=== PATIENT | male | born 1955 | race Two or more races ===

== ENCOUNTER 2016-07-04 19:19 | Inpatient (IN) | payer OTHER ==
[~2016-07-04] VITALS: Ht 172.7 cm; Wt 63.5 kg
[2016-07-04 20:08] VITALS: BP 96/64
[2016-07-04 20:13] LABS: EOSINOPHILS % (AUTO) 0.4 % (0.0-3.0); LYMPHOCYTES % (AUTO) 14.6 % (20.0-45.0); MEAN CORPUSCULAR HEMOGLOBIN 32.3 PG (27.0-31.0); MEAN CORPUSCULAR VOLUME 98 FL (80-99); MEAN PLATELET VOLUME 7.1 FL (6.5-10.1); MONOCYTES % (AUTO) 5.5 % (1.0-10.0); NEUTROPHILS % (AUTO) 78.5 % (45.0-75.0); PLATELET COUNT 267 K/UL (150-450); RED BLOOD COUNT 3.49 M/UL (4.70-6.10); RED CELL DISTRIBUTION WIDTH 12.3 % (11.6-14.8); WHITE BLOOD COUNT 12.4 K/UL (4.8-10.8)
[2016-07-04 20:27] LABS: INR 1.1 (0.9-1.1); PROTHROMBIN TIME 10.9 SEC (9.30-11.50)
[2016-07-04 20:38] LABS: TROPONIN I < 0.30 ng/mL (<=0.30)
[2016-07-04 20:41] LABS: ALANINE AMINOTRANSFERASE 60 U/L (3-41); ALBUMIN/GLOBULIN RATIO 0.4 (1.0-2.7); ANION GAP 16 (5-15); ASPARTATE AMINO TRANSFERASE 65 U/L (5-40); CALCIUM 11.7 mg/dL (8.6-10.2); CARBON DIOXIDE 28 mEQ/L (20-30); CHLORIDE 89 mEQ/L (98-107); CREATININE 2.5 mg/dL (0.7-1.2); GLOMERULAR FILTRATION RATE 26.6 mL/min (>60); HEMOLYSIS 46; POTASSIUM 4.7 mEQ/L (3.4-4.9); SODIUM 133 mEQ/L (135-145); TOTAL PROTEIN 9.5 g/dL (6.6-8.7)
[2016-07-04 20:51] LABS: CKMB < 1.5 ng/mL (< 6.7)
[2016-07-04 21:39] VITALS: BP 104/67
[2016-07-04] MEDS ORDERED: Miralax 17gm pkt ORAL PRN (23:00)
[2016-07-04] MEDS ORDERED: Morphine Sulfate 4mg/ml Inj IVP PRN (23:00)
[2016-07-04] MEDS ORDERED: DuoNeb 0.5-3(2.5)mg/3ml neb HHN PRN (23:00)
[2016-07-04 23:30] VITALS: BP 125/98
[2016-07-05 01:11] LABS: MEAN CORPUSCULAR HEMOGLOBIN 31.6 PG (27.0-31.0); MEAN CORPUSCULAR HGB CONC 32.6 G/DL (32.0-36.0); MEAN CORPUSCULAR VOLUME 97 FL (80-99); MEAN PLATELET VOLUME 7.5 FL (6.5-10.1); PLATELET COUNT 307 K/UL (150-450); RED BLOOD COUNT 3.28 M/UL (4.70-6.10); RED CELL DISTRIBUTION WIDTH 12.1 % (11.6-14.8)
[2016-07-05 01:28] LABS: CALCIUM 11.7 mg/dL (8.6-10.2); CREATININE 2.5 mg/dL (0.7-1.2); GLOMERULAR FILTRATION RATE 26.6 mL/min (>60); POTASSIUM 4.4 mEQ/L (3.4-4.9)
[2016-07-05 01:30] VITALS: BP 128/97
[2016-07-05 01:32] LABS: ALANINE AMINOTRANSFERASE 56 U/L (3-41); ALBUMIN/GLOBULIN RATIO 0.3 (1.0-2.7); ANION GAP 16 (5-15); ASPARTATE AMINO TRANSFERASE 58 U/L (5-40); CALCIUM 11.6 mg/dL (8.6-10.2); CARBON DIOXIDE 26 mEQ/L (20-30); CHLORIDE 90 mEQ/L (98-107); CREATININE 2.5 mg/dL (0.7-1.2); GLOMERULAR FILTRATION RATE 26.6 mL/min (>60); HEMOLYSIS 20; MAGNESIUM 2.8 mg/dL (1.7-2.5); POTASSIUM 4.5 mEQ/L (3.4-4.9); SODIUM 132 mEQ/L (135-145); TOTAL PROTEIN 9.3 g/dL (6.6-8.7)
[2016-07-05 03:30] VITALS: BP 129/96
[2016-07-05 08:00] VITALS: BP 99/67
--- NOTE | 2016-07-05 08:33 | Consultation ---
Consult Note Consult Note ID CONSULT: Saeid# [id number] Assessment/Plan ASSESSMENT: 61 y/o male with: // Possible sepsis r/o HCAP, UTI, bacteremia, biliary - cultures, imaging pending // Elevated LFTs r/o hepatobiliary disease // Leukocytosis - worse // Fever // Chronic VDRF SP trach, PEG with trach malfunction // CKD3 - stable // Hypercalcemia // NKDA // Full Code PLAN: - continue empiric IV vancomycin, cefepime d# 1 - check UA, UCx, BCx - check hepatitis panel, abdo US - f/u SCx - f/u CXR - monitor CBC, temperatures - monitor CMP - vent support, trach care, aspiration precautions Thanks! Will follow CRIS CRAR Jul 05, 2016 08:33
[2016-07-05] MEDS: Cefepime HCl 2 GM in D5W 110 ML IV SCH (09:00)
[2016-07-05 10:50] LABS: BAND NEUTROPHILS % (MANUAL) 1 % (0-8); BASOPHILS % (MANUAL) 0 % (0-2); EOSINOPHILS % (MANUAL) 0 % (0-3); HYPOCHROMASIA 1+; LYMPHOCYTES % (MANUAL) 9 % (20-45); NEUTROPHILS % (MANUAL) 78 % (45-75); PLATELET ESTIMATE ADEQUATE; PLATELET MORPHOLOGY NORMAL; TOTAL CELLS COUNTED 100
[2016-07-05] MEDS: Vancomycin 1 GM in D5W 275 ML IVPB SCH (11:50)
--- NOTE | 2016-07-05 11:58 | Diagnostic Imaging Report ---
Indication: Chest pain Technique: One view of the chest Comparison: none Findings: Ill-defined hazy opacities are seen in the infrahilar regions bilaterally. The pleural spaces are clear. There is a right arm PICC in good position. Surgical clips are seen in the left upper quadrant. There is a tracheostomy Impression: Bilateral infrahilar hazy opacities, suspect bilateral infiltrates. Other findings as noted
[2016-07-05 12:00] VITALS: BP 103/70
[2016-07-05] MEDS: Heparin 5000 units/ml inj SUBQ SCH ×2 (12:14→21:05)
--- NOTE | 2016-07-05 13:20 | History and Physical ---
History of Present Illness General Date patient seen: Jul 05, 2016 Reason for Hospitalization: General Complaint Present Illness HPI 61 year old male with hx of trach/peg, decubiti, OBS. senior care resident isidra b/o leading from trach site. Pt was diagnosed to have bilateral pneumonia and admitted to [facility] for further treatment. Pt opens his eyes, tracks but can't trach and doesn't follow commands. Allergies: Coded Allergies: No Known Allergies (Unverified , 07/04/16) Patient History Healthcare decision maker Resuscitation status Advanced Directive on File Past Medical/Surgical History Past Medical/Surgical History: (1) Tracheostomy status (2) Feeding by G-tube Review of Systems All Other Systems: negative except mentioned in HPI Physical Exam General Appearance: cachetic Lines, tubes and drains: peripheral, central line HEENT: normocephalic, atraumatic Neck: non-tender, normal alignment Respiratory/Chest: chest wall non-tender, lungs clear Breasts: no masses Cardiovascular/Chest: normal peripheral pulses Abdomen: normal bowel sounds, soft Genitourinary/Rectal: normal genital exam Extremities: normal range of motion Neurologic: logistics team lead II-XII grossly normal Lymphatic: anterior cervical Last 24 Hour Vital Signs Date Time Temp Pulse Resp B/P Pulse Ox O2 Delivery O2 Flow Rate FiO2 07/05/16 12:00 87 07/05/16 11:05 86 16 40 07/05/16 09:27 88 14 40 07/05/16 08:00 98.2 94 15 99/67 100 Mechanical Ventilator 40 07/05/16 08:00 97 07/05/16 08:00 40.0 07/05/16 07:09 87 13 40 07/05/16 05:20 95 15 40 07/05/16 04:00 40.0 07/05/16 04:00 98 07/05/16 03:30 99.8 106 17 129/96 100 Mechanical Ventilator 40 07/05/16 03:30 99.8 106 17 129/96 100 Mechanical Ventilator 40 07/05/16 03:03 73 26 40 07/05/16 01:30 98.9 110 18 128/97 98 Mechanical Ventilator 5.0 40 07/05/16 00:46 40 07/05/16 00:45 109 16 50 07/05/16 00:04 126 25 50 07/05/16 00:00 40 07/04/16 23:30 108 18 125/98 100 Mechanical Ventilator 5.0 50 07/04/16 21:39 100.0 84 17 104/67 99 Mechanical Ventilator 5.0 50 07/04/16 21:14 93 21 50 07/04/16 20:08 100.0 87 16 96/64 95 Mechanical Ventilator 5.0 50 07/04/16 19:46 92 16 50 07/04/16 19:25 50 07/04/16 19:15 112 16 96/64 95 Mechanical Ventilator 5.0 Intake and Output 07/04/16 07/05/16 19:00 07:00 Output Total 0 ml Balance 0 ml Output Urine Total 0 ml # Voids 2 Laboratory Tests Test 07/04/16 20:00 07/05/16 00:56 07/05/16 10:00 White Blood Count 12.4 K/UL (4.8-10.8) H 18.0 K/UL (4.8-10.8) H Red Blood Count 3.49 M/UL (4.70-6.10) L 3.28 M/UL (4.70-6.10) L Hemoglobin 11.3 G/DL (14.2-18.0) L 10.4 G/DL (14.2-18.0) L Hematocrit 34.2 % (42.0-52.0) L 31.8 % (42.0-52.0) L Mean Corpuscular Volume 98 FL (80-99) 97 FL (80-99) Mean Corpuscular Hemoglobin 32.3 PG (27.0-31.0) H 31.6 PG (27.0-31.0) H Mean Corpuscular Hemoglobin Concent 33.0 G/DL (32.0-36.0) 32.6 G/DL (32.0-36.0) Red Cell Distribution Width 12.3 % (11.6-14.8) 12.1 % (11.6-14.8) Platelet Count 267 K/UL (150-450) 307 K/UL (150-450) Mean Platelet Volume 7.1 FL (6.5-10.1) 7.5 FL (6.5-10.1) Neutrophils (%) (Auto) 78.5 % (45.0-75.0) H % (45.0-75.0) Lymphocytes (%) (Auto) 14.6 % (20.0-45.0) L % (20.0-45.0) Monocytes (%) (Auto) 5.5 % (1.0-10.0) % (1.0-10.0) Eosinophils (%) (Auto) 0.4 % (0.0-3.0) % (0.0-3.0) Basophils (%) (Auto) 1.0 % (0.0-2.0) % (0.0-2.0) Prothrombin Time 10.9 SEC (9.30-11.50) Prothromb Time International Ratio 1.1 (0.9-1.1) Activated Partial Thromboplast Time 25 SEC (23-33) Sodium Level 133 mEQ/L (135-145) L 134 mEQ/L (135-145) L Potassium Level 4.7 mEQ/L (3.4-4.9) 4.4 mEQ/L (3.4-4.9) Chloride Level 89 mEQ/L (98-107) L 91 mEQ/L (98-107) L Carbon Dioxide Level 28 mEQ/L (20-30) 30 mEQ/L (20-30) Anion Gap 16 (5-15) H 13 (5-15) Blood Urea Nitrogen 44 mg/dL (7-23) H 44 mg/dL (7-23) H Creatinine 2.5 mg/dL (0.7-1.2) H 2.5 mg/dL (0.7-1.2) H Estimat Glomerular Filtration Rate 26.6 mL/min (>60) 26.6 mL/min (>60) Glucose Level 100 mg/dL (74-106) 118 mg/dL (74-106) H Calcium Level 11.7 mg/dL (8.6-10.2) H 11.7 mg/dL (8.6-10.2) H Total Bilirubin 0.4 mg/dL (0.0-1.2) 0.5 mg/dL (0.0-1.2) Aspartate Amino Transf (AST/SGOT) 65 U/L (5-40) H 58 U/L (5-40) H Alanine Aminotransferase (ALT/SGPT) 60 U/L (3-41) H 56 U/L (3-41) H Alkaline Phosphatase 422 U/L (40-129) H 417 U/L (40-129) H Total Creatine Kinase 43 U/L (38-174) 38 U/L (38-174) Creatine Kinase MB < 1.5 ng/mL (< 6.7) Creatine Kinase MB Relative Index Troponin I < 0.30 ng/mL (<=0.30) Total Protein 9.5 g/dL (6.6-8.7) H 9.3 g/dL (6.6-8.7) H Albumin 2.8 g/dL (3.5-5.2) L 2.9 g/dL (3.5-5.2) L Globulin 6.7 g/dL 6.9 g/dL Albumin/Globulin Ratio 0.4 (1.0-2.7) L 0.3 (1.0-2.7) L Differential Total Cells Counted 100 Neutrophils % (Manual) 78 % (45-75) H Lymphocytes % (Manual) 9 % (20-45) L Monocytes % (Manual) 12 % (1-10) H Eosinophils % (Manual) 0 % (0-3) Basophils % (Manual) 0 % (0-2) Band Neutrophils 1 % (0-8) Platelet Estimate Adequate Platelet Morphology Normal Hypochromasia 1+ Plasma/Serum Osmolality Pending Uric Acid 6.0 mg/dL (3.0-7.5) Phosphorus Level 4.0 mg/dL (2.5-4.8) Magnesium Level 2.8 mg/dL (1.7-2.5) H Thyroid Stimulating Hormone (TSH) 1.080 uIU/mL (0.300-4.500) Free Thyroxine 1.68 ng/dL (0.86-1.85) Cortisol Pending Hepatitis A IgM Antibody Pending Hepatitis B Surface Antigen Pending Hepatitis B Core IgM Antibody Pending Hepatitis C Antibody Pending Height (Feet): 5 Height (Inches): 8.00 Weight (Pounds): 140 Medications Current Medications Medications (Trade) Dose Ordered Sig/Evangelina Route PRN Reason Start Time Stop Time Status Last Admin Dose Admin Acetaminophen (Tylenol) 650 mg Q4H PRN ORAL FEVER 07/04/16 23:00 08/03/16 22:59 Albuterol/ Ipratropium 3 ml 3 ml EVERY 4 HOURS PRN HHN Shortness of Breath 07/04/16 23:00 07/09/16 22:59 Cefepime HCl 2 gm/ Dextrose 110 ml @ 220 mls/hr Q24H IV 07/05/16 09:00 07/12/16 08:59 07/05/16 09:00 Dextrose STAT PRN IV Hypoglycemia 07/04/16 23:00 08/03/16 22:59 Heparin Sodium (Porcine) (Heparin 5000 units/ml) 5,000 units EVERY 12 HOURS SUBQ 07/05/16 09:00 08/04/16 08:59 07/05/16 12:14 Lorazepam (Ativan 2mg/ml 1ml) 2 mg EVERY 2 HOURS PRN IV For Anxiety 07/04/16 23:00 07/11/16 22:59 Morphine Sulfate (Morphine Sulfate) 4 mg EVERY 4 HOURS PRN IVP Severe Pain (Pain Scale 7-10) 07/04/16 23:00 07/11/16 22:59 Ondansetron HCl (Zofran) 4 mg Q6H PRN IVP Nausea & Vomiting 07/04/16 23:00 08/03/16 22:59 Polyethylene Glycol (Miralax) 17 gm DAILYPRN PRN ORAL Constipation 07/04/16 23:00 08/03/16 22:59 Sodium Chloride (Sodium Chloride 1000ml bag) 1,000 ml @ 125 mls/hr Q8H IV 07/04/16 23:00 08/03/16 22:59 07/05/16 07:00 Vancomycin HCl/ Dextrose (Vancomycin/D5W) 275 ml @ 183.3 mls/ hr Q24H IVPB 07/05/16 04:00 07/10/16 03:59 07/05/16 11:50 Assessment/Plan Problem List: (1) Acute on chronic respiratory failure ICD Codes: J96.20 - Acute and chronic respiratory failure, unspecified whether with hypoxia or hypercapnia SNOMED: 80107549, 35683472 (2) Pneumonia ICD Codes: J18.9 - Pneumonia, unspecified organism SNOMED: 923004538 (3) Tracheostomy status ICD Codes: Z93.0 - Tracheostomy status SNOMED: 94356703, 879525741 (4) ATN (acute tubular necrosis) ICD Codes: N17.0 - Acute kidney failure with tubular necrosis SNOMED: 25566859 (5) Feeding by G-tube ICD Codes: Z93.1 - Gastrostomy status SNOMED: 531116417, 731230368 Respiratory: monitor respiratory rate, adjust FIO2, CXR Cardiac: continue pressors, continue to monitor HR/BP Renal: check electrolytes Infectious Disease: check cultures, continue antibiotics Gastrointestinal: continue feedings/current rate Endocrine: monitor blood sugar, check TSH, continue sliding scale insulin Hematologic: monitor H/H, transfuse if hgb<8.5 Neurologic: PRN Ativan, PRN Morphine, keep patient comfortable Prophylaxis: Protonix, Heparin Disposition: keep in ICU Notes Reviewed: cardio, renal Discussed with: nurses, consultants ANDERSON NUNEZ Jul 05, 2016 13:19
[2016-07-05 13:41] LABS: APPEARANCE,URINE SLIGHTLY CLOUDY; KETONES,URINE NEGATIVE (NEGATIVE); LEUKOCYTE ESTERASE ,URINE 3+ (NEGATIVE); NITRITE,URINE NEGATIVE (NEGATIVE); PH,URINE 5 (4.5-8.0); PROTEIN,URINE 3+ (NEGATIVE); UROBILINOGEN,URINE NORMAL MG/DL (0.0-1.0)
--- NOTE | 2016-07-05 13:58 | Consultation ---
DATE OF CONSULTATION: 07/05/2016 INFECTIOUS DISEASE CONSULTATION: CONSULTING PHYSICIAN: Thomas Dawson M.D. ATTENDING PHYSICIAN: Jim Gonzalez M.D. REQUESTING PHYSICIAN: Jim Gonzalez M.D. REASON FOR CONSULTATION: Possible sepsis. HISTORY OF PRESENT ILLNESS: This is a 61-year-old male, long term resident with history of chronic ventilator-dependent respiratory failure, status post tracheostomy and PEG, admitted on 07/04/2016 with tracheostomy malfunction. He has evidence of possible sepsis with worsening leukocytosis and low-grade fevers. Cultures and imaging are pending. He has been started on empiric vancomycin and cefepime. ID now consulted to assist in management. PAST MEDICAL HISTORY: 1. Chronic ventilator-dependent respiratory failure. 2. Probable chronic kidney disease. PAST SURGICAL HISTORY: 1. Tracheostomy. 2. PEG tube placement. FAMILY HISTORY: Unknown. SOCIAL HISTORY: The patient is a resident in long term. No active tobacco, alcohol, or illicit drug abuse. ALLERGIES: No known drug allergies. MEDICATIONS: 1. Vancomycin. 2. Cefepime. 3. Subcutaneous heparin. REVIEW OF SYSTEMS: Unable to obtain. PHYSICAL EXAMINATION: VITAL SIGNS: Maximum temperature of 100 degrees, blood pressure 129/96, heart rate in the 90s, respiratory rate 17, saturating 100% on 40% FiO2. GENERAL: No apparent distress. Nontoxic appearing and thin. CARDIOVASCULAR: Regular rate and rhythm. No murmurs. PULMONARY: Coarse breath sounds bilaterally. ABDOMINAL: Exam bowel sounds present. Soft, nondistended, nontender. PEG tube in place. EXTREMITIES: No Edema. LABORATORY DATA: White blood cell count 18 and increased from 12.4 with left shift. Hemoglobin 10.4, platelets 307,000. Sodium 134, potassium 4.4, chloride 91, bicarbonate 30, BUN 44, and creatinine 2.5 with calcium of 11.7. AST 58, ALT 56, and alkaline phosphatase 417, total bilirubin 0.5 albumin 2.4 troponin negative x1. MICROBIOLOGY: On 07/04/2016, sputum culture pending. IMAGIN. On 07/04/2016, chest x-ray pending. 2. On 07/04/2016, renal ultrasound pending. 3. On 07/04/2016, Doppler ultrasound pending. ASSESSMENT: 1. Possible sepsis, rule out healthcare-associated pneumonia and urinary tract infection bacteremia, or biliary source. Cultures and imaging are pending. 2. Elevated liver function tests, rule out hepatobiliary disease. 3. Leukocytosis, worsening. 4. Low-grade fever. 5. Chronic ventilator-dependent respiratory failure, status post tracheostomy and percutaneous endoscopic gastrostomy with tracheostomy malfunction. 6. Chronic kidney disease stage 3 with stable function. 7. Hypercalcemia. 8. No known drug allergies. 9. Full Code. PLAN: 1. Continue empiric IV vancomycin and cefepime day #1. 2. Check urinalysis, urine culture, and blood culture. 3. Check hepatitis panel and abdominal ultrasound. 4. Follow up sputum culture. 5. Follow up chest x-ray. 6. Monitor CBC and temperatures. 7. Monitor CMP. 8. Ventilator support, tracheostomy care, and aspiration precautions. Thank you. We will follow. Thomas Dawson M.D. DR: Antonia JOB#: [id number] CC: Ryan Hyde M.D ; Fax#: [phone] Gonzalez M.D.; Fax#: [phone]
[2016-07-05 14:02] LABS: BACTERIA,URINE FEW /HPF; RBC,URINE 60-80 /HPF (0 - 0); SQUAMOUS EPITHELIAL CELL,UR OCCASIONAL /LPF (NONE/OCC); WBC,URINE 15-20 /HPF (0 - 0); YEAST,URINE FEW /HPF
[2016-07-05 15:53] VITALS: BP 106/77
--- NOTE | 2016-07-05 16:31 | Diagnostic Imaging Report ---
Indication: Right upper quadrant pain and abnormal liver function tests Technique: Hernandez-scale and duplex images of the upper abdomen were obtained Comparison: None Findings: . Gallbladder contains a large gallstone. No gallbladder wall thickening or pericholecystic fluid.. Sonographic Desir's sign is negative. Common bile duct measures 3 mm in diameter. No intrahepatic biliary ductal dilatation. Liver demonstrates normal echogenicity, no focal abnormality. Portal vein and hepatic veins are patent. Pancreas is unremarkable. Spleen is unremarkable. Left kidney is not visualized. Per technologist, patient has a left flank scar. Right kidney measures 10.9 cm length. Right kidney demonstrates normal echogenicity. There is no hydronephrosis. Right kidney demonstrates multiple cysts. Non-aneurysmal abdominal aorta. Impression: Cholelithiasis. Negative for dilated ducts Nonvisualized left kidney, possibly surgically absent. Correlate with surgical history Incidental finding right renal cysts
--- NOTE | 2016-07-05 18:11 | Consultation ---
Consult Note Consult Note This is a 61-year-old male, pen[facility]iary resident with history of chronic ventilator-dependent respiratory failure, status post tracheostomy and PEG, admitted on 07/04/2016 with tracheostomy malfunction. He has evidence of possible sepsis with worsening leukocytosis and low-grade fevers. assist in management. PAST MEDICAL HISTORY: 1. Chronic ventilator-dependent respiratory failure. 2. Probable chronic kidney disease. PAST SURGICAL HISTORY: 1. Tracheostomy. 2. PEG tube placement. Assessment/Plan Status: - Renal failure, likely Acute on Chronic - Possible sepsis, rule out healthcare-associated pneumonia and urinary tract infection bacteremia, or biliary source. - Elevated liver function tests, rule out hepatobiliary disease. - Chronic ventilator-dependent respiratory failure, status post tracheostomy and percutaneous endoscopic gastrostomy with tracheostomy malfunction. - Hypercalcemia. - Full Code. Plan: Blum- Hydrate- Monitor renal parameters and urine out put Kidney OCTAVIANO - Urine Studies Per orders MAGDA BRINK Jul 05, 2016 18:11
[2016-07-05 20:00] VITALS: BP 101/73
[2016-07-06] VITALS: BP_SYST 101; BP_SYST 123; BP_SYST 152; BP_DIAS 72; BP_DIAS 73; BP_DIAS 83
[2016-07-06 04:00] VITALS: BP 120/68
[2016-07-06] MEDS: Vancomycin 1 GM in D5W 275 ML IVPB SCH (05:00)
[2016-07-06 06:15] LABS: MEAN CORPUSCULAR HEMOGLOBIN 32.7 PG (27.0-31.0); MEAN CORPUSCULAR VOLUME 99 FL (80-99); MEAN PLATELET VOLUME 7.6 FL (6.5-10.1); PLATELET COUNT 199 K/UL (150-450); RED BLOOD COUNT 2.29 M/UL (4.70-6.10); RED CELL DISTRIBUTION WIDTH 12.3 % (11.6-14.8); WHITE BLOOD COUNT 11.4 K/UL (4.8-10.8)
[2016-07-06 06:30] LABS: ALBUMIN/GLOBULIN RATIO 0.4 (1.0-2.7); CALCIUM 8.8 mg/dL (8.6-10.2); CHOLESTEROL/HDL RATIO 3.1 (3.3-4.4); CREATININE 1.8 mg/dL (0.7-1.2); CRP QUANT 14.5 mg/dL (< 0.5); GLOMERULAR FILTRATION RATE 38.8 mL/min (>60); MAGNESIUM 2.2 mg/dL (1.7-2.5); PHOSPHORUS 2.1 mg/dL (2.5-4.8); POTASSIUM 3.7 mEQ/L (3.4-4.9); TOTAL PROTEIN 6.6 g/dL (6.6-8.7); URIC ACID 5.4 mg/dL (3.0-7.5)
[2016-07-06 06:43] LABS: THYROID STIMULATING HORMONE 0.451 uIU/mL (0.300-4.500)
--- NOTE | 2016-07-06 07:07 | Emergency Room Report ---
History of Present Illness General Chief Complaint: General Complaint Source: Patient Present Illness HPI Patient presents with complaints of discharge from the tracheostomy site Patient himself is nonverbal Patient is from a nursing facility and all history is obtained from wrapper rewinder reports the halfway report which is fairly minimal Unknown duration of time however sensory over the past 2-3 days there was some initial mild secretions however now has increased There was no reports of vomiting or diarrhea No reports of fevers or chills Unknown regarding last change of the tracheostomy Unknown last manipulation of this area Allergies: Coded Allergies: No Known Allergies (Unverified , 07/04/16) Patient History Limited by: medical condition Past Medical History: see triage record Pertinent Family History: none Reviewed Nursing Documentation: PMH: Agreed, PSxH: Agreed Nursing Documentation-PMH Past Medical History Deferred: Pt Cognitively Impaired Past Medical History: Deferred Hx Gastrointestinal Problems: Yes - unspecified abdominal surgery Hx Neurological Problems: Yes - Obtunded Review of Systems All Other Systems: limited - Other than the ones mentioned in the history of present illness all others are reviewed however they do stay limited due to the patient's mental status Physical Exam Vital Signs Date Time Temp Pulse Resp B/P Pulse Ox O2 Delivery O2 Flow Rate FiO2 07/04/16 19:15 112 16 96/64 95 Mechanical Ventilator 5.0 07/04/16 19:25 50 07/04/16 20:08 100.0 Sp02 EP Interpretation: reviewed, normal General Appearance: no apparent distress Head: normocephalic, atraumatic Eyes: bilateral eye PERRL ENT: other - Tracheostomy in place, there is a 4 x 4 around the tracheostomy site which has a clear discharge noted no obvious fluctuance, no stridor, Neck: supple Respiratory: lungs clear, normal breath sounds Cardiovascular #1: normal peripheral pulses, regular rate, rhythm Gastrointestinal: non tender, soft, no mass Musculoskeletal: other - Patient is chronically debilitated Neurologic: responsive - Has eyes open, tracks well with his eyes, but significantly decreased GCS Skin: other - multiple skin breakdowns Lymphatic: no adenopathy Medical Decision Making Diagnostic Impression: Primary Impression: Tracheostomy status Additional Impression: Tracheostomy complication ER Course At this time the patient's given the workup and examination does not show any obvious evidence of, malpositioning or stridor Or other airway pathology The tracheostomy does require likely further investigation and interrogation I did not feel that this was appropriate to the emergency room Patient has appropriate imaging no signs of any free air in a stable for further inpatient care Labs Test 07/04/16 20:00 07/05/16 00:56 07/05/16 10:00 07/05/16 13:20 White Blood Count 12.4 K/UL (4.8-10.8) 18.0 K/UL (4.8-10.8) Red Blood Count 3.49 M/UL (4.70-6.10) 3.28 M/UL (4.70-6.10) Hemoglobin 11.3 G/DL (14.2-18.0) 10.4 G/DL (14.2-18.0) Hematocrit 34.2 % (42.0-52.0) 31.8 % (42.0-52.0) Mean Corpuscular Volume 98 FL (80-99) 97 FL (80-99) Mean Corpuscular Hemoglobin 32.3 PG (27.0-31.0) 31.6 PG (27.0-31.0) Mean Corpuscular Hemoglobin Concent 33.0 G/DL (32.0-36.0) 32.6 G/DL (32.0-36.0) Red Cell Distribution Width 12.3 % (11.6-14.8) 12.1 % (11.6-14.8) Platelet Count 267 K/UL (150-450) 307 K/UL (150-450) Mean Platelet Volume 7.1 FL (6.5-10.1) 7.5 FL (6.5-10.1) Neutrophils (%) (Auto) 78.5 % (45.0-75.0) % (45.0-75.0) Lymphocytes (%) (Auto) 14.6 % (20.0-45.0) % (20.0-45.0) Monocytes (%) (Auto) 5.5 % (1.0-10.0) % (1.0-10.0) Eosinophils (%) (Auto) 0.4 % (0.0-3.0) % (0.0-3.0) Basophils (%) (Auto) 1.0 % (0.0-2.0) % (0.0-2.0) Prothrombin Time 10.9 SEC (9.30-11.50) Prothromb Time International Ratio 1.1 (0.9-1.1) Activated Partial Thromboplast Time 25 SEC (23-33) Sodium Level 133 mEQ/L (135-145) 134 mEQ/L (135-145) Potassium Level 4.7 mEQ/L (3.4-4.9) 4.4 mEQ/L (3.4-4.9) Chloride Level 89 mEQ/L (98-107) 91 mEQ/L (98-107) Carbon Dioxide Level 28 mEQ/L (20-30) 30 mEQ/L (20-30) Anion Gap 16 (5-15) 13 (5-15) Blood Urea Nitrogen 44 mg/dL (7-23) 44 mg/dL (7-23) Creatinine 2.5 mg/dL (0.7-1.2) 2.5 mg/dL (0.7-1.2) Estimat Glomerular Filtration Rate 26.6 mL/min (>60) 26.6 mL/min (>60) Glucose Level 100 mg/dL (74-106) 118 mg/dL (74-106) Calcium Level 11.7 mg/dL (8.6-10.2) 11.7 mg/dL (8.6-10.2) Total Bilirubin 0.4 mg/dL (0.0-1.2) 0.5 mg/dL (0.0-1.2) Aspartate Amino Transf (AST/SGOT) 65 U/L (5-40) 58 U/L (5-40) Alanine Aminotransferase (ALT/SGPT) 60 U/L (3-41) 56 U/L (3-41) Alkaline Phosphatase 422 U/L (40-129) 417 U/L (40-129) Total Creatine Kinase 43 U/L (38-174) 38 U/L (38-174) Creatine Kinase MB < 1.5 ng/mL (< 6.7) Creatine Kinase MB Relative Index Troponin I < 0.30 ng/mL (<=0.30) Total Protein 9.5 g/dL (6.6-8.7) 9.3 g/dL (6.6-8.7) Albumin 2.8 g/dL (3.5-5.2) 2.9 g/dL (3.5-5.2) Globulin 6.7 g/dL 6.9 g/dL Albumin/Globulin Ratio 0.4 (1.0-2.7) 0.3 (1.0-2.7) Differential Total Cells Counted 100 Neutrophils % (Manual) 78 % (45-75) Lymphocytes % (Manual) 9 % (20-45) Monocytes % (Manual) 12 % (1-10) Eosinophils % (Manual) 0 % (0-3) Basophils % (Manual) 0 % (0-2) Band Neutrophils 1 % (0-8) Platelet Estimate Adequate Platelet Morphology Normal Hypochromasia 1+ Uric Acid 6.0 mg/dL (3.0-7.5) Phosphorus Level 4.0 mg/dL (2.5-4.8) Magnesium Level 2.8 mg/dL (1.7-2.5) Thyroid Stimulating Hormone (TSH) 1.080 uIU/mL (0.300-4.500) Free Thyroxine 1.68 ng/dL (0.86-1.85) Urine Color Yellow Urine Appearance Slightly cloudy Urine pH 5 (4.5-8.0) Urine Specific Lorraine 1.020 (1.005-1.035) Urine Protein 3+ (NEGATIVE) Urine Glucose (UA) Negative (NEGATIVE) Urine Ketones Negative (NEGATIVE) Urine Occult Blood 5+ (NEGATIVE) Urine Nitrite Negative (NEGATIVE) Urine Bilirubin Negative (NEGATIVE) Urine Urobilinogen Normal MG/DL (0.0-1.0) Urine Leukocyte Esterase 3+ (NEGATIVE) Urine RBC 60-80 /HPF (0 - 0) Urine WBC 15-20 /HPF (0 - 0) Urine Squamous Epithelial Cells Occasional /LPF Urine Bacteria Few /HPF (NONE) Urine Yeast Few /HPF (NONE) Urine Eosinophils None seen Urine Random Sodium 24 mmol/L Urine Random Chloride 21 mmol/L Urine Potassium Timed 38 mmol/L Test 07/06/16 04:00 07/06/16 05:00 White Blood Count 11.4 K/UL (4.8-10.8) Red Blood Count 2.29 M/UL (4.70-6.10) Hemoglobin 7.5 G/DL (14.2-18.0) Hematocrit 22.6 % (42.0-52.0) Mean Corpuscular Volume 99 FL (80-99) Mean Corpuscular Hemoglobin 32.7 PG (27.0-31.0) Mean Corpuscular Hemoglobin Concent 33.0 G/DL (32.0-36.0) Red Cell Distribution Width 12.3 % (11.6-14.8) Platelet Count 199 K/UL (150-450) Mean Platelet Volume 7.6 FL (6.5-10.1) Neutrophils (%) (Auto) % (45.0-75.0) Lymphocytes (%) (Auto) % (20.0-45.0) Monocytes (%) (Auto) % (1.0-10.0) Eosinophils (%) (Auto) % (0.0-3.0) Basophils (%) (Auto) % (0.0-2.0) Sodium Level 140 mEQ/L (135-145) Potassium Level 3.7 mEQ/L (3.4-4.9) Chloride Level 103 mEQ/L (98-107) Carbon Dioxide Level 24 mEQ/L (20-30) Anion Gap 13 (5-15) Blood Urea Nitrogen 36 mg/dL (7-23) Creatinine 1.8 mg/dL (0.7-1.2) Estimat Glomerular Filtration Rate 38.8 mL/min (>60) Glucose Level 97 mg/dL (74-106) Uric Acid 5.4 mg/dL (3.0-7.5) Calcium Level 8.8 mg/dL (8.6-10.2) Phosphorus Level 2.1 mg/dL (2.5-4.8) Magnesium Level 2.2 mg/dL (1.7-2.5) Total Bilirubin 0.3 mg/dL (0.0-1.2) Gamma Glutamyl Transpeptidase 197 U/L (8-61) Aspartate Amino Transf (AST/SGOT) 27 U/L (5-40) Alanine Aminotransferase (ALT/SGPT) 31 U/L (3-41) Alkaline Phosphatase 262 U/L (40-129) C-Reactive Protein, Quantitative 14.5 mg/dL (< 0.5) Pro-B-Type Natriuretic Peptide 225 pg/mL (0-125) Total Protein 6.6 g/dL (6.6-8.7) Albumin 2.0 g/dL (3.5-5.2) Globulin 4.6 g/dL Albumin/Globulin Ratio 0.4 (1.0-2.7) Triglycerides Level 143 mg/dL (< 150) Cholesterol Level 87 mg/dL (< 200) LDL Cholesterol 30 mg/dL (60-99) HDL Cholesterol 28 mg/dL (> 60) Cholesterol/HDL Ratio 3.1 (3.3-4.4) Thyroid Stimulating Hormone (TSH) 0.451 uIU/mL (0.300-4.500) EKG Diagnostic Results Rate: normal Rhythm: NSR ST Segments: other - nonspecific ST and T-wave changes Rhythm Strip Diag. Results EP Interpretation: yes Rate: 77 Rhythm: NSR, no PVC's, no ectopy Chest X-Ray Diagnostic Results EP Interpretation: Yes Findings: no consolidation, no effusion, no pneumothorax, other - Bilateral muscles markings, atelectasis versus other Number of Views: 1 Last Vital Signs Date Time Temp Pulse Resp B/P Pulse Ox O2 Delivery O2 Flow Rate FiO2 07/06/16 05:06 74 21 40 07/06/16 04:00 97.6 120/68 100 Mechanical Ventilator 07/05/16 20:00 10.0 Status: improved Disposition: ADMITTED INPATIENT Condition: Serious Referrals: NON PHYSICIAN (PCP) ANGIE KELLEY D.O. Jul 06, 2016 07:07
[2016-07-06 08:00] VITALS: BP 124/75
[2016-07-06 08:28] LABS: HEMOGLOBIN A1C 5.4 % (< 6.0)
[2016-07-06 08:45] LABS: BAND NEUTROPHILS % (MANUAL) 0 % (0-8); BASOPHILS % (MANUAL) 0 % (0-2); EOSINOPHILS % (MANUAL) 0 % (0-3); HYPOCHROMASIA 1+; LYMPHOCYTES % (MANUAL) 22 % (20-45); NEUTROPHILS % (MANUAL) 77 % (45-75); PLATELET ESTIMATE ADEQUATE; PLATELET MORPHOLOGY NORMAL; TOTAL CELLS COUNTED 100
[2016-07-06] MEDS: Cefepime HCl 2 GM in D5W 110 ML IV SCH (08:51)
[2016-07-06] MEDS: Heparin 5000 units/ml inj SUBQ SCH (08:53)
--- NOTE | 2016-07-06 09:03 | Infectious Diseases Prog Note ---
Assessment/Plan Assessment/Plan ASSESSMENT: 61 y/o male with: // Probable HCAP - SCx pending - CXR 07/05: Bilateral infrahilar hazy opacities, suspect bilateral infiltrates. // Possible UTI - UCx pending // Probable sepsis // Elevated LFTs - improved - US: Cholelithiasis. Negative for dilated duct // Leukocytosis - improved // Fever - improved // Chronic VDRF SP trach, PEG with trach malfunction // CKD3 - stable // Hypercalcemia // NKDA // Full Code PLAN: - continue empiric IV vancomycin, cefepime d# 10-28 - f/u cultures - f/u hepatitis panel - monitor CBC, temperatures - monitor CMP - vent support, trach care, aspiration precautions Subjective Allergies: Coded Allergies: No Known Allergies (Unverified , 07/04/16) Subjective fever resolved Objective Vital Signs Last 24 Hour Vital Signs Date Time Temp Pulse Resp B/P Pulse Ox O2 Delivery O2 Flow Rate FiO2 07/06/16 06:57 77 21 40 07/06/16 05:06 74 21 40 07/06/16 04:00 40 07/06/16 04:00 97.6 92 24 120/68 100 Mechanical Ventilator 40 07/06/16 03:40 92 07/06/16 03:28 72 14 40 07/06/16 01:28 78 22 40 07/06/16 00:00 97.0 94 21 123/72 99 Mechanical Ventilator 40 07/06/16 00:00 98.0 89 18 152/83 98 Room Air 07/06/16 00:00 40 07/06/16 00:00 94 07/05/16 22:45 81 14 40 07/05/16 21:14 82 21 40 07/05/16 20:00 10.0 40 07/05/16 20:00 97.5 94 18 101/73 100 Mechanical Ventilator 07/05/16 19:46 88 07/05/16 19:14 84 17 40 07/05/16 17:16 86 17 40 07/05/16 16:00 40.0 07/05/16 16:00 95 07/05/16 15:53 96.8 100 20 106/77 100 Mechanical Ventilator 40 07/05/16 14:20 88 16 40 07/05/16 13:27 87 16 40 07/05/16 12:00 97.7 90 18 103/70 100 Mechanical Ventilator 40 07/05/16 12:00 87 07/05/16 12:00 40.0 07/05/16 11:05 86 16 40 07/05/16 09:27 88 14 40 Height (Feet): 5 Height (Inches): 8.00 Weight (Pounds): 140 General Appearance: no acute distress HEENT: status post trach Respiratory/Chest: decreased breath sounds Cardiovascular: normal rate, regular rhythm Abdomen: normal bowel sounds, soft, non tender, non distended Microbiology Date/Time Source Procedure Growth Status 07/04/16 20:37 Rectum VRE Culture - Final Enterococcus Faecium - Vre Complete Laboratory Tests Test 07/05/16 10:00 07/05/16 13:20 07/06/16 04:00 07/06/16 05:00 Hepatitis A IgM Antibody Pending Hepatitis B Surface Antigen Pending Hepatitis B Core IgM Antibody Pending Hepatitis C Antibody Pending Urine Color Yellow Urine Appearance Slightly cloudy Urine pH 5 (4.5-8.0) Urine Specific [place] 1.020 (1.005-1.035) Urine Protein 3+ (NEGATIVE) H Urine Glucose (UA) Negative (NEGATIVE) Urine Ketones Negative (NEGATIVE) Urine Occult Blood 5+ (NEGATIVE) H Urine Nitrite Negative (NEGATIVE) Urine Bilirubin Negative (NEGATIVE) Urine Urobilinogen Normal MG/DL (0.0-1.0) Urine Leukocyte Esterase 3+ (NEGATIVE) H Urine RBC 60-80 /HPF (0 - 0) H Urine WBC 15-20 /HPF (0 - 0) H Urine Squamous Epithelial Cells Occasional /LPF Urine Bacteria Few /HPF (NONE) Urine Yeast Few /HPF (NONE) H Urine Eosinophils None seen Non seen Urine Random Sodium 24 mmol/L 27 mmol/L Urine Random Chloride 21 mmol/L Urine Potassium Timed 38 mmol/L White Blood Count 11.4 K/UL (4.8-10.8) H Red Blood Count 2.29 M/UL (4.70-6.10) L Hemoglobin 7.5 G/DL (14.2-18.0) L Hematocrit 22.6 % (42.0-52.0) L Mean Corpuscular Volume 99 FL (80-99) Mean Corpuscular Hemoglobin 32.7 PG (27.0-31.0) H Mean Corpuscular Hemoglobin Concent 33.0 G/DL (32.0-36.0) Red Cell Distribution Width 12.3 % (11.6-14.8) Platelet Count 199 K/UL (150-450) Mean Platelet Volume 7.6 FL (6.5-10.1) Neutrophils (%) (Auto) % (45.0-75.0) Lymphocytes (%) (Auto) % (20.0-45.0) Monocytes (%) (Auto) % (1.0-10.0) Eosinophils (%) (Auto) % (0.0-3.0) Basophils (%) (Auto) % (0.0-2.0) Differential Total Cells Counted 100 Neutrophils % (Manual) 77 % (45-75) H Lymphocytes % (Manual) 22 % (20-45) Monocytes % (Manual) 1 % (1-10) Eosinophils % (Manual) 0 % (0-3) Basophils % (Manual) 0 % (0-2) Band Neutrophils 0 % (0-8) Platelet Estimate Adequate Platelet Morphology Normal Hypochromasia 1+ Sodium Level 140 mEQ/L (135-145) Potassium Level 3.7 mEQ/L (3.4-4.9) Chloride Level 103 mEQ/L (98-107) Carbon Dioxide Level 24 mEQ/L (20-30) Anion Gap 13 (5-15) Blood Urea Nitrogen 36 mg/dL (7-23) H Creatinine 1.8 mg/dL (0.7-1.2) H Estimat Glomerular Filtration Rate 38.8 mL/min (>60) Glucose Level 97 mg/dL (74-106) Hemoglobin A1c 5.4 % (< 6.0) Uric Acid 5.4 mg/dL (3.0-7.5) Calcium Level 8.8 mg/dL (8.6-10.2) # Phosphorus Level 2.1 mg/dL (2.5-4.8) L Magnesium Level 2.2 mg/dL (1.7-2.5) Total Bilirubin 0.3 mg/dL (0.0-1.2) Gamma Glutamyl Transpeptidase 197 U/L (8-61) H Aspartate Amino Transf (AST/SGOT) 27 U/L (5-40) Alanine Aminotransferase (ALT/SGPT) 31 U/L (3-41) Alkaline Phosphatase 262 U/L (40-129) H C-Reactive Protein, Quantitative 14.5 mg/dL (< 0.5) H Pro-B-Type Natriuretic Peptide 225 pg/mL (0-125) H Total Protein 6.6 g/dL (6.6-8.7) Albumin 2.0 g/dL (3.5-5.2) L Globulin 4.6 g/dL Albumin/Globulin Ratio 0.4 (1.0-2.7) L Triglycerides Level 143 mg/dL (< 150) Cholesterol Level 87 mg/dL (< 200) LDL Cholesterol 30 mg/dL (60-99) L HDL Cholesterol 28 mg/dL (> 60) Cholesterol/HDL Ratio 3.1 (3.3-4.4) L Thyroid Stimulating Hormone (TSH) 0.451 uIU/mL (0.300-4.500) Current Medications Medications (Trade) Dose Ordered Sig/Evangelina Route PRN Reason Start Time Stop Time Status Last Admin Dose Admin Acetaminophen (Tylenol) 650 mg Q4H PRN ORAL FEVER 07/04/16 23:00 08/03/16 22:59 Albuterol/ Ipratropium 3 ml 3 ml EVERY 4 HOURS PRN HHN Shortness of Breath 07/04/16 23:00 07/09/16 22:59 Calcitonin [place] (Miacalcin) 1 sprays DAILY NASAL 07/05/16 19:45 08/04/16 19:44 07/06/16 08:51 Cefepime HCl 2 gm/ Dextrose 110 ml @ 220 mls/hr Q24H IV 07/05/16 09:00 07/12/16 08:59 07/06/16 08:51 Dextrose STAT PRN IV Hypoglycemia 07/04/16 23:00 08/03/16 22:59 Heparin Sodium (Porcine) (Heparin 5000 units/ml) 5,000 units EVERY 12 HOURS SUBQ 07/05/16 09:00 08/04/16 08:59 07/06/16 08:53 Lorazepam (Ativan 2mg/ml 1ml) 2 mg EVERY 2 HOURS PRN IV For Anxiety 07/04/16 23:00 07/11/16 22:59 Morphine Sulfate (Morphine Sulfate) 4 mg EVERY 4 HOURS PRN IVP Severe Pain (Pain Scale 7-10) 07/04/16 23:00 07/11/16 22:59 Ondansetron HCl (Zofran) 4 mg Q6H PRN IVP Nausea & Vomiting 07/04/16 23:00 08/03/16 22:59 Polyethylene Glycol (Miralax) 17 gm DAILYPRN PRN ORAL Constipation 07/04/16 23:00 08/03/16 22:59 Sodium Chloride (Sodium Chloride 1000ml bag) 1,000 ml @ 125 mls/hr Q8H IV 07/04/16 23:00 08/03/16 22:59 07/06/16 05:00 Vancomycin HCl/ Dextrose (Vancomycin/D5W) 275 ml @ 183.3 mls/ hr Q24H IVPB 07/05/16 04:00 07/10/16 03:59 07/06/16 05:00 CRIS CARR 18, 2017 09:03
--- NOTE | 2016-07-06 09:43 | General Progress Note ---
Assessment/Plan Problem List: (1) Pneumonia ICD Codes: J18.9 - Pneumonia, unspecified organism SNOMED: 524849668 (2) Feeding by G-tube ICD Codes: Z93.1 - Gastrostomy status SNOMED: 783325500, 018064747 (3) ATN (acute tubular necrosis) ICD Codes: N17.0 - Acute kidney failure with tubular necrosis SNOMED: 49110196 (4) Acute on chronic respiratory failure ICD Codes: J96.20 - Acute and chronic respiratory failure, unspecified whether with hypoxia or hypercapnia SNOMED: 60008002, 77770349 (5) Tracheostomy complication ICD Codes: J95.00 - Unspecified tracheostomy complication SNOMED: 87729623 Assessment/Plan continue same monitor renal function transfuse follow up labs consider GI evaluation will call and discuss Subjective ROS Limited/Unobtainable: Yes Allergies: Coded Allergies: No Known Allergies (Unverified , 07/04/16) Objective Last 24 Hour Vital Signs Date Time Temp Pulse Resp B/P Pulse Ox O2 Delivery O2 Flow Rate FiO2 07/06/16 09:18 83 16 40 07/06/16 06:57 77 21 40 07/06/16 05:06 74 21 40 07/06/16 04:00 40 07/06/16 04:00 97.6 92 24 120/68 100 Mechanical Ventilator 40 07/06/16 03:40 92 07/06/16 03:28 72 14 40 07/06/16 01:28 78 22 40 07/06/16 00:00 97.0 94 21 123/72 99 Mechanical Ventilator 40 07/06/16 00:00 98.0 89 18 152/83 98 Room Air 07/06/16 00:00 40 07/06/16 00:00 94 07/05/16 22:45 81 14 40 07/05/16 21:14 82 21 40 07/05/16 20:00 10.0 40 07/05/16 20:00 97.5 94 18 101/73 100 Mechanical Ventilator 07/05/16 19:46 88 07/05/16 19:14 84 17 40 07/05/16 17:16 86 17 40 07/05/16 16:00 40.0 07/05/16 16:00 95 07/05/16 15:53 96.8 100 20 106/77 100 Mechanical Ventilator 40 07/05/16 14:20 88 16 40 07/05/16 13:27 87 16 40 07/05/16 12:00 97.7 90 18 103/70 100 Mechanical Ventilator 40 07/05/16 12:00 87 07/05/16 12:00 40.0 07/05/16 11:05 86 16 40 Intake and Output 07/05/16 07/06/16 19:00 07:00 Intake Total 665 ml 1709.0 ml Output Total 200 ml 550 ml Balance 465 ml 1159.0 ml Intake Free Water 200 ml IV Total 225 ml 1549.0 ml Tube Feeding 240 ml 160 ml Output Urine Total 200 ml 550 ml # Bowel Movements 1 Laboratory Tests 07/05/16 10:00: Hepatitis A IgM Antibody [Pending], Hepatitis B Surface Antigen [Pending], Hepatitis B Core IgM Antibody [Pending], Hepatitis C Antibody [Pending] 07/05/16 13:20: Urine Color Yellow, Urine Appearance Slightly cloudy, Urine pH 5, Urine Specific [place] 1.020, Urine Protein 3+H, Urine Glucose (UA) Negative, Urine Ketones Negative, Urine Occult Blood 5+H, Urine Nitrite Negative, Urine Bilirubin Negative, Urine Urobilinogen Normal, Urine Leukocyte Esterase 3+H, Urine RBC 60-80H, Urine WBC 15-20H, Urine Squamous Epithelial Cells Occasional, Urine Bacteria Few, Urine Yeast FewH, Urine Eosinophils None seen, Urine Random Sodium 24, Urine Random Chloride 21, Urine Potassium Timed 38 07/06/16 04:00: Urine Eosinophils Non seen, Urine Random Sodium 27 07/06/16 05:00: White Blood Count 11.4H, Red Blood Count 2.29L, Hemoglobin 7.5L, Hematocrit 22.6L, Mean Corpuscular Volume 99, Mean Corpuscular Hemoglobin 32.7H, Mean Corpuscular Hemoglobin Concent 33.0, Red Cell Distribution Width 12.3, Platelet Count 199, Mean Platelet Volume 7.6, Neutrophils (%) (Auto) , Lymphocytes (%) ( Auto) , Monocytes (%) (Auto) , Eosinophils (%) (Auto) , Basophils (%) (Auto) , Differential Total Cells Counted 100, Neutrophils % (Manual) 77H, Lymphocytes % (Manual) 22, Monocytes % (Manual) 1, Eosinophils % (Manual) 0, Basophils % ( Manual) 0, Band Neutrophils 0, Platelet Estimate Adequate, Platelet Morphology Normal, Hypochromasia 1+, Sodium Level 140, Potassium Level 3.7, Chloride Level 103, Carbon Dioxide Level 24, Anion Gap 13, Blood Urea Nitrogen 36H, Creatinine 1.8H, Estimat Glomerular Filtration Rate 38.8, Glucose Level 97, Hemoglobin A1c 5.4, Uric Acid 5.4, Calcium Level 8.8#, Phosphorus Level 2.1L, Magnesium Level 2.2, Total Bilirubin 0.3, Gamma Glutamyl Transpeptidase 197H, Aspartate Amino Transf (AST/SGOT) 27, Alanine Aminotransferase (ALT/SGPT) 31, Alkaline Phosphatase 262H, C-Reactive Protein, Quantitative 14.5H, Pro-B-Type Natriuretic Peptide 225H, Total Protein 6.6, Albumin 2.0L, Globulin 4.6, Albumin /Globulin Ratio 0.4L, Triglycerides Level 143, Cholesterol Level 87, LDL Cholesterol 30L, HDL Cholesterol 28, Cholesterol/HDL Ratio 3.1L, Thyroid Stimulating Hormone (TSH) 0.451 Height (Feet): 5 Height (Inches): 8.00 Weight (Pounds): 140 Objective WDWN chronically ill NAD reduced breath sounds bilaterally without rhonchi or wheeze [id number] without MRG NABS nontender no HSM; GT no CC contracted Trach nonfocal HALINA REMY Jul 06, 2016 09:43
--- NOTE | 2016-07-06 09:52 | General Progress Note ---
Assessment/Plan Status: stable Status Narrative Hgb lowe- Cr lower- Calcium lower- Assessment/Plan - Renal failure, likely Acute on Chronic - Possible sepsis, rule out healthcare-associated pneumonia and urinary tract infection bacteremia, or biliary source. - Elevated liver function tests, rule out hepatobiliary disease. - Chronic ventilator-dependent respiratory failure, status post tracheostomy and percutaneous endoscopic gastrostomy with tracheostomy malfunction. - Hypercalcemia. - Full Code. Plan: transfuse Blum- Lower Hydrate- Monitor renal parameters and urine out put Kidney OCTAVIANO - Nonvisualized left kidney, possibly surgically absent. Correlate with surgical history Urine Studies Per orders Subjective ROS Limited/Unobtainable: Yes Allergies: Coded Allergies: No Known Allergies (Unverified , 07/04/16) Objective Last 24 Hour Vital Signs Date Time Temp Pulse Resp B/P Pulse Ox O2 Delivery O2 Flow Rate FiO2 07/06/16 09:18 83 16 40 07/06/16 06:57 77 21 40 07/06/16 05:06 74 21 40 07/06/16 04:00 40 07/06/16 04:00 97.6 92 24 120/68 100 Mechanical Ventilator 40 07/06/16 03:40 92 07/06/16 03:28 72 14 40 07/06/16 01:28 78 22 40 07/06/16 00:00 97.0 94 21 123/72 99 Mechanical Ventilator 40 07/06/16 00:00 98.0 89 18 152/83 98 Room Air 07/06/16 00:00 40 07/06/16 00:00 94 07/05/16 22:45 81 14 40 07/05/16 21:14 82 21 40 07/05/16 20:00 10.0 40 07/05/16 20:00 97.5 94 18 101/73 100 Mechanical Ventilator 07/05/16 19:46 88 07/05/16 19:14 84 17 40 07/05/16 17:16 86 17 40 07/05/16 16:00 40.0 07/05/16 16:00 95 07/05/16 15:53 96.8 100 20 106/77 100 Mechanical Ventilator 40 07/05/16 14:20 88 16 40 07/05/16 13:27 87 16 40 07/05/16 12:00 97.7 90 18 103/70 100 Mechanical Ventilator 40 07/05/16 12:00 87 07/05/16 12:00 40.0 07/05/16 11:05 86 16 40 Intake and Output 07/05/16 07/06/16 19:00 07:00 Intake Total 665 ml 1709.0 ml Output Total 200 ml 550 ml Balance 465 ml 1159.0 ml Intake Free Water 200 ml IV Total 225 ml 1549.0 ml Tube Feeding 240 ml 160 ml Output Urine Total 200 ml 550 ml # Bowel Movements 1 Laboratory Tests 07/05/16 10:00: Hepatitis A IgM Antibody [Pending], Hepatitis B Surface Antigen [Pending], Hepatitis B Core IgM Antibody [Pending], Hepatitis C Antibody [Pending] 07/05/16 13:20: Urine Color Yellow, Urine Appearance Slightly cloudy, Urine pH 5, Urine Specific [place] 1.020, Urine Protein 3+H, Urine Glucose (UA) Negative, Urine Ketones Negative, Urine Occult Blood 5+H, Urine Nitrite Negative, Urine Bilirubin Negative, Urine Urobilinogen Normal, Urine Leukocyte Esterase 3+H, Urine RBC 60-80H, Urine WBC 15-20H, Urine Squamous Epithelial Cells Occasional, Urine Bacteria Few, Urine Yeast FewH, Urine Eosinophils None seen, Urine Random Sodium 24, Urine Random Chloride 21, Urine Potassium Timed 38 07/06/16 04:00: Urine Eosinophils Non seen, Urine Random Sodium 27 07/06/16 05:00: White Blood Count 11.4H, Red Blood Count 2.29L, Hemoglobin 7.5L, Hematocrit 22.6L, Mean Corpuscular Volume 99, Mean Corpuscular Hemoglobin 32.7H, Mean Corpuscular Hemoglobin Concent 33.0, Red Cell Distribution Width 12.3, Platelet Count 199, Mean Platelet Volume 7.6, Neutrophils (%) (Auto) , Lymphocytes (%) ( Auto) , Monocytes (%) (Auto) , Eosinophils (%) (Auto) , Basophils (%) (Auto) , Differential Total Cells Counted 100, Neutrophils % (Manual) 77H, Lymphocytes % (Manual) 22, Monocytes % (Manual) 1, Eosinophils % (Manual) 0, Basophils % ( Manual) 0, Band Neutrophils 0, Platelet Estimate Adequate, Platelet Morphology Normal, Hypochromasia 1+, Sodium Level 140, Potassium Level 3.7, Chloride Level 103, Carbon Dioxide Level 24, Anion Gap 13, Blood Urea Nitrogen 36H, Creatinine 1.8H, Estimat Glomerular Filtration Rate 38.8, Glucose Level 97, Hemoglobin A1c 5.4, Uric Acid 5.4, Calcium Level 8.8#, Phosphorus Level 2.1L, Magnesium Level 2.2, Total Bilirubin 0.3, Gamma Glutamyl Transpeptidase 197H, Aspartate Amino Transf (AST/SGOT) 27, Alanine Aminotransferase (ALT/SGPT) 31, Alkaline Phosphatase 262H, C-Reactive Protein, Quantitative 14.5H, Pro-B-Type Natriuretic Peptide 225H, Total Protein 6.6, Albumin 2.0L, Globulin 4.6, Albumin /Globulin Ratio 0.4L, Triglycerides Level 143, Cholesterol Level 87, LDL Cholesterol 30L, HDL Cholesterol 28, Cholesterol/HDL Ratio 3.1L, Thyroid Stimulating Hormone (TSH) 0.451 Height (Feet): 5 Height (Inches): 8.00 Weight (Pounds): 140 General Appearance: no apparent distress Objective physical exam not changed MAGDA BRINK Jul 06, 2016 09:52
[2016-07-06 12:00] VITALS: BP 107/68
[2016-07-06 12:10] LABS: CORTISOL LC 24.9 ug/dL (.)
[2016-07-06] MEDS ORDERED: Fluconazole 200mg/100ml (Pre-Mix) IV ONE (15:00)
[2016-07-06 16:00] VITALS: BP 106/64
[2016-07-06] MEDS ORDERED: NS 275ml ONE (16:22)
[2016-07-06] MEDS ORDERED: Tubing Blood Filter IV ONE (16:22)
[2016-07-06 20:00] VITALS: BP 107/67
--- NOTE | 2016-07-06 21:08 | Consultation ---
DATE OF CONSULTATION: 07/06/2016 REFERRING PHYSICIAN: Ney Centeno M.D. CONSULTING PHYSICIAN: Rajat Orosco M.D. REASON FOR CONSULTATION: For evaluation of hematuria. HISTORY OF PRESENT ILLNESS: This is a 61-year-old male. He is a resident of a custodial. He has a history of respiratory failure, vent dependent, PEG, tracheostomy, probable chronic Blum, has chronic kidney disease, and there was hematuria noted. The patient is nonverbal and most of the history was obtained from the chart. PAST MEDICAL HISTORY: Chart was reviewed. MEDICATIONS: Medication list was reviewed. PHYSICAL EXAMINATION: GENITOURINARY: An 18-[place] Blum in place. Urine is grossly bloody. Catheter does not appear to be in good position. LABORATORY AND DIAGNOSTIC DATA: His BUN is 36, creatinine 1.8, and potassium 3.7. White count is 7.4, hemoglobin 7.5, and there was a drop in platelets of 199,000. Urinalysis showed 60 to 80 RBCs and 15 to 20 WBCs. His urine culture shows yeast. Diagnostic imaging studies, the patient had an abdominal ultrasound, the left kidney was not visualized and right kidney was normal, no hydronephrosis. There was mention of renal cyst. Procedure done at bedside, I was not able to irrigate the existing catheter and I do not believe it is in the bladder and I believe the patient may have pulled it out. I had tried to advancing it into the bladder, which did not go. I also tried a Coude catheter, which would not go, as such passed what I believe is a stricture, this was gently dilated and I was able to pass a 16-[place] tip catheter after which I was able to irrigate it and it was in good position. IMPRESSION: 1. Hematuria, probably secondary to Blum trauma. 2. Urinary retention. 3. Probable neurogenic bladder. 4. Probable urethral stricture. 5. Chronic renal insufficiency. 6. Pyuria and urinary tract infection. 7. Renal cyst. PLAN/DISCUSSION: As noted above. The existing catheter was not in the bladder and his hematuria is most likely secondary to Blum trauma. I was able to pass Blum into the bladder, which was sutured to his legs. The catheter will be irrigated on a p.r.n. basis. He will be monitored clinically and I would probably recommend him to be off anticoagulation at this point. Thank you for this consultation. Rajat Orosco M.D. DR: ABEL JOB#: [id number] CC:
--- NOTE | 2016-07-06 21:48 | Consultation ---
DATE OF CONSULTATION: 07/06/2016 GASTROENTEROLOGY CONSULTATION CHIEF COMPLAINT: . The patient was admitted to the hospital with complaint of pneumonia, anemia, and dysphagia. HISTORY OF PRESENT ILLNESS: Most of the history is per chart. The patient is intubated and has a G-tube and had bleeding from the tracheal site. PAST MEDICAL HISTORY: 1. History of respiratory failure, on trach. 2. Dysphagia with PEG. 3. Pneumonia. 4. Renal insufficiency. MEDICATIONS: Please see medication reconciliation sheet. ALLERGIES: No known drug allergies. SOCIAL HISTORY: Currently, lives in a facility. No recent history of tobacco, alcohol, or drug abuse. FAMILY HISTORY: Noncontributory. REVIEW OF SYSTEMS: Unable to obtain. PHYSICAL EXAMINATION: VITAL SIGNS: Temperature 97.6 degrees, pulse 83, respirations 16, and blood pressure 120/68. HEENT: Normocephalic and atraumatic. Mild pale conjunctiva. NECK: Supple. No jugular venous distention. CARDIOVASCULAR: Tachycardia. Plus S1 and S2. LUNGS: Decreased breath sound bilaterally. ABDOMEN: Soft. G-tube in place. No rebound. No guarding. No peritoneal sign. EXTREMITIES: No cyanosis. No clubbing. No edema. LABORATORY AND DIAGNOSTIC DATA: Sodium 140, potassium 3.7, BUN is 36 and creatinine is 1.8. White count 11.4, hemoglobin 7.5, hematocrit 22.6, and platelet count is 199,000. ASSESSMENT AND PLAN: This is a 61-year-old male with multiple medical problems, with respiratory failure, dysphagia, anemia, and renal insufficiency now with significant bleeding both from the trachea site and also from the penile site. According to the nurses, the patient had a blood clot coming from the bladder from the urine. Plan is to stop the subcutaneous heparin given the patient is bleeding, transfuse as needed to keep hemoglobin above 8. Continue on G-tube feeding. Send the stool for occult blood. The patient most probably needs a Urology consultation. We will follow. Yung Muhammad M.D. DR: HARI JOB#: [id number] CC:
[2016-07-07] VITALS: BP 117/68
[2016-07-07 03:47] LABS: BASOPHILS % (AUTO) 0.5 % (0.0-2.0); EOSINOPHILS % (AUTO) 1.8 % (0.0-3.0); LYMPHOCYTES % (AUTO) 10.5 % (20.0-45.0); MEAN CORPUSCULAR HEMOGLOBIN 31.5 PG (27.0-31.0); MEAN CORPUSCULAR HGB CONC 33.1 G/DL (32.0-36.0); MEAN CORPUSCULAR VOLUME 95 FL (80-99); MEAN PLATELET VOLUME 7.2 FL (6.5-10.1); MONOCYTES % (AUTO) 7.4 % (1.0-10.0); NEUTROPHILS % (AUTO) 79.8 % (45.0-75.0); PLATELET COUNT 195 K/UL (150-450); RED BLOOD COUNT 2.61 M/UL (4.70-6.10); RED CELL DISTRIBUTION WIDTH 13.7 % (11.6-14.8); WHITE BLOOD COUNT 9.3 K/UL (4.8-10.8)
[2016-07-07] MEDS: Vancomycin 1 GM in D5W 275 ML IVPB SCH (03:56)
[2016-07-07 04:00] VITALS: BP 138/70
[2016-07-07 08:00] VITALS: BP 115/67
--- NOTE | 2016-07-07 08:48 | General Progress Note ---
Assessment/Plan Problem List: (1) Pneumonia ICD Codes: J18.9 - Pneumonia, unspecified organism SNOMED: 561403751 (2) Feeding by G-tube ICD Codes: Z93.1 - Gastrostomy status SNOMED: 088343458, 660714947 (3) ATN (acute tubular necrosis) ICD Codes: N17.0 - Acute kidney failure with tubular necrosis SNOMED: 73203257 (4) Acute on chronic respiratory failure ICD Codes: J96.20 - Acute and chronic respiratory failure, unspecified whether with hypoxia or hypercapnia SNOMED: 05678229, 44464668 (5) Tracheostomy complication ICD Codes: J95.00 - Unspecified tracheostomy complication SNOMED: 41666653 Assessment/Plan other medical problems hematuria PLAN continue same monitor renal function transfuse follow up labs consider GI evaluation evaluation called update family Subjective Allergies: Coded Allergies: No Known Allergies (Unverified , 07/04/16) Subjective reduced LOC Objective Last 24 Hour Vital Signs Date Time Temp Pulse Resp B/P Pulse Ox O2 Delivery O2 Flow Rate FiO2 07/07/16 07:21 82 20 40 07/07/16 04:44 83 25 40 07/07/16 04:00 76 07/07/16 04:00 98.4 77 19 138/70 99 Mechanical Ventilator 40 07/07/16 04:00 40 07/07/16 02:48 91 18 40 07/07/16 01:26 95 26 40 07/07/16 00:00 97.9 70 18 117/68 97 Mechanical Ventilator 40 07/07/16 00:00 40 07/07/16 00:00 71 07/06/16 22:57 78 14 40 07/06/16 21:08 72 18 40 07/06/16 20:00 97.1 74 18 107/67 100 Mechanical Ventilator 40 07/06/16 20:00 40 07/06/16 20:00 73 07/06/16 20:00 68 12 40 07/06/16 17:05 79 19 40 07/06/16 16:00 40 07/06/16 16:00 97.6 84 17 106/64 100 Mechanical Ventilator 40 07/06/16 16:00 81 07/06/16 15:00 73 27 40 07/06/16 12:51 73 19 40 07/06/16 12:00 40 07/06/16 12:00 97.9 86 17 107/68 100 Mechanical Ventilator 40 07/06/16 12:00 83 07/06/16 10:32 75 24 40 07/06/16 09:18 83 16 40 Intake and Output 07/06/16 07/07/16 19:00 07:00 Intake Total 1380 ml 1323.7 ml Output Total 300 ml 625 ml Balance 1080 ml 698.7 ml Intake Free Water 200 ml IV Total 450 ml 843.7 ml Tube Feeding 480 ml 480 ml Blood Product 250 ml Output Urine Total 300 ml 625 ml # Bowel Movements 2 2 Laboratory Tests 07/07/16 03:20: White Blood Count 9.3, Red Blood Count 2.61L, Hemoglobin 8.2L, Hematocrit 24.8L , Mean Corpuscular Volume 95, Mean Corpuscular Hemoglobin 31.5H, Mean Corpuscular Hemoglobin Concent 33.1, Red Cell Distribution Width 13.7, Platelet Count 195, Mean Platelet Volume 7.2, Neutrophils (%) (Auto) 79.8H, Lymphocytes ( %) (Auto) 10.5L, Monocytes (%) (Auto) 7.4, Eosinophils (%) (Auto) 1.8, Basophils (%) (Auto) 0.5, Vancomycin Level Trough 19.8H 07/07/16 04:00: Urine Eosinophils None seen Height (Feet): 5 Height (Inches): 8.00 Weight (Pounds): 140 Objective WDWN chronically ill NAD reduced breath sounds bilaterally without rhonchi or wheeze [id number] without MRG NABS nontender no HSM; GT no CC contracted Trach nonfocal hematuria noted HALINA REMY Jul 07, 2016 08:48
--- NOTE | 2016-07-07 09:00 | Infectious Diseases Prog Note ---
Assessment/Plan Assessment/Plan ASSESSMENT: 61 y/o male with: // Probable HCAP - SCx pending - CXR 07/05: Bilateral infrahilar hazy opacities, suspect bilateral infiltrates. // Yeast UTI // Sepsis SP // Elevated LFTs - improved, hepatitis panel(-) - US: Cholelithiasis. Negative for dilated duct // Leukocytosis - resolved // Fever - resolved // Chronic VDRF SP trach, PEG with trach malfunction // CKD3 - stable // Hypercalcemia // NKDA // Full Code PLAN: - continue cefepime d# 3 / -10, fluconazole d# 2 / . DC IV vancomycin d# 3 - f/u cultures - monitor CBC, temperatures - monitor CMP - vent support, trach care, aspiration precautions Subjective Allergies: Coded Allergies: No Known Allergies (Unverified , 07/04/16) Subjective remains afebrile on vent Objective Vital Signs Last 24 Hour Vital Signs Date Time Temp Pulse Resp B/P Pulse Ox O2 Delivery O2 Flow Rate FiO2 07/07/16 07:21 82 20 40 07/07/16 04:44 83 25 40 07/07/16 04:00 76 07/07/16 04:00 98.4 77 19 138/70 99 Mechanical Ventilator 40 07/07/16 04:00 40 07/07/16 02:48 91 18 40 07/07/16 01:26 95 26 40 07/07/16 00:00 97.9 70 18 117/68 97 Mechanical Ventilator 40 07/07/16 00:00 40 07/07/16 00:00 71 07/06/16 22:57 78 14 40 07/06/16 21:08 72 18 40 07/06/16 20:00 97.1 74 18 107/67 100 Mechanical Ventilator 40 07/06/16 20:00 40 07/06/16 20:00 73 07/06/16 20:00 68 12 40 07/06/16 17:05 79 19 40 07/06/16 16:00 40 07/06/16 16:00 97.6 84 17 106/64 100 Mechanical Ventilator 40 07/06/16 16:00 81 07/06/16 15:00 73 27 40 07/06/16 12:51 73 19 40 07/06/16 12:00 40 07/06/16 12:00 97.9 86 17 107/68 100 Mechanical Ventilator 40 07/06/16 12:00 83 07/06/16 10:32 75 24 40 07/06/16 09:18 83 16 40 Height (Feet): 5 Height (Inches): 8.00 Weight (Pounds): 140 General Appearance: no acute distress HEENT: status post trach Respiratory/Chest: decreased breath sounds Cardiovascular: normal rate, regular rhythm Abdomen: normal bowel sounds, soft, non tender, non distended Microbiology Date/Time Source Procedure Growth Status 07/06/16 05:15 Blood Blood Culture - Preliminary NO GROWTH AFTER 24 HOURS Resulted 07/06/16 05:00 Blood Blood Culture - Preliminary NO GROWTH AFTER 24 HOURS Resulted 07/04/16 20:37 Nasal Nares MRSA Culture - Final Staphylococcus Aureus - Mrsa Complete 07/05/16 13:20 Urine,Clean Catch Urine Culture - Preliminary Yeast Species Resulted 07/04/16 20:37 Rectum VRE Culture - Final Enterococcus Faecium - Vre Complete Laboratory Tests Test 07/07/16 03:20 07/07/16 04:00 White Blood Count 9.3 K/UL (4.8-10.8) Red Blood Count 2.61 M/UL (4.70-6.10) L Hemoglobin 8.2 G/DL (14.2-18.0) L Hematocrit 24.8 % (42.0-52.0) L Mean Corpuscular Volume 95 FL (80-99) Mean Corpuscular Hemoglobin 31.5 PG (27.0-31.0) H Mean Corpuscular Hemoglobin Concent 33.1 G/DL (32.0-36.0) Red Cell Distribution Width 13.7 % (11.6-14.8) Platelet Count 195 K/UL (150-450) Mean Platelet Volume 7.2 FL (6.5-10.1) Neutrophils (%) (Auto) 79.8 % (45.0-75.0) H Lymphocytes (%) (Auto) 10.5 % (20.0-45.0) L Monocytes (%) (Auto) 7.4 % (1.0-10.0) Eosinophils (%) (Auto) 1.8 % (0.0-3.0) Basophils (%) (Auto) 0.5 % (0.0-2.0) Vancomycin Level Trough 19.8 ug/mL (5.0-12.0) H Urine Eosinophils None seen Current Medications Medications (Trade) Dose Ordered Sig/Evangelina Route PRN Reason Start Time Stop Time Status Last Admin Dose Admin Acetaminophen (Tylenol) 650 mg Q4H PRN ORAL FEVER 07/04/16 23:00 08/03/16 22:59 Albuterol/ Ipratropium 3 ml 3 ml EVERY 4 HOURS PRN HHN Shortness of Breath 07/04/16 23:00 07/09/16 22:59 Cefepime HCl 2 gm/ Dextrose 110 ml @ 220 mls/hr Q24H IV 07/05/16 09:00 07/12/16 08:59 07/06/16 08:51 Dextrose STAT PRN IV Hypoglycemia 07/04/16 23:00 08/03/16 22:59 Fluconazole (Diflucan 100mg/ 50ml) 50 ml @ 50 mls/hr Q24H IV 07/07/16 15:00 07/14/16 14:59 Lorazepam (Ativan 2mg/ml 1ml) 2 mg EVERY 2 HOURS PRN IV For Anxiety 07/04/16 23:00 07/11/16 22:59 Morphine Sulfate (Morphine Sulfate) 4 mg EVERY 4 HOURS PRN IVP Severe Pain (Pain Scale 7-10) 07/04/16 23:00 07/11/16 22:59 Ondansetron HCl (Zofran) 4 mg Q6H PRN IVP Nausea & Vomiting 07/04/16 23:00 08/03/16 22:59 Polyethylene Glycol (Miralax) 17 gm DAILYPRN PRN ORAL Constipation 07/04/16 23:00 08/03/16 22:59 Sodium Chloride (Sodium Chloride 1000ml bag) 1,000 ml @ 75 mls/hr [id number] IV 07/06/16 11:00 08/05/16 10:59 07/07/16 02:12 Vancomycin HCl 1 ea 1 ea DAILY PRN MISC . 07/06/16 13:30 08/05/16 13:29 Vancomycin HCl/ Dextrose (Vancomycin/D5W) 275 ml @ 183.3 mls/ hr Q24H IVPB 07/05/16 04:00 07/10/16 03:59 07/07/16 03:56 CRIS CARR 19, 2017 09:00
--- NOTE | 2016-07-07 09:44 | General Progress Note ---
Assessment/Plan Problem List: (1) Anemia ICD Codes: D64.9 - Anemia, unspecified SNOMED: 513081439 (2) Renal insufficiency ICD Codes: N28.9 - Disorder of kidney and ureter, unspecified SNOMED: 144361639 (3) Tracheostomy status ICD Codes: Z93.0 - Tracheostomy status SNOMED: 05038470, 196406093 (4) Tracheostomy complication ICD Codes: J95.00 - Unspecified tracheostomy complication SNOMED: 48639421 (5) Feeding by G-tube ICD Codes: Z93.1 - Gastrostomy status SNOMED: 187561466, 162100626 Assessment/Plan gtf fu H&H prn blood transfusion fu urology recs Subjective ROS Limited/Unobtainable: No Allergies: Coded Allergies: No Known Allergies (Unverified , 07/04/16) Objective Last 24 Hour Vital Signs Date Time Temp Pulse Resp B/P Pulse Ox O2 Delivery O2 Flow Rate FiO2 07/07/16 09:26 80 20 40 07/07/16 08:00 98.2 82 24 115/67 Mechanical Ventilator 40 07/07/16 08:00 82 07/07/16 08:00 40 07/07/16 07:21 82 20 40 07/07/16 04:44 83 25 40 07/07/16 04:00 76 07/07/16 04:00 98.4 77 19 138/70 99 Mechanical Ventilator 40 07/07/16 04:00 40 07/07/16 02:48 91 18 40 07/07/16 01:26 95 26 40 07/07/16 00:00 97.9 70 18 117/68 97 Mechanical Ventilator 40 07/07/16 00:00 40 07/07/16 00:00 71 07/06/16 22:57 78 14 40 07/06/16 21:08 72 18 40 07/06/16 20:00 97.1 74 18 107/67 100 Mechanical Ventilator 40 07/06/16 20:00 40 07/06/16 20:00 73 07/06/16 20:00 68 12 40 07/06/16 17:05 79 19 40 07/06/16 16:00 40 07/06/16 16:00 97.6 84 17 106/64 100 Mechanical Ventilator 40 07/06/16 16:00 81 07/06/16 15:00 73 27 40 07/06/16 12:51 73 19 40 07/06/16 12:00 40 07/06/16 12:00 97.9 86 17 107/68 100 Mechanical Ventilator 40 07/06/16 12:00 83 07/06/16 10:32 75 24 40 Intake and Output 07/06/16 07/07/16 19:00 07:00 Intake Total 1380 ml 1323.7 ml Output Total 300 ml 625 ml Balance 1080 ml 698.7 ml Intake Free Water 200 ml IV Total 450 ml 843.7 ml Tube Feeding 480 ml 480 ml Blood Product 250 ml Output Urine Total 300 ml 625 ml # Bowel Movements 2 2 Laboratory Tests 07/07/16 03:20: White Blood Count 9.3, Red Blood Count 2.61L, Hemoglobin 8.2L, Hematocrit 24.8L , Mean Corpuscular Volume 95, Mean Corpuscular Hemoglobin 31.5H, Mean Corpuscular Hemoglobin Concent 33.1, Red Cell Distribution Width 13.7, Platelet Count 195, Mean Platelet Volume 7.2, Neutrophils (%) (Auto) 79.8H, Lymphocytes ( %) (Auto) 10.5L, Monocytes (%) (Auto) 7.4, Eosinophils (%) (Auto) 1.8, Basophils (%) (Auto) 0.5, Vancomycin Level Trough 19.8H 07/07/16 04:00: Urine Eosinophils None seen Height (Feet): 5 Height (Inches): 8.00 Weight (Pounds): 140 General Appearance: no apparent distress EENT: normal ENT inspection Neck: supple Cardiovascular: normal rate Respiratory/Chest: decreased breath sounds Abdomen: normal bowel sounds, non tender, soft Extremities: non-tender SLY ANDRADE Jul 07, 2016 09:44
--- NOTE | 2016-07-07 09:53 | Urology Progress Note ---
Assessment/Plan Assessment/Plan 1. Hematuria, probably secondary to Kamara trauma. 2. Urinary retention. 3. Probable neurogenic bladder. 4. Probable urethral stricture. 5. Chronic renal insufficiency. 6. Pyuria and urinary tract infection. 7. Renal cyst. keep kamara hand irrigated irrigate PRN abx monitor h/h, renal fxn Subjective Allergies: Coded Allergies: No Known Allergies (Unverified , 07/04/16) Subjective non-verbal Objective Last 24 Hour Vital Signs Date Time Temp Pulse Resp B/P Pulse Ox O2 Delivery O2 Flow Rate FiO2 07/07/16 09:26 80 20 40 07/07/16 08:00 98.2 82 24 115/67 Mechanical Ventilator 40 07/07/16 08:00 82 07/07/16 08:00 40 07/07/16 07:21 82 20 40 07/07/16 04:44 83 25 40 07/07/16 04:00 76 07/07/16 04:00 98.4 77 19 138/70 99 Mechanical Ventilator 40 07/07/16 04:00 40 07/07/16 02:48 91 18 40 07/07/16 01:26 95 26 40 07/07/16 00:00 97.9 70 18 117/68 97 Mechanical Ventilator 40 07/07/16 00:00 40 07/07/16 00:00 71 07/06/16 22:57 78 14 40 07/06/16 21:08 72 18 40 07/06/16 20:00 97.1 74 18 107/67 100 Mechanical Ventilator 40 07/06/16 20:00 40 07/06/16 20:00 73 07/06/16 20:00 68 12 40 07/06/16 17:05 79 19 40 07/06/16 16:00 40 07/06/16 16:00 97.6 84 17 106/64 100 Mechanical Ventilator 40 07/06/16 16:00 81 07/06/16 15:00 73 27 40 07/06/16 12:51 73 19 40 07/06/16 12:00 40 07/06/16 12:00 97.9 86 17 107/68 100 Mechanical Ventilator 40 07/06/16 12:00 83 07/06/16 10:32 75 24 40 Intake and Output 07/06/16 07/07/16 19:00 07:00 Intake Total 1380 ml 1323.7 ml Output Total 300 ml 625 ml Balance 1080 ml 698.7 ml Intake Free Water 200 ml IV Total 450 ml 843.7 ml Tube Feeding 480 ml 480 ml Blood Product 250 ml Output Urine Total 300 ml 625 ml # Bowel Movements 2 2 Microbiology Date/Time Source Procedure Growth Status 07/06/16 05:15 Blood Blood Culture - Preliminary NO GROWTH AFTER 24 HOURS Resulted 07/04/16 20:37 Nasal Nares MRSA Culture - Final Staphylococcus Aureus - Mrsa Complete 07/05/16 13:20 Urine,Clean Catch Urine Culture - Preliminary Yeast Species Resulted 07/04/16 20:37 Rectum VRE Culture - Final Enterococcus Faecium - Vre Complete Current Medications Medications (Trade) Dose Ordered Sig/Evangelina Route PRN Reason Start Time Stop Time Status Last Admin Dose Admin Acetaminophen (Tylenol) 650 mg Q4H PRN ORAL FEVER 07/04/16 23:00 08/03/16 22:59 Albuterol/ Ipratropium 3 ml 3 ml EVERY 4 HOURS PRN HHN Shortness of Breath 07/04/16 23:00 07/09/16 22:59 Cefepime HCl 2 gm/ Dextrose 110 ml @ 220 mls/hr Q24H IV 07/05/16 09:00 07/12/16 08:59 07/06/16 08:51 Dextrose STAT PRN IV Hypoglycemia 07/04/16 23:00 08/03/16 22:59 Fluconazole (Diflucan 100mg/ 50ml) 50 ml @ 50 mls/hr Q24H IV 07/07/16 15:00 07/14/16 14:59 Lorazepam (Ativan 2mg/ml 1ml) 2 mg EVERY 2 HOURS PRN IV For Anxiety 07/04/16 23:00 07/11/16 22:59 Morphine Sulfate (Morphine Sulfate) 4 mg EVERY 4 HOURS PRN IVP Severe Pain (Pain Scale 7-10) 07/04/16 23:00 07/11/16 22:59 Ondansetron HCl (Zofran) 4 mg Q6H PRN IVP Nausea & Vomiting 07/04/16 23:00 08/03/16 22:59 Polyethylene Glycol (Miralax) 17 gm DAILYPRN PRN ORAL Constipation 07/04/16 23:00 08/03/16 22:59 Sodium Chloride (Sodium Chloride 1000ml bag) 1,000 ml @ 75 mls/hr [id number] IV 07/06/16 11:00 08/05/16 10:59 07/07/16 02:12 Vancomycin HCl 1 ea 1 ea DAILY PRN MISC . 07/06/16 13:30 07/07/16 23:59 Vancomycin HCl/ Dextrose (Vancomycin/D5W) 275 ml @ 183.3 mls/ hr Q24H IVPB 07/05/16 04:00 07/07/16 23:59 07/07/16 03:56 Laboratory Tests 07/07/16 03:20: White Blood Count 9.3, Red Blood Count 2.61L, Hemoglobin 8.2L, Hematocrit 24.8L , Mean Corpuscular Volume 95, Mean Corpuscular Hemoglobin 31.5H, Mean Corpuscular Hemoglobin Concent 33.1, Red Cell Distribution Width 13.7, Platelet Count 195, Mean Platelet Volume 7.2, Neutrophils (%) (Auto) 79.8H, Lymphocytes ( %) (Auto) 10.5L, Monocytes (%) (Auto) 7.4, Eosinophils (%) (Auto) 1.8, Basophils (%) (Auto) 0.5, Vancomycin Level Trough 19.8H 07/07/16 04:00: Urine Eosinophils None seen Height (Feet): 5 Height (Inches): 8.00 Weight (Pounds): 140 Objective kamara indwelling, urine clearing BRENT ANTONY Jul 07, 2016 09:53
[2016-07-07] MEDS: LORazepam Inj 2mg/ml 1ml IV PRN ×2 (10:23→16:15)
[2016-07-07] MEDS: Cefepime HCl 2 GM in D5W 110 ML IV SCH (10:24)
[2016-07-07 12:00] VITALS: BP 123/68
--- NOTE | 2016-07-07 13:10 | General Progress Note ---
Assessment/Plan Status: stable - from renal stand Status Narrative Ca lower Assessment/Plan - Renal failure, likely Acute on Chronic - Possible sepsis, rule out healthcare-associated pneumonia and urinary tract infection bacteremia, or biliary source. - Elevated liver function tests, rule out hepatobiliary disease. - Chronic ventilator-dependent respiratory failure, status post tracheostomy and percutaneous endoscopic gastrostomy with tracheostomy malfunction. - Hypercalcemia. - Full Code. Plan: no chem panel today Blum- Lower Hydrate- Monitor renal parameters and urine out put Kidney OCTAVIANO - Nonvisualized left kidney, possibly surgically absent. Correlate with surgical history Urine Studies Per orders Subjective ROS Limited/Unobtainable: Yes Allergies: Coded Allergies: No Known Allergies (Unverified , 07/04/16) Objective Last 24 Hour Vital Signs Date Time Temp Pulse Resp B/P Pulse Ox O2 Delivery O2 Flow Rate FiO2 07/07/16 12:00 97.7 75 17 123/68 100 Mechanical Ventilator 40 07/07/16 11:16 81 18 40 07/07/16 09:26 80 20 40 07/07/16 08:00 98.2 82 24 115/67 Mechanical Ventilator 40 07/07/16 08:00 82 07/07/16 08:00 40 07/07/16 07:21 82 20 40 07/07/16 04:44 83 25 40 07/07/16 04:00 76 07/07/16 04:00 98.4 77 19 138/70 99 Mechanical Ventilator 40 07/07/16 04:00 40 07/07/16 02:48 91 18 40 07/07/16 01:26 95 26 40 07/07/16 00:00 97.9 70 18 117/68 97 Mechanical Ventilator 40 07/07/16 00:00 40 07/07/16 00:00 71 07/06/16 22:57 78 14 40 07/06/16 21:08 72 18 40 07/06/16 20:00 97.1 74 18 107/67 100 Mechanical Ventilator 40 07/06/16 20:00 40 07/06/16 20:00 73 07/06/16 20:00 68 12 40 07/06/16 17:05 79 19 40 07/06/16 16:00 40 07/06/16 16:00 97.6 84 17 106/64 100 Mechanical Ventilator 40 07/06/16 16:00 81 07/06/16 15:00 73 27 40 Intake and Output 07/06/16 07/07/16 19:00 07:00 Intake Total 1380 ml 1323.7 ml Output Total 300 ml 625 ml Balance 1080 ml 698.7 ml Intake Free Water 200 ml IV Total 450 ml 843.7 ml Tube Feeding 480 ml 480 ml Blood Product 250 ml Output Urine Total 300 ml 625 ml # Bowel Movements 2 2 Laboratory Tests 07/07/16 03:20: White Blood Count 9.3, Red Blood Count 2.61L, Hemoglobin 8.2L, Hematocrit 24.8L , Mean Corpuscular Volume 95, Mean Corpuscular Hemoglobin 31.5H, Mean Corpuscular Hemoglobin Concent 33.1, Red Cell Distribution Width 13.7, Platelet Count 195, Mean Platelet Volume 7.2, Neutrophils (%) (Auto) 79.8H, Lymphocytes ( %) (Auto) 10.5L, Monocytes (%) (Auto) 7.4, Eosinophils (%) (Auto) 1.8, Basophils (%) (Auto) 0.5, Vancomycin Level Trough 19.8H 07/07/16 04:00: Urine Eosinophils None seen Height (Feet): 5 Height (Inches): 8.00 Weight (Pounds): 140 General Appearance: no apparent distress Objective physical exam not changed MAGDA BRINK Jul 07, 2016 13:10
[2016-07-07] MEDS ORDERED: Sterile Water Irrig 1000ml IRRIG ONE (15:27)
[2016-07-07 16:00] VITALS: BP 102/61
[2016-07-07] MEDS: FLUCONAZOLE IV SCH (18:20)
[2016-07-07] MEDS: [UNRECOGNIZED DRUG - OTHER] IV SCH (18:20)
[2016-07-07 20:00] VITALS: BP 126/76
[2016-07-08] VITALS: BP 128/71
[2016-07-08 04:00] VITALS: BP 109/71
[2016-07-08 06:23] LABS: BASOPHILS % (AUTO) 0.8 % (0.0-2.0); EOSINOPHILS % (AUTO) 2.6 % (0.0-3.0); LYMPHOCYTES % (AUTO) 12.8 % (20.0-45.0); MEAN CORPUSCULAR HEMOGLOBIN 30.7 PG (27.0-31.0); MEAN CORPUSCULAR HGB CONC 31.9 G/DL (32.0-36.0); MEAN CORPUSCULAR VOLUME 96 FL (80-99); MONOCYTES % (AUTO) 7.2 % (1.0-10.0); NEUTROPHILS % (AUTO) 76.7 % (45.0-75.0); PLATELET COUNT 185 K/UL (150-450); RED BLOOD COUNT 2.62 M/UL (4.70-6.10); RED CELL DISTRIBUTION WIDTH 13.9 % (11.6-14.8); WHITE BLOOD COUNT 9.3 K/UL (4.8-10.8)
[2016-07-08 07:10] LABS: ALBUMIN/GLOBULIN RATIO 0.4 (1.0-2.7); CALCIUM 9.6 mg/dL (8.6-10.2); CREATININE 1.4 mg/dL (0.7-1.2); GLOMERULAR FILTRATION RATE 51.9 mL/min (>60); MAGNESIUM 3.4 mg/dL (1.7-2.5); PHOSPHORUS 2.4 mg/dL (2.5-4.8); POTASSIUM 4.3 mEQ/L (3.4-4.9); TOTAL PROTEIN 7.1 g/dL (6.6-8.7); URIC ACID 4.5 mg/dL (3.0-7.5)
[2016-07-08 08:00] VITALS: BP 126/67
[2016-07-08] MEDS: Cefepime HCl 2 GM in D5W 110 ML IV SCH (08:28)
--- NOTE | 2016-07-08 08:30 | Infectious Diseases Prog Note ---
Assessment/Plan Assessment/Plan ASSESSMENT: 61 y/o male with: // Streptococcal bacteremia / r/o VRE, SBE, CLABSI // Probable HCAP - SCx pending - CXR 07/05: Bilateral infrahilar hazy opacities, suspect bilateral infiltrates. // Yeast UTI // Sepsis SP // Elevated LFTs - improved, hepatitis panel(-) - US: Cholelithiasis. Negative for dilated duct // Leukocytosis - resolved // Fever - resolved // Chronic VDRF SP trach, PEG with trach malfunction // CKD3 - stable // Hypercalcemia // MRSA, VRE colonized // NKDA // Full Code PLAN: - continue cefepime d# 4 / -10, fluconazole d# 3 / . Resume IV vancomycin d# 4 pending C&S - repeat BCx, may need PICC change - check TTE - f/u cultures - monitor CBC, temperatures - monitor CMP - vent support, trach care, aspiration precautions d/w RN Subjective Allergies: Coded Allergies: No Known Allergies (Unverified , 07/04/16) Subjective remains afebrile on vent BCx strep 07/23 - I was not notified Objective Vital Signs Last 24 Hour Vital Signs Date Time Temp Pulse Resp B/P Pulse Ox O2 Delivery O2 Flow Rate FiO2 07/08/16 07:41 98 18 40 07/08/16 05:11 95 18 40 07/08/16 04:00 98.4 87 18 109/71 100 Mechanical Ventilator 40 07/08/16 04:00 40 07/08/16 04:00 91 07/08/16 03:35 105 15 40 07/08/16 01:29 98 15 40 07/08/16 00:00 40 07/08/16 00:00 97.7 78 16 128/71 100 Mechanical Ventilator 40 07/08/16 00:00 75 07/07/16 23:38 101 18 40 07/07/16 21:25 101 18 40 07/07/16 20:00 40 07/07/16 20:00 81 07/07/16 20:00 97.0 81 18 126/76 100 Mechanical Ventilator 40 07/07/16 19:28 77 18 40 07/07/16 17:27 84 15 40 07/07/16 16:00 40 07/07/16 16:00 98.2 80 20 102/61 99 Mechanical Ventilator 40 07/07/16 16:00 80 07/07/16 15:07 83 20 40 07/07/16 12:52 84 20 40 07/07/16 12:00 40 07/07/16 12:00 71 07/07/16 12:00 97.7 75 17 123/68 100 Mechanical Ventilator 40 07/07/16 11:16 81 18 40 07/07/16 09:26 80 20 40 Height (Feet): 5 Height (Inches): 8.00 Weight (Pounds): 140 General Appearance: no acute distress HEENT: status post trach Respiratory/Chest: no respiratory distress Cardiovascular: normal rate, regular rhythm Abdomen: normal bowel sounds, soft, non tender, non distended Microbiology Date/Time Source Procedure Growth Status 07/06/16 05:15 Blood Blood Culture - Preliminary Streptococcus Species Resulted 07/06/16 05:00 Blood Blood Culture - Preliminary Streptococcus Species Resulted 07/05/16 13:20 Urine,Clean Catch Urine Culture - Final Alicia Albicans Complete Laboratory Tests Test 07/08/16 04:00 07/08/16 04:40 Urine Eosinophils Pending White Blood Count 9.3 K/UL (4.8-10.8) Red Blood Count 2.62 M/UL (4.70-6.10) L Hemoglobin 8.0 G/DL (14.2-18.0) L Hematocrit 25.2 % (42.0-52.0) L Mean Corpuscular Volume 96 FL (80-99) Mean Corpuscular Hemoglobin 30.7 PG (27.0-31.0) Mean Corpuscular Hemoglobin Concent 31.9 G/DL (32.0-36.0) L Red Cell Distribution Width 13.9 % (11.6-14.8) Platelet Count 185 K/UL (150-450) Mean Platelet Volume 7.0 FL (6.5-10.1) Neutrophils (%) (Auto) 76.7 % (45.0-75.0) H Lymphocytes (%) (Auto) 12.8 % (20.0-45.0) L Monocytes (%) (Auto) 7.2 % (1.0-10.0) Eosinophils (%) (Auto) 2.6 % (0.0-3.0) Basophils (%) (Auto) 0.8 % (0.0-2.0) Sodium Level 144 mEQ/L (135-145) Potassium Level 4.3 mEQ/L (3.4-4.9) Chloride Level 106 mEQ/L (98-107) Carbon Dioxide Level 25 mEQ/L (20-30) Anion Gap 13 (5-15) Blood Urea Nitrogen 29 mg/dL (7-23) H Creatinine 1.4 mg/dL (0.7-1.2) H Estimat Glomerular Filtration Rate 51.9 mL/min (>60) Glucose Level 94 mg/dL (74-106) Uric Acid 4.5 mg/dL (3.0-7.5) Calcium Level 9.6 mg/dL (8.6-10.2) Phosphorus Level 2.4 mg/dL (2.5-4.8) L Magnesium Level 3.4 mg/dL (1.7-2.5) H Total Bilirubin 0.2 mg/dL (0.0-1.2) Aspartate Amino Transf (AST/SGOT) 49 U/L (5-40) H Alanine Aminotransferase (ALT/SGPT) 44 U/L (3-41) H Alkaline Phosphatase 308 U/L (40-129) H Total Protein 7.1 g/dL (6.6-8.7) Albumin 2.3 g/dL (3.5-5.2) L Globulin 4.8 g/dL Albumin/Globulin Ratio 0.4 (1.0-2.7) L Current Medications Medications (Trade) Dose Ordered Sig/Evangelina Route PRN Reason Start Time Stop Time Status Last Admin Dose Admin Acetaminophen (Tylenol) 650 mg Q4H PRN ORAL FEVER 07/04/16 23:00 08/03/16 22:59 Albuterol/ Ipratropium 3 ml 3 ml EVERY 4 HOURS PRN HHN Shortness of Breath 07/04/16 23:00 07/09/16 22:59 Cefepime HCl/ Dextrose (Maxipime/D5W) 110 ml @ 220 mls/hr Q24H IV 07/05/16 09:00 07/12/16 08:59 07/07/16 10:24 Dextrose STAT PRN IV Hypoglycemia 07/04/16 23:00 08/03/16 22:59 Fluconazole (Diflucan 100mg/ 50ml) 50 ml @ 50 mls/hr Q24H IV 07/07/16 15:00 07/14/16 14:59 07/07/16 18:20 Lorazepam (Ativan 2mg/ml 1ml) 2 mg EVERY 2 HOURS PRN IV For Anxiety 07/04/16 23:00 07/11/16 22:59 07/07/16 16:15 Morphine Sulfate (Morphine Sulfate) 4 mg EVERY 4 HOURS PRN IVP Severe Pain (Pain Scale 7-10) 07/04/16 23:00 07/11/16 22:59 Ondansetron HCl (Zofran) 4 mg Q6H PRN IVP Nausea & Vomiting 07/04/16 23:00 08/03/16 22:59 Polyethylene Glycol (Miralax) 17 gm DAILYPRN PRN ORAL Constipation 07/04/16 23:00 08/03/16 22:59 Sodium Chloride 1,000 ml @ 75 mls/hr [id number] IV 07/06/16 11:00 08/05/16 10:59 07/08/16 03:03 CRIS CARR 20, 2017 08:30
--- NOTE | 2016-07-08 08:37 | General Progress Note ---
Assessment/Plan Problem List: (1) Pneumonia ICD Codes: J18.9 - Pneumonia, unspecified organism SNOMED: 127055916 (2) Feeding by G-tube ICD Codes: Z93.1 - Gastrostomy status SNOMED: 463897928, 041978103 (3) ATN (acute tubular necrosis) ICD Codes: N17.0 - Acute kidney failure with tubular necrosis SNOMED: 75712826 (4) Acute on chronic respiratory failure ICD Codes: J96.20 - Acute and chronic respiratory failure, unspecified whether with hypoxia or hypercapnia SNOMED: 31094592, 28406272 (5) Tracheostomy complication ICD Codes: J95.00 - Unspecified tracheostomy complication SNOMED: 37454931 Assessment/Plan other medical problems hematuria bacteremia PLAN continue same monitor renal function transfused follow up labs GI//renal clearance on antibiotics update family Subjective ROS Limited/Unobtainable: Yes Allergies: Coded Allergies: No Known Allergies (Unverified , 07/04/16) Subjective reduced LOC Objective Last 24 Hour Vital Signs Date Time Temp Pulse Resp B/P Pulse Ox O2 Delivery O2 Flow Rate FiO2 07/08/16 07:41 98 18 40 07/08/16 05:11 95 18 40 07/08/16 04:00 98.4 87 18 109/71 100 Mechanical Ventilator 40 07/08/16 04:00 40 07/08/16 04:00 91 07/08/16 03:35 105 15 40 07/08/16 01:29 98 15 40 07/08/16 00:00 40 07/08/16 00:00 97.7 78 16 128/71 100 Mechanical Ventilator 40 07/08/16 00:00 75 07/07/16 23:38 101 18 40 07/07/16 21:25 101 18 40 07/07/16 20:00 40 07/07/16 20:00 81 07/07/16 20:00 97.0 81 18 126/76 100 Mechanical Ventilator 40 07/07/16 19:28 77 18 40 07/07/16 17:27 84 15 40 07/07/16 16:00 40 07/07/16 16:00 98.2 80 20 102/61 99 Mechanical Ventilator 40 07/07/16 16:00 80 07/07/16 15:07 83 20 40 07/07/16 12:52 84 20 40 07/07/16 12:00 40 07/07/16 12:00 71 07/07/16 12:00 97.7 75 17 123/68 100 Mechanical Ventilator 40 07/07/16 11:16 81 18 40 07/07/16 09:26 80 20 40 Intake and Output 07/07/16 07/08/16 19:00 07:00 Intake Total 1290 ml 1375 ml Output Total 350 ml 600 ml Balance 940 ml 775 ml Intake Free Water 150 ml 100 ml IV Total 860 ml 875 ml Tube Feeding 280 ml 400 ml Output Urine Total 350 ml 600 ml # Bowel Movements 2 1 Laboratory Tests 07/08/16 04:00: Urine Eosinophils [Pending] 07/08/16 04:40: White Blood Count 9.3, Red Blood Count 2.62L, Hemoglobin 8.0L, Hematocrit 25.2L , Mean Corpuscular Volume 96, Mean Corpuscular Hemoglobin 30.7, Mean Corpuscular Hemoglobin Concent 31.9L, Red Cell Distribution Width 13.9, Platelet Count 185, Mean Platelet Volume 7.0, Neutrophils (%) (Auto) 76.7H, Lymphocytes (%) (Auto) 12.8L, Monocytes (%) (Auto) 7.2, Eosinophils (%) (Auto) 2.6, Basophils (%) (Auto) 0.8, Sodium Level 144, Potassium Level 4.3, Chloride Level 106, Carbon Dioxide Level 25, Anion Gap 13, Blood Urea Nitrogen 29H, Creatinine 1.4H, Estimat Glomerular Filtration Rate 51.9, Glucose Level 94, Uric Acid 4.5, Calcium Level 9.6, Phosphorus Level 2.4L, Magnesium Level 3.4H, Total Bilirubin 0.2, Aspartate Amino Transf (AST/SGOT) 49H, Alanine Aminotransferase (ALT/SGPT) 44H, Alkaline Phosphatase 308H, Total Protein 7.1, Albumin 2.3L, Globulin 4.8, Albumin/Globulin Ratio 0.4L Height (Feet): 5 Height (Inches): 8.00 Weight (Pounds): 140 Objective WDWN chronically ill NAD reduced breath sounds bilaterally without rhonchi or wheeze [id number] without MRG NABS nontender no HSM; GT no CC contracted Trach nonfocal hematuria noted HALINA REMY Jul 08, 2016 08:37
[2016-07-08] MEDS ORDERED: Vancomycin 1 GM in D5W 275 ML IVPB SCH (10:00)
--- NOTE | 2016-07-08 11:35 | Urology Progress Note ---
Assessment/Plan Assessment/Plan 1. Hematuria, probably secondary to Kamara trauma. 2. Urinary retention. 3. Probable neurogenic bladder. 4. Probable urethral stricture. 5. Chronic renal insufficiency, improving. 6. Pyuria and urinary tract infection. 7. Renal cyst. keep kamara hand irrigated irrigate PRN abx monitor h/h, renal fxn Subjective Allergies: Coded Allergies: No Known Allergies (Unverified , 07/04/16) Subjective non-verbal Objective Last 24 Hour Vital Signs Date Time Temp Pulse Resp B/P Pulse Ox O2 Delivery O2 Flow Rate FiO2 07/08/16 11:20 99 16 40 07/08/16 09:44 100 16 40 07/08/16 08:00 97.2 82 15 126/67 100 Mechanical Ventilator 40 07/08/16 08:00 40 07/08/16 08:00 75 07/08/16 07:41 98 18 40 07/08/16 07:35 98 16 40 07/08/16 05:11 95 18 40 07/08/16 04:00 98.4 87 18 109/71 100 Mechanical Ventilator 40 07/08/16 04:00 40 07/08/16 04:00 91 07/08/16 03:35 105 15 40 07/08/16 01:29 98 15 40 07/08/16 00:00 40 07/08/16 00:00 97.7 78 16 128/71 100 Mechanical Ventilator 40 07/08/16 00:00 75 07/07/16 23:38 101 18 40 07/07/16 21:25 101 18 40 07/07/16 20:00 40 07/07/16 20:00 81 07/07/16 20:00 97.0 81 18 126/76 100 Mechanical Ventilator 40 07/07/16 19:28 77 18 40 07/07/16 17:27 84 15 40 07/07/16 16:00 40 07/07/16 16:00 98.2 80 20 102/61 99 Mechanical Ventilator 40 07/07/16 16:00 80 07/07/16 15:07 83 20 40 07/07/16 12:52 84 20 40 07/07/16 12:00 40 07/07/16 12:00 71 07/07/16 12:00 97.7 75 17 123/68 100 Mechanical Ventilator 40 Intake and Output 07/07/16 07/08/16 19:00 07:00 Intake Total 1290 ml 1375 ml Output Total 350 ml 600 ml Balance 940 ml 775 ml Intake Free Water 150 ml 100 ml IV Total 860 ml 875 ml Tube Feeding 280 ml 400 ml Output Urine Total 350 ml 600 ml # Bowel Movements 2 1 Microbiology Date/Time Source Procedure Growth Status 07/06/16 05:15 Blood Blood Culture - Preliminary Streptococcus Species Resulted 07/04/16 20:37 Nasal Nares MRSA Culture - Final Staphylococcus Aureus - Mrsa Complete 07/05/16 13:20 Urine,Clean Catch Urine Culture - Final Alicia Albicans Complete 07/04/16 20:37 Rectum VRE Culture - Final Enterococcus Faecium - Vre Complete Current Medications Medications (Trade) Dose Ordered Sig/Evangelina Route PRN Reason Start Time Stop Time Status Last Admin Dose Admin Acetaminophen (Tylenol) 650 mg Q4H PRN ORAL FEVER 07/04/16 23:00 08/03/16 22:59 Albuterol/ Ipratropium 3 ml 3 ml EVERY 4 HOURS PRN HHN Shortness of Breath 07/04/16 23:00 07/09/16 22:59 Cefepime HCl/ Dextrose (Maxipime/D5W) 110 ml @ 220 mls/hr Q24H IV 07/05/16 09:00 07/12/16 08:59 07/08/16 08:28 Dextrose STAT PRN IV Hypoglycemia 07/04/16 23:00 08/03/16 22:59 Fluconazole (Diflucan 100mg/ 50ml) 50 ml @ 50 mls/hr Q24H IV 07/07/16 15:00 07/14/16 14:59 07/07/16 18:20 Lorazepam (Ativan 2mg/ml 1ml) 2 mg EVERY 2 HOURS PRN IV For Anxiety 07/04/16 23:00 07/11/16 22:59 07/07/16 16:15 Morphine Sulfate (Morphine Sulfate) 4 mg EVERY 4 HOURS PRN IVP Severe Pain (Pain Scale 7-10) 07/04/16 23:00 07/11/16 22:59 Ondansetron HCl (Zofran) 4 mg Q6H PRN IVP Nausea & Vomiting 07/04/16 23:00 08/03/16 22:59 Polyethylene Glycol (Miralax) 17 gm DAILYPRN PRN ORAL Constipation 07/04/16 23:00 08/03/16 22:59 Sodium Chloride 1,000 ml @ 75 mls/hr [id number] IV 07/06/16 11:00 08/05/16 10:59 07/08/16 03:03 Vancomycin HCl 1 ea 1 ea DAILY PRN MISC Per rx protocol 07/08/16 08:30 08/07/16 08:29 Vancomycin HCl/ Dextrose (Vancomycin/D5W) 275 ml @ 183.3 mls/ hr Q24H IVPB 07/08/16 10:00 07/13/16 09:59 Laboratory Tests 07/08/16 04:00: Urine Eosinophils None seen 07/08/16 04:40: White Blood Count 9.3, Red Blood Count 2.62L, Hemoglobin 8.0L, Hematocrit 25.2L , Mean Corpuscular Volume 96, Mean Corpuscular Hemoglobin 30.7, Mean Corpuscular Hemoglobin Concent 31.9L, Red Cell Distribution Width 13.9, Platelet Count 185, Mean Platelet Volume 7.0, Neutrophils (%) (Auto) 76.7H, Lymphocytes (%) (Auto) 12.8L, Monocytes (%) (Auto) 7.2, Eosinophils (%) (Auto) 2.6, Basophils (%) (Auto) 0.8, Sodium Level 144, Potassium Level 4.3, Chloride Level 106, Carbon Dioxide Level 25, Anion Gap 13, Blood Urea Nitrogen 29H, Creatinine 1.4H, Estimat Glomerular Filtration Rate 51.9, Glucose Level 94, Uric Acid 4.5, Calcium Level 9.6, Phosphorus Level 2.4L, Magnesium Level 3.4H, Total Bilirubin 0.2, Aspartate Amino Transf (AST/SGOT) 49H, Alanine Aminotransferase (ALT/SGPT) 44H, Alkaline Phosphatase 308H, Total Protein 7.1, Albumin 2.3L, Globulin 4.8, Albumin/Globulin Ratio 0.4L Height (Feet): 5 Height (Inches): 8.00 Weight (Pounds): 140 Objective kamara indwelling, urine clearing BRENT ANTONY Jul 08, 2016 11:35
[2016-07-08 12:00] VITALS: BP 129/71
--- NOTE | 2016-07-08 12:12 | General Progress Note ---
Assessment/Plan Problem List: (1) Anemia ICD Codes: D64.9 - Anemia, unspecified SNOMED: 815094600 (2) Renal insufficiency ICD Codes: N28.9 - Disorder of kidney and ureter, unspecified SNOMED: 892771527 (3) Tracheostomy status ICD Codes: Z93.0 - Tracheostomy status SNOMED: 58039890, 772112866 (4) Tracheostomy complication ICD Codes: J95.00 - Unspecified tracheostomy complication SNOMED: 24065197 (5) Feeding by G-tube ICD Codes: Z93.1 - Gastrostomy status SNOMED: 557048203, 932311084 (6) Cholelithiasis ICD Codes: K80.20 - Calculus of gallbladder without cholecystitis without obstruction SNOMED: 638319569 Assessment/Plan gtf fu H&H prn blood transfusion fu urology recs fu lfts Subjective ROS Limited/Unobtainable: No Allergies: Coded Allergies: No Known Allergies (Unverified , 07/04/16) Objective Last 24 Hour Vital Signs Date Time Temp Pulse Resp B/P Pulse Ox O2 Delivery O2 Flow Rate FiO2 07/08/16 11:20 99 16 40 07/08/16 09:44 100 16 40 07/08/16 08:00 97.2 82 15 126/67 100 Mechanical Ventilator 40 07/08/16 08:00 40 07/08/16 08:00 75 07/08/16 07:41 98 18 40 07/08/16 07:35 98 16 40 07/08/16 05:11 95 18 40 07/08/16 04:00 98.4 87 18 109/71 100 Mechanical Ventilator 40 07/08/16 04:00 40 07/08/16 04:00 91 07/08/16 03:35 105 15 40 07/08/16 01:29 98 15 40 07/08/16 00:00 40 07/08/16 00:00 97.7 78 16 128/71 100 Mechanical Ventilator 40 07/08/16 00:00 75 07/07/16 23:38 101 18 40 07/07/16 21:25 101 18 40 07/07/16 20:00 40 07/07/16 20:00 81 07/07/16 20:00 97.0 81 18 126/76 100 Mechanical Ventilator 40 3/19/17 19:28 77 18 40 07/07/16 17:27 84 15 40 07/07/16 16:00 40 07/07/16 16:00 98.2 80 20 102/61 99 Mechanical Ventilator 40 07/07/16 16:00 80 07/07/16 15:07 83 20 40 07/07/16 12:52 84 20 40 Intake and Output 07/07/16 07/08/16 19:00 07:00 Intake Total 1290 ml 1375 ml Output Total 350 ml 600 ml Balance 940 ml 775 ml Intake Free Water 150 ml 100 ml IV Total 860 ml 875 ml Tube Feeding 280 ml 400 ml Output Urine Total 350 ml 600 ml # Bowel Movements 2 1 Laboratory Tests 07/08/16 04:00: Urine Eosinophils None seen 07/08/16 04:40: White Blood Count 9.3, Red Blood Count 2.62L, Hemoglobin 8.0L, Hematocrit 25.2L , Mean Corpuscular Volume 96, Mean Corpuscular Hemoglobin 30.7, Mean Corpuscular Hemoglobin Concent 31.9L, Red Cell Distribution Width 13.9, Platelet Count 185, Mean Platelet Volume 7.0, Neutrophils (%) (Auto) 76.7H, Lymphocytes (%) (Auto) 12.8L, Monocytes (%) (Auto) 7.2, Eosinophils (%) (Auto) 2.6, Basophils (%) (Auto) 0.8, Sodium Level 144, Potassium Level 4.3, Chloride Level 106, Carbon Dioxide Level 25, Anion Gap 13, Blood Urea Nitrogen 29H, Creatinine 1.4H, Estimat Glomerular Filtration Rate 51.9, Glucose Level 94, Uric Acid 4.5, Calcium Level 9.6, Phosphorus Level 2.4L, Magnesium Level 3.4H, Total Bilirubin 0.2, Aspartate Amino Transf (AST/SGOT) 49H, Alanine Aminotransferase (ALT/SGPT) 44H, Alkaline Phosphatase 308H, Total Protein 7.1, Albumin 2.3L, Globulin 4.8, Albumin/Globulin Ratio 0.4L Height (Feet): 5 Height (Inches): 8.00 Weight (Pounds): 140 General Appearance: no apparent distress EENT: normal ENT inspection Neck: supple Cardiovascular: normal rate Respiratory/Chest: decreased breath sounds Abdomen: normal bowel sounds, non tender, soft Extremities: non-tender VOSOGHI,SLY Jul 08, 2016 12:12
--- NOTE | 2016-07-08 12:51 | General Progress Note ---
Assessment/Plan Status: stable Status Narrative Cr lower to 1.4- LFTs rising ( fluconozol ??) Assessment/Plan - Renal failure, likely Acute on Chronic - Possible sepsis, rule out healthcare-associated pneumonia and urinary tract infection bacteremia, or biliary source. - Elevated liver function tests, rule out hepatobiliary disease. - Chronic ventilator-dependent respiratory failure, status post tracheostomy and percutaneous endoscopic gastrostomy with tracheostomy malfunction. - Hypercalcemia. improved - Full Code. Plan: Blum- Lower Hydrate- Monitor renal parameters and urine out put Kidney OCTAVIANO - Nonvisualized left kidney, possibly surgically absent. Correlate with surgical history Urine Studies Per orders Subjective ROS Limited/Unobtainable: Yes Allergies: Coded Allergies: No Known Allergies (Unverified , 07/04/16) Objective Last 24 Hour Vital Signs Date Time Temp Pulse Resp B/P Pulse Ox O2 Delivery O2 Flow Rate FiO2 07/08/16 11:20 99 16 40 07/08/16 09:44 100 16 40 07/08/16 08:00 97.2 82 15 126/67 100 Mechanical Ventilator 40 07/08/16 08:00 40 07/08/16 08:00 75 07/08/16 07:41 98 18 40 07/08/16 07:35 98 16 40 07/08/16 05:11 95 18 40 07/08/16 04:00 98.4 87 18 109/71 100 Mechanical Ventilator 40 07/08/16 04:00 40 07/08/16 04:00 91 07/08/16 03:35 105 15 40 07/08/16 01:29 98 15 40 07/08/16 00:00 40 07/08/16 00:00 97.7 78 16 128/71 100 Mechanical Ventilator 40 07/08/16 00:00 75 07/07/16 23:38 101 18 40 07/07/16 21:25 101 18 40 07/07/16 20:00 40 07/07/16 20:00 81 07/07/16 20:00 97.0 81 18 126/76 100 Mechanical Ventilator 40 07/07/16 19:28 77 18 40 07/07/16 17:27 84 15 40 07/07/16 16:00 40 07/07/16 16:00 98.2 80 20 102/61 99 Mechanical Ventilator 40 07/07/16 16:00 80 07/07/16 15:07 83 20 40 07/07/16 12:52 84 20 40 Intake and Output 07/07/16 07/08/16 19:00 07:00 Intake Total 1290 ml 1375 ml Output Total 350 ml 600 ml Balance 940 ml 775 ml Intake Free Water 150 ml 100 ml IV Total 860 ml 875 ml Tube Feeding 280 ml 400 ml Output Urine Total 350 ml 600 ml # Bowel Movements 2 1 Laboratory Tests 07/08/16 04:00: Urine Eosinophils None seen 07/08/16 04:40: White Blood Count 9.3, Red Blood Count 2.62L, Hemoglobin 8.0L, Hematocrit 25.2L , Mean Corpuscular Volume 96, Mean Corpuscular Hemoglobin 30.7, Mean Corpuscular Hemoglobin Concent 31.9L, Red Cell Distribution Width 13.9, Platelet Count 185, Mean Platelet Volume 7.0, Neutrophils (%) (Auto) 76.7H, Lymphocytes (%) (Auto) 12.8L, Monocytes (%) (Auto) 7.2, Eosinophils (%) (Auto) 2.6, Basophils (%) (Auto) 0.8, Sodium Level 144, Potassium Level 4.3, Chloride Level 106, Carbon Dioxide Level 25, Anion Gap 13, Blood Urea Nitrogen 29H, Creatinine 1.4H, Estimat Glomerular Filtration Rate 51.9, Glucose Level 94, Uric Acid 4.5, Calcium Level 9.6, Phosphorus Level 2.4L, Magnesium Level 3.4H, Total Bilirubin 0.2, Aspartate Amino Transf (AST/SGOT) 49H, Alanine Aminotransferase (ALT/SGPT) 44H, Alkaline Phosphatase 308H, Total Protein 7.1, Albumin 2.3L, Globulin 4.8, Albumin/Globulin Ratio 0.4L Height (Feet): 5 Height (Inches): 8.00 Weight (Pounds): 140 General Appearance: no apparent distress Objective physical exam not changed MAGDA BRINK Jul 08, 2016 12:51
[2016-07-08] MEDS: [UNRECOGNIZED DRUG - OTHER] IV SCH (15:10)
[2016-07-08] MEDS: FLUCONAZOLE IV SCH (15:10)
[2016-07-08 16:00] VITALS: BP 120/72
[2016-07-08] MEDS ORDERED: Tubing IV Secondary IV ONE (18:59)
[2016-07-08] MEDS ORDERED: NS 275ml ONE (18:59)
--- NOTE | 2016-07-09 11:43 | Cardiology Report ---
APPROVED REPORT EKG Measurement Heart [id number] Normal sinus rhythm Left axis deviation Left ventricular hypertrophy with repolarization abnormality Lateral infarct, age undetermined Abnormal ECG
--- NOTE | 2016-07-09 12:50 | Discharge Summary ---
Discharge Summary Hospital Course Date of Admission Jul 04, 2016 at 20:44 Date of Discharge Jul 08, 2016 at 19:00 Admitting Diagnosis tracheostomy malfunction KELSEA Hernandez is a 61 year old male who was admitted on Jul 04, 2016 at 20:44 for Tracheostomy [facility] Hospital Course dc summary #[id number] Discharge Medications New Medications: Linezolid-0.9% Sodium Chloride (Linezolid-0.9% NaCl 600 mg/300) 600 Mg/300 Ml Iv.soln 600 MG IV Q12HR, #28 BAG Discharge Condition Upon Discharge: stable Discharge Disposition Patient was discharged to SNF/Subacute Facility(03) Discharge Diagnoses: Discharge Instructions Discharge Instructions Special Instructions I have been assigned to complete a D/C Summary on this account. I was not involved in the patient management Jael Linda NP (Vanchtein) Jul 09, 2016 12:50
--- NOTE | 2016-07-09 23:30 | Diagnostic Imaging Report ---
APPROVED REPORT CPT Code: 01999 Present Symptoms Comments: Cough RIGHT LEG: Venous imaging reveals recanalized chronic thrombus in the superficial femoral to popliteal veins. Imaging also reveals patency of the common femoral and calf veins. The greater saphenous vein is also within normal limits. Doppler indicates normal spontaneous flow within these segments. LEFT LEG: Venous imaging reveals recanalized chronic thrombus in the superficial femoral vein. Imaging also reveals patency of the common femoral, popliteal and calf veins. The greater saphenous vein is also within normal limits. Doppler indicates normal spontaneous flow within these segments. There is no evidence of acute deep vein thrombosis.
--- NOTE | 2016-07-10 02:39 | Discharge Summary 2 SIG ---
DATE OF ADMISSION: 07/04/2016 DATE OF DISCHARGE: 07/08/2016 REASON FOR ADMISSION: 61-year-old male [facility] with complaint of discharge from the tracheostomy site. The patient was nonverbal, was unable to provide any information. The patient has a chronic respiratory failure, ventilator dependent. Upon workup and clinical examination in ED, there was no obvious evidence of malpositioning or stridor or other airway pathology. Tracheostomy appeared to be in place. The patient demonstrated leukocytosis, white blood count of 12.4. Renal parameters with creatinine of 2.5 and BUN of 44. Chest x-ray revealed bilateral pneumonia. EKG revealed normal sinus rhythm. No ischemic changes. The patient admitted for further management. ADMITTING DIAGNOSES: 1. Sepsis. 2. Acute on chronic respiratory failure, 3. Tracheostomy complication. 4. Acute renal failure 5. Dysphagia, G-tube. HOSPITAL COURSE: The patient admitted to [facility]. ID consult as well as the Urology consult were requested. The patient started on empiric antibiotics and follow up with the culture. Urine culture revealed Enterococcus. Blood culture revealed VRE, four out of four bottles. Leukocytosis persisted for few days and then resolved on July 07, 2016. No fevers. No obvious malfunction with tracheostomy tube. The patient required vigorous pulmonary toilet and suctioning. Stable oxygen saturation on current FiO2. No signs of respiratory distress. Strict aspiration precautions were maintained. The patient was able to tolerate G-tube feeding. Hemoglobin and hematocrit were monitored. The patient required one unit of packed red blood cell transfusion. Hemoglobin and hematocrit at the baseline. Urology consult requested. The patient had initially hematuria. Per Urology, hematuria was likely secondary to Blum trauma. He recommended to keep Blum and do hand irrigation as needed. He also recommended followup with the urine culture and continue antibiotics. Urine culture revealed yeast. The patient status post treatment. Venous duplex bilateral lower extremities revealed chronic recanalized thrombus in bilateral lower extremities, but no evidence of acute DVT noted. Elevated LFTs, trending down. Hepatitis panel negative. Abdominal ultrasound revealed cholelithiasis, but no evidence of dilated ducts. Antibiotics changed by ID to Zyvox. Blood culture repeated, ID follow. PICC line new. Patient will need total of two weeks of antibiotics as per ID. Renal parameters improving, creatinine down to baseline - 1.4. Acute renal failure likely prerenal, improved with IV fluids DISCHARGE DIAGNOSES: 1. Sepsis with bacteremia/Vancomycin Resistant Enterococcus. 2. Healthcare-associated pneumonia. 3. Fungal urinary tract infection, status post treatment. 4. Acute on chronic respiratory failure. 5. Ventilator-dependent respiratory failure 6. Acute renal failure on chronic kidney disease (stage 3)-improved ( likely due to dehydration) 7. Elevated transaminase. 8. Cholelithiasis. 9. Dysphagia, G-tube. 10. .Anemia, status post blood transfusion. 11. Tracheostomy. 12. Tracheostomy malfunction. DISCHARGE MEDICATIONS: See medication reconciliation list. DISCHARGE INSTRUCTIONS: The patient to follow up with the medical doctor and physical science technician at the facility. Ney Centeno M.D. I have been assigned to dictate discharge summary on this account and I was not involved in the patient's management. Jael Linda (Vanchtein) N.PAugusta DR: RAPHAEL JOB#: [id number] CC: EMILY
== END 2016-07-08 19:00 | DRG 720 ==
LOC: EDBD 19:19 → EMR 20:37 → 2W 20:44 → EDBEDREQ 07-05 01:53
PROC: 5A1945Z Respiratory Ventilation, 24-96 Consecutive Hours (ICD-10-PCS; principal; 2016-07-04)
PROC: 30233N1 Transfusion of Nonautologous Red Blood Cells into Peripheral Vein, Percutaneous Approach (ICD-10-PCS; 2016-07-06)
DX: A41.81 Sepsis due to Enterococcus (principal); J96.20 Acute and chronic respiratory failure, unspecified whether with hypoxia or hypercapnia; N17.0 Acute kidney failure with tubular necrosis; Z99.11 Dependence on respirator [ventilator] status; J18.9 Pneumonia, unspecified organism; J95.00 Unspecified tracheostomy complication; N18.3 Chronic kidney disease, stage 3 (moderate); R13.10 Dysphagia, unspecified; N28.1 Cyst of kidney, acquired; B37.49 Other urogenital candidiasis; Z16.22 Resistance to vancomycin related antibiotics; K80.20 Calculus of gallbladder without cholecystitis without obstruction; Z43.1 Encounter for attention to gastrostomy; E86.0 Dehydration; D64.9 Anemia, unspecified; E83.52 Hypercalcemia; R31.9 Hematuria, unspecified; R33.9 Retention of urine, unspecified; N31.9 Neuromuscular dysfunction of bladder, unspecified; N35.9 Urethral stricture, unspecified; Y83.3 Surgical operation with formation of external stoma as the cause of abnormal reaction of the patient, or of later complication, without mention of misadventure at the time of the procedure
CPT/HCPCS: 36415; 71010; 76700; 80053; 80061; 80069; 80202; 81001; 82436; 82533; 82550; 82553; 82962; 82977; 83036; 83735; 83880; 83930; 84100; 84133; 84300; 84439; 84443; 84484; 84550; 85007; 85025; 85610; 85730; 86140; 86705; 86709; 86803; 86850; 86900; 86901; 86920; 87040; 87081; 87086; 87181; 87340; 89050; 93005; 93306; 93970; 94002; 94003

== ENCOUNTER 2017-03-29 12:58 | Inpatient (IN) | payer OTHER ==
[~2017-03-29] VITALS: Ht 172.7 cm; Wt 60.3 kg
[2017-03-29] MEDS ORDERED: NS 1000ml 1,900 ML IVLG ONE (13:15)
[2017-03-29 13:30] VITALS: BP 110/68
[2017-03-29 14:17] LABS: ABG BASE EXCESS -7.3; ABG PCO2 30.5 mmHg (35.0-45.0)
[2017-03-29 14:18] LABS: ABG ALLEN TEST POSITIVE
--- NOTE | 2017-03-29 14:42 | Emergency Room Report ---
History of Present Illness General Chief Complaint: Altered Mental Status Source: EMS Present Illness HPI The patient is sent in for altered mental status. The staff states that he usually is able to move about somewhat. He is reportedly less responsive at this time. The patient is unable to give a history at this moment. Prior admission with d/c 07/18/16 with these diagnoses: 1. Sepsis with bacteremia/Vancomycin Resistant Enterococcus. 2. Healthcare-associated pneumonia. 3. Fungal urinary tract infection, status post treatment. 4. Acute on chronic respiratory failure. 5. Ventilator-dependent respiratory failure 6. Acute renal failure on chronic kidney disease (stage 3)-improved ( likely due to dehydration) 7. Elevated transaminase. 8. Cholelithiasis. 9. Dysphagia, G-tube. 10. .Anemia, status post blood transfusion. 11. Tracheostomy. 12. Tracheostomy malfunction. Allergies: Coded Allergies: No Known Allergies (Unverified , 07/04/16) Patient History Limited by: medical condition Past Medical History: see triage record, old chart reviewed Past Surgical History: other - trach, G tube Social History Narrative [facility] Reviewed Nursing Documentation: PMH: Agreed, PSxH: Agreed Nursing Documentation-PMH Past Medical History: No History, Except For Hx Gastrointestinal Problems: Yes - unspecified abdominal surgery Hx Neurological Problems: Yes - Obtunded Review of Systems All Other Systems: limited Physical Exam Vital Signs Date Time Temp Pulse Resp B/P (MAP) Pulse Ox O2 Delivery O2 Flow Rate FiO2 03/29/17 12:59 97.9 81 20 110/68 99 Mechanical Ventilator 03/29/17 13:27 28 Sp02 EP Interpretation: reviewed, normal General Appearance: lethargic, Chronically Ill, Stupor Head: normocephalic, atraumatic Eyes: bilateral eye normal inspection, bilateral eye PERRL ENT: dry mucus membranes Neck: supple, tracheotomy Respiratory: lungs clear, normal breath sounds Cardiovascular #1: regular rate, rhythm Cardiovascular #2: 2+ radial (R) Gastrointestinal: non tender, distended, other - G tube, decreased bowel sounds Genitourinary: normal inspection Musculoskeletal: other - contractures Neurologic: sensory intact, other - resp to voice - minimally Psychiatric: other - stupor Reflexes: 1+ knee (R), 1+ knee (L) Skin: warm/dry Medical Decision Making Diagnostic Impression: Primary Impression: Sepsis Qualified Codes: A41.9 - Sepsis, unspecified organism Additional Impressions: Pneumonia involving right lung Qualified Codes: J18.9 - Pneumonia, unspecified organism Renal failure Qualified Codes: N17.9 - Acute kidney failure, unspecified; N18.3 - Chronic kidney disease, stage 3 (moderate) Azotemia Dehydration Ventilator dependence ER Course Patient here with altered mentation. DDx: sepsis, pneumonia, UTI, electrolyte abnormality amongst others. Extremely complex patient unable to give hx. Evaluation with EKG, CXR, labs. Switched to A/C as seems tachypneic. Extremely volume depleted - fluids ordered. Will wait to see source of infection before starting antibiotics. O2 titrated down under my supervision. ABG acceptable. WBC elevated. Renal failure. Normal lactate. EKG with j point elevation similar to prior EKG. CXR with R infiltrate (new). Antibiotics begun. Patient more alert with fluids and after antibiotics. Admit [facility] Dr. Centeno. Laboratory Tests Test 03/29/17 14:08 03/29/17 14:30 03/29/17 15:20 Arterial Blood pH 7.360 (7.350-7.450) Arterial Blood Partial Pressure CO2 30.5 mmHg (35.0-45.0) L Arterial Blood Partial Pressure O2 81.3 mmHg (75.0-100.0) Arterial Blood HCO3 16.9 mmol/L (22.0-26.0) L Arterial Blood Oxygen Saturation 94.6 % (92.0-98.0) Arterial Blood Base Excess -7.3 Adam Test Positive White Blood Count 20.4 K/UL (4.8-10.8) H Red Blood Count 3.73 M/UL (4.70-6.10) L Hemoglobin 12.4 G/DL (14.2-18.0) L Hematocrit 39.0 % (42.0-52.0) L Mean Corpuscular Volume 105 FL (80-99) H Mean Corpuscular Hemoglobin 33.2 PG (27.0-31.0) H Mean Corpuscular Hemoglobin Concent 31.7 G/DL (32.0-36.0) L Red Cell Distribution Width 14.5 % (11.6-14.8) Platelet Count 331 K/UL (150-450) Mean Platelet Volume 5.3 FL (6.5-10.1) L Neutrophils (%) (Auto) % (45.0-75.0) Lymphocytes (%) (Auto) % (20.0-45.0) Monocytes (%) (Auto) % (1.0-10.0) Eosinophils (%) (Auto) % (0.0-3.0) Basophils (%) (Auto) % (0.0-2.0) Differential Total Cells Counted 100 Neutrophils % (Manual) 84 % (45-75) H Lymphocytes % (Manual) 4 % (20-45) L Monocytes % (Manual) 12 % (1-10) H Eosinophils % (Manual) 0 % (0-3) Basophils % (Manual) 0 % (0-2) Band Neutrophils 0 % (0-8) Nucleated Red Blood Cells 1 /100 WBC Platelet Estimate Adequate Platelet Morphology Normal Clumped Platelets 1+ Anisocytosis 1+ Macrocytosis 1+ Prothrombin Time 11.6 SEC (9.30-11.50) H Prothrombin Time INR 1.1 (0.9-1.1) PTT 27 SEC (23-33) Sodium Level 138 MMOL/L (136-145) Potassium Level 3.6 MMOL/L (3.5-5.1) Chloride Level 106 MMOL/L (98-107) Carbon Dioxide Level 18 MMOL/L (21-32) L Anion Gap 14 mmol/L (5-15) Blood Urea Nitrogen 114 mg/dL (7-18) H Creatinine 2.7 MG/DL (0.55-1.30) H Estimate Glomerular Filtration Rate 24.2 mL/min (>60) Glucose Level 101 MG/DL (74-106) Lactic Acid Level 1.80 mmol/L (0.66-2.22) Calcium Level 9.9 MG/DL (8.5-10.1) Magnesium Level 2.8 MG/DL (1.8-2.4) H Total Bilirubin 0.3 MG/DL (0.2-1.0) Aspartate Amino Transferase (AST) 63 U/L (15-37) H Alanine Aminotransferase (ALT) 53 U/L (12-78) Alkaline Phosphatase 516 U/L (46-116) H Total Creatine Kinase 30 U/L (26-308) Troponin I 0.000 ng/mL (0.000-0.056) Pro-B-Type Natriuretic Peptide 780 pg/mL (0-125) H Total Protein 8.4 G/DL (6.4-8.2) H Albumin 1.9 G/DL (3.4-5.0) L Globulin 6.5 g/dL Albumin/Globulin Ratio 0.3 (1.0-2.7) L Urine Color Yellow Urine Appearance Clear Urine pH 5 (4.5-8.0) Urine Specific Mobile 1.015 (1.005-1.035) Urine Protein 1+ (NEGATIVE) H Urine Glucose (UA) Negative (NEGATIVE) Urine Ketones Negative (NEGATIVE) Urine Occult Blood Negative (NEGATIVE) Urine Nitrite Negative (NEGATIVE) Urine Bilirubin Negative (NEGATIVE) Urine Urobilinogen Normal MG/DL (0.0-1.0) Urine Leukocyte Esterase Negative (NEGATIVE) Urine RBC 0-2 /HPF (0 - 0) H Urine WBC 0-2 /HPF (0 - 0) Urine Squamous Epithelial Cells Occasional /LPF Urine Bacteria Few /HPF (NONE) EKG Diagnostic Results Rate: normal Rhythm: NSR ST Segments: other - j point elevation diffuse - compared to 06/2016 similar changes Rhythm Strip Diag. Results EP Interpretation: yes Rhythm: NSR, no PVC's, no ectopy Chest X-Ray Diagnostic Results Chest X-Ray Diagnostic Results : Chest X-Ray Ordered: Yes # of Views/Limited/Complete: 1 View Indication: Other EP Interpretation: Yes Interpretation: no effusion, no pneumothorax, other - R infiltrate Impression: Other Electronically Signed by: Electronically signed by Ibrahima Bernal MD Last Vital Signs Date Time Temp Pulse Resp B/P (MAP) Pulse Ox O2 Delivery O2 Flow Rate FiO2 03/29/17 17:29 97 16 28 03/29/17 16:05 97.9 107/72 99 Mechanical Ventilator Status: improved Disposition: ADMITTED INPATIENT Condition: Serious Referrals: [facility],REFERRING (PCP) Ibrahima Bernal M.D. Mar 29, 2017 14:42
[2017-03-29] MEDS ORDERED: Cefepime HCl 1 GM in D5W 55 ML IVPB ONE (14:45)
[2017-03-29] MEDS ORDERED: Vancomycin 1 GM in D5W 275 ML IVPB ONE (14:45)
[2017-03-29 14:50] LABS: MEAN CORPUSCULAR HEMOGLOBIN 33.2 PG (27.0-31.0); MEAN CORPUSCULAR HGB CONC 31.7 G/DL (32.0-36.0); MEAN CORPUSCULAR VOLUME 105 FL (80-99); MEAN PLATELET VOLUME 5.3 FL (6.5-10.1); PLATELET COUNT 331 K/UL (150-450); RED BLOOD COUNT 3.73 M/UL (4.70-6.10); RED CELL DISTRIBUTION WIDTH 14.5 % (11.6-14.8); WHITE BLOOD COUNT 20.4 K/UL (4.8-10.8)
[2017-03-29 15:00] LABS: ANION GAP 14 mmol/L (5-15); CALCIUM 9.9 MG/DL (8.5-10.1); CARBON DIOXIDE 18 MMOL/L (21-32); CHLORIDE 106 MMOL/L (98-107); CREATININE 2.7 MG/DL (0.55-1.30); GLOMERULAR FILTRATION RATE 24.2 mL/min (>60); POTASSIUM 3.6 MMOL/L (3.5-5.1); SODIUM 138 MMOL/L (136-145)
[2017-03-29 15:01] LABS: INR 1.1 (0.9-1.1); PROTHROMBIN TIME 11.6 SEC (9.30-11.50)
[2017-03-29 15:10] LABS: ALANINE AMINOTRANSFERASE 53 U/L (12-78); ALBUMIN/GLOBULIN RATIO 0.3 (1.0-2.7); ASPARTATE AMINO TRANSFERASE 63 U/L (15-37); MAGNESIUM 2.8 MG/DL (1.8-2.4); TOTAL PROTEIN 8.4 G/DL (6.4-8.2)
[2017-03-29] MEDS ORDERED: Vancomycin 1gm inj IVPB ONE (15:30)
[2017-03-29] MEDS ORDERED: Cefepime 1gm vial ONE (15:30)
[2017-03-29 15:34] LABS: APPEARANCE,URINE CLEAR; KETONES,URINE NEGATIVE (NEGATIVE); LEUKOCYTE ESTERASE ,URINE NEGATIVE (NEGATIVE); NITRITE,URINE NEGATIVE (NEGATIVE); PH,URINE 5 (4.5-8.0); PROTEIN,URINE 1+ (NEGATIVE); UROBILINOGEN,URINE NORMAL MG/DL (0.0-1.0)
[2017-03-29 15:47] LABS: BACTERIA,URINE FEW /HPF; RBC,URINE 0-2 /HPF (0 - 0); SQUAMOUS EPITHELIAL CELL,UR OCCASIONAL /LPF (NONE/OCC); WBC,URINE 0-2 /HPF (0 - 0)
[2017-03-29 16:00] LABS: ANISOCYTOSIS 1+; BAND NEUTROPHILS % (MANUAL) 0 % (0-8); BASOPHILS % (MANUAL) 0 % (0-2); EOSINOPHILS % (MANUAL) 0 % (0-3); LYMPHOCYTES % (MANUAL) 4 % (20-45); NEUTROPHILS % (MANUAL) 84 % (45-75); NUCLEATED RED BLOOD CELLS 1 /100 WBC; PLATELET CLUMPS 1+; PLATELET ESTIMATE ADEQUATE; PLATELET MORPHOLOGY NORMAL; TOTAL CELLS COUNTED 100
[2017-03-29 16:01] LABS: MACROCYTES 1+
[2017-03-29 16:05] VITALS: BP 107/72
[2017-03-29] MEDS ORDERED: MULTIVITAM9 MG/15 M1 GT (18:06)
[2017-03-29] MEDS ORDERED: DULCOLAX10 MG RC (18:06)
[2017-03-29] MEDS ORDERED: VITAMIN C500 MG/11 GT (18:06)
[2017-03-29] MEDS ORDERED: UTI-STAT L3875 MG/31 GT (18:06)
[2017-03-29] MEDS ORDERED: COLACE100 MG GT (18:06)
[2017-03-29] MEDS ORDERED: FLEET ENEMA133 ML RECTAL (18:06)
[2017-03-29] MEDS ORDERED: BENADRYL A12.5 MG/5 GT (18:06)
[2017-03-29] MEDS ORDERED: ZOFRAN4 M3 GT (18:06)
[2017-03-29] MEDS ORDERED: LACTULOSE20 GM/301 GT (18:06)
[2017-03-29] MEDS ORDERED: MIDODRINE HCL5 MG GT (18:06)
[2017-03-29] MEDS ORDERED: FAMOTIDINE20 MG GT (18:06)
[2017-03-29] MEDS ORDERED: PROCRIT10000 UNIT SUBQ (18:06)
[2017-03-29] MEDS ORDERED: MILK OF MA400 MG/51 GT (18:06)
[2017-03-29] MEDS ORDERED: ZINC SULFATE220 M1 GT (18:06)
[2017-03-29] MEDS ORDERED: FERROUS SU220 MG/53 GT (18:06)
[2017-03-29] MEDS ORDERED: PROMOD946 ML GT (18:06)
[2017-03-29] MEDS ORDERED: ACETAMINOP160 MG/5 M GT ×2 (18:06)
[2017-03-29 19:20] VITALS: BP 107/72
[2017-03-29 20:00] VITALS: BP 105/69
[2017-03-29] MEDS ORDERED: FERROUS SULFAT325 MG GT (20:49)
[2017-03-29] MEDS ORDERED: DUONEB 0.5-3(2.53 ML HHN ×2 (21:12)
[2017-03-29] MEDS ORDERED: Acetaminophen Soln 160mg/5ml ORAL PRN ×3 (22:15)
[2017-03-29] MEDS ORDERED: Milk of Magnesia 30ml Ud GT PRN (22:15)
[2017-03-29] MEDS ORDERED: Zolpidem 5mg tab GT PRN (22:15)
[2017-03-29] MEDS ORDERED: Fleet's Enema 133ml RECTAL PRN (22:15)
[2017-03-29] MEDS ORDERED: Albuterol/Ipratropium 3ml neb HHN PRN (22:15)
[2017-03-29] MEDS ORDERED: Lactulose 20gm/30ml UDC GT PRN (22:45)
[2017-03-29] MEDS: Sodium Chloride 500ML 550 ML IV SCH (23:30)
[2017-03-30] VITALS: BP 98/64
[2017-03-30] MEDS ORDERED: Zosyn 3.375gm inj ONE ×2 (00:03→06:35)
[2017-03-30] MEDS: Piperacillin/Tazobactam 3.375 GM in D5W 110 ML IVPB SCH ×2 (00:32→06:54)
[2017-03-30] MEDS: Albuterol/Ipratropium 3ml neb HHN SCH ×4 (00:40→19:10)
[2017-03-30] MEDS: Sodium Chloride 500ML 550 ML IV SCH ×2 (01:55→05:46)
[2017-03-30 04:00] VITALS: BP 99/61
[2017-03-30 08:00] VITALS: BP 93/55
[2017-03-30] MEDS: Ferrous Sulfate 300 MG/5 ML UDC GT SCH ×3 (08:40→18:08)
[2017-03-30] MEDS: Zinc Sulfate 220mg cap GT SCH ×2 (08:40→18:06)
[2017-03-30] MEDS: Multivitamins W/Minerals 15 ML UDC GT SCH (08:40)
[2017-03-30] MEDS: Docusate 100mg/10ml Liq GT SCH ×2 (08:42→18:00)
[2017-03-30] MEDS: DiphenhydrAMINE 25mg/10ml Elixir GT PRN (08:46)
--- NOTE | 2017-03-30 10:07 | Diagnostic Imaging Report ---
Indication: Short of breath Technique: XRAY CHEST 1 V Comparison:07/04/16 Findings: There is airspace disease in the right mid and upper lung which was not present previously. Ill-defined density is noted in the right lower lung. This was present previously. Infiltrate present previously in the left lower lung has resolved. Tracheostomy is in place. No pleural fluid. Impression: New airspace opacity in the right upper lobe. This is most likely inflammatory. Ill-defined density in the right lower lung. This merits in a chronic infiltrate though this is uncertain. Tracheostomy.
--- NOTE | 2017-03-30 10:17 | History & Physical ---
History and Physical History & Physicial 62 year old male appeared to have reduced LOC and noted to have abnormal labs transferred for acute care and monitoring Prior admission with d/c 07/18/16 with these diagnoses: 1. Sepsis with bacteremia/Vancomycin Resistant Enterococcus. 2. Healthcare-associated pneumonia. 3. Fungal urinary tract infection, status post treatment. 4. Acute on chronic respiratory failure. 5. Ventilator-dependent respiratory failure 6. Acute renal failure on chronic kidney disease (stage 3)-improved ( likely due to dehydration) 7. Elevated transaminase. 8. Cholelithiasis. 9. Dysphagia, G-tube. 10. .Anemia, status post blood transfusion. 11. Tracheostomy. 12. Tracheostomy malfunction. Physical Exam Sp02 EP Interpretation: reviewed, normal General Appearance: reduced LOC Neck: trach in place, carotid 2+ Respiratory: decreased breath sounds, with some rhonchi Cardiovascular #1: regular rate, rhythm, no murmur without MRG Gastrointestinal: non tender, soft, non-distended, GT Musculoskeletal: no CCE Neurologic: reduced mentation Labs Test 03/29/17 14:08 03/29/17 14:30 03/29/17 15:20 Arterial Blood pH 7.360 (7.350-7.450) Arterial Blood Partial Pressure CO2 30.5 mmHg (35.0-45.0) Arterial Blood Partial Pressure O2 81.3 mmHg (75.0-100.0) Arterial Blood HCO3 16.9 mmol/L (22.0-26.0) Arterial Blood Oxygen Saturation 94.6 % (92.0-98.0) Arterial Blood Base Excess -7.3 Adam Test Positive White Blood Count 20.4 K/UL (4.8-10.8) Red Blood Count 3.73 M/UL (4.70-6.10) Hemoglobin 12.4 G/DL (14.2-18.0) Hematocrit 39.0 % (42.0-52.0) Mean Corpuscular Volume 105 FL (80-99) Mean Corpuscular Hemoglobin 33.2 PG (27.0-31.0) Mean Corpuscular Hemoglobin Concent 31.7 G/DL (32.0-36.0) Red Cell Distribution Width 14.5 % (11.6-14.8) Platelet Count 331 K/UL (150-450) Mean Platelet Volume 5.3 FL (6.5-10.1) Neutrophils (%) (Auto) % (45.0-75.0) Lymphocytes (%) (Auto) % (20.0-45.0) Monocytes (%) (Auto) % (1.0-10.0) Eosinophils (%) (Auto) % (0.0-3.0) Basophils (%) (Auto) % (0.0-2.0) Differential Total Cells Counted 100 Neutrophils % (Manual) 84 % (45-75) Lymphocytes % (Manual) 4 % (20-45) Monocytes % (Manual) 12 % (1-10) Eosinophils % (Manual) 0 % (0-3) Basophils % (Manual) 0 % (0-2) Band Neutrophils 0 % (0-8) Nucleated Red Blood Cells 1 /100 WBC Platelet Estimate Adequate Platelet Morphology Normal Clumped Platelets 1+ Anisocytosis 1+ Macrocytosis 1+ Prothrombin Time 11.6 SEC (9.30-11.50) Prothromb Time International Ratio 1.1 (0.9-1.1) Activated Partial Thromboplast Time 27 SEC (23-33) Sodium Level 138 MMOL/L (136-145) Potassium Level 3.6 MMOL/L (3.5-5.1) Chloride Level 106 MMOL/L (98-107) Carbon Dioxide Level 18 MMOL/L (21-32) Anion Gap 14 mmol/L (5-15) Blood Urea Nitrogen 114 mg/dL (7-18) Creatinine 2.7 MG/DL (0.55-1.30) Estimat Glomerular Filtration Rate 24.2 mL/min (>60) Glucose Level 101 MG/DL (74-106) Lactic Acid Level 1.80 mmol/L (0.66-2.22) Calcium Level 9.9 MG/DL (8.5-10.1) Magnesium Level 2.8 MG/DL (1.8-2.4) Total Bilirubin 0.3 MG/DL (0.2-1.0) Aspartate Amino Transf (AST/SGOT) 63 U/L (15-37) Alanine Aminotransferase (ALT/SGPT) 53 U/L (12-78) Alkaline Phosphatase 516 U/L (46-116) Total Creatine Kinase 30 U/L (26-308) Troponin I 0.000 ng/mL (0.000-0.056) Pro-B-Type Natriuretic Peptide 780 pg/mL (0-125) Total Protein 8.4 G/DL (6.4-8.2) Albumin 1.9 G/DL (3.4-5.0) Globulin 6.5 g/dL Albumin/Globulin Ratio 0.3 (1.0-2.7) Urine Color Yellow Urine Appearance Clear Urine pH 5 (4.5-8.0) Urine Specific [place] 1.015 (1.005-1.035) Urine Protein 1+ (NEGATIVE) Urine Glucose (UA) Negative (NEGATIVE) Urine Ketones Negative (NEGATIVE) Urine Occult Blood Negative (NEGATIVE) Urine Nitrite Negative (NEGATIVE) Urine Bilirubin Negative (NEGATIVE) Urine Urobilinogen Normal MG/DL (0.0-1.0) Urine Leukocyte Esterase Negative (NEGATIVE) Urine RBC 0-2 /HPF (0 - 0) Urine WBC 0-2 /HPF (0 - 0) Urine Squamous Epithelial Cells Occasional /LPF Urine Bacteria Few /HPF (NONE) IMPRESSION possible sepsis leukocytosis acute renal failure pneumonia trach GT acute on chronic encephalopathy PLAN ventilator feeds antibiotics ID evaluation hydrate await further labs and cultures HALINA REMY Mar 30, 2017 10:17
[2017-03-30 12:00] VITALS: BP 112/62
[2017-03-30] MEDS ORDERED: Heparin 5000 units/ml inj IV ONE ×3 (12:30→21:30)
[2017-03-30] MEDS ORDERED: Heparin 25,000u/D5W 500ml 500 ML IV SCH ×3 (12:30→21:30)
[2017-03-30] MEDS ORDERED: Zolpidem 5mg tab GT PRN (14:00)
[2017-03-30] MEDS: Piperacillin/Tazobactam 3.375 GM in D5W 55 ML IVPB SCH ×2 (14:01→22:03)
[2017-03-30] MEDS ORDERED: Vancomycin 750mg/NS 250ml IVPB SCH (15:00)
[2017-03-30 16:00] VITALS: BP 113/59
--- NOTE | 2017-03-30 17:06 | Wound Care Consultation ---
Wound Assessment Wound Assessment #1: Wound Number: 1 Wound Present on Admission: Yes New Wound: No Status Change of Wound: No Wound Location Body Site Modif: mid Wound Location Body Site: sacral Wound Type: pressure ulcer Kenan Test: Does not Kenan Pressure Ulcer Stage: Unstageable Wound Thickness: Full Thickness Wound Length: 4.5 Wound Width: 5.5 Wound Depth: utd Percent of Wound [place]/Red: 50 Percent of Wound Bed Yellow/Wh: 50 Wound Drainage Description: Serosanguineous Wound Drainage Amount: Moderate Wound Drainage Odor: None/Absent Tissue Surrounding Wound: Macerated Wound General Appearance: Reddened - yellow, Draining Wound Assessment #2: Wound Number: 2 Wound Present on Admission: Yes New Wound: No Status Change of Wound: No Wound Location Body Site Modif: right, lateral Wound Location Body Site: knee Wound Type: pressure ulcer Kenan Test: Does not Kenan Pressure Ulcer Stage: Unstageable Wound Thickness: Full Thickness Wound Length: 1.5 Wound Width: 1.0 Wound Depth: utd Percent of Wound Bed Yellow/Wh: 100 Wound Drainage Description: Serosanguineous Wound Drainage Amount: Scant Wound Drainage Odor: None/Absent Tissue Surrounding Wound: Intact Wound General Appearance: Reddened - yellow Wound Comment #1 Sacrococcygeal unstageable pressure ulcer #2 Right lateral Knee unstageable pressure ulcer Recommendation -Local wound care per protocol -Keep clean and dry -Turn and reposition -Optimize nutrition -Offload both heels -Heel protector on both heels -Low air loss mattress -Assess and f/u accordingly for any changes AGA SPANGLER RN Mar 30, 2017 17:05
[2017-03-30 17:14] LABS: MEAN CORPUSCULAR HGB CONC 32.2 G/DL (32.0-36.0); MEAN CORPUSCULAR VOLUME 106 FL (80-99); MEAN PLATELET VOLUME 5.6 FL (6.5-10.1); PLATELET COUNT 280 K/UL (150-450); RED BLOOD COUNT 2.98 M/UL (4.70-6.10); RED CELL DISTRIBUTION WIDTH 14.6 % (11.6-14.8); WHITE BLOOD COUNT 16.1 K/UL (4.8-10.8)
[2017-03-30 17:34] LABS: ANION GAP 13 mmol/L (5-15); CALCIUM 9.2 MG/DL (8.5-10.1); CARBON DIOXIDE 17 MMOL/L (21-32); CHLORIDE 111 MMOL/L (98-107); GLOMERULAR FILTRATION RATE 34.3 mL/min (>60); POTASSIUM 3.4 MMOL/L (3.5-5.1); SODIUM 141 MMOL/L (136-145)
[2017-03-30 19:08] LABS: NEUTROPHILS % (MANUAL) 88 % (45-75); TOTAL CELLS COUNTED 100
[2017-03-30 19:09] LABS: BAND NEUTROPHILS % (MANUAL) 0 % (0-8); BASOPHILS % (MANUAL) 0 % (0-2); EOSINOPHILS % (MANUAL) 1 % (0-3); LYMPHOCYTES % (MANUAL) 5 % (20-45); PLATELET ESTIMATE ADEQUATE
[2017-03-30 19:10] LABS: ANISOCYTOSIS 1+; HYPOCHROMASIA OCCASIONAL; MACROCYTES 1+; PLATELET MORPHOLOGY NORMAL
[2017-03-30 20:00] VITALS: BP 105/70
[2017-03-30] MEDS ORDERED: Heparin 5000 units/ml inj SUBQ SCH (23:00)
[2017-03-31] VITALS: BP 105/58
[2017-03-31] MEDS: Albuterol/Ipratropium 3ml neb HHN SCH ×4 (01:30→19:18)
[2017-03-31 02:06] LABS: MEAN CORPUSCULAR HEMOGLOBIN 33.8 PG (27.0-31.0); MEAN CORPUSCULAR HGB CONC 32.3 G/DL (32.0-36.0); MEAN CORPUSCULAR VOLUME 105 FL (80-99); MEAN PLATELET VOLUME 5.1 FL (6.5-10.1); PLATELET COUNT 274 K/UL (150-450); RED BLOOD COUNT 3.33 M/UL (4.70-6.10); WHITE BLOOD COUNT 13.2 K/UL (4.8-10.8)
[2017-03-31 02:15] LABS: ANION GAP 11 mmol/L (5-15); CALCIUM 9.4 MG/DL (8.5-10.1); CARBON DIOXIDE 19 MMOL/L (21-32); CHLORIDE 114 MMOL/L (98-107); CREATININE 1.8 MG/DL (0.55-1.30); GLOMERULAR FILTRATION RATE 38.7 mL/min (>60); POTASSIUM 3.9 MMOL/L (3.5-5.1); SODIUM 144 MMOL/L (136-145)
--- NOTE | 2017-03-31 02:45 | Consultation ---
DATE OF CONSULTATION: 03/29/2017 CARDIOLOGY CONSULTATION CONSULTING PHYSICIAN: Ibrahima Allen M.D. REQUESTING PHYSICIAN: Ney Centeno M.D. REASON FOR CONSULTATION: Abnormal EKG. HISTORY OF PRESENT ILLNESS: This 62-year-old male with respiratory failure resides at a subacute nursing facility. He is ventilator-dependent. He has a tracheostomy. He was referred to the emergency room for evaluation of altered mentation. While usually somewhat interactive, he has not been for the past day. Concern was raised over his electrocardiogram prompting this consultation. PAST MEDICAL HISTORY: 1. History of recurring sepsis and healthcare-acquired pneumonia. 2. History of fungal cystitis. 3. History of respiratory failure, ventilator-dependent with tracheostomy. 4. Chronic kidney disease. 5. Cholelithiasis. 6. Dysphagia with G-tube. 7. Anemia of chronic kidney disease requiring transfusions in the past. ALLERGIES: None. FAMILY HISTORY: Noncontributory. SOCIAL HISTORY: Not known. REVIEW OF SYSTEMS: Not obtainable. PHYSICAL EXAMINATION: VITAL SIGNS: Blood pressure 110/68, pulse 81, respiratory rate 20, and afebrile. NECK: Tracheostomy site with ventilation and thin secretions. HEENT: Dry mucous membranes. LUNGS: Bilateral breath sounds. HEART: Regular rhythm and rate. Normal S1, S2 with no murmur or rub, but cardiac exam is limited due to loud respiratory sounds. EXTREMITIES: Without edema. LABORATORY DATA: EKG with sinus rhythm and diffuse ST changes consistent with a repolarization abnormality, cannot exclude pericarditis and less likely ischemia. White count 20 and hemoglobin 12.4. Potassium 3.6, sodium 138, bicarbonate 18, BUN 114, and creatinine 2.7. Alkaline phosphatase is 516. Pro-natriuretic peptide 780. Albumin 1.9. Chest x-ray reveals right upper lobe infiltrate. IMPRESSION: 1. Low likelihood for acute ischemic events. 2. Acute on chronic renal failure. 3. Metabolic acidosis. 4. Probable sepsis. 5. Chronic diastolic congestive heart failure. 6. Severe protein-calorie malnutrition. 7. Ventilator-dependent respiratory failure. 8. Healthcare-acquired pneumonia. 9. Possible pericarditis. 10. Metabolic acidosis. RECOMMENDATIONS: 1. Ventilator support. 2. Panculture. 3. Broad-spectrum antibiotics. 4. Hydration with intravenous fluids. 5. Close monitoring of volume status and cardiorenal function. 6. Replace electrolytes as needed. 7. Echocardiogram. 8. Serial EKG. Ibrahima Allen M.D. DR: SAVANA JOB#: [id number] CC:
[2017-03-31] MEDS: DiphenhydrAMINE 25mg/10ml Elixir GT PRN (03:11)
[2017-03-31] MEDS ORDERED: Heparin 25,000u/D5W 500ml 500 ML IV SCH (03:30)
[2017-03-31] MEDS ORDERED: Heparin 5000 units/ml inj IV ONE (03:30)
[2017-03-31 04:00] VITALS: BP 105/58
--- NOTE | 2017-03-31 04:15 | Progress Note ---
DATE: 03/30/2017 CARDIOLOGY PROGRESS NOTE SUBJECTIVE: Abnormal EKGs are reviewed again as these changes have been of concern to staff. Troponin levels are negative x2. The patient has no signs of chest pain. No acute cardiovascular distress. Monitored rhythm, sinus. OBJECTIVE: LUNGS: Bilateral breath sounds. Few rhonchi. Thin secretions. HEART: Regular rhythm and rate. Normal S1, S2. ABDOMEN: Soft. G-tube intact. EXTREMITIES: Trace edema. LABORATORY DATA: Potassium 3.4. BUN improved to 63/2.0 and white count decreased to 16.1. IMPRESSION: 1. Sepsis. 2. Healthcare-acquired pneumonia. 3. Respiratory failure. 4. Possible pericarditis. 5. No evidence of acute myocardial ischemia. 6. Toxic and metabolic encephalopathies. 7. EKG changes may be in fact just due to the above. PLAN: 1. Hydration. 2. Monitor cardiorenal parameters and volume status. 3. Antimicrobials. 4. Ventilator support. 5. Review echocardiogram including pericardium. 6. No additional cardiovascular interventions presently indicated. Ibrahima Allen M.D. DR: RADHA JOB#: [id number] CC:
[2017-03-31] MEDS ORDERED: Heparin 2000 units/Ns 1000ml INJ ONE (06:00)
[2017-03-31] MEDS ORDERED: Lidocaine 1% Plain 30 ml INJ ONE (06:00)
[2017-03-31] MEDS: Piperacillin/Tazobactam 3.375 GM in D5W 55 ML IVPB SCH ×3 (06:34→20:17)
[2017-03-31 08:00] VITALS: BP 115/54
--- NOTE | 2017-03-31 08:42 | General Progress Note ---
Assessment/Plan Assessment/Plan IMPRESSION possible sepsis leukocytosis acute renal failure pneumonia trach GT acute on chronic encephalopathy abnormal ECG PLAN ventilator support feeds antibiotics ID evaluation to follow check cultures monitor labs feeds hydrate await further labs and cultures and dc when stable Subjective ROS Limited/Unobtainable: Yes Allergies: Coded Allergies: No Known Allergies (Unverified , 07/04/16) Subjective labs improved cards appreciated troponin negative Objective Last 24 Hour Vital Signs Date Time Temp Pulse Resp B/P (MAP) Pulse Ox O2 Delivery O2 Flow Rate FiO2 03/31/17 07:02 76 18 98 Mechanical Ventilator 28 03/31/17 07:02 76 18 28 03/31/17 07:02 76 18 Mechanical Ventilator 28 03/31/17 05:19 75 23 28 03/31/17 04:00 98.4 99 26 105/58 94 Mechanical Ventilator 28 03/31/17 04:00 104 03/31/17 04:00 28 03/31/17 03:43 83 26 28 03/31/17 01:40 81 24 100 Mechanical Ventilator 28 03/31/17 01:30 78 19 95 Mechanical Ventilator 28 03/31/17 01:30 78 30 28 03/31/17 00:05 26 95 Mechanical Ventilator 28 03/31/17 00:00 97.7 104 26 105/58 94 Mechanical Ventilator 03/31/17 00:00 28 03/31/17 00:00 109 03/30/17 23:10 84 30 28 03/30/17 21:15 90 22 28 03/30/17 20:00 97.9 103 24 105/70 99 Mechanical Ventilator 03/30/17 20:00 28 03/30/17 20:00 92 03/30/17 19:24 85 22 100 Mechanical Ventilator 28 03/30/17 19:15 83 20 Mechanical Ventilator 28 03/30/17 19:15 83 24 99 Mechanical Ventilator 28 03/30/17 19:08 95 24 28 03/30/17 16:51 91 28 28 03/30/17 16:00 104 03/30/17 16:00 98.1 104 30 113/59 100 Mechanical Ventilator 28 03/30/17 16:00 28 03/30/17 15:00 89 20 28 03/30/17 13:44 80 20 100 Mechanical Ventilator 28 03/30/17 13:44 79 18 99 03/30/17 13:04 90 22 28 03/30/17 12:00 28 03/30/17 12:00 97.5 70 20 112/62 100 Mechanical Ventilator 28 03/30/17 11:50 83 03/30/17 11:01 92 24 28 03/30/17 09:25 93 24 28 Laboratory Tests 03/30/17 12:44: Activated Partial Thromboplast Time 25 03/30/17 15:55: Activated Partial Thromboplast Time 51H, White Blood Count 16.1H, Red Blood Count 2.98L, Hemoglobin 10.2L, Hematocrit 31.5L, Mean Corpuscular Volume 106H, Mean Corpuscular Hemoglobin 34.0H, Mean Corpuscular Hemoglobin Concent 32.2, Red Cell Distribution Width 14.6, Platelet Count 280, Mean Platelet Volume 5.6L , Neutrophils (%) (Auto) , Lymphocytes (%) (Auto) , Monocytes (%) (Auto) , Eosinophils (%) (Auto) , Basophils (%) (Auto) , Differential Total Cells Counted 100, Neutrophils % (Manual) 88H, Lymphocytes % (Manual) 5L, Monocytes % (Manual) 6, Eosinophils % (Manual) 1, Basophils % (Manual) 0, Band Neutrophils 0 , Platelet Estimate Adequate, Platelet Morphology Normal, Hypochromasia Occasional, Anisocytosis 1+, Macrocytosis 1+, Sodium Level 141, Potassium Level 3.4L, Chloride Level 111H, Carbon Dioxide Level 17L, Anion Gap 13, Blood Urea Nitrogen 62H, Creatinine 2.0H, Estimat Glomerular Filtration Rate 34.3, Glucose Level 132H, Calcium Level 9.2, Troponin I 0.000 03/30/17 19:20: Activated Partial Thromboplast Time 20L 03/31/17 01:50: Activated Partial Thromboplast Time 59H, White Blood Count 13.2H, Red Blood Count 3.33L, Hemoglobin 11.3L, Hematocrit 34.9L, Mean Corpuscular Volume 105H, Mean Corpuscular Hemoglobin 33.8H, Mean Corpuscular Hemoglobin Concent 32.3, Red Cell Distribution Width 15.0H, Platelet Count 274, Mean Platelet Volume 5.1L , Neutrophils (%) (Auto) , Lymphocytes (%) (Auto) , Monocytes (%) (Auto) , Eosinophils (%) (Auto) , Basophils (%) (Auto) , Sodium Level 144, Potassium Level 3.9, Chloride Level 114H, Carbon Dioxide Level 19L, Anion Gap 11, Blood Urea Nitrogen 53H, Creatinine 1.8H, Estimat Glomerular Filtration Rate 38.7, Glucose Level 102, Calcium Level 9.4 Height (Feet): 5 Height (Inches): 8.00 Weight (Pounds): 110 Objective WDWN trach in place clear breath sounds bilaterally without rhonchi or wheeze [id number] without MRG NABS nontender no HSM; GT no CCE nonfocal HALINA REMY Mar 31, 2017 08:42
[2017-03-31] MEDS: Heparin 5000 units/ml inj SUBQ SCH ×2 (09:00→20:53)
[2017-03-31] MEDS: Multivitamins W/Minerals 15 ML UDC GT SCH (09:30)
[2017-03-31] MEDS: Zinc Sulfate 220mg cap GT SCH ×2 (09:30→18:01)
[2017-03-31] MEDS: Ferrous Sulfate 300 MG/5 ML UDC GT SCH ×3 (09:30→18:01)
[2017-03-31] MEDS: Docusate 100mg/10ml Liq GT SCH ×2 (09:31→18:01)
[2017-03-31 12:00] VITALS: BP 98/67
--- NOTE | 2017-03-31 12:11 | Diagnostic Imaging Report ---
Indications: Needs long-term IV access Technique: Procedure performed at bedside. Procedural timeout performed. Ultrasound confirms patent compressible left basilic vein. Total sterile technique, including sterile probe cover and sterile gel, sterile gloves, hand hygiene, hat, mask,, sterile gown, large sterile drape, and preparation with 2% chlorhexidine utilized. Local anesthesia with 1% lidocaine. Under real-time ultrasound guidance, puncture basilic vein using 21-gauge needle, passage 0.018 guidewire, exchange for 5 Turkish peel-away sheath. 5 Turkish Bard dual-lumen power PICC cut to 48 cm. It was inserted through the peel-away sheath. Peel-away sheath and guidewire removed. Catheter fixed to the skin. Both catheter ports aspirated and flushed. Patient tolerated procedure well, without immediate complication. Followup chest x-ray obtained, documents catheter tip position at the high right atrium Impression: Successful bedside placement of left arm PICC under sonographic guidance, as described above. Catheter is suitable for use
[2017-03-31] MEDS ORDERED: Vancomycin 1gm in D5W 275ml IVPB SCH ×2 (15:00→18:00)
[2017-03-31 16:00] VITALS: BP 92/59
[2017-03-31] MEDS ORDERED: Tubing IV Secondary IV ONE (18:20)
[2017-03-31] MEDS ORDERED: NS 500ML ONE (18:20)
--- NOTE | 2017-03-31 19:01 | Cardiology Report ---
APPROVED REPORT EXAM: Two-dimensional and M-mode echocardiogram with Doppler and color Doppler. INDICATION Acute myocardial infraction limited echo study due to very poor acoustical windows with G-tube blocking scan area and patient resistance. M-mode measurements of left ventricle not obtainable due to cardiac position (angle) Left ventricular ejection fraction is estimated to be grossly normal. Normal left ventricular chamber size, systolic function and wall motion to extent visualized. Study quality precludes accurate assessment of regional wall motion. Subcostal views are not obtained due to GI tube.
--- NOTE | 2017-03-31 19:14 | Cardiology Report ---
APPROVED REPORT EKG Measurement Heart [id number] Sinus tachycardia Septal infarct, age undetermined Lateral infarct, age undetermined Inferior injury pattern Abnormal ECG
[2017-03-31 20:00] VITALS: BP 114/68
[2017-03-31] MEDS: Dyna-Hex 2% Top Sol 2oz TOPIC SCH (20:16)
[2017-03-31] MEDS ORDERED: Epogen (for non ESRD use) SUBQ SCH (21:00)
[2017-04-01] VITALS: BP 112/65
[2017-04-01] MEDS: Albuterol/Ipratropium 3ml neb HHN SCH ×4 (01:23→19:02)
[2017-04-01 04:00] VITALS: BP 111/62
--- NOTE | 2017-04-01 04:15 | Progress Note ---
DATE: 03/31/2017 CARDIOLOGY PROGRESS NOTE SUBJECTIVE: The patient is without new complaints, remains on ventilator support, IV antibiotics, IV fluids, and nutrition by feeding tube. EKG changes persist. Troponins are negative. OBJECTIVE: VITAL SIGNS: Blood pressure is 105/58, pulse rate 75 to 104, respiratory rate 18 to 26, and afebrile. NECK: Thin trach secretions. LUNGS: Coarse rhonchi. HEART: Regular rhythm and rate. Normal S1 and S2 with a fourth heart sound. ABDOMEN: Soft. EXTREMITIES: No edema. DIAGNOSTIC DATA: Echocardiogram reveals no abnormalities. PICC line in the antecubital fossa on the right is without signs of bleeding. IMPRESSION: 1. No signs of acute myocardial infarction. 2. Possible pericarditis. 3. Healthcare-acquired pneumonia. 4. Ventilator-dependent respiratory failure. 5. Sepsis with recovering shock. 6. Toxic and metabolic encephalopathies. 7. Baseline dementia. PLAN: No additional cardiovascular therapy. Monitor volume status and cardiorenal parameters and adjust IV hydration accordingly. Ventilator support. Antimicrobial therapy. Ibrahima Allen M.D. DR: Martine JOB#: [id number] CC:
[2017-04-01] MEDS: Piperacillin/Tazobactam 3.375 GM in D5W 55 ML IVPB SCH ×3 (05:56→21:27)
[2017-04-01 06:47] LABS: MEAN CORPUSCULAR HEMOGLOBIN 34.9 PG (27.0-31.0); MEAN CORPUSCULAR HGB CONC 32.7 G/DL (32.0-36.0); MEAN CORPUSCULAR VOLUME 107 FL (80-99); MEAN PLATELET VOLUME 5.5 FL (6.5-10.1); PLATELET COUNT 268 K/UL (150-450); RED BLOOD COUNT 3.41 M/UL (4.70-6.10); RED CELL DISTRIBUTION WIDTH 15.2 % (11.6-14.8)
[2017-04-01 07:21] LABS: ANION GAP 10 mmol/L (5-15); CALCIUM 9.7 MG/DL (8.5-10.1); CARBON DIOXIDE 18 MMOL/L (21-32); CHLORIDE 119 MMOL/L (98-107); CREATININE 1.8 MG/DL (0.55-1.30); GLOMERULAR FILTRATION RATE 38.7 mL/min (>60); POTASSIUM 4.5 MMOL/L (3.5-5.1); SODIUM 147 MMOL/L (136-145)
[2017-04-01 08:00] VITALS: BP 115/77
[2017-04-01 08:01] LABS: ANISOCYTOSIS 1+; BAND NEUTROPHILS % (MANUAL) 2 % (0-8); BASOPHILS % (MANUAL) 1 % (0-2); EOSINOPHILS % (MANUAL) 2 % (0-3); LYMPHOCYTES % (MANUAL) 6 % (20-45); MACROCYTES 1+; NEUTROPHILS % (MANUAL) 82 % (45-75); PLATELET ESTIMATE ADEQUATE; PLATELET MORPHOLOGY NORMAL; TOTAL CELLS COUNTED 100
[2017-04-01] MEDS: Ferrous Sulfate 300 MG/5 ML UDC GT SCH ×3 (09:11→17:36)
[2017-04-01] MEDS: Docusate 100mg/10ml Liq GT SCH ×2 (09:11→17:36)
[2017-04-01] MEDS: Zinc Sulfate 220mg cap GT SCH ×2 (09:11→17:36)
[2017-04-01] MEDS: Multivitamins W/Minerals 15 ML UDC GT SCH (09:11)
[2017-04-01] MEDS: Heparin 5000 units/ml inj SUBQ SCH ×2 (09:14→21:28)
--- NOTE | 2017-04-01 10:54 | General Progress Note ---
Assessment/Plan Assessment/Plan IMPRESSION possible sepsis leukocytosis acute renal failure pneumonia trach GT acute on chronic encephalopathy abnormal ECG possible gastroparesis- vomited PLAN add reglan ventilator support feeds antibiotics ID evaluation to follow check cultures monitor labs feeds hydrate- adjust ID called await further labs and cultures and dc when stable Subjective Allergies: Coded Allergies: No Known Allergies (Unverified , 07/04/16) Subjective labs noted cards appreciated wbc increased Objective Last 24 Hour Vital Signs Date Time Temp Pulse Resp B/P (MAP) Pulse Ox O2 Delivery O2 Flow Rate FiO2 04/01/17 10:34 87 22 28 04/01/17 08:51 89 22 28 04/01/17 08:00 88 04/01/17 08:00 97.2 104 24 115/77 98 Mechanical Ventilator 04/01/17 08:00 28 04/01/17 07:29 104 24 97 Mechanical Ventilator 28 04/01/17 07:18 104 22 28 04/01/17 07:17 102 24 98 Mechanical Ventilator 28 04/01/17 05:13 87 22 28 04/01/17 04:00 97.3 103 25 111/62 97 Mechanical Ventilator 04/01/17 04:00 28 04/01/17 04:00 96 04/01/17 02:53 88 22 28 04/01/17 01:24 90 24 28 04/01/17 01:20 89 20 100 Mechanical Ventilator 28 04/01/17 01:00 90 20 100 Mechanical Ventilator 28 04/01/17 00:00 96.8 94 25 112/65 96 Mechanical Ventilator 04/01/17 00:00 86 04/01/17 00:00 28 03/31/17 22:59 79 22 28 03/31/17 21:02 80 28 28 03/31/17 20:00 96.4 93 24 114/68 98 Mechanical Ventilator 28 03/31/17 20:00 28 03/31/17 20:00 84 03/31/17 19:19 82 20 100 Mechanical Ventilator 28 03/31/17 19:19 82 20 28 03/31/17 19:08 81 20 98 Mechanical Ventilator 28 03/31/17 16:40 80 22 28 03/31/17 16:00 97.7 94 26 92/59 98 Mechanical Ventilator 28 03/31/17 15:57 96 03/31/17 15:57 28 03/31/17 14:51 82 27 28 03/31/17 13:38 78 20 100 Mechanical Ventilator 28 03/31/17 13:27 78 18 98 Mechanical Ventilator 28 03/31/17 13:26 76 20 28 03/31/17 12:00 96 03/31/17 12:00 28 03/31/17 12:00 97.5 102 24 98/67 100 Mechanical Ventilator 28 03/31/17 11:17 78 20 28 Intake and Output 04/01/17 04/02/17 19:00 07:00 Intake Total 341.25 ml Balance 341.25 ml IV Total 341.25 ml Laboratory Tests 04/01/17 06:15: White Blood Count 18.0H, Red Blood Count 3.41L, Hemoglobin 11.9L, Hematocrit 36.4L, Mean Corpuscular Volume 107H, Mean Corpuscular Hemoglobin 34.9H, Mean Corpuscular Hemoglobin Concent 32.7, Red Cell Distribution Width 15.2H, Platelet Count 268, Mean Platelet Volume 5.5L, Neutrophils (%) (Auto) , Lymphocytes (%) (Auto) , Monocytes (%) (Auto) , Eosinophils (%) (Auto) , Basophils (%) (Auto) , Differential Total Cells Counted 100, Neutrophils % ( Manual) 82H, Lymphocytes % (Manual) 6L, Monocytes % (Manual) 7, Eosinophils % ( Manual) 2, Basophils % (Manual) 1, Band Neutrophils 2, Platelet Estimate Adequate, Platelet Morphology Normal, Anisocytosis 1+, Macrocytosis 1+, Sodium Level 147H, Potassium Level 4.5, Chloride Level 119H, Carbon Dioxide Level 18L, Anion Gap 10, Blood Urea Nitrogen 33H, Creatinine 1.8H, Estimat Glomerular Filtration Rate 38.7, Glucose Level 99, Calcium Level 9.7 Height (Feet): 5 Height (Inches): 8.00 Weight (Pounds): 111 Objective WDWN trach in place clear breath sounds bilaterally without rhonchi or wheeze [id number] without MRG NABS nontender no HSM; GT no CCE nonfocal HALINA REMY Apr 01, 2017 10:54
[2017-04-01] MEDS: Metoclopramide 10mg/10ml Liq NG SCH ×3 (11:30→23:43)
[2017-04-01 12:00] VITALS: BP 140/80
[2017-04-01 16:00] VITALS: BP 123/82
[2017-04-01] MEDS ORDERED: NS 500ML ONE (16:14)
[2017-04-01] MEDS ORDERED: Tubing IV Secondary IV ONE (16:14)
--- NOTE | 2017-04-01 17:16 | Diagnostic Imaging Report ---
Indication: Reason For Exam: VOMITING, abdominal pain Technique: Supine view of the abdomen Comparison: none Findings: There is a gastrostomy. Considerable stool is seen throughout the colon. Bowel gas pattern is unremarkable. The bones are unremarkable Impression: No acute process
--- NOTE | 2017-04-01 18:34 | General Progress Note ---
Assessment/Plan Assessment/Plan Assessment - Leukocytosis/Sepsis, ? etiology - N/V, ? intraabdominal process - Resp failure / trach - Azotemia - dysphagia, GT Recommendations - Keep NPO - CT abd/pelvis - abx - d/c FeSO4 - follow labs Thank you Aj Victoria MD possible sepsis leukocytosis acute renal failure pneumonia trach GT acute on chronic encephalopathy abnormal ECG possible gastroparesis- vomited PLAN add reglan ventilator support feeds antibiotics ID evaluation to follow check cultures monitor labs feeds hydrate- adjust ID called await further labs and cultures and dc when stable Subjective Allergies: Coded Allergies: No Known Allergies (Unverified , 07/04/16) Objective Last 24 Hour Vital Signs Date Time Temp Pulse Resp B/P (MAP) Pulse Ox O2 Delivery O2 Flow Rate FiO2 04/01/17 16:51 102 29 28 04/01/17 16:00 105 04/01/17 16:00 98.0 104 24 123/82 100 Mechanical Ventilator 28 04/01/17 16:00 28 04/01/17 15:30 96 23 28 04/01/17 13:50 99 24 98 Mechanical Ventilator 28 04/01/17 13:41 94 23 28 04/01/17 13:40 95 23 97 Mechanical Ventilator 28 04/01/17 12:00 98.2 97 24 140/80 100 Mechanical Ventilator 28 04/01/17 12:00 28 04/01/17 11:54 91 04/01/17 10:34 87 22 28 04/01/17 08:51 89 22 28 04/01/17 08:00 88 04/01/17 08:00 97.2 104 24 115/77 98 Mechanical Ventilator 28 04/01/17 08:00 28 04/01/17 07:29 104 24 97 Mechanical Ventilator 28 04/01/17 07:18 104 22 28 04/01/17 07:17 102 24 98 Mechanical Ventilator 28 04/01/17 05:13 87 22 28 04/01/17 04:00 97.3 103 25 111/62 97 Mechanical Ventilator 04/01/17 04:00 28 04/01/17 04:00 96 04/01/17 02:53 88 22 28 04/01/17 01:24 90 24 28 04/01/17 01:20 89 20 100 Mechanical Ventilator 28 04/01/17 01:00 90 20 100 Mechanical Ventilator 28 04/01/17 00:00 96.8 94 25 112/65 96 Mechanical Ventilator 04/01/17 00:00 86 04/01/17 00:00 28 03/31/17 22:59 79 22 28 03/31/17 21:02 80 28 28 03/31/17 20:00 96.4 93 24 114/68 98 Mechanical Ventilator 28 03/31/17 20:00 28 03/31/17 20:00 84 03/31/17 19:19 82 20 100 Mechanical Ventilator 28 03/31/17 19:19 82 20 28 03/31/17 19:08 81 20 98 Mechanical Ventilator 28 Intake and Output 04/01/17 04/02/17 19:00 07:00 Intake Total 996.25 ml Balance 996.25 ml IV Total 996.25 ml Laboratory Tests 04/01/17 06:15: White Blood Count 18.0H, Red Blood Count 3.41L, Hemoglobin 11.9L, Hematocrit 36.4L, Mean Corpuscular Volume 107H, Mean Corpuscular Hemoglobin 34.9H, Mean Corpuscular Hemoglobin Concent 32.7, Red Cell Distribution Width 15.2H, Platelet Count 268, Mean Platelet Volume 5.5L, Neutrophils (%) (Auto) , Lymphocytes (%) (Auto) , Monocytes (%) (Auto) , Eosinophils (%) (Auto) , Basophils (%) (Auto) , Differential Total Cells Counted 100, Neutrophils % ( Manual) 82H, Lymphocytes % (Manual) 6L, Monocytes % (Manual) 7, Eosinophils % ( Manual) 2, Basophils % (Manual) 1, Band Neutrophils 2, Platelet Estimate Adequate, Platelet Morphology Normal, Anisocytosis 1+, Macrocytosis 1+, Sodium Level 147H, Potassium Level 4.5, Chloride Level 119H, Carbon Dioxide Level 18L, Anion Gap 10, Blood Urea Nitrogen 33H, Creatinine 1.8H, Estimat Glomerular Filtration Rate 38.7, Glucose Level 99, Calcium Level 9.7 Height (Feet): 5 Height (Inches): 8.00 Weight (Pounds): 111 DELTAAJ Apr 01, 2017 18:34
[2017-04-01 20:00] VITALS: BP 127/80
[2017-04-01] MEDS: Dyna-Hex 2% Top Sol 2oz TOPIC SCH (21:26)
--- NOTE | 2017-04-01 21:31 | Consultation ---
DATE OF CONSULTATION: 04/01/2017 INFECTIOUS DISEASES CONSULTATION CONSULTING PHYSICIAN: Frankie Rust M.D. REFERRING PHYSICIAN: Ney Centeno M.D. REASON FOR CONSULTATION: Pneumonia and urinary tract infection. HISTORY OF PRESENTING ILLNESS: This is a 62-year-old gentleman with history of VRE sepsis, pneumonia, urinary tract infection, respiratory failure, and renal failure, who comes in with altered mental status. An Infectious Diseases consultation has been obtained for antibiotics. PAST MEDICAL HISTORY: 1. History of VRE sepsis. 2. Pneumonia. 3. Urinary tract infection. 4. Respiratory failure, status post tracheostomy. 5. Renal failure. 6. Gallstones. 7. Status post G-tube placement. MEDICATIONS AN INPATIENT: The patient is on Epogen, Reglan, chlorhexidine gluconate, IV vancomycin, albuterol and ipratropium, Zosyn, Ambien, Prevacid, midodrine, multivitamin, zinc sulfate, docusate, ferrous sulfate, Benadryl, lactulose, Mylanta, Tylenol, Dulcolax, milk of magnesia, and Zofran. ALLERGIES: No known drug allergies. SOCIAL HISTORY: Unknown. FAMILY HISTORY: Unknown. REVIEW OF SYSTEMS: Unable to obtain currently. PHYSICAL EXAMINATION: VITAL SIGNS: Temperature of 98.2 degrees, T-max of 98.2 degrees, pulse of 97, respiratory rate 24, blood pressure 140/80, and O2 saturation of 100%. HEENT: Pupils equally reactive to light and accommodation. Mouth appears clean without thrush. NECK: Supple. No adenopathy. No JVD. Tracheostomy site appears clean. CARDIOVASCULAR: Regular rate and rhythm. No murmurs. LUNGS: Clear to auscultation bilaterally. No crackles. No wheezes. ABDOMEN: Soft and nontender. G-tube site appears clean. EXTREMITIES: No cyanosis. No clubbing. No edema. Left arm PICC line noted. LABORATORY AND DIAGNOSTIC DATA: White count of 18, hemoglobin 11.9, hematocrit 36.4, MCV 107, platelet count of 268,000, and neutrophils of 82%. Sodium 147, potassium 4.5, chloride 119, bicarbonate 18, BUN 33, creatinine 1.8, glucose of 147, and calcium 9.7. UA showing 0 to 2 white cells. Rectal swab was negative for VRE. Stool for C. difficile on 03/30/2017 was negative. Wound cultures from the sacrum growing Staphylococcus aureus. blood cultures are negative. Chest x-ray showing new airspace opacity in the right upper lobe and in the right lower lung infiltrate. ASSESSMENT: This is a 62-year-old gentleman with history of respiratory failure, status post tracheostomy as well as sepsis, who comes in now with: 1. Possible pneumonia. 2. Leukocytosis. 3. Respiratory failure. 4. Renal failure is improving. PLAN: 1. Continue IV vancomycin and Zosyn for now. 2. We will order sputum for Gram stain and culture. 3. We will follow up cultures and adjust antibiotics accordingly. I would like to thank, Dr. Centeno, for this consultation. Frankie Rust M.D. DR: Gabriele JOB#: [id number] CC: Ney Centeno M.D.; Fax#: [phone]
[2017-04-02] VITALS: BP 103/72
[2017-04-02] MEDS: Albuterol/Ipratropium 3ml neb HHN SCH ×4 (01:59→19:15)
[2017-04-02 04:00] VITALS: BP 132/71
--- NOTE | 2017-04-02 05:15 | Consultation ---
DATE OF CONSULTATION: 04/01/2017 GASTROENTEROLOGY CONSULTATION CONSULTING PHYSICIAN: Aj Victoria M.D. REFERRING PHYSICIAN: Ney Centeno M.D. CHIEF COMPLAINT: I was asked to see this patient by Dr. Ney Centeno for evaluation of nausea and vomiting. HISTORY OF PRESENT ILLNESS: The patient is an unfortunate 62-year-old man with respiratory failure requiring tracheostomy as well as dysphagia requiring gastrostomy, was brought in from a shelter for sepsis. The patient has healthcare-associated pneumonia and urinary tract infection and has been treated for these. He has some renal failure. He is unable to provide any history and most of the information is only available from the chart. The patient has been noted to have two episodes of vomiting and therefore tube feedings have been discontinued. I ordered for KUB, which showed no acute changes. Most of the information is only available from the chart. PAST MEDICAL HISTORY: History of sepsis, possible urinary tract infection, renal failure, history of transaminitis, cholelithiasis, history of dysphagia, status post gastrostomy tube placement, history of respiratory failure, status post tracheostomy tube placement, and anemia. MEDICATIONS: See the chart list for details. FAMILY HISTORY: Unavailable and unobtainable. SOCIAL HISTORY: Unavailable and unobtainable. Currently, the patient does reside in a 24-hour nursing care facility at this time. REVIEW OF SYSTEMS: Unavailable and unobtainable. PHYSICAL EXAMINATION: GENERAL: Debilitated, man, seen in his room. HEENT: Normocephalic and atraumatic. Sclerae anicteric. Oropharynx is clear. NECK: Supple. CHEST: Coarse breath sounds. CARDIOVASCULAR: Revealed regular rate. ABDOMEN: Soft, flat. Good bowel sounds. Gastrostomy catheter was somewhat functional and in good position with no drainage. EXTREMITIES: Revealed contractions. LABORATORY DATA: Noted. ASSESSMENT: This patient presents with sepsis and leukocytosis of unclear etiology. Observation of vomiting in this setting is somewhat unusual and could be due to intra-abdominal process such as diverticulitis or cholecystitis, which has not been determined. I will therefore order a stat CT scan of the abdomen and pelvis to evaluate for this possibility. In the meantime, tube feeding should be held and antibiotics should be continued. RECOMMENDATIONS: Per above discussion and per orders written in the chart. Thank you for asking me to participate in the care of this patient. Aj Victoria M.D. DR: SABRA JOB#: [id number] CC:
--- NOTE | 2017-04-02 05:15 | Progress Note ---
DATE: 04/01/2017 CARDIOLOGY PROGRESS NOTE SUBJECTIVE: The patient remains NPO. Monitor, sinus tachycardia. He continues to have abdominal distention and gastroparesis. OBJECTIVE: VITAL SIGNS: Blood pressure 123/82, pulse 104, respirations 24, and afebrile. LUNGS: Bilateral breath sounds. Scattered rhonchi. The patient is on ventilator support via trach. HEART: Regular rhythm. Rapid rate. Normal S1 and S2. ABDOMEN: Distended, but soft. EXTREMITIES: No edema. LABORATORY DATA: White count 18 and hemoglobin 12. Sodium 147, potassium 4.5, chloride 119, bicarbonate 18, BUN 32 and creatinine 1.8. IMPRESSION: 1. Healthcare-acquired pneumonia. 2. Respiratory failure. 3. Abnormal EKG suggesting repolarization changes and possible pericarditis, no signs of pericardial effusion on echocardiogram. 4. Dehydration. 5. Hypernatremia. 6. Metabolic acidosis. 7. Acute on chronic renal failure with prerenal azotemia. 8. Sepsis. 9. Secondary sinus tachycardia. PLAN: 1. Continue hydration. 2. Free water replacement. 3. Antimicrobials. 4. Respiratory hygiene. 5. No additional cardiovascular therapy at this time. 6. Monitor volume status and cardiorenal function. Ibrahima Allen M.D. DR: BLANK JOB#: [id number] CC:
[2017-04-02] MEDS: Metoclopramide 10mg/10ml Liq NG SCH ×3 (05:20→17:49)
[2017-04-02] MEDS: Piperacillin/Tazobactam 3.375 GM in D5W 55 ML IVPB SCH ×3 (05:21→21:50)
[2017-04-02 06:20] LABS: ANION GAP 10 mmol/L (5-15); CALCIUM 8.8 MG/DL (8.5-10.1); CARBON DIOXIDE 17 MMOL/L (21-32); CHLORIDE 113 MMOL/L (98-107); CREATININE 1.6 MG/DL (0.55-1.30); GLOMERULAR FILTRATION RATE 44.3 mL/min (>60); POTASSIUM 3.9 MMOL/L (3.5-5.1); SODIUM 140 MMOL/L (136-145)
[2017-04-02 06:23] LABS: MEAN CORPUSCULAR HGB CONC 31.8 G/DL (32.0-36.0); MEAN CORPUSCULAR VOLUME 107 FL (80-99); MEAN PLATELET VOLUME 5.4 FL (6.5-10.1); PLATELET COUNT 230 K/UL (150-450); RED BLOOD COUNT 2.91 M/UL (4.70-6.10); RED CELL DISTRIBUTION WIDTH 15.6 % (11.6-14.8); WHITE BLOOD COUNT 16.4 K/UL (4.8-10.8)
[2017-04-02 08:00] VITALS: BP 124/76
[2017-04-02] MEDS: Docusate 100mg/10ml Liq GT SCH ×2 (08:24→17:49)
[2017-04-02] MEDS: Multivitamins W/Minerals 15 ML UDC GT SCH (08:25)
[2017-04-02] MEDS: Zinc Sulfate 220mg cap GT SCH ×2 (08:25→17:49)
[2017-04-02] MEDS: Heparin 5000 units/ml inj SUBQ SCH ×2 (08:26→20:26)
[2017-04-02 09:34] LABS: ANISOCYTOSIS 1+; BAND NEUTROPHILS % (MANUAL) 0 % (0-8); BASOPHILS % (MANUAL) 0 % (0-2); EOSINOPHILS % (MANUAL) 8 % (0-3); HYPOCHROMASIA 1+; LYMPHOCYTES % (MANUAL) 3 % (20-45); MACROCYTES 1+; NEUTROPHILS % (MANUAL) 79 % (45-75); PLATELET ESTIMATE ADEQUATE; PLATELET MORPHOLOGY NORMAL; TOTAL CELLS COUNTED 100
--- NOTE | 2017-04-02 10:49 | General Progress Note ---
Assessment/Plan Assessment/Plan IMPRESSION possible sepsis leukocytosis acute renal failure pneumonia trach GT acute on chronic encephalopathy abnormal ECG possible gastroparesis- vomited PLAN added reglan CT abdomen ordered ventilator support feeds antibiotics ID evaluation to follow and intervene review cultures monitor labs feeds hydrate- adjust pending feeds await further labs and cultures and dc when stable GI and ID clearance Subjective ROS Limited/Unobtainable: Yes Allergies: Coded Allergies: No Known Allergies (Unverified , 07/04/16) Subjective labs noted cards appreciated wbc increased ID and GI appreciated Objective Last 24 Hour Vital Signs Date Time Temp Pulse Resp B/P (MAP) Pulse Ox O2 Delivery O2 Flow Rate FiO2 04/02/17 10:30 97 23 28 04/02/17 08:45 104 26 28 04/02/17 08:00 87 04/02/17 08:00 28 04/02/17 08:00 97.2 89 18 124/76 100 Mechanical Ventilator 28 04/02/17 07:43 98 24 99 Mechanical Ventilator 28 04/02/17 07:29 87 23 99 Mechanical Ventilator 28 04/02/17 06:45 81 22 28 04/02/17 05:30 82 20 28 04/02/17 04:29 90 04/02/17 04:00 97.8 94 24 132/71 99 Mechanical Ventilator 28 04/02/17 04:00 28 04/02/17 03:36 82 21 28 04/02/17 02:09 89 19 99 Mechanical Ventilator 28 04/02/17 01:59 82 21 28 04/02/17 01:59 82 21 99 Mechanical Ventilator 28 04/02/17 00:00 98.4 83 21 103/72 100 Mechanical Ventilator 28 04/01/17 23:16 97 24 28 04/01/17 21:09 97 24 28 04/01/17 20:07 84 04/01/17 20:00 97.9 85 22 127/80 99 Mechanical Ventilator 28 04/01/17 20:00 28 04/01/17 19:17 88 23 98 Mechanical Ventilator 28 04/01/17 19:05 90 23 98 Mechanical Ventilator 28 04/01/17 19:02 90 24 28 04/01/17 16:51 102 29 28 04/01/17 16:00 105 04/01/17 16:00 98.0 104 24 123/82 100 Mechanical Ventilator 28 12/12/17 16:00 28 04/01/17 15:30 96 23 28 04/01/17 13:50 99 24 98 Mechanical Ventilator 28 04/01/17 13:41 94 23 28 04/01/17 13:40 95 23 97 Mechanical Ventilator 28 04/01/17 12:00 98.2 97 24 140/80 100 Mechanical Ventilator 28 04/01/17 12:00 28 04/01/17 11:54 91 Intake and Output 04/02/17 04/03/17 19:00 07:00 Intake Total 232.32 ml Balance 232.32 ml IV Total 232.32 ml Laboratory Tests 04/02/17 05:30: White Blood Count 16.4H, Red Blood Count 2.91L, Hemoglobin 9.9L, Hematocrit 31.0L, Mean Corpuscular Volume 107H, Mean Corpuscular Hemoglobin 34.0H, Mean Corpuscular Hemoglobin Concent 31.8L, Red Cell Distribution Width 15.6H, Platelet Count 230, Mean Platelet Volume 5.4L, Neutrophils (%) (Auto) , Lymphocytes (%) (Auto) , Monocytes (%) (Auto) , Eosinophils (%) (Auto) , Basophils (%) (Auto) , Differential Total Cells Counted 100, Neutrophils % ( Manual) 79H, Lymphocytes % (Manual) 3L, Monocytes % (Manual) 10, Eosinophils % ( Manual) 8H, Basophils % (Manual) 0, Band Neutrophils 0, Platelet Estimate Adequate, Platelet Morphology Normal, Hypochromasia 1+, Anisocytosis 1+, Macrocytosis 1+, Sodium Level 140, Potassium Level 3.9, Chloride Level 113H, Carbon Dioxide Level 17L, Anion Gap 10, Blood Urea Nitrogen 24H, Creatinine 1.6H , Estimat Glomerular Filtration Rate 44.3, Glucose Level 69L, Calcium Level 8.8 Height (Feet): 5 Height (Inches): 8.00 Weight (Pounds): 110 Objective WDWN trach in place clear breath sounds bilaterally without rhonchi or wheeze [id number] without MRG NABS nontender no HSM; GT no CCE nonfocal HALINA REMY Apr 02, 2017 10:49
[2017-04-02] MEDS: D5 1/2NS 1,000 ML IV SCH ×2 (11:37→21:49)
[2017-04-02 12:00] VITALS: BP 112/77
--- NOTE | 2017-04-02 12:09 | Infectious Diseases Prog Note ---
Assessment/Plan Assessment/Plan antibiotics : vancomycin iv, zosyn A 1. Possible pneumonia. 2. Leukocytosis improving 3. Respiratory failure. 4. Renal failure is improving. P 1. Continue IV vancomycin and Zosyn for now. 2. We will follow up cultures and adjust antibiotics accordingly. Subjective ROS Limited/Unobtainable: Yes Allergies: Coded Allergies: No Known Allergies (Unverified , 07/04/16) Objective Vital Signs Last 24 Hour Vital Signs Date Time Temp Pulse Resp B/P (MAP) Pulse Ox O2 Delivery O2 Flow Rate FiO2 04/02/17 10:30 97 23 28 04/02/17 08:45 104 26 28 04/02/17 08:00 87 04/02/17 08:00 28 04/02/17 08:00 97.2 89 18 124/76 100 Mechanical Ventilator 28 04/02/17 07:43 98 24 99 Mechanical Ventilator 28 04/02/17 07:29 87 23 99 Mechanical Ventilator 28 04/02/17 06:45 81 22 28 04/02/17 05:30 82 20 28 04/02/17 04:29 90 04/02/17 04:00 97.8 94 24 132/71 99 Mechanical Ventilator 28 04/02/17 04:00 28 04/02/17 03:36 82 21 28 04/02/17 02:09 89 19 99 Mechanical Ventilator 28 04/02/17 01:59 82 21 28 04/02/17 01:59 82 21 99 Mechanical Ventilator 28 04/02/17 00:00 98.4 83 21 103/72 100 Mechanical Ventilator 28 04/01/17 23:16 97 24 28 04/01/17 21:09 97 24 28 04/01/17 20:07 84 04/01/17 20:00 97.9 85 22 127/80 99 Mechanical Ventilator 28 04/01/17 20:00 28 04/01/17 19:17 88 23 98 Mechanical Ventilator 28 04/01/17 19:05 90 23 98 Mechanical Ventilator 28 04/01/17 19:02 90 24 28 04/01/17 16:51 102 29 28 04/01/17 16:00 105 04/01/17 16:00 98.0 104 24 123/82 100 Mechanical Ventilator 28 04/01/17 16:00 28 04/01/17 15:30 96 23 28 04/01/17 13:50 99 24 98 Mechanical Ventilator 28 04/01/17 13:41 94 23 28 04/01/17 13:40 95 23 97 Mechanical Ventilator 28 Height (Feet): 5 Height (Inches): 8.00 Weight (Pounds): 110 HEENT: status post trach Respiratory/Chest: lungs clear Cardiovascular: normal rate, regular rhythm, no gallop/murmur Abdomen: soft, non tender, other - GT Extremities: no edema, other - left arm PICC Microbiology Date/Time Source Procedure Growth Status 04/01/17 13:25 Sputum Gram Stain - Final Resulted 04/01/17 13:25 Sputum Sputum Culture Pending Resulted 03/30/17 19:10 Nasal Not Otherwise Specified MRSA Culture - Final Staphylococcus Aureus - Mrsa Complete 03/30/17 19:10 Rectum VRE Culture - Final NO VANCOMYCIN RESISTANT ENTEROCOCCUS ... Complete Laboratory Tests Test 04/02/17 05:30 White Blood Count 16.4 K/UL (4.8-10.8) H Red Blood Count 2.91 M/UL (4.70-6.10) L Hemoglobin 9.9 G/DL (14.2-18.0) L Hematocrit 31.0 % (42.0-52.0) L Mean Corpuscular Volume 107 FL (80-99) H Mean Corpuscular Hemoglobin 34.0 PG (27.0-31.0) H Mean Corpuscular Hemoglobin Concent 31.8 G/DL (32.0-36.0) L Red Cell Distribution Width 15.6 % (11.6-14.8) H Platelet Count 230 K/UL (150-450) Mean Platelet Volume 5.4 FL (6.5-10.1) L Neutrophils (%) (Auto) % (45.0-75.0) Lymphocytes (%) (Auto) % (20.0-45.0) Monocytes (%) (Auto) % (1.0-10.0) Eosinophils (%) (Auto) % (0.0-3.0) Basophils (%) (Auto) % (0.0-2.0) Differential Total Cells Counted 100 Neutrophils % (Manual) 79 % (45-75) H Lymphocytes % (Manual) 3 % (20-45) L Monocytes % (Manual) 10 % (1-10) Eosinophils % (Manual) 8 % (0-3) H Basophils % (Manual) 0 % (0-2) Band Neutrophils 0 % (0-8) Platelet Estimate Adequate Platelet Morphology Normal Hypochromasia 1+ Anisocytosis 1+ Macrocytosis 1+ Sodium Level 140 MMOL/L (136-145) Potassium Level 3.9 MMOL/L (3.5-5.1) Chloride Level 113 MMOL/L (98-107) H Carbon Dioxide Level 17 MMOL/L (21-32) L Anion Gap 10 mmol/L (5-15) Blood Urea Nitrogen 24 mg/dL (7-18) H Creatinine 1.6 MG/DL (0.55-1.30) H Estimat Glomerular Filtration Rate 44.3 mL/min (>60) Glucose Level 69 MG/DL (74-106) L Calcium Level 8.8 MG/DL (8.5-10.1) DIONICIO OLIVEIRA Apr 02, 2017 12:09
[2017-04-02 16:00] VITALS: BP 112/73
--- NOTE | 2017-04-02 16:18 | Diagnostic Imaging Report ---
Indication: Vomiting Technique: Spiral acquisitions obtained through the abdomen and pelvis. Patient given enteric contrast. No IV contrast utilized, per referring physician request.. Multiplanar reconstructions were generated. Total dose length product 661 mGycm. CTDIvol(s) 11 mGy. Dose reduction achieved using automated exposure control Comparison: None Findings: There is moderate distention of the rectum with feces. There is evidence of rectal fecal incontinence. Considerable retained stool is seen diffusely throughout the colon. No evidence of diverticulitis or diverticulitis. Normal appendix. Proximal small bowel loops are dilated and fluid-filled. There appears to be a gradual tapering to normal caliber small bowel and the right side of the abdomen. No free or loculated intraperitoneal air or fluid is evident. No small bowel wall thickening. There is a gastrostomy, with the balloon tenting the inferior gastric lumen, position satisfactory. Lack of IV contrast limits assessment of solid organs. The liver is grossly unremarkable. There is a large gallstone. No biliary ductal dilatation. The pancreas is unremarkable. Spleen demonstrates a capsular calcification. There is evidence of prior left nephrectomy. The right adrenal demonstrates a 13 mm nodule which demonstrates nonspecific soft tissue attenuation. The left adrenal is unremarkable. The right kidney demonstrates a 4.6 cm cyst. It demonstrates a 3 mm calculus in the lower pole collecting system. The right ureter is ectatic, but no ureteral calculi demonstrated. The bladder is unremarkable. No pelvic mass or adenopathy. There is considerable consolidation and atelectasis of the bilateral pulmonary lower lobes, right greater than left. Nodular interstitial disease is seen within the right lower and middle lobes as well. The tip of a PICC is seen within the orifice of the inferior vena cava. The bones are unremarkable. Impression: Rectal distention with feces, concerning for rectal fecal impaction. Evidence of rectal fecal incontinence Dilated fluid-filled small bowel loops, with gradual tapering to normal caliber small bowel, node definite abrupt cut off. Uncertain as to whether this represents ileus versus partial small bowel obstruction Deep position of PICC. This will be readjusted Cholelithiasis Bilateral basilar pulmonary consolidation and atelectasis, as described 1.3 cm right adrenal nodule-see below A 46 mm cystic-appearing lesion in the right kidney is most likely benign and no additional imaging or follow-up is recommended. Evidence of prior left nephrectomy Nonobstructive right lower pole renal calculus Right adrenal nodule measuring 1.3 cm is probably benign, although risk is increased if there is a prior history of malignancy. Consider biochemical assays to determine functional status and exclude pheochromocytoma. Also consider follow-up adrenal CT protocol or chemical-shift MRI in 12 months to assess stability. An incidental 1.3 cm nodule is seen in the right adrenal gland in this patient whose history of malignancy is unknown. Xochitl OLIVER et al. Management of Incidental Adrenal Masses: A White Paper of the ACR Incidental Findings Committee. J Am Spenser Radiol. 2017 Aug;14(8):0384-9218. Recommendations for renal mass management, based on Elizabeth et al., J Am Spenser Radiol 7:754-73 (2010). The CT scanner at [facility] is accredited by the [employer] and the scans are performed using protocols designed to limit radiation exposure to as low as reasonably achievable to attain images of sufficient resolution adequate for diagnostic evaluation.
[2017-04-02] MEDS: Vancomycin 1gm in D5W 275ml IVPB SCH (18:08)
[2017-04-02 20:00] VITALS: BP 126/81
[2017-04-02] MEDS: Dyna-Hex 2% Top Sol 2oz TOPIC SCH (20:24)
[2017-04-02] MEDS: Epogen (for non ESRD use) SUBQ SCH (20:53)
--- NOTE | 2017-04-02 21:29 | General Progress Note ---
Assessment/Plan Assessment/Plan Assessment - Leukocytosis/Sepsis - ileus vs SBO - N/V - Resp failure / trach - Azotemia - dysphagia, GT - fecal loading - (R) adrenal nodule - (R) urolithiasis - s/p (L) nephrectomy Recommendations - Keep NPO - GT --> LIS - consider surgical opinion - abx - enemas - follow labs - follow exam Subjective Allergies: Coded Allergies: No Known Allergies (Unverified , 07/04/16) Subjective Above noted seen early am off feeds subsequent CT reviewed (+) fecal loading and ileus vs SBO Objective Last 24 Hour Vital Signs Date Time Temp Pulse Resp B/P (MAP) Pulse Ox O2 Delivery O2 Flow Rate FiO2 04/02/17 20:00 97.6 87 24 126/81 100 Mechanical Ventilator 04/02/17 20:00 28 04/02/17 19:22 84 25 Mechanical Ventilator 04/02/17 19:17 86 24 28 04/02/17 19:16 85 24 98 Mechanical Ventilator 04/02/17 17:02 75 21 28 04/02/17 16:00 81 04/02/17 16:00 28 04/02/17 16:00 97.2 81 22 112/73 99 Mechanical Ventilator 04/02/17 15:29 93 19 28 04/02/17 14:26 95 18 99 Mechanical Ventilator 04/02/17 14:18 8 21 99 Mechanical Ventilator 28 04/02/17 14:16 95 24 28 04/02/17 12:00 28 04/02/17 12:00 86 04/02/17 12:00 97.5 96 24 112/77 99 Mechanical Ventilator 04/02/17 10:30 97 23 28 04/02/17 08:45 104 26 28 04/02/17 08:00 87 04/02/17 08:00 28 04/02/17 08:00 97.2 89 18 124/76 100 Mechanical Ventilator 04/02/17 07:43 98 24 99 Mechanical Ventilator 04/02/17 07:29 87 23 99 Mechanical Ventilator 04/02/17 06:45 81 22 28 04/02/17 05:30 82 20 28 04/02/17 04:29 90 04/02/17 04:00 97.8 94 24 132/71 99 Mechanical Ventilator 04/02/17 04:00 28 04/02/17 03:36 82 21 28 04/02/17 02:09 89 19 99 Mechanical Ventilator 28 04/02/17 01:59 82 21 28 04/02/17 01:59 82 21 99 Mechanical Ventilator 28 04/02/17 00:00 98.4 83 21 103/72 100 Mechanical Ventilator 28 04/01/17 23:16 97 24 28 Intake and Output 04/02/17 04/03/17 19:00 07:00 Intake Total 1277.32 ml 183.708 ml Output Total 600 ml Balance 677.32 ml 183.708 ml Free Water 90 ml IV Total 1187.32 ml 183.708 ml Output Urine Total 600 ml # Bowel Movements 2 Laboratory Tests 04/02/17 05:30: White Blood Count 16.4H, Red Blood Count 2.91L, Hemoglobin 9.9L, Hematocrit 31.0L, Mean Corpuscular Volume 107H, Mean Corpuscular Hemoglobin 34.0H, Mean Corpuscular Hemoglobin Concent 31.8L, Red Cell Distribution Width 15.6H, Platelet Count 230, Mean Platelet Volume 5.4L, Neutrophils (%) (Auto) , Lymphocytes (%) (Auto) , Monocytes (%) (Auto) , Eosinophils (%) (Auto) , Basophils (%) (Auto) , Differential Total Cells Counted 100, Neutrophils % ( Manual) 79H, Lymphocytes % (Manual) 3L, Monocytes % (Manual) 10, Eosinophils % ( Manual) 8H, Basophils % (Manual) 0, Band Neutrophils 0, Platelet Estimate Adequate, Platelet Morphology Normal, Hypochromasia 1+, Anisocytosis 1+, Macrocytosis 1+, Sodium Level 140, Potassium Level 3.9, Chloride Level 113H, Carbon Dioxide Level 17L, Anion Gap 10, Blood Urea Nitrogen 24H, Creatinine 1.6H , Estimat Glomerular Filtration Rate 44.3, Glucose Level 69L, Calcium Level 8.8 04/02/17 17:10: Vancomycin Level Trough 7.2 Height (Feet): 5 Height (Inches): 8.00 Weight (Pounds): 110 Objective Debilitated AA man NCAT coarse BS RR abd mildly distended, soft, (+) GT contracted OBS TRAY SORENSON Apr 02, 2017 21:29
[2017-04-02] MEDS ORDERED: Fleet's Enema 133ml RECTAL ONE (22:45)
[2017-04-03] VITALS: BP 124/80
[2017-04-03] MEDS: Albuterol/Ipratropium 3ml neb HHN SCH ×4 (00:35→19:14)
--- NOTE | 2017-04-03 01:46 | Progress Note ---
DATE: 04/02/2017 CARDIOLOGY PROGRESS NOTE SUBJECTIVE: The patient remains on ventilator support. She is on IV fluids. Antimicrobials by IV route. He is not tolerating feedings and has had vomiting. Monitored rhythm sinus. No ectopy. OBJECTIVE: VITAL SIGNS: Blood pressure 124/76, pulse 89, respiratory rate 18 and afebrile. LUNGS: With coarse breath sounds. CARDIAC: Regular rhythm and rate. Normal S1 and S2. ABDOMEN: Slightly distended, but soft. No edema. LABORATORY AND DIAGNOSTIC DATA: White count 16 and hemoglobin 10. Potassium 3.9, bicarbonate 17, BUN 24, and creatinine 1.6. Calcium 8.8. IMPRESSION: 1. Possible pericarditis. 2. Respiratory failure. 3. Dehydration. 4. Hyponatremia, corrected. 5. Metabolic acidosis. 6. Acute renal failure, resolving. 7. Secondary sinus tachycardia, resolved. PLAN: 1. Continue hydration. 2. Antimicrobials. 3. Respiratory hygiene. 4. Imaging of the abdomen. 5. Hold feedings until residuals resolve. Ibrahima Allen M.D. DR: MELODY JOB#: [id number] CC:
[2017-04-03] MEDS: Metoclopramide 10mg/10ml Liq NG SCH ×4 (02:06→17:36)
[2017-04-03 04:00] VITALS: BP 110/63
[2017-04-03] MEDS ORDERED: Fleet's Enema 133ml RECTAL ONE (05:00)
[2017-04-03] MEDS: Piperacillin/Tazobactam 3.375 GM in D5W 55 ML IVPB SCH ×3 (05:29→21:46)
[2017-04-03] MEDS: D5 1/2NS 1,000 ML IV SCH ×2 (07:44→17:36)
[2017-04-03 08:00] VITALS: BP 107/74
--- NOTE | 2017-04-03 08:16 | Infectious Diseases Prog Note ---
Assessment/Plan Assessment/Plan A 1. pneumonia. 2. Leukocytosis improving 3. Respiratory failure, VDRF 4. Renal failure is improving. 5. MRSA colonizaion 6. Encephalopathy P 1. Continue IV vancomycin and Zosyn for now. 2. We will follow up cultures and adjust antibiotics accordingly. Subjective ROS Limited/Unobtainable: Yes Allergies: Coded Allergies: No Known Allergies (Unverified , 07/04/16) Objective Vital Signs Last 24 Hour Vital Signs Date Time Temp Pulse Resp B/P (MAP) Pulse Ox O2 Delivery O2 Flow Rate FiO2 04/03/17 07:27 90 26 98 Mechanical Ventilator 28 04/03/17 07:14 82 24 100 Mechanical Ventilator 28 04/03/17 07:13 86 26 28 04/03/17 04:52 83 22 28 04/03/17 04:00 28 04/03/17 04:00 97.6 103 18 110/63 98 Mechanical Ventilator 04/03/17 03:53 91 04/03/17 02:47 79 22 28 04/03/17 00:41 68 18 98 Mechanical Ventilator 28 04/03/17 00:34 77 22 99 Mechanical Ventilator 28 04/03/17 00:32 78 22 28 04/03/17 00:00 97.8 83 24 124/80 96 Mechanical Ventilator 04/02/17 22:37 81 25 28 04/02/17 21:29 92 23 28 04/02/17 20:33 75 04/02/17 20:00 97.6 87 24 126/81 100 Mechanical Ventilator 28 04/02/17 20:00 28 04/02/17 19:22 84 25 Mechanical Ventilator 04/02/17 19:17 86 24 28 04/02/17 19:16 85 24 98 Mechanical Ventilator 28 04/02/17 17:02 75 21 28 04/02/17 16:00 81 04/02/17 16:00 28 04/02/17 16:00 97.2 81 22 112/73 99 Mechanical Ventilator 28 04/02/17 15:29 93 19 28 04/02/17 14:26 95 18 99 Mechanical Ventilator 28 04/02/17 14:18 8 21 99 Mechanical Ventilator 28 04/02/17 14:16 95 24 28 04/02/17 12:00 28 04/02/17 12:00 86 04/02/17 12:00 97.5 96 24 112/77 99 Mechanical Ventilator 28 04/02/17 10:30 97 23 28 04/02/17 08:45 104 26 28 Height (Feet): 5 Height (Inches): 8.00 Weight (Pounds): 110 General Appearance: no acute distress HEENT: status post trach Respiratory/Chest: lungs clear, other - on ventilator Cardiovascular: normal rate, other - left arm PICC line Abdomen: soft, non tender, other - GT feeding Extremities: other - pedal edema Neurologic/Psychiatric: unresponsiveness Microbiology Date/Time Source Procedure Growth Status 04/01/17 13:25 Sputum Gram Stain - Final Resulted 04/01/17 13:25 Sputum Culture - Preliminary Gram Negative Bacillus 1 Gram Negative Bacillus 2 Resulted Laboratory Tests Test 04/02/17 17:10 Vancomycin Level Trough 7.2 ug/mL (5.0-12.0) Current Medications Medications (Trade) Dose Ordered Sig/Evangelina Route PRN Reason Start Time Stop Time Status Last Admin Dose Admin Acetaminophen (Tylenol Peds) 640 mg Q4HR PRN ORAL FEVER> 101F/PAIN. NTE 3G/24HR 03/29/17 22:15 04/28/17 22:14 Al Hydroxide/Mg Hydroxide (Mylanta) 30 ml EVERY 4 HOURS PRN GT Constipation 03/29/17 22:15 04/28/17 22:14 Albuterol/ Ipratropium (Albuterol/ Ipratropium) 3 ml EVERY 2 HOURS PRN HHN Shortness of Breath 03/29/17 22:15 04/03/17 22:14 Albuterol/ Ipratropium (Albuterol/ Ipratropium) 3 ml Q6HRT HHN 03/31/17 07:00 04/05/17 06:59 04/03/17 07:14 Bisacodyl (Dulcolax) 10 mg DAILY PRN RECTAL IF MOM INEFFECTIVE 03/29/17 22:15 04/28/17 22:14 Chlorhexidine Gluconate (Oumou-Hex 2%) 1 applic DAILY@2000 TOPIC 03/31/17 20:00 04/30/17 19:59 04/02/17 20:24 Dextrose/Sodium Chloride 1,000 ml @ 100 mls/hr Q10H IV 04/02/17 11:30 05/02/17 11:29 04/03/17 07:44 Diphenhydramine HCl (Benadryl) 12.5 mg Q6H PRN GT Itching 03/29/17 22:45 04/28/17 22:44 03/31/17 03:11 Docusate Sodium (Colace) 100 mg TWICE A DAY GT 03/30/17 09:00 04/29/17 08:59 04/02/17 17:49 Epoetin Ernesto (Procrit (for non ESRD use)) 10,000 units FRI-FRI-FRI SUBQ 04/02/17 21:00 05/02/17 20:59 04/02/17 20:53 Heparin Sodium (Porcine) (Heparin 5000 units/ml) 5,000 units EVERY 12 HOURS SUBQ 03/31/17 09:00 04/30/17 08:59 04/02/17 20:26 Lactulose (Cephulac) 30 gm DAILY PRN GT Constipation 03/29/17 22:45 04/28/17 22:44 Lansoprazole (Prevacid) 30 mg DAILY GT 03/30/17 09:00 04/29/17 08:59 04/02/17 08:25 Magnesium Hydroxide (Mom) 30 ml BEDTIME PRN GT Constipation 03/29/17 22:15 04/28/17 22:14 Metoclopramide HCl (Reglan) 10 mg EVERY 6 HOURS NG 04/01/17 12:00 05/01/17 11:59 04/03/17 05:29 Midodrine (Pro-Amatine) 5 mg THREE TIMES A DAY GT 03/30/17 09:00 04/29/17 08:59 04/02/17 17:49 Multivitamins (Multivitamins W/ Minerals 15ml Liquid) 15 ml DAILY GT 03/30/17 09:00 04/29/17 08:59 04/02/17 08:25 Ondansetron HCl (Zofran) 4 mg Q6H PRN GT Nausea & Vomiting 03/29/17 22:15 04/28/17 22:14 04/01/17 20:37 Piperacillin Sod/ Tazobactam Sod 3.375 gm/Dextrose 55 ml @ 13.75 mls/ hr Q8HR IVPB 03/30/17 14:00 04/06/17 13:59 04/03/17 05:29 Sodium Phosphate (Fleet's Sodium Phosl Enema) 133 ml QOD PRN RECTAL IF DULCOLAX INEFFECTIVE 03/29/17 22:15 04/28/17 22:14 Vancomycin HCl (Vanco rx to dose) 1 ea DAILY PRN MISC Per rx protocol 03/29/17 22:15 04/28/17 22:14 Vancomycin HCl 1 gm/Dextrose 275 ml @ 183.708 mls/hr Q24H IVPB 04/02/17 18:00 04/07/17 17:59 04/02/17 18:08 Zinc Sulfate (Zinc Sulfate) 220 mg BID GT 03/30/17 09:00 04/29/17 08:59 04/02/17 17:49 Zolpidem Tartrate (Ambien) 5 mg HSPRN PRN GT Insomnia 03/30/17 14:00 04/06/17 13:59 TRISHA VARGAS Apr 03, 2017 08:16
--- NOTE | 2017-04-03 08:49 | General Progress Note ---
Assessment/Plan Assessment/Plan IMPRESSION possible sepsis leukocytosis acute renal failure pneumonia trach GT acute on chronic encephalopathy abnormal ECG possible gastroparesis- vomited partial SBO PLAN CT abdomen reviewed ventilator support feeds per GI antibiotics ID evaluation to follow and intervene review cultures monitor labs will call hydrate- adjust pending feeds await further labs and cultures and dc when stable GI and ID clearance Subjective ROS Limited/Unobtainable: Yes Allergies: Coded Allergies: No Known Allergies (Unverified , 07/04/16) Subjective labs noted cards appreciated wbc increased ID and GI appreciated ct NOTED Objective Last 24 Hour Vital Signs Date Time Temp Pulse Resp B/P (MAP) Pulse Ox O2 Delivery O2 Flow Rate FiO2 04/03/17 08:00 97.7 83 22 107/74 99 Mechanical Ventilator 04/03/17 07:27 90 26 98 Mechanical Ventilator 28 04/03/17 07:14 82 24 100 Mechanical Ventilator 28 04/03/17 07:13 86 26 28 04/03/17 04:52 83 22 28 04/03/17 04:00 28 04/03/17 04:00 97.6 103 18 110/63 98 Mechanical Ventilator 04/03/17 03:53 91 04/03/17 02:47 79 22 28 04/03/17 00:41 68 18 98 Mechanical Ventilator 28 04/03/17 00:34 77 22 99 Mechanical Ventilator 28 04/03/17 00:32 78 22 28 04/03/17 00:00 97.8 83 24 124/80 96 Mechanical Ventilator 04/02/17 22:37 81 25 28 04/02/17 21:29 92 23 28 04/02/17 20:33 75 04/02/17 20:00 97.6 87 24 126/81 100 Mechanical Ventilator 28 04/02/17 20:00 28 04/02/17 19:22 84 25 Mechanical Ventilator 04/02/17 19:17 86 24 28 04/02/17 19:16 85 24 98 Mechanical Ventilator 28 04/02/17 17:02 75 21 28 04/02/17 16:00 81 04/02/17 16:00 28 04/02/17 16:00 97.2 81 22 112/73 99 Mechanical Ventilator 28 04/02/17 15:29 93 19 28 04/02/17 14:26 95 18 99 Mechanical Ventilator 28 04/02/17 14:18 8 21 99 Mechanical Ventilator 28 17 14:16 95 24 28 04/02/17 12:00 28 04/02/17 12:00 86 04/02/17 12:00 97.5 96 24 112/77 99 Mechanical Ventilator 04/02/17 10:30 97 23 28 Laboratory Tests 04/02/17 17:10: Vancomycin Level Trough 7.2 Height (Feet): 5 Height (Inches): 8.00 Weight (Pounds): 110 Objective WDWN trach in place clear breath sounds bilaterally without rhonchi or wheeze [id number] without MRG NABS nontender no HSM; GT no CCE nonfocal HALINA REMY Apr 03, 2017 08:49
[2017-04-03] MEDS: Zinc Sulfate 220mg cap GT SCH ×2 (09:12→17:37)
[2017-04-03] MEDS: Docusate 100mg/10ml Liq GT SCH ×2 (09:12→17:36)
[2017-04-03] MEDS: Multivitamins W/Minerals 15 ML UDC GT SCH (09:12)
[2017-04-03] MEDS: Heparin 5000 units/ml inj SUBQ SCH ×2 (09:21→21:45)
--- NOTE | 2017-04-03 10:19 | Diagnostic Imaging Report ---
Indication: PICC line. Technique: XRAY Chest 1v Comparison: 03/29/2017 Findings: Interval placement of PICC line via the left upper extremity. Catheter tip in the region of the lower SVC. Tracheostomy tube again noted. Multiple surgical clips project over the upper abdomen. Heart size and mediastinal contours are stable. No acute osseous abnormality is seen. Persistent patchy right-sided airspace opacities with interval worsening of aeration in the right lower lung. There is no large pleural effusion. No pneumothorax. Impression: Interval PICC line placement. Catheter tip in the region of the lower SVC. Worsening of right-sided airspace opacities.
--- NOTE | 2017-04-03 11:04 | Cardiology Report ---
APPROVED REPORT EKG Measurement Heart [id number] Sinus rhythm with occasional premature ventricular complexes ST elevation, consider early repolarization, pericarditis, or injury Nonspecific ST abnormality Prolonged QT Abnormal ECG
--- NOTE | 2017-04-03 11:44 | General Progress Note ---
Assessment/Plan Assessment/Plan Assessment - Leukocytosis/Sepsis - ileus vs SBO - N/V - resolved - Resp failure / trach - Azotemia - dysphagia, GT - fecal loading --> s/p rectal stool disimpaction - (R) adrenal nodule - (R) urolithiasis - s/p (L) nephrectomy Recommendations - Keep NPO - GT --> LIS - re check KUB - consider surgical opinion - abx - suppository - follow labs - follow exam Subjective Allergies: Coded Allergies: No Known Allergies (Unverified , 07/04/16) Subjective Above noted seen this am off feeds (+) large BM Objective Last 24 Hour Vital Signs Date Time Temp Pulse Resp B/P (MAP) Pulse Ox O2 Delivery O2 Flow Rate FiO2 04/03/17 10:35 90 26 28 04/03/17 09:00 66 26 28 04/03/17 08:00 28 04/03/17 08:00 97.7 83 22 107/74 99 Mechanical Ventilator 04/03/17 07:35 79 04/03/17 07:27 90 26 98 Mechanical Ventilator 04/03/17 07:14 82 24 100 Mechanical Ventilator 04/03/17 07:13 86 26 28 04/03/17 04:52 83 22 28 04/03/17 04:00 28 04/03/17 04:00 97.6 103 18 110/63 98 Mechanical Ventilator 04/03/17 03:53 91 04/03/17 02:47 79 22 28 04/03/17 00:41 68 18 98 Mechanical Ventilator 04/03/17 00:34 77 22 99 Mechanical Ventilator 04/03/17 00:32 78 22 28 04/03/17 00:00 97.8 83 24 124/80 96 Mechanical Ventilator 04/02/17 22:37 81 25 28 04/02/17 21:29 92 23 28 04/02/17 20:33 75 04/02/17 20:00 97.6 87 24 126/81 100 Mechanical Ventilator 04/02/17 20:00 28 04/02/17 19:22 84 25 Mechanical Ventilator 04/02/17 19:17 86 24 28 04/02/17 19:16 85 24 98 Mechanical Ventilator 28 04/02/17 17:02 75 21 28 04/02/17 16:00 81 04/02/17 16:00 28 04/02/17 16:00 97.2 81 22 112/73 99 Mechanical Ventilator 28 04/02/17 15:29 93 19 28 04/02/17 14:26 95 18 99 Mechanical Ventilator 28 04/02/17 14:18 8 21 99 Mechanical Ventilator 28 04/02/17 14:16 95 24 28 04/02/17 12:00 28 04/02/17 12:00 86 04/02/17 12:00 97.5 96 24 112/77 99 Mechanical Ventilator 28 Intake and Output 04/03/17 04/04/17 19:00 07:00 # Bowel Movements 1 Laboratory Tests 04/02/17 17:10: Vancomycin Level Trough 7.2 Height (Feet): 5 Height (Inches): 8.00 Weight (Pounds): 110 Objective Debilitated AA man NCAT coarse BS RR abd mildly distended, soft, (+) GT Rectal disimpaction (04/03/17) contracted OBS TRAY SORENSON Apr 03, 2017 11:44
[2017-04-03 12:00] VITALS: BP 111/68
--- NOTE | 2017-04-03 14:08 | Diagnostic Imaging Report ---
Indication: Abdominal distention Technique: XRAY Abdomen 1v Comparison: 04/01/2017 Findings: Copious stool noted throughout the colon raising question for constipation. The bowel gas pattern is nonspecific. No evidence to suggest free intraperitoneal air however evaluation is limited without upright/erect view. Gastrostomy tube in place. Multiple surgical clips noted in the left abdomen. No acute osseous abnormality appreciated Impression: Copious stool throughout the colon raising question for constipation.
[2017-04-03 16:00] VITALS: BP 125/74
[2017-04-03] MEDS: Vancomycin 1gm in D5W 275ml IVPB SCH (17:36)
[2017-04-03 20:00] VITALS: BP 107/70
[2017-04-03] MEDS: Dyna-Hex 2% Top Sol 2oz TOPIC SCH (21:03)
[2017-04-04] VITALS: BP 103/71
[2017-04-04] MEDS: Albuterol/Ipratropium 3ml neb HHN SCH ×4 (00:46→18:42)
[2017-04-04] MEDS: Metoclopramide 10mg/10ml Liq NG SCH ×4 (00:53→17:51)
[2017-04-04 04:00] VITALS: BP 109/74
[2017-04-04] MEDS: D5 1/2NS 1,000 ML IV SCH ×2 (04:12→13:52)
[2017-04-04] MEDS: Piperacillin/Tazobactam 3.375 GM in D5W 55 ML IVPB SCH (06:29)
[2017-04-04 08:00] VITALS: BP 114/70
[2017-04-04] MEDS: Docusate 100mg/10ml Liq GT SCH ×2 (09:08→17:51)
[2017-04-04] MEDS: Heparin 5000 units/ml inj SUBQ SCH ×2 (09:08→20:56)
[2017-04-04] MEDS: Multivitamins W/Minerals 15 ML UDC GT SCH (09:08)
[2017-04-04] MEDS: Zinc Sulfate 220mg cap GT SCH ×2 (09:08→17:52)
[2017-04-04 12:00] VITALS: BP 106/71
--- NOTE | 2017-04-04 12:40 | Infectious Diseases Prog Note ---
"Assessment/Plan Assessment/Plan antibiotics : vancomycin iv, zosyn A 1. pseudomonas | providencia pneumonia. 2. Leukocytosis improving 3. Respiratory failure. 4. Renal failure is improving. P 1. d/c IV vancomycin and Zosyn 2. start inhaled amikacin 3. We will follow up cultures and adjust antibiotics accordingly. Subjective ROS Limited/Unobtainable: Yes Allergies: Coded Allergies: No Known Allergies (Unverified , 07/04/16) Objective Vital Signs Last 24 Hour Vital Signs Date Time Temp Pulse Resp B/P (MAP) Pulse Ox O2 Delivery O2 Flow Rate FiO2 04/04/17 12:00 97.7 87 25 106/71 99 Mechanical Ventilator 28 04/04/17 12:00 28 04/04/17 10:57 91 25 28 04/04/17 09:17 91 25 28 04/04/17 08:00 97.6 87 22 114/70 100 Mechanical Ventilator 28 04/04/17 08:00 28 04/04/17 08:00 78 04/04/17 07:27 81 25 99 Mechanical Ventilator 28 04/04/17 07:25 94 25 28 04/04/17 07:22 85 20 99 Mechanical Ventilator 28 04/04/17 05:26 93 25 28 04/04/17 04:01 28 04/04/17 04:00 97.7 87 22 109/74 100 Mechanical Ventilator 28 04/04/17 04:00 78 04/04/17 02:58 77 23 28 04/04/17 00:56 82 21 99 Mechanical Ventilator 28 04/04/17 00:46 84 21 99 Mechanical Ventilator 28 04/04/17 00:46 84 21 28 04/04/17 00:00 28 04/04/17 00:00 85 04/04/17 00:00 97.0 88 22 103/71 98 Mechanical Ventilator 28 04/03/17 22:44 82 20 28 04/03/17 21:25 85 23 28 04/03/17 20:00 28 04/03/17 20:00 73 04/03/17 20:00 97.5 84 22 107/70 99 Mechanical Ventilator 28 04/03/17 19:29 71 23 99 Mechanical Ventilator 28 04/03/17 19:14 76 23 98 Mechanical Ventilator 28 04/03/17 19:14 76 23 28 04/03/17 16:30 78 20 28 04/03/17 16:00 70 04/03/17 16:00 28 04/03/17 16:00 98.5 95 18 125/74 98 Mechanical Ventilator 28 04/03/17 15:00 76 20 28 04/03/17 13:45 65 26 99 Mechanical Ventilator 28 04/03/17 13:29 78 18 100 Mechanical Ventilator 28 04/03/17 13:24 73 22 28 Height (Feet): 5 Height (Inches): 8.00 Weight (Pounds): 130 HEENT: status post trach Respiratory/Chest: lungs clear Cardiovascular: normal rate, regular rhythm, no gallop/murmur Abdomen: soft, non tender, other - GT Extremities: no edema, other - left arm PICC Microbiology Date/Time Source Procedure Growth Status 04/01/17 13:25 Sputum Gram Stain - Final Resulted 04/01/17 13:25 Sputum Culture - Preliminary Pseudomonas Aeruginosa - Mdr Providencia Stuartii Esb Resulted DIONICIO OLIVEIRA Apr 04, 2017 12:40"
--- NOTE | 2017-04-04 14:15 | General Progress Note ---
Assessment/Plan Assessment/Plan IMPRESSION possible sepsis leukocytosis acute renal failure pneumonia trach GT acute on chronic encephalopathy abnormal ECG possible gastroparesis- vomited partial SBO constipation PLAN CT abdomen reviewed ventilator support feeds per GI antibiotics ID evaluation to follow and intervene review cultures monitor labs will call GS to assist consider laxatives hydrate- adjust pending feeds await further labs and cultures and dc when stable GI and ID clearance Subjective ROS Limited/Unobtainable: Yes Allergies: Coded Allergies: No Known Allergies (Unverified , 07/04/16) Subjective labs noted ID and GI appreciated ct NOTED Objective Last 24 Hour Vital Signs Date Time Temp Pulse Resp B/P (MAP) Pulse Ox O2 Delivery O2 Flow Rate FiO2 04/04/17 13:19 76 25 99 Mechanical Ventilator 28 04/04/17 13:00 87 20 99 Mechanical Ventilator 28 04/04/17 12:51 93 25 28 04/04/17 12:00 97.7 87 25 106/71 99 Mechanical Ventilator 28 04/04/17 12:00 28 04/04/17 10:57 91 25 28 04/04/17 09:17 91 25 28 04/04/17 08:00 97.6 87 22 114/70 100 Mechanical Ventilator 28 04/04/17 08:00 28 04/04/17 08:00 78 04/04/17 07:27 81 25 99 Mechanical Ventilator 28 04/04/17 07:25 94 25 28 04/04/17 07:22 85 20 99 Mechanical Ventilator 28 04/04/17 05:26 93 25 28 04/04/17 04:01 28 04/04/17 04:00 97.7 87 22 109/74 100 Mechanical Ventilator 28 04/04/17 04:00 78 04/04/17 02:58 77 23 28 04/04/17 00:56 82 21 99 Mechanical Ventilator 28 04/04/17 00:46 84 21 99 Mechanical Ventilator 28 04/04/17 00:46 84 21 28 04/04/17 00:00 28 04/04/17 00:00 85 04/04/17 00:00 97.0 88 22 103/71 98 Mechanical Ventilator 28 04/03/17 22:44 82 20 28 04/03/17 21:25 85 23 28 04/03/17 20:00 28 04/03/17 20:00 73 04/03/17 20:00 97.5 84 22 107/70 99 Mechanical Ventilator 28 04/03/17 19:29 71 23 99 Mechanical Ventilator 28 04/03/17 19:14 76 23 98 Mechanical Ventilator 28 04/03/17 19:14 76 23 28 04/03/17 16:30 78 20 28 04/03/17 16:00 70 04/03/17 16:00 28 04/03/17 16:00 98.5 95 18 125/74 98 Mechanical Ventilator 28 04/03/17 15:00 76 20 28 Intake and Output 04/04/17 04/05/17 19:00 07:00 Intake Total 647.896 ml Balance 647.896 ml IV Total 647.896 ml Height (Feet): 5 Height (Inches): 8.00 Weight (Pounds): 130 Objective WDWN trach in place clear breath sounds bilaterally without rhonchi or wheeze [id number] without MRG NABS nontender no HSM; GT no CCE nonfocal HALINA REMY Apr 04, 2017 14:15
[2017-04-04 16:00] VITALS: BP 103/70
--- NOTE | 2017-04-04 17:16 | Consultation ---
History of Present Illness General Date patient seen: Apr 04, 2017 Chief Complaint: Altered Mental Status Reason for Consultation: Bowel obstruction Present Illness HPI 62M with multiple medical problems who is currently admitted after altered status and abnormal labs from nursing care facility. Under care with management of medical teams. During hospitalization noted to have abdominal distention. KUB demonstrated distended bowel patter. CT ordered which identified significant amount of stool in the colon and some fecalization in small bowel with dilated loops. question if constipation, stool impaction, or possible bowel obstruction. Surgery called to evaluate. Fortunately GI had been able to perform some disimpaction recently which seems to have helped. When seen at bedside patient opens eyes but does not follow commands. he has trach and peg. his abdomen is distended but soft. patient seen, EMR reviewed, exam performed. Allergies: Coded Allergies: No Known Allergies (Unverified , 07/04/16) Medication History Scheduled Cran/Vitc/Mannose/Inulin/Brom (Uti-Stat Liquid), 30 ML GT DAILY, (Reported) Docusate Sodium* (Colace*), 100 MG GT TWICE A DAY, (Reported) Epoetin Ernesto (Procrit), 10,000 UNIT SUBQ 3XW, (Reported) Famotidine (Famotidine), 20 MG GT DAILY, (Reported) Ferrous Sulfate (Ferrous Sulfate), 7.5 ML GT TID, (Reported) Ipratropium/Albuterol Sulfate (DuoNeb 0.5-3(2.5)mg/3ml), 3 ML HHN EVERY 6 HOURS, (Reported) Lactulose (Lactulose*), 30 ML GT EVERY SHIFT, (Reported) Midodrine* (Proamatine*), 5 MG GT THREE TIMES A DAY, (Reported) Multivits W-Min/Ferrous Gluc (Multivitamin-Mineral Liquid), 9 MG GT DAILY, ( Reported) Protein Supplement (Promod), 30 ML GT BID, (Reported) Vit C/Ascorbate Ca/Ascorb Sod (Vitamin C 500 Mg/15 Ml Liquid), 500 MG GT DAILY, (Reported) Zinc Sulfate (Zinc Sulfate*), 220 MG GT BID, (Reported) Scheduled PRN Acetaminophen 160MG/5ML* (Acetaminophen*), 20 ML GT Q4HR PRN for FEVER> 101F. NTE 3G/24HR, (Reported) Acetaminophen 160MG/5ML* (Acetaminophen*), 20 ML GT Q4HR PRN for Pain Scale (3-5 ), (Reported) Acetaminophen 160MG/5ML* (Acetaminophen*), 20 ML GT Q4HR PRN for MILD PAIN, NTE 3G/24HR, (Reported) Bisacodyl (Dulcolax), 10 MG RC DAILY PRN for IF MOM INEFFECTIVE, (Reported) Diphenhydramine Hcl* (Benadryl Allergy*), 25 MG GT Q6H PRN for Itching, ( Reported) Ipratropium/Albuterol Sulfate (DuoNeb 0.5-3(2.5)mg/3ml), 3 ML HHN EVERY 2 HOURS PRN for Shortness of Breath, (Reported) Magnesium Hydroxide* (Milk Of Magnesia*), 30 ML GT HS PRN for Constipation, ( Reported) Na Phos,M-B/Na Phos,Di-Ba* (Fleet Enema*), 133 ML RECTAL EVERY 2 DAYS PRN for IF DULCOLAX INEFFECTIVE, (Reported) Ondansetron* (Zofran*), 4 MG GT Q6H PRN for Nausea & Vomiting, (Reported) Patient History Limited by: medical condition History Provided By: Medical Record, PMD Healthcare decision maker N Resuscitation status Full Code Advanced Directive on File Past Medical/Surgical History Past Medical/Surgical History: (1) Abdominal distention (2) Encounter for generalized patient complaints (3) Feeding by G-tube (4) Pneumonia (5) ATN (acute tubular necrosis) (6) Acute on chronic respiratory failure (7) Anemia (8) Renal insufficiency (9) Cholelithiasis (10) Dehydration (11) Azotemia (12) Renal failure (13) Sepsis (14) Ventilator dependence (15) Pneumonia involving right lung Review of Systems ROS Narrative cannot obtain given patients current medical condition Physical Exam General Appearance: no apparent distress Lines, tubes and drains: central line HEENT: atraumatic, mucous membranes moist Neck: trach Respiratory/Chest: on vent Cardiovascular/Chest: normal peripheral pulses Abdomen: soft, distended, feeding tube, other - soft, distended, feeing tube noted with insertion site clean, no tympany, cannot assess tendneress but does not appear to be tender on palpation. no guarding Genitourinary/Rectal: other - significant amount liquid stool in rectum with air. Last 24 Hour Vital Signs Date Time Temp Pulse Resp B/P (MAP) Pulse Ox O2 Delivery O2 Flow Rate FiO2 04/04/17 16:27 92 25 28 04/04/17 16:00 28 04/04/17 13:19 76 25 99 Mechanical Ventilator 28 04/04/17 13:00 87 20 99 Mechanical Ventilator 28 04/04/17 12:51 93 25 28 04/04/17 12:00 97.7 87 25 106/71 99 Mechanical Ventilator 28 04/04/17 12:00 28 04/04/17 10:57 91 25 28 04/04/17 09:17 91 25 28 04/04/17 08:00 97.6 87 22 114/70 100 Mechanical Ventilator 28 04/04/17 08:00 28 04/04/17 08:00 78 04/04/17 07:27 81 25 99 Mechanical Ventilator 28 04/04/17 07:25 94 25 28 04/04/17 07:22 85 20 99 Mechanical Ventilator 28 04/04/17 05:26 93 25 28 04/04/17 04:01 28 04/04/17 04:00 97.7 87 22 109/74 100 Mechanical Ventilator 28 04/04/17 04:00 78 04/04/17 02:58 77 23 28 04/04/17 00:56 82 21 99 Mechanical Ventilator 28 04/04/17 00:46 84 21 99 Mechanical Ventilator 28 04/04/17 00:46 84 21 28 04/04/17 00:00 28 04/04/17 00:00 85 04/04/17 00:00 97.0 88 22 103/71 98 Mechanical Ventilator 28 04/03/17 22:44 82 20 28 04/03/17 21:25 85 23 28 04/03/17 20:00 28 04/03/17 20:00 73 04/03/17 20:00 97.5 84 22 107/70 99 Mechanical Ventilator 28 04/03/17 19:29 71 23 99 Mechanical Ventilator 28 04/03/17 19:14 76 23 98 Mechanical Ventilator 28 04/03/17 19:14 76 23 28 Intake and Output 04/04/17 04/05/17 19:00 07:00 Intake Total 746.226 ml Balance 746.226 ml IV Total 746.226 ml Height (Feet): 5 Height (Inches): 8.00 Weight (Pounds): 130 Medications Current Medications Medications (Trade) Dose Ordered Sig/Evangelina Route PRN Reason Start Time Stop Time Status Last Admin Dose Admin Acetaminophen (Tylenol Peds) 640 mg Q4HR PRN ORAL FEVER> 101F/PAIN. NTE 3G/24HR 03/29/17 22:15 04/28/17 22:14 Al Hydroxide/Mg Hydroxide (Mylanta) 30 ml EVERY 4 HOURS PRN GT Constipation 03/29/17 22:15 04/28/17 22:14 Albuterol/ Ipratropium (Albuterol/ Ipratropium) 3 ml Q6HRT HHN 03/31/17 07:00 04/05/17 06:59 04/04/17 13:18 Amikacin Sulfate (Amikin) 500 mg Q12HR@ INH 04/04/17 22:00 04/11/17 21:59 Bisacodyl (Dulcolax) 10 mg DAILY PRN RECTAL IF MOM INEFFECTIVE 03/29/17 22:15 04/28/17 22:14 Chlorhexidine Gluconate (Oumou-Hex 2%) 1 applic DAILY@1999 TOPIC 03/31/17 20:00 04/30/17 19:59 04/03/17 21:03 Dextrose/Sodium Chloride 1,000 ml @ 100 mls/hr Q10H IV 04/02/17 11:30 05/02/17 11:29 04/04/17 13:52 Diphenhydramine HCl (Benadryl) 12.5 mg Q6H PRN GT Itching 03/29/17 22:45 04/28/17 22:44 03/31/17 03:11 Docusate Sodium (Colace) 100 mg TWICE A DAY GT 03/30/17 09:00 04/29/17 08:59 04/04/17 09:08 Epoetin Ernesto (Procrit (for non ESRD use)) 10,000 units FRI-FRI-FRI SUBQ 04/02/17 21:00 05/02/17 20:59 04/02/17 20:53 Heparin Sodium (Porcine) (Heparin 5000 units/ml) 5,000 units EVERY 12 HOURS SUBQ 03/31/17 09:00 04/30/17 08:59 04/04/17 09:08 Lactulose (Cephulac) 30 gm DAILY PRN GT Constipation 03/29/17 22:45 04/28/17 22:44 Lansoprazole (Prevacid) 30 mg DAILY GT 03/30/17 09:00 04/29/17 08:59 04/04/17 09:08 Magnesium Hydroxide (Mom) 30 ml BEDTIME PRN GT Constipation 03/29/17 22:15 04/28/17 22:14 Metoclopramide HCl (Reglan) 10 mg EVERY 6 HOURS NG 04/01/17 12:00 05/01/17 11:59 04/04/17 12:03 Midodrine (Pro-Amatine) 5 mg THREE TIMES A DAY GT 03/30/17 09:00 04/29/17 08:59 04/04/17 13:49 Multivitamins (Multivitamins W/ Minerals 15ml Liquid) 15 ml DAILY GT 03/30/17 09:00 04/29/17 08:59 04/04/17 09:08 Ondansetron HCl (Zofran) 4 mg Q6H PRN GT Nausea & Vomiting 03/29/17 22:15 04/28/17 22:14 04/01/17 20:37 Sodium Phosphate (Fleet's Sodium Phosl Enema) 133 ml QOD PRN RECTAL IF DULCOLAX INEFFECTIVE 03/29/17 22:15 04/28/17 22:14 Zinc Sulfate (Zinc Sulfate) 220 mg BID GT 03/30/17 09:00 04/29/17 08:59 04/04/17 09:08 Zolpidem Tartrate (Ambien) 5 mg HSPRN PRN GT Insomnia 03/30/17 14:00 04/06/17 13:59 Assessment/Plan Problem List: (1) Fecal impaction of colon Assessment & Plan: 62M with likely fecal impaction. chronic ill patient with complicated medical history. in reviewing the CT the entire colon is filled with stool and impacted stool in rectum. distal small bowel with fecalization. No definite transition point noted and minimal proximal dilation which is more consistent with distal stool blockage from colon rather than SBO. was able to do disimpaction at bedside to level of my fingers. liquid stool and air. will continue to monitor with serial physical exams repeat AM KUB recommend rectal tube given loose stools at this time will try stool meds to help with constipation. thank you for this consult. will follow. ICD Codes: K56.41 - Fecal impaction SNOMED: 49912644 Status: stable Carlos AlbertoErrol schultz Apr 04, 2017 17:16
[2017-04-04] MEDS ORDERED: Milk of Magnesia 30ml Ud GT ONE (17:30)
[2017-04-04] MEDS ORDERED: Magnesium Citrate Liq Btl ORAL ONE (18:00)
[2017-04-04 18:31] LABS: BASOPHILS % (AUTO) 0.9 % (0.0-2.0); EOSINOPHILS % (AUTO) 2.9 % (0.0-3.0); LYMPHOCYTES % (AUTO) 8.7 % (20.0-45.0); MEAN CORPUSCULAR HEMOGLOBIN 31.4 PG (27.0-31.0); MEAN CORPUSCULAR HGB CONC 29.9 G/DL (32.0-36.0); MEAN CORPUSCULAR VOLUME 105 FL (80-99); MEAN PLATELET VOLUME 5.6 FL (6.5-10.1); MONOCYTES % (AUTO) 11.3 % (1.0-10.0); NEUTROPHILS % (AUTO) 76.3 % (45.0-75.0); PLATELET COUNT 174 K/UL (150-450); RED BLOOD COUNT 3.09 M/UL (4.70-6.10); RED CELL DISTRIBUTION WIDTH 15.3 % (11.6-14.8); WHITE BLOOD COUNT 12.7 K/UL (4.8-10.8)
[2017-04-04 18:40] LABS: ANION GAP 9 mmol/L (5-15); CALCIUM 8.6 MG/DL (8.5-10.1); CARBON DIOXIDE 20 MMOL/L (21-32); CHLORIDE 118 MMOL/L (98-107); CREATININE 1.5 MG/DL (0.55-1.30); GLOMERULAR FILTRATION RATE 47.7 mL/min (>60); POTASSIUM 3.5 MMOL/L (3.5-5.1); SODIUM 147 MMOL/L (136-145)
[2017-04-04 20:31] VITALS: BP 116/63
[2017-04-04] MEDS: Dyna-Hex 2% Top Sol 2oz TOPIC SCH (20:57)
[2017-04-04] MEDS: Epogen (for non ESRD use) SUBQ SCH (21:04)
--- NOTE | 2017-04-04 21:24 | General Progress Note ---
Assessment/Plan Assessment/Plan Assessment - Leukocytosis/Sepsis - improving - ileus vs SBO - mainly colonic constipation - N/V - resolved - Resp failure / trach - Azotemia - dysphagia, GT - fecal loading --> s/p rectal stool disimpaction - (R) adrenal nodule - (R) urolithiasis - s/p (L) nephrectomy Recommendations - Begin TF - abx - follow labs - follow exam Subjective Allergies: Coded Allergies: No Known Allergies (Unverified , 07/04/16) Subjective Above noted seen this am off feeds (++) BM per RN Objective Last 24 Hour Vital Signs Date Time Temp Pulse Resp B/P (MAP) Pulse Ox O2 Delivery O2 Flow Rate FiO2 04/04/17 20:50 96 23 28 04/04/17 20:31 99.5 66 20 116/63 99 Room Air 04/04/17 18:52 99 25 99 Mechanical Ventilator 28 04/04/17 18:42 97 24 28 04/04/17 18:42 97 24 99 Mechanical Ventilator 28 04/04/17 17:30 99 25 28 04/04/17 16:27 92 25 28 04/04/17 16:00 28 04/04/17 16:00 97.6 86 21 103/70 100 Mechanical Ventilator 28 04/04/17 16:00 74 04/04/17 13:19 76 25 99 Mechanical Ventilator 28 04/04/17 13:00 87 20 99 Mechanical Ventilator 28 04/04/17 12:51 93 25 28 04/04/17 12:00 97.7 87 25 106/71 99 Mechanical Ventilator 28 04/04/17 12:00 81 04/04/17 12:00 28 04/04/17 10:57 91 25 28 04/04/17 09:17 91 25 28 04/04/17 08:00 97.6 87 22 114/70 100 Mechanical Ventilator 28 04/04/17 08:00 28 04/04/17 08:00 78 04/04/17 07:27 81 25 99 Mechanical Ventilator 28 04/04/17 07:25 94 25 28 04/04/17 07:22 85 20 99 Mechanical Ventilator 28 04/04/17 05:26 93 25 28 04/04/17 04:01 28 04/04/17 04:00 97.7 87 22 109/74 100 Mechanical Ventilator 28 04/04/17 04:00 78 04/04/17 02:58 77 23 28 04/04/17 00:56 82 21 99 Mechanical Ventilator 28 04/04/17 00:46 84 21 99 Mechanical Ventilator 28 04/04/17 00:46 84 21 28 04/04/17 00:00 28 04/04/17 00:00 85 04/04/17 00:00 97.0 88 22 103/71 98 Mechanical Ventilator 28 04/03/17 22:44 82 20 28 04/03/17 21:25 85 23 28 Intake and Output 04/04/17 04/05/17 19:00 07:00 Intake Total 1381.226 ml Output Total 1000 ml Balance 381.226 ml IV Total 1231.226 ml Other 150 ml Output Urine Total 1000 ml # Bowel Movements 2 Laboratory Tests 04/04/17 18:00: White Blood Count 12.7H, Red Blood Count 3.09L, Hemoglobin 9.7L, Hematocrit 32.4L, Mean Corpuscular Volume 105H, Mean Corpuscular Hemoglobin 31.4H, Mean Corpuscular Hemoglobin Concent 29.9L, Red Cell Distribution Width 15.3H, Platelet Count 174, Mean Platelet Volume 5.6L, Neutrophils (%) (Auto) 76.3H, Lymphocytes (%) (Auto) 8.7L, Monocytes (%) (Auto) 11.3H, Eosinophils (%) (Auto) 2.9, Basophils (%) (Auto) 0.9, Sodium Level 147H, Potassium Level 3.5, Chloride Level 118H, Carbon Dioxide Level 20L, Anion Gap 9, Blood Urea Nitrogen 11, Creatinine 1.5H, Estimat Glomerular Filtration Rate 47.7, Glucose Level 82, Calcium Level 8.6 Height (Feet): 5 Height (Inches): 8.00 Weight (Pounds): 130 Objective Debilitated AA man NCAT coarse BS RR abd mildly distended, soft, (+) GT Rectal disimpaction (04/03/17) contracted OBS TRAY SORENSON Apr 04, 2017 21:24
--- NOTE | 2017-04-04 22:30 | Progress Note ---
DATE: 04/04/2017 CARDIOLOGY PROGRESS NOTE SUBJECTIVE: Condition, largely unchanged. Continues to require IV fluids and NPO due to small bowel obstruction. Monitored rhythm sinus. OBJECTIVE: VITAL SIGNS: Blood pressure 106/71, pulse 87, respiratory rate 25 and afebrile. LUNGS: Few rhonchi. HEART: Regular rhythm and rate. Normal S1 and S2. ABDOMEN: Soft and distended. G-tube intact. EXTREMITIES: Trace edema. LABORATORY AND DIAGNOSTIC DATA: Laboratories noted. CT abdomen reviewed. Remains stable from cardiovascular standpoint to continue monitoring volume status, cardiorenal function and electrolyte parameters. Magnesium level pending. Adjusting IV fluids accordingly. Ibrahima Allen M.D. DR: MELODY JOB#: [id number] CC:
[2017-04-05] VITALS: BP 108/63
[2017-04-05] MEDS: Albuterol/Ipratropium 3ml neb HHN SCH ×4 (00:38→18:56)
[2017-04-05] MEDS: Metoclopramide 10mg/10ml Liq NG SCH ×4 (00:54→17:44)
[2017-04-05] MEDS: Amikacin for Inhalation 2ML INH SCH ×3 (01:02→22:14)
[2017-04-05] MEDS: DiphenhydrAMINE 25mg/10ml Elixir GT PRN ×3 (02:19→21:36)
[2017-04-05 04:00] VITALS: BP 112/63
--- NOTE | 2017-04-05 05:02 | Progress Note ---
DATE: 04/03/2017 CARDIOLOGY PROGRESS NOTE Late entry, 04/03/2017. SUBJECTIVE: The patient continues to have gastroparesis and is vomiting. Imaging studies confirmed small bowel obstruction. Monitored rhythm, sinus. OBJECTIVE: VITAL SIGNS: Blood pressure 125/74, pulse 95, respirations 18, and afebrile. RESPIRATORY: Good breath sounds. Few rhonchi. HEART: Regular rhythm and rate. Normal S1, S2. ABDOMEN: Distended, but soft. G-tube intact. EXTREMITIES: Trace edema. IMPRESSION: 1. Respiratory failure. 2. Abnormal EKG with no clinical signs of acute myocardial ischemia, most likely repolarization changes possible pericarditis. 3. Ventilator-dependent respiratory failure. 4. Small bowel obstruction. PLAN: 1. NPO. 2. IV fluids. 3. Monitor electrolytes. 4. Check magnesium. 5. No additional cardiovascular medications indicated. Ibrahima Allen M.D. DR: WANDY JOB#: [id number] CC:
[2017-04-05 05:22] LABS: BASOPHILS % (AUTO) 0.6 % (0.0-2.0); EOSINOPHILS % (AUTO) 2.5 % (0.0-3.0); MEAN CORPUSCULAR HEMOGLOBIN 34.1 PG (27.0-31.0); MEAN CORPUSCULAR HGB CONC 32.4 G/DL (32.0-36.0); MEAN CORPUSCULAR VOLUME 106 FL (80-99); MEAN PLATELET VOLUME 5.8 FL (6.5-10.1); MONOCYTES % (AUTO) 12.4 % (1.0-10.0); NEUTROPHILS % (AUTO) 75.6 % (45.0-75.0); PLATELET COUNT 171 K/UL (150-450); RED BLOOD COUNT 2.82 M/UL (4.70-6.10); RED CELL DISTRIBUTION WIDTH 16.2 % (11.6-14.8); WHITE BLOOD COUNT 12.4 K/UL (4.8-10.8)
[2017-04-05 05:38] LABS: ANION GAP 7 mmol/L (5-15); CALCIUM 8.6 MG/DL (8.5-10.1); CARBON DIOXIDE 23 MMOL/L (21-32); CHLORIDE 116 MMOL/L (98-107); CREATININE 1.5 MG/DL (0.55-1.30); GLOMERULAR FILTRATION RATE 47.7 mL/min (>60); POTASSIUM 3.4 MMOL/L (3.5-5.1); SODIUM 146 MMOL/L (136-145)
[2017-04-05 08:00] VITALS: BP 101/68
[2017-04-05] MEDS: Zinc Sulfate 220mg cap GT SCH ×2 (09:04→17:39)
[2017-04-05] MEDS: Docusate 100mg/10ml Liq GT SCH ×2 (09:04→17:39)
[2017-04-05] MEDS: Multivitamins W/Minerals 15 ML UDC GT SCH (09:04)
[2017-04-05] MEDS: Heparin 5000 units/ml inj SUBQ SCH ×2 (09:06→21:08)
--- NOTE | 2017-04-05 09:42 | General Progress Note ---
Assessment/Plan Problem List: (1) Azotemia ICD Codes: R79.89 - Other specified abnormal findings of blood chemistry SNOMED: 086050049 (2) Dehydration ICD Codes: E86.0 - Dehydration SNOMED: 29867221 (3) Renal failure ICD Codes: N19 - Unspecified kidney failure SNOMED: 65279500 Qualifiers: Qualified Codes: N17.9 - Acute kidney failure, unspecified; N18.3 - Chronic kidney disease, stage 3 (moderate) (4) Sepsis ICD Codes: A41.9 - Sepsis, unspecified organism SNOMED: 90608281 Qualifiers: Qualified Codes: A41.9 - Sepsis, unspecified organism (5) Ventilator dependence ICD Codes: Z99.11 - Dependence on respirator [ventilator] status SNOMED: 228506689 (6) Pneumonia involving right lung ICD Codes: J18.9 - Pneumonia, unspecified organism SNOMED: 798724533 Qualifiers: Qualified Codes: J18.9 - Pneumonia, unspecified organism (7) Abdominal distention ICD Codes: R14.0 - Abdominal distension (gaseous) SNOMED: 66568774 (8) Feeding by G-tube ICD Codes: Z93.1 - Gastrostomy status SNOMED: 698867603, 691039759 (9) Fecal impaction of colon ICD Codes: K56.41 - Fecal impaction SNOMED: 14245367 Status: stable Assessment/Plan cont bowel regime laxatives replace k vent support resp rx dvt/stress ulcer prophylaxis monitor off abx. completed rx for pna Subjective ROS Limited/Unobtainable: No Constitutional: Reports: malaise, weakness HEENT: Reports: no symptoms Cardiovascular: Reports: no symptoms Respiratory: Reports: shortness of breath, sputum Gastrointestinal/Abdominal: Reports: constipated Genitourinary: Reports: no symptoms Neurologic/Psychiatric: Reports: pre-existing deficit Endocrine: Reports: no symptoms Hematologic/Lymphatic: Reports: no symptoms Allergies: Coded Allergies: No Known Allergies (Unverified , 07/04/16) All Systems: reviewed and negative except above Subjective no events. still constipated. remains on the vent. poorly responsive at baseline. Objective Last 24 Hour Vital Signs Date Time Temp Pulse Resp B/P (MAP) Pulse Ox O2 Delivery O2 Flow Rate FiO2 04/05/17 09:10 68 25 28 04/05/17 09:09 Mechanical Ventilator 28 04/05/17 09:09 Mechanical Ventilator 28 04/05/17 06:55 69 14 99 Mechanical Ventilator 28 04/05/17 06:51 68 13 28 04/05/17 06:45 64 14 99 Mechanical Ventilator 28 04/05/17 05:13 80 24 28 04/05/17 04:00 98.5 78 20 112/63 100 Mechanical Ventilator 28 04/05/17 04:00 28 04/05/17 03:06 77 19 28 04/05/17 02:50 98.9 04/05/17 01:11 79 24 99 Mechanical Ventilator 28 04/05/17 01:02 77 21 99 Mechanical Ventilator 28 04/05/17 00:47 86 20 99 Mechanical Ventilator 28 04/05/17 00:38 84 21 28 04/05/17 00:38 84 21 99 Mechanical Ventilator 28 04/05/17 00:01 77 04/05/17 00:00 98.9 71 20 108/63 99 Mechanical Ventilator 28 04/04/17 22:41 81 22 28 04/04/17 20:50 96 23 28 04/04/17 20:31 99.5 66 20 116/63 99 Room Air 04/04/17 20:00 28 04/04/17 20:00 81 04/04/17 18:52 99 25 99 Mechanical Ventilator 28 04/04/17 18:42 97 24 28 04/04/17 18:42 97 24 99 Mechanical Ventilator 28 04/04/17 17:30 99 25 28 04/04/17 16:27 92 25 28 04/04/17 16:00 28 04/04/17 16:00 97.6 86 21 103/70 100 Mechanical Ventilator 28 04/04/17 16:00 74 04/04/17 13:19 76 25 99 Mechanical Ventilator 28 04/04/17 13:00 87 20 99 Mechanical Ventilator 28 04/04/17 12:51 93 25 28 04/04/17 12:00 97.7 87 25 106/71 99 Mechanical Ventilator 28 04/04/17 12:00 81 04/04/17 12:00 28 04/04/17 10:57 91 25 28 Laboratory Tests 04/04/17 18:00: White Blood Count 12.7H, Red Blood Count 3.09L, Hemoglobin 9.7L, Hematocrit 32.4L, Mean Corpuscular Volume 105H, Mean Corpuscular Hemoglobin 31.4H, Mean Corpuscular Hemoglobin Concent 29.9L, Red Cell Distribution Width 15.3H, Platelet Count 174, Mean Platelet Volume 5.6L, Neutrophils (%) (Auto) 76.3H, Lymphocytes (%) (Auto) 8.7L, Monocytes (%) (Auto) 11.3H, Eosinophils (%) (Auto) 2.9, Basophils (%) (Auto) 0.9, Sodium Level 147H, Potassium Level 3.5, Chloride Level 118H, Carbon Dioxide Level 20L, Anion Gap 9, Blood Urea Nitrogen 11, Creatinine 1.5H, Estimat Glomerular Filtration Rate 47.7, Glucose Level 82, Calcium Level 8.6 04/05/17 04:00: White Blood Count 12.4H, Red Blood Count 2.82L, Hemoglobin 9.6L, Hematocrit 29.7L, Mean Corpuscular Volume 106H, Mean Corpuscular Hemoglobin 34.1H, Mean Corpuscular Hemoglobin Concent 32.4, Red Cell Distribution Width 16.2H, Platelet Count 171, Mean Platelet Volume 5.8L, Neutrophils (%) (Auto) 75.6H, Lymphocytes (%) (Auto) 9.0L, Monocytes (%) (Auto) 12.4H, Eosinophils (%) (Auto) 2.5, Basophils (%) (Auto) 0.6, Sodium Level 146H, Potassium Level 3.4L, Chloride Level 116H, Carbon Dioxide Level 23, Anion Gap 7, Blood Urea Nitrogen 9 , Creatinine 1.5H, Estimat Glomerular Filtration Rate 47.7, Glucose Level 86, Calcium Level 8.6, Magnesium Level 1.7L Height (Feet): 5 Height (Inches): 8.00 Weight (Pounds): 130 General Appearance: WD/WN, lethargic, confused, thin Neck: supple Respiratory/Chest: chest wall non-tender, lungs clear, normal breath sounds Abdomen: normal bowel sounds, non tender, soft, no organomegaly Edema: no edema noted Arm (L), no edema noted Arm (R), no edema noted Leg (L), no edema noted Leg (R), no edema noted Pedal (L), no edema noted Pedal (R), no edema noted Generalized Neurologic: unresponsive, aphasia ERIKA SULLIVAN Apr 05, 2017 09:41
[2017-04-05] MEDS ORDERED: Magnesium Citrate Liq Btl ORAL ONE (10:00)
--- NOTE | 2017-04-05 10:41 | Infectious Diseases Prog Note ---
"Assessment/Plan Assessment/Plan antibiotics : inhaled amikacin 04.04.17 - A 1. pseudomonas | providencia pneumonia. 2. Leukocytosis improving 3. Respiratory failure. 4. Renal failure is improving. P 1. continue inhaled amikacin 2. We will follow up cultures and adjust antibiotics accordingly. Subjective ROS Limited/Unobtainable: Yes Allergies: Coded Allergies: No Known Allergies (Unverified , 07/04/16) Objective Vital Signs Last 24 Hour Vital Signs Date Time Temp Pulse Resp B/P (MAP) Pulse Ox O2 Delivery O2 Flow Rate FiO2 04/05/17 09:51 69 17 99 Mechanical Ventilator 28 04/05/17 09:41 72 17 98 Mechanical Ventilator 28 04/05/17 09:10 68 25 28 04/05/17 09:09 Mechanical Ventilator 28 04/05/17 09:09 Mechanical Ventilator 28 04/05/17 06:55 69 14 99 Mechanical Ventilator 28 04/05/17 06:51 68 13 28 04/05/17 06:45 64 14 99 Mechanical Ventilator 28 04/05/17 05:13 80 24 28 04/05/17 04:00 98.5 78 20 112/63 100 Mechanical Ventilator 28 04/05/17 04:00 28 04/05/17 03:06 77 19 28 04/05/17 02:50 98.9 04/05/17 01:11 79 24 99 Mechanical Ventilator 28 04/05/17 01:02 77 21 99 Mechanical Ventilator 28 04/05/17 00:47 86 20 99 Mechanical Ventilator 28 04/05/17 00:38 84 21 28 04/05/17 00:38 84 21 99 Mechanical Ventilator 28 04/05/17 00:01 77 04/05/17 00:00 98.9 71 20 108/63 99 Mechanical Ventilator 28 04/04/17 22:41 81 22 28 04/04/17 20:50 96 23 28 04/04/17 20:31 99.5 66 20 116/63 99 Room Air 04/04/17 20:00 28 04/04/17 20:00 81 04/04/17 18:52 99 25 99 Mechanical Ventilator 28 04/04/17 18:42 97 24 28 04/04/17 18:42 97 24 99 Mechanical Ventilator 28 04/04/17 17:30 99 25 28 04/04/17 16:27 92 25 28 04/04/17 16:00 28 04/04/17 16:00 97.6 86 21 103/70 100 Mechanical Ventilator 28 04/04/17 16:00 74 04/04/17 13:19 76 25 99 Mechanical Ventilator 28 04/04/17 13:00 87 20 99 Mechanical Ventilator 28 04/04/17 12:51 93 25 28 04/04/17 12:00 97.7 87 25 106/71 99 Mechanical Ventilator 04/04/17 12:00 81 04/04/17 12:00 28 04/04/17 10:57 91 25 28 Height (Feet): 5 Height (Inches): 8.00 Weight (Pounds): 130 HEENT: status post trach Respiratory/Chest: lungs clear Cardiovascular: normal rate, regular rhythm, no gallop/murmur Abdomen: soft, non tender, other - GT Extremities: no edema, other - left arm PICC Laboratory Tests Test 04/04/17 18:00 04/05/17 04:00 White Blood Count 12.7 K/UL (4.8-10.8) H 12.4 K/UL (4.8-10.8) H Red Blood Count 3.09 M/UL (4.70-6.10) L 2.82 M/UL (4.70-6.10) L Hemoglobin 9.7 G/DL (14.2-18.0) L 9.6 G/DL (14.2-18.0) L Hematocrit 32.4 % (42.0-52.0) L 29.7 % (42.0-52.0) L Mean Corpuscular Volume 105 FL (80-99) H 106 FL (80-99) H Mean Corpuscular Hemoglobin 31.4 PG (27.0-31.0) H 34.1 PG (27.0-31.0) H Mean Corpuscular Hemoglobin Concent 29.9 G/DL (32.0-36.0) L 32.4 G/DL (32.0-36.0) Red Cell Distribution Width 15.3 % (11.6-14.8) H 16.2 % (11.6-14.8) H Platelet Count 174 K/UL (150-450) 171 K/UL (150-450) Mean Platelet Volume 5.6 FL (6.5-10.1) L 5.8 FL (6.5-10.1) L Neutrophils (%) (Auto) 76.3 % (45.0-75.0) H 75.6 % (45.0-75.0) H Lymphocytes (%) (Auto) 8.7 % (20.0-45.0) L 9.0 % (20.0-45.0) L Monocytes (%) (Auto) 11.3 % (1.0-10.0) H 12.4 % (1.0-10.0) H Eosinophils (%) (Auto) 2.9 % (0.0-3.0) 2.5 % (0.0-3.0) Basophils (%) (Auto) 0.9 % (0.0-2.0) 0.6 % (0.0-2.0) Sodium Level 147 MMOL/L (136-145) H 146 MMOL/L (136-145) H Potassium Level 3.5 MMOL/L (3.5-5.1) 3.4 MMOL/L (3.5-5.1) L Chloride Level 118 MMOL/L (98-107) H 116 MMOL/L (98-107) H Carbon Dioxide Level 20 MMOL/L (21-32) L 23 MMOL/L (21-32) Anion Gap 9 mmol/L (5-15) 7 mmol/L (5-15) Blood Urea Nitrogen 11 mg/dL (7-18) 9 mg/dL (7-18) Creatinine 1.5 MG/DL (0.55-1.30) H 1.5 MG/DL (0.55-1.30) H Estimat Glomerular Filtration Rate 47.7 mL/min (>60) 47.7 mL/min (>60) Glucose Level 82 MG/DL (74-106) 86 MG/DL (74-106) Calcium Level 8.6 MG/DL (8.5-10.1) 8.6 MG/DL (8.5-10.1) Magnesium Level 1.7 MG/DL (1.8-2.4) L DIONICIO OLIVEIRA Apr 05, 2017 10:41"
[2017-04-05 12:00] VITALS: BP 112/71
--- NOTE | 2017-04-05 12:04 | General Surgery Progress Note ---
General Surgery-Progress Note Subjective Additional Comments doing well. resting comfortable. had few BM's that were formed stool since yesterday. Objective Last 24 Hour Vital Signs Date Time Temp Pulse Resp B/P (MAP) Pulse Ox O2 Delivery O2 Flow Rate FiO2 04/05/17 10:40 92 24 28 04/05/17 09:51 69 17 99 Mechanical Ventilator 28 04/05/17 09:41 72 17 98 Mechanical Ventilator 28 04/05/17 09:10 68 25 28 04/05/17 09:09 Mechanical Ventilator 28 04/05/17 09:09 Mechanical Ventilator 28 04/05/17 08:00 28 04/05/17 06:55 69 14 99 Mechanical Ventilator 28 04/05/17 06:51 68 13 28 04/05/17 06:45 64 14 99 Mechanical Ventilator 28 04/05/17 05:13 80 24 28 04/05/17 04:00 98.5 78 20 112/63 100 Mechanical Ventilator 28 04/05/17 04:00 28 04/05/17 03:06 77 19 28 04/05/17 02:50 98.9 04/05/17 01:11 79 24 99 Mechanical Ventilator 28 04/05/17 01:02 77 21 99 Mechanical Ventilator 28 04/05/17 00:47 86 20 99 Mechanical Ventilator 28 04/05/17 00:38 84 21 28 04/05/17 00:38 84 21 99 Mechanical Ventilator 28 04/05/17 00:01 77 04/05/17 00:00 98.9 71 20 108/63 99 Mechanical Ventilator 28 04/04/17 22:41 81 22 28 04/04/17 20:50 96 23 28 04/04/17 20:31 99.5 66 20 116/63 99 Room Air 04/04/17 20:00 28 04/04/17 20:00 81 04/04/17 18:52 99 25 99 Mechanical Ventilator 28 04/04/17 18:42 97 24 28 04/04/17 18:42 97 24 99 Mechanical Ventilator 28 04/04/17 17:30 99 25 28 04/04/17 16:27 92 25 28 04/04/17 16:00 28 04/04/17 16:00 97.6 86 21 103/70 100 Mechanical Ventilator 28 04/04/17 16:00 74 04/04/17 13:19 76 25 99 Mechanical Ventilator 28 04/04/17 13:00 87 20 99 Mechanical Ventilator 28 04/04/17 12:51 93 25 28 I&O Intake and Output 04/05/17 04/06/17 19:00 07:00 # Bowel Movements 1 Drains: other - trach ; PEG Cardiovascular: RSR Respiratory: decreased breath sounds Abdomen: soft, distended, non-tender, present bowel sounds Extremities: no tenderness Laboratory Tests Test 04/04/17 18:00 04/05/17 04:00 White Blood Count 12.7 K/UL (4.8-10.8) H 12.4 K/UL (4.8-10.8) H Red Blood Count 3.09 M/UL (4.70-6.10) L 2.82 M/UL (4.70-6.10) L Hemoglobin 9.7 G/DL (14.2-18.0) L 9.6 G/DL (14.2-18.0) L Hematocrit 32.4 % (42.0-52.0) L 29.7 % (42.0-52.0) L Mean Corpuscular Volume 105 FL (80-99) H 106 FL (80-99) H Mean Corpuscular Hemoglobin 31.4 PG (27.0-31.0) H 34.1 PG (27.0-31.0) H Mean Corpuscular Hemoglobin Concent 29.9 G/DL (32.0-36.0) L 32.4 G/DL (32.0-36.0) Red Cell Distribution Width 15.3 % (11.6-14.8) H 16.2 % (11.6-14.8) H Platelet Count 174 K/UL (150-450) 171 K/UL (150-450) Mean Platelet Volume 5.6 FL (6.5-10.1) L 5.8 FL (6.5-10.1) L Neutrophils (%) (Auto) 76.3 % (45.0-75.0) H 75.6 % (45.0-75.0) H Lymphocytes (%) (Auto) 8.7 % (20.0-45.0) L 9.0 % (20.0-45.0) L Monocytes (%) (Auto) 11.3 % (1.0-10.0) H 12.4 % (1.0-10.0) H Eosinophils (%) (Auto) 2.9 % (0.0-3.0) 2.5 % (0.0-3.0) Basophils (%) (Auto) 0.9 % (0.0-2.0) 0.6 % (0.0-2.0) Sodium Level 147 MMOL/L (136-145) H 146 MMOL/L (136-145) H Potassium Level 3.5 MMOL/L (3.5-5.1) 3.4 MMOL/L (3.5-5.1) L Chloride Level 118 MMOL/L (98-107) H 116 MMOL/L (98-107) H Carbon Dioxide Level 20 MMOL/L (21-32) L 23 MMOL/L (21-32) Anion Gap 9 mmol/L (5-15) 7 mmol/L (5-15) Blood Urea Nitrogen 11 mg/dL (7-18) 9 mg/dL (7-18) Creatinine 1.5 MG/DL (0.55-1.30) H 1.5 MG/DL (0.55-1.30) H Estimat Glomerular Filtration Rate 47.7 mL/min (>60) 47.7 mL/min (>60) Glucose Level 82 MG/DL (74-106) 86 MG/DL (74-106) Calcium Level 8.6 MG/DL (8.5-10.1) 8.6 MG/DL (8.5-10.1) Magnesium Level 1.7 MG/DL (1.8-2.4) L Plan Problems: (1) Fecal impaction of colon Assessment & Plan: 62M with likely fecal impaction. chronic ill patient with complicated medical history. in reviewing the CT the entire colon is filled with stool and impacted stool in rectum. distal small bowel with fecalization. No definite transition point noted and minimal proximal dilation which is more consistent with distal stool blockage from colon rather than SBO. Disimpacted at bedside by GI. having BM's now which are soft and not liquid so okay to d/c rectal tube. will continue to monitor with serial physical exams repeat AM KUB will try stool meds to help with constipation. thank you for this consult. will follow. Errol Barron Apr 05, 2017 12:04
--- NOTE | 2017-04-05 12:22 | Diagnostic Imaging Report ---
Indication: Abdominal distention Technique: XRAY Abdomen 1v Comparison: 04/03/2017 Findings: Gastrostomy tube in place. Surgical clips noted projecting in the left abdomen. There is interval decrease in stool burden of the colon with copious stool still noted in the left colon. No evidence to suggest free intraperitoneal air however exam is limited on supine view. Bowel gas pattern is not overtly obstructive. No acute osseous abnormality seen. Impression: Interval decrease in stool burden, particularly in the right colon.
[2017-04-05 16:00] VITALS: BP 102/61
--- NOTE | 2017-04-05 16:16 | General Progress Note ---
Assessment/Plan Assessment/Plan Assessment - Leukocytosis/Sepsis - improving - ileus vs SBO - mainly colonic constipation - N/V - resolved - Resp failure / trach - Azotemia - dysphagia, GT - fecal loading --> s/p rectal stool disimpaction - (R) adrenal nodule - (R) urolithiasis - s/p (L) nephrectomy Recommendations - Begin TF - abx - follow labs - follow exam - more laxatives Subjective Allergies: Coded Allergies: No Known Allergies (Unverified , 07/04/16) Subjective Above noted seen this am off feeds (+) BM per RN KUB noted Objective Last 24 Hour Vital Signs Date Time Temp Pulse Resp B/P (MAP) Pulse Ox O2 Delivery O2 Flow Rate FiO2 04/05/17 15:17 68 19 28 04/05/17 13:13 74 14 99 Mechanical Ventilator 28 04/05/17 13:03 70 14 99 Mechanical Ventilator 28 04/05/17 12:45 96 24 28 04/05/17 12:00 97.5 74 20 112/71 99 Mechanical Ventilator 28 04/05/17 12:00 74 04/05/17 12:00 28 04/05/17 10:40 92 24 28 04/05/17 09:51 69 17 99 Mechanical Ventilator 28 04/05/17 09:41 72 17 98 Mechanical Ventilator 28 04/05/17 09:10 68 25 28 04/05/17 09:09 Mechanical Ventilator 28 04/05/17 09:09 Mechanical Ventilator 28 04/05/17 08:00 67 04/05/17 08:00 97.2 75 18 101/68 99 Mechanical Ventilator 28 04/05/17 08:00 28 04/05/17 06:55 69 14 99 Mechanical Ventilator 28 04/05/17 06:51 68 13 28 04/05/17 06:45 64 14 99 Mechanical Ventilator 28 04/05/17 05:13 80 24 28 04/05/17 04:00 98.5 78 20 112/63 100 Mechanical Ventilator 28 04/05/17 04:00 28 04/05/17 03:06 77 19 28 04/05/17 02:50 98.9 04/05/17 01:11 79 24 99 Mechanical Ventilator 28 04/05/17 01:02 77 21 99 Mechanical Ventilator 28 04/05/17 00:47 86 20 99 Mechanical Ventilator 28 04/05/17 00:38 84 21 28 04/05/17 00:38 84 21 99 Mechanical Ventilator 28 04/05/17 00:01 77 04/05/17 00:00 98.9 71 20 108/63 99 Mechanical Ventilator 28 04/04/17 22:41 81 22 28 04/04/17 20:50 96 23 28 04/04/17 20:31 99.5 66 20 116/63 99 Room Air 04/04/17 20:00 28 04/04/17 20:00 81 04/04/17 18:52 99 25 99 Mechanical Ventilator 28 04/04/17 18:42 97 24 28 04/04/17 18:42 97 24 99 Mechanical Ventilator 28 04/04/17 17:30 99 25 28 04/04/17 16:27 92 25 28 Intake and Output 04/05/17 04/06/17 19:00 07:00 Intake Total 900 ml Balance 900 ml IV Total 900 ml # Bowel Movements 2 Laboratory Tests 04/04/17 18:00: White Blood Count 12.7H, Red Blood Count 3.09L, Hemoglobin 9.7L, Hematocrit 32.4L, Mean Corpuscular Volume 105H, Mean Corpuscular Hemoglobin 31.4H, Mean Corpuscular Hemoglobin Concent 29.9L, Red Cell Distribution Width 15.3H, Platelet Count 174, Mean Platelet Volume 5.6L, Neutrophils (%) (Auto) 76.3H, Lymphocytes (%) (Auto) 8.7L, Monocytes (%) (Auto) 11.3H, Eosinophils (%) (Auto) 2.9, Basophils (%) (Auto) 0.9, Sodium Level 147H, Potassium Level 3.5, Chloride Level 118H, Carbon Dioxide Level 20L, Anion Gap 9, Blood Urea Nitrogen 11, Creatinine 1.5H, Estimat Glomerular Filtration Rate 47.7, Glucose Level 82, Calcium Level 8.6 04/05/17 04:00: White Blood Count 12.4H, Red Blood Count 2.82L, Hemoglobin 9.6L, Hematocrit 29.7L, Mean Corpuscular Volume 106H, Mean Corpuscular Hemoglobin 34.1H, Mean Corpuscular Hemoglobin Concent 32.4, Red Cell Distribution Width 16.2H, Platelet Count 171, Mean Platelet Volume 5.8L, Neutrophils (%) (Auto) 75.6H, Lymphocytes (%) (Auto) 9.0L, Monocytes (%) (Auto) 12.4H, Eosinophils (%) (Auto) 2.5, Basophils (%) (Auto) 0.6, Sodium Level 146H, Potassium Level 3.4L, Chloride Level 116H, Carbon Dioxide Level 23, Anion Gap 7, Blood Urea Nitrogen 9 , Creatinine 1.5H, Estimat Glomerular Filtration Rate 47.7, Glucose Level 86, Calcium Level 8.6, Magnesium Level 1.7L Height (Feet): 5 Height (Inches): 8.00 Weight (Pounds): 130 Objective Debilitated AA man NCAT coarse BS RR abd mildly distended, soft, (+) GT Rectal disimpaction (04/03/17) contracted OBS TRAY SORENSON Apr 05, 2017 16:16
[2017-04-05] MEDS ORDERED: 1/2 NS 1000ml IV ONE (16:20)
[2017-04-05] MEDS ORDERED: D5 1/2NS 1000ml IV ONE (16:20)
[2017-04-05] MEDS ORDERED: NS 500ML ONE (16:20)
[2017-04-05] MEDS ORDERED: Sorbitol Solution UD 30ml ORAL ONE (17:30)
[2017-04-05 20:00] VITALS: BP 123/79
[2017-04-05] MEDS: Dyna-Hex 2% Top Sol 2oz TOPIC SCH (21:07)
[2017-04-06] VITALS: BP 130/70
[2017-04-06] MEDS: Metoclopramide 10mg/10ml Liq NG SCH ×5 (00:40→23:12)
[2017-04-06] MEDS: Albuterol/Ipratropium 3ml neb HHN SCH ×4 (01:08→18:59)
[2017-04-06 04:00] VITALS: BP 118/72
[2017-04-06 08:11] VITALS: BP 121/79
[2017-04-06] MEDS: Docusate 100mg/10ml Liq GT SCH ×3 (08:51→17:30)
[2017-04-06] MEDS: Multivitamins W/Minerals 15 ML UDC GT SCH (08:51)
[2017-04-06] MEDS: Zinc Sulfate 220mg cap GT SCH ×2 (08:51→17:31)
[2017-04-06] MEDS: Heparin 5000 units/ml inj SUBQ SCH ×2 (08:53→20:44)
--- NOTE | 2017-04-06 09:06 | General Progress Note ---
Assessment/Plan Problem List: (1) Azotemia ICD Codes: R79.89 - Other specified abnormal findings of blood chemistry SNOMED: 280838526 (2) Dehydration ICD Codes: E86.0 - Dehydration SNOMED: 58336230 (3) Renal failure ICD Codes: N19 - Unspecified kidney failure SNOMED: 50871247 Qualifiers: Qualified Codes: N17.9 - Acute kidney failure, unspecified; N18.3 - Chronic kidney disease, stage 3 (moderate) (4) Sepsis ICD Codes: A41.9 - Sepsis, unspecified organism SNOMED: 60863690 Qualifiers: Qualified Codes: A41.9 - Sepsis, unspecified organism (5) Ventilator dependence ICD Codes: Z99.11 - Dependence on respirator [ventilator] status SNOMED: 112895262 (6) Pneumonia involving right lung ICD Codes: J18.9 - Pneumonia, unspecified organism SNOMED: 903385298 Qualifiers: Qualified Codes: J18.9 - Pneumonia, unspecified organism (7) Abdominal distention ICD Codes: R14.0 - Abdominal distension (gaseous) SNOMED: 20831495 (8) Feeding by G-tube ICD Codes: Z93.1 - Gastrostomy status SNOMED: 959785095, 792334547 (9) Fecal impaction of colon ICD Codes: K56.41 - Fecal impaction SNOMED: 79362306 Assessment/Plan cont bowel regime laxatives vent support resp rx dvt/stress ulcer prophylaxis qbx per id kub Subjective ROS Limited/Unobtainable: Yes Constitutional: Reports: weakness HEENT: Reports: no symptoms Cardiovascular: Reports: no symptoms Respiratory: Reports: shortness of breath Gastrointestinal/Abdominal: Reports: constipated, difficulty swallowing Genitourinary: Reports: no symptoms Neurologic/Psychiatric: Reports: pre-existing deficit Endocrine: Reports: no symptoms Hematologic/Lymphatic: Reports: no symptoms Allergies: Coded Allergies: No Known Allergies (Unverified , 07/04/16) All Systems: reviewed and negative except above Subjective no events. having bowel movements and tolerating feeds. remains on the vent. poorly responsive at baseline. Objective Last 24 Hour Vital Signs Date Time Temp Pulse Resp B/P (MAP) Pulse Ox O2 Delivery O2 Flow Rate FiO2 04/06/17 08:45 100 24 28 04/06/17 08:11 98.2 109 20 121/79 94 Mechanical Ventilator 28 04/06/17 07:27 102 21 99 Mechanical Ventilator 28 04/06/17 07:20 112 23 99 Mechanical Ventilator 28 04/06/17 07:20 28 04/06/17 07:16 105 23 28 04/06/17 05:27 107 25 28 04/06/17 04:00 28 04/06/17 04:00 74 04/06/17 04:00 98.6 99 19 118/72 99 Mechanical Ventilator 28 04/06/17 03:03 95 21 28 04/06/17 01:28 87 20 99 Mechanical Ventilator 28 04/06/17 01:09 87 18 28 04/06/17 01:09 84 18 99 Mechanical Ventilator 28 04/06/17 00:00 98.0 85 19 130/70 99 Mechanical Ventilator 28 04/06/17 00:00 28 04/06/17 00:00 78 04/05/17 23:26 84 18 28 04/05/17 22:29 71 16 99 Mechanical Ventilator 28 04/05/17 22:14 80 18 99 Mechanical Ventilator 28 04/05/17 21:30 80 20 28 04/05/17 20:00 28 04/05/17 20:00 96.6 87 19 123/79 99 04/05/17 19:42 85 04/05/17 19:05 90 23 99 Mechanical Ventilator 28 04/05/17 18:57 87 23 Mechanical Ventilator 28 04/05/17 18:56 Mechanical Ventilator 04/05/17 18:56 89 23 99 Mechanical Ventilator 28 04/05/17 18:53 89 23 28 04/05/17 16:56 66 14 28 04/05/17 16:00 28 04/05/17 16:00 68 04/05/17 16:00 97.2 73 19 102/61 99 Mechanical Ventilator 28 04/05/17 15:17 68 19 28 04/05/17 13:13 74 14 99 Mechanical Ventilator 28 04/05/17 13:03 70 14 99 Mechanical Ventilator 28 04/05/17 12:45 96 24 28 04/05/17 12:00 97.5 74 20 112/71 99 Mechanical Ventilator 28 04/05/17 12:00 74 04/05/17 12:00 28 04/05/17 10:40 92 24 28 04/05/17 09:51 69 17 99 Mechanical Ventilator 28 04/05/17 09:41 72 17 98 Mechanical Ventilator 28 04/05/17 09:10 68 25 28 04/05/17 09:09 Mechanical Ventilator 28 04/05/17 09:09 Mechanical Ventilator 28 Height (Feet): 5 Height (Inches): 8.00 Weight (Pounds): 141 Objective General Appearance: WD/WN, lethargic, confused, thin Neck: supple Respiratory/Chest: chest wall non-tender, lungs clear, normal breath sounds Abdomen: normal bowel sounds, non tender, soft, no organomegaly Edema: no edema noted Arm (L), no edema noted Arm (R), no edema noted Leg (L), no edema noted Leg (R), no edema noted Pedal (L), no edema noted Pedal (R), no edema noted Generalized Neurologic: unresponsive, aphasia ERIKA SULLIVAN Apr 06, 2017 09:06
[2017-04-06] MEDS: Amikacin for Inhalation 2ML INH SCH ×2 (09:56→21:26)
--- NOTE | 2017-04-06 11:42 | Infectious Diseases Prog Note ---
Assessment/Plan Assessment/Plan A 1. pneumonia with Pseudomonas & Providencia 2. Leukocytosis improving 3. Respiratory failure, VDRF 4. Renal failure is improving. 5. MRSA colonization 6. Encephalopathy P 1. Continue Amikacin inhaler 2. We will follow up cultures and adjust antibiotics accordingly. Subjective ROS Limited/Unobtainable: Yes Allergies: Coded Allergies: No Known Allergies (Unverified , 07/04/16) Objective Vital Signs Last 24 Hour Vital Signs Date Time Temp Pulse Resp B/P (MAP) Pulse Ox O2 Delivery O2 Flow Rate FiO2 04/06/17 11:09 102 24 28 04/06/17 10:05 112 23 99 Mechanical Ventilator 28 04/06/17 09:57 101 22 99 Mechanical Ventilator 28 04/06/17 09:57 28 04/06/17 08:45 100 24 28 04/06/17 08:11 98.2 109 20 121/79 94 Mechanical Ventilator 28 04/06/17 08:00 111 04/06/17 08:00 28 04/06/17 07:27 102 21 99 Mechanical Ventilator 28 04/06/17 07:20 112 23 99 Mechanical Ventilator 28 04/06/17 07:20 28 04/06/17 07:16 105 23 28 04/06/17 05:27 107 25 28 04/06/17 04:00 28 04/06/17 04:00 74 04/06/17 04:00 98.6 99 19 118/72 99 Mechanical Ventilator 28 04/06/17 03:03 95 21 28 04/06/17 01:28 87 20 99 Mechanical Ventilator 28 04/06/17 01:09 87 18 28 04/06/17 01:09 84 18 99 Mechanical Ventilator 28 04/06/17 00:00 98.0 85 19 130/70 99 Mechanical Ventilator 28 04/06/17 00:00 28 04/06/17 00:00 78 04/05/17 23:26 84 18 28 04/05/17 22:29 71 16 99 Mechanical Ventilator 28 04/05/17 22:14 80 18 99 Mechanical Ventilator 28 04/05/17 21:30 80 20 28 04/05/17 20:00 28 04/05/17 20:00 96.6 87 19 123/79 99 04/05/17 19:42 85 04/05/17 19:05 90 23 99 Mechanical Ventilator 28 04/05/17 18:57 87 23 Mechanical Ventilator 28 04/05/17 18:56 Mechanical Ventilator 04/05/17 18:56 89 23 99 Mechanical Ventilator 28 04/05/17 18:53 89 23 28 04/05/17 16:56 66 14 28 04/05/17 16:00 28 04/05/17 16:00 68 04/05/17 16:00 97.2 73 19 102/61 99 Mechanical Ventilator 28 04/05/17 15:17 68 19 28 04/05/17 13:13 74 14 99 Mechanical Ventilator 28 04/05/17 13:03 70 14 99 Mechanical Ventilator 28 04/05/17 12:45 96 24 28 04/05/17 12:00 97.5 74 20 112/71 99 Mechanical Ventilator 28 04/05/17 12:00 74 04/05/17 12:00 28 Height (Feet): 5 Height (Inches): 8.00 Weight (Pounds): 141 General Appearance: no acute distress HEENT: status post trach Respiratory/Chest: lungs clear, other - on ventilator Cardiovascular: tachycardia Abdomen: soft, non tender, other - GT feeding Extremities: no edema, other - left arm PICC line Neurologic/Psychiatric: alert Current Medications Medications (Trade) Dose Ordered Sig/Evangelina Route PRN Reason Start Time Stop Time Status Last Admin Dose Admin Acetaminophen (Tylenol Peds) 640 mg Q4HR PRN ORAL FEVER> 101F/PAIN. NTE 3G/24HR 03/29/17 22:15 04/28/17 22:14 04/05/17 02:20 Al Hydroxide/Mg Hydroxide (Mylanta) 30 ml EVERY 4 HOURS PRN GT Constipation 03/29/17 22:15 04/28/17 22:14 Albuterol/ Ipratropium (Albuterol/ Ipratropium) 3 ml Q6HRT HHN 04/05/17 13:00 04/10/17 12:59 04/06/17 07:15 Amikacin Sulfate (Amikin) 500 mg Q12HR@10,22 INH 04/04/17 22:00 04/11/17 21:59 04/06/17 09:56 Bisacodyl (Dulcolax) 10 mg DAILY PRN RECTAL IF MOM INEFFECTIVE 03/29/17 22:15 04/28/17 22:14 Chlorhexidine Gluconate (Oumou-Hex 2%) 1 applic DAILY@2000 TOPIC 03/31/17 20:00 04/30/17 19:59 04/05/17 21:07 Dextrose 1,000 ml @ 100 mls/hr Q10H IV 04/04/17 19:00 05/04/17 18:59 04/06/17 11:04 Diphenhydramine HCl (Benadryl) 12.5 mg Q6H PRN GT Itching 03/29/17 22:45 04/28/17 22:44 04/05/17 21:36 Docusate Sodium (Colace) 100 mg TWICE A DAY GT 03/30/17 09:00 04/29/17 08:59 04/05/17 17:39 Epoetin Ernesto (Procrit (for non ESRD use)) 10,000 units FRI-FRI-FRI SUBQ 04/02/17 21:00 05/02/17 20:59 04/04/17 21:04 Heparin Sodium (Porcine) (Heparin 5000 units/ml) 5,000 units EVERY 12 HOURS SUBQ 03/31/17 09:00 04/30/17 08:59 04/06/17 08:53 Lactulose (Cephulac) 30 gm DAILY PRN GT Constipation 03/29/17 22:45 04/28/17 22:44 Lansoprazole (Prevacid) 30 mg DAILY GT 03/30/17 09:00 04/29/17 08:59 04/06/17 08:51 Magnesium Hydroxide (Mom) 30 ml BEDTIME PRN GT Constipation 03/29/17 22:15 04/28/17 22:14 Metoclopramide HCl (Reglan) 10 mg EVERY 6 HOURS NG 04/01/17 12:00 05/01/17 11:59 04/06/17 06:07 Midodrine (Pro-Amatine) 5 mg THREE TIMES A DAY GT 03/30/17 09:00 04/29/17 08:59 04/06/17 08:51 Multivitamins (Multivitamins W/ Minerals 15ml Liquid) 15 ml DAILY GT 03/30/17 09:00 04/29/17 08:59 04/06/17 08:51 Ondansetron HCl (Zofran) 4 mg Q6H PRN GT Nausea & Vomiting 03/29/17 22:15 1/8/18 22:14 04/01/17 20:37 Sodium Phosphate (Fleet's Sodium Phosl Enema) 133 ml QOD PRN RECTAL IF DULCOLAX INEFFECTIVE 03/29/17 22:15 04/28/17 22:14 Zinc Sulfate (Zinc Sulfate) 220 mg BID GT 03/30/17 09:00 04/29/17 08:59 04/06/17 08:51 Zolpidem Tartrate (Ambien) 5 mg HSPRN PRN GT Insomnia 03/30/17 14:00 04/06/17 13:59 TRISHA VARGAS Apr 06, 2017 11:42
[2017-04-06 12:00] VITALS: BP 115/82
--- NOTE | 2017-04-06 13:43 | General Progress Note ---
Assessment/Plan Assessment/Plan Assessment - Leukocytosis/Sepsis - improved - ileus vs SBO - mainly colonic constipation - resolved - N/V - resolved - Resp failure / trach - Azotemia - dysphagia, GT - fecal loading --> s/p rectal stool disimpaction - (R) adrenal nodule - (R) urolithiasis - s/p (L) nephrectomy Recommendations - Continue TF - abx - follow labs - follow exam - PRN laxatives - DC planning Subjective Allergies: Coded Allergies: No Known Allergies (Unverified , 07/04/16) Subjective Above noted seen this am tolerating feeds Objective Last 24 Hour Vital Signs Date Time Temp Pulse Resp B/P (MAP) Pulse Ox O2 Delivery O2 Flow Rate FiO2 04/06/17 13:05 105 15 100 Mechanical Ventilator 04/06/17 12:57 28 04/06/17 12:57 107 23 99 Mechanical Ventilator 04/06/17 12:57 107 24 28 04/06/17 12:00 28 04/06/17 11:09 102 24 28 04/06/17 10:05 112 23 99 Mechanical Ventilator 04/06/17 09:57 101 22 99 Mechanical Ventilator 04/06/17 09:57 28 04/06/17 08:45 100 24 28 04/06/17 08:11 98.2 109 20 121/79 94 Mechanical Ventilator 04/06/17 08:00 111 04/06/17 08:00 28 04/06/17 07:27 102 21 99 Mechanical Ventilator 04/06/17 07:20 112 23 99 Mechanical Ventilator 04/06/17 07:20 28 04/06/17 07:16 105 23 28 04/06/17 05:27 107 25 28 04/06/17 04:00 28 04/06/17 04:00 74 04/06/17 04:00 98.6 99 19 118/72 99 Mechanical Ventilator 04/06/17 03:03 95 21 28 04/06/17 01:28 87 20 99 Mechanical Ventilator 04/06/17 01:09 87 18 28 04/06/17 01:09 84 18 99 Mechanical Ventilator 04/06/17 00:00 98.0 85 19 130/70 99 Mechanical Ventilator 28 04/06/17 00:00 28 04/06/17 00:00 78 12/16/17 23:26 84 18 28 04/05/17 22:29 71 16 99 Mechanical Ventilator 28 04/05/17 22:14 80 18 99 Mechanical Ventilator 28 04/05/17 21:30 80 20 28 04/05/17 20:00 28 04/05/17 20:00 96.6 87 19 123/79 99 04/05/17 19:42 85 04/05/17 19:05 90 23 99 Mechanical Ventilator 28 04/05/17 18:57 87 23 Mechanical Ventilator 28 04/05/17 18:56 Mechanical Ventilator 04/05/17 18:56 89 23 99 Mechanical Ventilator 28 04/05/17 18:53 89 23 28 04/05/17 16:56 66 14 28 04/05/17 16:00 28 04/05/17 16:00 68 04/05/17 16:00 97.2 73 19 102/61 99 Mechanical Ventilator 28 04/05/17 15:17 68 19 28 Intake and Output 04/06/17 04/07/17 19:00 07:00 Intake Total 666.667 ml Balance 666.667 ml IV Total 476.667 ml Tube Feeding 160 ml Other 30 ml # Bowel Movements 2 Height (Feet): 5 Height (Inches): 8.00 Weight (Pounds): 141 Objective Debilitated AA man NCAT coarse BS RR abd mildly distended, soft, (+) GT Rectal disimpaction (04/03/17) contracted OBS TRAY SORENSON Apr 06, 2017 13:43
--- NOTE | 2017-04-06 13:46 | Diagnostic Imaging Report ---
Indication: Abdominal pain Technique: XRAY Abdomen 1v Comparison: 04/05/2017 Findings: Decreased stool burden of the left colon. Air is noted about the colon. Gastrostomy tube in place. Bowel gas pattern is nonobstructed. No evidence to suggest free intraperitoneal air. Impression: Interval decreased stool burden in the left colon.
--- NOTE | 2017-04-06 14:27 | Cardiology Report ---
APPROVED REPORT EKG Measurement Heart [id number] Normal sinus rhythm Left axis deviation Possible Lateral infarct, age undetermined Abnormal ECG
[2017-04-06 16:00] VITALS: BP 101/72
--- NOTE | 2017-04-06 16:32 | General Surgery Progress Note ---
General Surgery-Progress Note Subjective Symptoms: improved, BM Additional Comments lots of liquid stool into rectal tube. abdomen much softer. Objective Last 24 Hour Vital Signs Date Time Temp Pulse Resp B/P (MAP) Pulse Ox O2 Delivery O2 Flow Rate FiO2 04/06/17 16:00 28 04/06/17 14:41 108 23 28 04/06/17 13:05 105 15 100 Mechanical Ventilator 28 04/06/17 12:57 28 04/06/17 12:57 107 23 99 Mechanical Ventilator 28 04/06/17 12:57 107 24 28 04/06/17 12:00 108 04/06/17 12:00 28 04/06/17 12:00 97.7 114 24 115/82 100 Mechanical Ventilator 28 04/06/17 11:09 102 24 28 04/06/17 10:05 112 23 99 Mechanical Ventilator 28 04/06/17 09:57 101 22 99 Mechanical Ventilator 28 04/06/17 09:57 28 04/06/17 08:45 100 24 28 04/06/17 08:11 98.2 109 20 121/79 94 Mechanical Ventilator 28 04/06/17 08:00 111 04/06/17 08:00 28 04/06/17 07:27 102 21 99 Mechanical Ventilator 28 04/06/17 07:20 112 23 99 Mechanical Ventilator 28 04/06/17 07:20 28 04/06/17 07:16 105 23 28 04/06/17 05:27 107 25 28 04/06/17 04:00 28 04/06/17 04:00 74 04/06/17 04:00 98.6 99 19 118/72 99 Mechanical Ventilator 28 04/06/17 03:03 95 21 28 04/06/17 01:28 87 20 99 Mechanical Ventilator 28 04/06/17 01:09 87 18 28 04/06/17 01:09 84 18 99 Mechanical Ventilator 28 04/06/17 00:00 98.0 85 19 130/70 99 Mechanical Ventilator 28 04/06/17 00:00 28 04/06/17 00:00 78 04/05/17 23:26 84 18 28 04/05/17 22:29 71 16 99 Mechanical Ventilator 28 04/05/17 22:14 80 18 99 Mechanical Ventilator 28 04/05/17 21:30 80 20 28 04/05/17 20:00 28 04/05/17 20:00 96.6 87 19 123/79 99 04/05/17 19:42 85 04/05/17 19:05 90 23 99 Mechanical Ventilator 28 04/05/17 18:57 87 23 Mechanical Ventilator 28 04/05/17 18:56 Mechanical Ventilator 04/05/17 18:56 89 23 99 Mechanical Ventilator 28 04/05/17 18:53 89 23 28 04/05/17 16:56 66 14 28 I&O Intake and Output 04/06/17 04/07/17 19:00 07:00 Intake Total 1146.667 ml Balance 1146.667 ml IV Total 876.667 ml Tube Feeding 240 ml Other 30 ml # Bowel Movements 3 Cardiovascular: RSR Respiratory: clear Abdomen: soft, other - much less distended. Plan Problems: (1) Fecal impaction of colon Assessment & Plan: 62M with likely fecal impaction. chronic ill patient with complicated medical history. in reviewing the CT the entire colon is filled with stool and impacted stool in rectum. distal small bowel with fecalization. No definite transition point noted and minimal proximal dilation which is more consistent with distal stool blockage from colon rather than SBO. Disimpacted at bedside by GI. exam much improved. KUB improved. constipation resolving. Continue with rectal tube as needed will continue to monitor with serial physical exams repeat AM KUB stool softeners laxatives thank you for this consult. will follow. Errol Barron Apr 06, 2017 16:32
[2017-04-06] MEDS ORDERED: D5 1/2NS 1000ml IV ONE (17:33)
[2017-04-06] MEDS ORDERED: Tubing IV Secondary IV ONE (17:33)
[2017-04-06] MEDS ORDERED: NS 500ML ONE (17:33)
[2017-04-06 20:00] VITALS: BP 98/64
[2017-04-06] MEDS: DiphenhydrAMINE 25mg/10ml Elixir GT PRN (20:39)
[2017-04-06] MEDS: Dyna-Hex 2% Top Sol 2oz TOPIC SCH (20:45)
--- NOTE | 2017-04-06 22:14 | Wound Care Consultation ---
Wound Assessment Wound Assessment #1: Wound Present on Admission: Yes New Wound: No Status Change of Wound: No Wound Location Body Site Modif: right, lateral Wound Location Body Site: knee Wound Type: pressure ulcer Kenan Test: Does not Kenan Pressure Ulcer Stage: Unstageable Wound Thickness: Full Thickness Wound Length: 1.0 Wound Width: 1.0 Wound Depth: utd Percent of Wound [place]/Red: 60 Percent of Wound Bed Yellow/Wh: 40 Wound Drainage Description: Serosanguineous Wound Drainage Amount: Scant Wound Drainage Odor: None/Absent Tissue Surrounding Wound: Intact Wound General Appearance: Reddened Wound Assessment #2: Wound Number: 2 Wound Present on Admission: Yes New Wound: No Status Change of Wound: No Wound Location Body Site Modif: mid Wound Location Body Site: sacral Wound Type: pressure ulcer Eknan Test: Does not Kenan Pressure Ulcer Stage: Unstageable Wound Thickness: Full Thickness Wound Length: 4.5 Wound Width: 5.0 Wound Depth: utd Percent of Wound [place]/Red: 50 Percent of Wound Bed Yellow/Wh: 50 Wound Drainage Description: Serosanguineous Wound Drainage Amount: Moderate Wound Drainage Odor: None/Absent Tissue Surrounding Wound: Erythemic Wound General Appearance: Reddened - yellow, Draining Wound Comment #1 Sacrococcygeal unstageable pressure ulcer. No deterioration noted. Will cont same wound care treatment #2 Right lateral Knee unstageable pressure ulcer. No deterioration noted. Will cont same wound care treatment Reassessment done. No deterioration noted. Will cont same wound care treatment and recommendations Recommendation -Local wound care per protocol -Keep clean and dry -Turn and reposition -Optimize nutrition -Offload both heels -Heel protector on both heels -Low air loss mattress -Assess and f/u accordingly for any changes AGA SPANGLER RN Apr 06, 2017 22:14
[2017-04-07] VITALS: BP 102/59
[2017-04-07] MEDS: Albuterol/Ipratropium 3ml neb HHN SCH ×3 (01:01→13:08)
[2017-04-07 04:00] VITALS: BP 105/54
[2017-04-07] MEDS: Metoclopramide 10mg/10ml Liq NG SCH ×2 (05:28→11:14)
[2017-04-07 07:15] LABS: BASOPHILS % (AUTO) 0.6 % (0.0-2.0); EOSINOPHILS % (AUTO) 1.6 % (0.0-3.0); MEAN CORPUSCULAR HEMOGLOBIN 32.7 PG (27.0-31.0); MEAN CORPUSCULAR VOLUME 102 FL (80-99); MEAN PLATELET VOLUME 6.4 FL (6.5-10.1); MONOCYTES % (AUTO) 8.9 % (1.0-10.0); NEUTROPHILS % (AUTO) 67.9 % (45.0-75.0); PLATELET COUNT 257 K/UL (150-450); RED BLOOD COUNT 3.17 M/UL (4.70-6.10); WHITE BLOOD COUNT 13.4 K/UL (4.8-10.8)
[2017-04-07 07:38] LABS: ALANINE AMINOTRANSFERASE 104 U/L (12-78); ALBUMIN/GLOBULIN RATIO 0.2 (1.0-2.7); ANION GAP 5 mmol/L (5-15); ASPARTATE AMINO TRANSFERASE 46 U/L (15-37); CALCIUM 8.5 MG/DL (8.5-10.1); CARBON DIOXIDE 24 MMOL/L (21-32); CHLORIDE 111 MMOL/L (98-107); CREATININE 1.4 MG/DL (0.55-1.30); GLOMERULAR FILTRATION RATE 51.7 mL/min (>60); POTASSIUM 4.7 MMOL/L (3.5-5.1); SODIUM 140 MMOL/L (136-145); TOTAL PROTEIN 7.2 G/DL (6.4-8.2)
[2017-04-07 08:00] VITALS: BP 107/55
[2017-04-07] MEDS: Docusate 100mg/10ml Liq GT SCH (08:43)
[2017-04-07] MEDS: Zinc Sulfate 220mg cap GT SCH (08:43)
[2017-04-07] MEDS: Multivitamins W/Minerals 15 ML UDC GT SCH (08:43)
[2017-04-07] MEDS: Heparin 5000 units/ml inj SUBQ SCH (08:47)
--- NOTE | 2017-04-07 09:24 | General Progress Note ---
Assessment/Plan Assessment/Plan Assessment - Leukocytosis/Sepsis - improved - ileus vs SBO - mainly colonic constipation - resolved - N/V - resolved - Resp failure / trach - Azotemia - dysphagia, GT - fecal loading --> s/p rectal stool disimpaction - (R) adrenal nodule - (R) urolithiasis - s/p (L) nephrectomy Recommendations - Continue TF - abx - follow labs - follow exam - PRN laxatives - DC planning Subjective Allergies: Coded Allergies: No Known Allergies (Unverified , 07/04/16) Subjective Above noted seen this am tolerating feeds Objective Last 24 Hour Vital Signs Date Time Temp Pulse Resp B/P (MAP) Pulse Ox O2 Delivery O2 Flow Rate FiO2 04/07/17 09:14 112 25 28 04/07/17 08:00 28 04/07/17 07:19 103 14 100 Mechanical Ventilator 28 04/07/17 07:13 106 19 100 Mechanical Ventilator 28 04/07/17 07:13 28 04/07/17 06:30 102 21 28 04/07/17 05:20 91 20 28 04/07/17 04:00 98.2 90 17 105/54 100 Mechanical Ventilator 28 04/07/17 04:00 28 04/07/17 04:00 89 04/07/17 03:00 91 20 28 04/07/17 01:10 83 12 100 Mechanical Ventilator 28 04/07/17 01:01 87 17 100 Mechanical Ventilator 28 04/07/17 01:01 87 17 28 04/07/17 01:01 28 04/07/17 00:00 97.9 90 17 102/59 100 Mechanical Ventilator 28 04/07/17 00:00 28 04/07/17 00:00 90 04/06/17 22:54 89 20 28 04/06/17 21:37 86 16 100 Mechanical Ventilator 28 04/06/17 21:26 89 18 100 Mechanical Ventilator 28 04/06/17 21:26 28 04/06/17 21:24 89 18 28 04/06/17 20:00 97.7 106 24 98/64 100 Mechanical Ventilator 28 04/06/17 20:00 28 04/06/17 20:00 93 04/06/17 19:08 91 17 100 Mechanical Ventilator 28 04/06/17 18:58 88 18 100 Mechanical Ventilator 28 12/17/17 18:58 88 18 28 04/06/17 18:58 28 04/06/17 17:15 93 17 28 04/06/17 16:00 28 04/06/17 16:00 97.9 104 24 101/72 100 Mechanical Ventilator 28 04/06/17 16:00 106 04/06/17 14:41 108 23 28 04/06/17 13:05 105 15 100 Mechanical Ventilator 28 04/06/17 12:57 28 04/06/17 12:57 107 23 99 Mechanical Ventilator 28 04/06/17 12:57 107 24 28 04/06/17 12:00 108 04/06/17 12:00 28 04/06/17 12:00 97.7 114 24 115/82 100 Mechanical Ventilator 04/06/17 11:09 102 24 28 04/06/17 10:05 112 23 99 Mechanical Ventilator 04/06/17 09:57 101 22 99 Mechanical Ventilator 04/06/17 09:57 28 Intake and Output 04/07/17 04/08/17 19:00 07:00 # Bowel Movements 1 Laboratory Tests 04/07/17 06:45: White Blood Count 13.4H, Red Blood Count 3.17L, Hemoglobin 10.4L, Hematocrit 32.4L, Mean Corpuscular Volume 102H, Mean Corpuscular Hemoglobin 32.7H, Mean Corpuscular Hemoglobin Concent 32.0, Red Cell Distribution Width 16.0H, Platelet Count 257, Mean Platelet Volume 6.4L, Neutrophils (%) (Auto) 67.9, Lymphocytes (%) (Auto) 21.0, Monocytes (%) (Auto) 8.9, Eosinophils (%) (Auto) 1.6, Basophils (%) (Auto) 0.6, Sodium Level 140, Potassium Level 4.7, Chloride Level 111H, Carbon Dioxide Level 24, Anion Gap 5, Blood Urea Nitrogen 12, Creatinine 1.4H, Estimat Glomerular Filtration Rate 51.7, Glucose Level 80, Calcium Level 8.5, Total Bilirubin 0.4, Aspartate Amino Transf (AST/SGOT) 46H, Alanine Aminotransferase (ALT/SGPT) 104H, Alkaline Phosphatase 647H, Total Protein 7.2, Albumin 1.2L, Globulin 6.0, Albumin/Globulin Ratio 0.2L Height (Feet): 5 Height (Inches): 8.00 Weight (Pounds): 133 Objective Debilitated AA man NCAT coarse BS RR abd mildly distended, soft, (+) GT contracted OBS TRAY SORENSON Apr 07, 2017 09:24
[2017-04-07] MEDS: Amikacin for Inhalation 2ML INH SCH (09:30)
--- NOTE | 2017-04-07 10:46 | General Progress Note ---
Assessment/Plan Problem List: (1) Azotemia ICD Codes: R79.89 - Other specified abnormal findings of blood chemistry SNOMED: 102654263 (2) Dehydration ICD Codes: E86.0 - Dehydration SNOMED: 30900005 (3) Renal failure ICD Codes: N19 - Unspecified kidney failure SNOMED: 53883812 Qualifiers: Qualified Codes: N17.9 - Acute kidney failure, unspecified; N18.3 - Chronic kidney disease, stage 3 (moderate) (4) Sepsis ICD Codes: A41.9 - Sepsis, unspecified organism SNOMED: 36687645 Qualifiers: Qualified Codes: A41.9 - Sepsis, unspecified organism (5) Ventilator dependence ICD Codes: Z99.11 - Dependence on respirator [ventilator] status SNOMED: 099694307 (6) Pneumonia involving right lung ICD Codes: J18.9 - Pneumonia, unspecified organism SNOMED: 216093441 Qualifiers: Qualified Codes: J18.9 - Pneumonia, unspecified organism (7) Abdominal distention ICD Codes: R14.0 - Abdominal distension (gaseous) SNOMED: 34817234 (8) Feeding by G-tube ICD Codes: Z93.1 - Gastrostomy status SNOMED: 112384660, 117194717 (9) Fecal impaction of colon ICD Codes: K56.41 - Fecal impaction SNOMED: 61417262 Status: stable, progressing Assessment/Plan cont bowel regime laxatives vent support resp rx dvt/stress ulcer prophylaxis qbx per id kub Subjective ROS Limited/Unobtainable: Yes Constitutional: Reports: malaise, weakness HEENT: Reports: no symptoms Cardiovascular: Reports: no symptoms Respiratory: Reports: no symptoms Gastrointestinal/Abdominal: Reports: difficulty swallowing Genitourinary: Reports: no symptoms Neurologic/Psychiatric: Reports: pre-existing deficit Endocrine: Reports: no symptoms Hematologic/Lymphatic: Reports: no symptoms Allergies: Coded Allergies: No Known Allergies (Unverified , 07/04/16) All Systems: reviewed and negative except above Subjective no events. having bowel movements and tolerating feeds. remains on the vent. poorly responsive at baseline. Objective Last 24 Hour Vital Signs Date Time Temp Pulse Resp B/P (MAP) Pulse Ox O2 Delivery O2 Flow Rate FiO2 04/07/17 09:38 110 18 100 Mechanical Ventilator 28 04/07/17 09:30 28 04/07/17 09:30 112 22 100 Mechanical Ventilator 28 04/07/17 09:14 112 25 28 04/07/17 08:00 28 04/07/17 08:00 95 04/07/17 08:00 97.8 89 18 107/55 99 Mechanical Ventilator 28 04/07/17 07:19 103 14 100 Mechanical Ventilator 28 04/07/17 07:13 106 19 100 Mechanical Ventilator 28 04/07/17 07:13 28 04/07/17 06:30 102 21 28 04/07/17 05:20 91 20 28 04/07/17 04:00 98.2 90 17 105/54 100 Mechanical Ventilator 28 04/07/17 04:00 28 04/07/17 04:00 89 04/07/17 03:00 91 20 28 04/07/17 01:10 83 12 100 Mechanical Ventilator 28 04/07/17 01:01 87 17 100 Mechanical Ventilator 28 04/07/17 01:01 87 17 28 04/07/17 01:01 28 04/07/17 00:00 97.9 90 17 102/59 100 Mechanical Ventilator 28 04/07/17 00:00 28 04/07/17 00:00 90 04/06/17 22:54 89 20 28 04/06/17 21:37 86 16 100 Mechanical Ventilator 28 04/06/17 21:26 89 18 100 Mechanical Ventilator 28 04/06/17 21:26 28 04/06/17 21:24 89 18 28 04/06/17 20:00 97.7 106 24 98/64 100 Mechanical Ventilator 28 04/06/17 20:00 28 04/06/17 20:00 93 04/06/17 19:08 91 17 100 Mechanical Ventilator 28 04/06/17 18:58 88 18 100 Mechanical Ventilator 28 04/06/17 18:58 88 18 28 04/06/17 18:58 28 04/06/17 17:15 93 17 28 04/06/17 16:00 28 04/06/17 16:00 97.9 104 24 101/72 100 Mechanical Ventilator 28 04/06/17 16:00 106 04/06/17 14:41 108 23 28 04/06/17 13:05 105 15 100 Mechanical Ventilator 28 04/06/17 12:57 28 04/06/17 12:57 107 23 99 Mechanical Ventilator 28 04/06/17 12:57 107 24 28 04/06/17 12:00 108 04/06/17 12:00 28 04/06/17 12:00 97.7 114 24 115/82 100 Mechanical Ventilator 28 04/06/17 11:09 102 24 28 Intake and Output 04/07/17 04/08/17 19:00 07:00 Intake Total 300 ml Balance 300 ml IV Total 300 ml # Bowel Movements 1 Laboratory Tests 04/07/17 06:45: White Blood Count 13.4H, Red Blood Count 3.17L, Hemoglobin 10.4L, Hematocrit 32.4L, Mean Corpuscular Volume 102H, Mean Corpuscular Hemoglobin 32.7H, Mean Corpuscular Hemoglobin Concent 32.0, Red Cell Distribution Width 16.0H, Platelet Count 257, Mean Platelet Volume 6.4L, Neutrophils (%) (Auto) 67.9, Lymphocytes (%) (Auto) 21.0, Monocytes (%) (Auto) 8.9, Eosinophils (%) (Auto) 1.6, Basophils (%) (Auto) 0.6, Sodium Level 140, Potassium Level 4.7, Chloride Level 111H, Carbon Dioxide Level 24, Anion Gap 5, Blood Urea Nitrogen 12, Creatinine 1.4H, Estimat Glomerular Filtration Rate 51.7, Glucose Level 80, Calcium Level 8.5, Total Bilirubin 0.4, Aspartate Amino Transf (AST/SGOT) 46H, Alanine Aminotransferase (ALT/SGPT) 104H, Alkaline Phosphatase 647H, Total Protein 7.2, Albumin 1.2L, Globulin 6.0, Albumin/Globulin Ratio 0.2L Height (Feet): 5 Height (Inches): 8.00 Weight (Pounds): 133 Objective General Appearance: WD/WN, lethargic, confused, thin Neck: supple Respiratory/Chest: chest wall non-tender, lungs clear, normal breath sounds Abdomen: normal bowel sounds, non tender, soft, no organomegaly Edema: no edema noted Arm (L), no edema noted Arm (R), no edema noted Leg (L), no edema noted Leg (R), no edema noted Pedal (L), no edema noted Pedal (R), no edema noted Generalized Neurologic: unresponsive, aphasia ERIKA SULLIVAN Apr 07, 2017 10:45
[2017-04-07] MEDS ORDERED: AMIKIN500 MG/2 M INH (10:50)
[2017-04-07 12:00] VITALS: BP 106/74
--- NOTE | 2017-04-07 12:29 | Infectious Diseases Prog Note ---
Assessment/Plan Assessment/Plan A 1. pneumonia with Pseudomonas & Providencia 2. Leukocytosis improving 3. Respiratory failure, VDRF 4. Renal failure is improving. 5. MRSA colonization 6. Encephalopathy P 1. Continue Amikacin inhaler 2.f/u CXR Subjective ROS Limited/Unobtainable: Yes Allergies: Coded Allergies: No Known Allergies (Unverified , 07/04/16) Objective Vital Signs Last 24 Hour Vital Signs Date Time Temp Pulse Resp B/P (MAP) Pulse Ox O2 Delivery O2 Flow Rate FiO2 04/07/17 12:00 98.1 95 106/74 04/07/17 12:00 28 04/07/17 10:33 100 17 28 04/07/17 09:38 110 18 100 Mechanical Ventilator 28 04/07/17 09:30 28 04/07/17 09:30 112 22 100 Mechanical Ventilator 28 04/07/17 09:14 112 25 28 04/07/17 08:00 28 04/07/17 08:00 95 04/07/17 08:00 97.8 89 18 107/55 99 Mechanical Ventilator 28 04/07/17 07:19 103 14 100 Mechanical Ventilator 28 04/07/17 07:13 106 19 100 Mechanical Ventilator 28 04/07/17 07:13 28 04/07/17 06:30 102 21 28 04/07/17 05:20 91 20 28 04/07/17 04:00 98.2 90 17 105/54 100 Mechanical Ventilator 28 04/07/17 04:00 28 04/07/17 04:00 89 04/07/17 03:00 91 20 28 04/07/17 01:10 83 12 100 Mechanical Ventilator 28 04/07/17 01:01 87 17 100 Mechanical Ventilator 28 04/07/17 01:01 87 17 28 04/07/17 01:01 28 04/07/17 00:00 97.9 90 17 102/59 100 Mechanical Ventilator 28 04/07/17 00:00 28 04/07/17 00:00 90 04/06/17 22:54 89 20 28 04/06/17 21:37 86 16 100 Mechanical Ventilator 28 04/06/17 21:26 89 18 100 Mechanical Ventilator 28 04/06/17 21:26 28 04/06/17 21:24 89 18 28 04/06/17 20:00 97.7 106 24 98/64 100 Mechanical Ventilator 28 04/06/17 20:00 28 04/06/17 20:00 93 04/06/17 19:08 91 17 100 Mechanical Ventilator 28 04/06/17 18:58 88 18 100 Mechanical Ventilator 28 04/06/17 18:58 88 18 28 04/06/17 18:58 28 04/06/17 17:15 93 17 28 04/06/17 16:00 28 04/06/17 16:00 97.9 104 24 101/72 100 Mechanical Ventilator 28 04/06/17 16:00 106 04/06/17 14:41 108 23 28 04/06/17 13:05 105 15 100 Mechanical Ventilator 28 04/06/17 12:57 28 04/06/17 12:57 107 23 99 Mechanical Ventilator 28 04/06/17 12:57 107 24 28 Height (Feet): 5 Height (Inches): 8.00 Weight (Pounds): 133 HEENT: status post trach Respiratory/Chest: lungs clear, other - on ventilator Cardiovascular: tachycardia Abdomen: soft, non tender, other - GT feeding Extremities: no edema Neurologic/Psychiatric: aphasia, other - opens eyes Laboratory Tests Test 04/07/17 06:45 White Blood Count 13.4 K/UL (4.8-10.8) H Red Blood Count 3.17 M/UL (4.70-6.10) L Hemoglobin 10.4 G/DL (14.2-18.0) L Hematocrit 32.4 % (42.0-52.0) L Mean Corpuscular Volume 102 FL (80-99) H Mean Corpuscular Hemoglobin 32.7 PG (27.0-31.0) H Mean Corpuscular Hemoglobin Concent 32.0 G/DL (32.0-36.0) Red Cell Distribution Width 16.0 % (11.6-14.8) H Platelet Count 257 K/UL (150-450) Mean Platelet Volume 6.4 FL (6.5-10.1) L Neutrophils (%) (Auto) 67.9 % (45.0-75.0) Lymphocytes (%) (Auto) 21.0 % (20.0-45.0) Monocytes (%) (Auto) 8.9 % (1.0-10.0) Eosinophils (%) (Auto) 1.6 % (0.0-3.0) Basophils (%) (Auto) 0.6 % (0.0-2.0) Sodium Level 140 MMOL/L (136-145) Potassium Level 4.7 MMOL/L (3.5-5.1) Chloride Level 111 MMOL/L (98-107) H Carbon Dioxide Level 24 MMOL/L (21-32) Anion Gap 5 mmol/L (5-15) Blood Urea Nitrogen 12 mg/dL (7-18) Creatinine 1.4 MG/DL (0.55-1.30) H Estimat Glomerular Filtration Rate 51.7 mL/min (>60) Glucose Level 80 MG/DL (74-106) Calcium Level 8.5 MG/DL (8.5-10.1) Total Bilirubin 0.4 MG/DL (0.2-1.0) Aspartate Amino Transf (AST/SGOT) 46 U/L (15-37) H Alanine Aminotransferase (ALT/SGPT) 104 U/L (12-78) H Alkaline Phosphatase 647 U/L (46-116) H Total Protein 7.2 G/DL (6.4-8.2) Albumin 1.2 G/DL (3.4-5.0) L Globulin 6.0 g/dL Albumin/Globulin Ratio 0.2 (1.0-2.7) L Current Medications Medications (Trade) Dose Ordered Sig/Evangelina Route PRN Reason Start Time Stop Time Status Last Admin Dose Admin Acetaminophen (Tylenol Peds) 640 mg Q4HR PRN ORAL FEVER> 101F/PAIN. NTE 3G/24HR 03/29/17 22:15 04/28/17 22:14 04/05/17 02:20 Al Hydroxide/Mg Hydroxide (Mylanta) 30 ml EVERY 4 HOURS PRN GT Constipation 03/29/17 22:15 04/28/17 22:14 Albuterol/ Ipratropium (Albuterol/ Ipratropium) 3 ml Q6HRT HHN 04/05/17 13:00 04/10/17 12:59 04/07/17 07:12 Amikacin Sulfate (Amikin) 500 mg Q12HR@10,22 INH 04/04/17 22:00 04/11/17 21:59 04/07/17 09:30 Bisacodyl (Dulcolax) 10 mg DAILY PRN RECTAL IF MOM INEFFECTIVE 03/29/17 22:15 04/28/17 22:14 Chlorhexidine Gluconate (Oumou-Hex 2%) 1 applic DAILY@2000 TOPIC 03/31/17 20:00 04/30/17 19:59 04/06/17 20:45 Dextrose 1,000 ml @ 100 mls/hr Q10H IV 04/04/17 19:00 05/04/17 18:59 04/07/17 06:45 Diphenhydramine HCl (Benadryl) 12.5 mg Q6H PRN GT Itching 03/29/17 22:45 04/28/17 22:44 04/06/17 20:39 Docusate Sodium (Colace) 100 mg TWICE A DAY GT 03/30/17 09:00 04/29/17 08:59 04/07/17 08:43 Epoetin Ernesto (Procrit (for non ESRD use)) 10,000 units FRI-FRI-FRI SUBQ 04/02/17 21:00 05/02/17 20:59 04/04/17 21:04 Heparin Sodium (Porcine) (Heparin 5000 units/ml) 5,000 units EVERY 12 HOURS SUBQ 03/31/17 09:00 04/30/17 08:59 04/07/17 08:47 Lactulose (Cephulac) 30 gm DAILY PRN GT Constipation 03/29/17 22:45 04/28/17 22:44 Lansoprazole (Prevacid) 30 mg DAILY GT 03/30/17 09:00 04/29/17 08:59 04/07/17 08:44 Magnesium Hydroxide (Mom) 30 ml BEDTIME PRN GT Constipation 03/29/17 22:15 04/28/17 22:14 Metoclopramide HCl (Reglan) 10 mg EVERY 6 HOURS NG 04/01/17 12:00 05/01/17 11:59 04/07/17 11:14 Midodrine (Pro-Amatine) 5 mg THREE TIMES A DAY GT 03/30/17 09:00 04/29/17 08:59 04/07/17 08:43 Multivitamins (Multivitamins W/ Minerals 15ml Liquid) 15 ml DAILY GT 03/30/17 09:00 04/29/17 08:59 04/07/17 08:43 Ondansetron HCl (Zofran) 4 mg Q6H PRN GT Nausea & Vomiting 03/29/17 22:15 04/28/17 22:14 04/01/17 20:37 Sodium Phosphate (Fleet's Sodium Phosl Enema) 133 ml QOD PRN RECTAL IF DULCOLAX INEFFECTIVE 03/29/17 22:15 04/28/17 22:14 Zinc Sulfate (Zinc Sulfate) 220 mg BID GT 03/30/17 09:00 04/29/17 08:59 04/07/17 08:43 TRISHA VARGAS Apr 07, 2017 12:29
--- NOTE | 2017-04-07 13:01 | General Surgery Progress Note ---
General Surgery-Progress Note Subjective Symptoms: improved Additional Comments doing okay. lots of loose stool in rectal tube Objective Last 24 Hour Vital Signs Date Time Temp Pulse Resp B/P (MAP) Pulse Ox O2 Delivery O2 Flow Rate FiO2 04/07/17 12:00 98.1 95 106/74 04/07/17 12:00 28 04/07/17 12:00 106 04/07/17 10:33 100 17 28 04/07/17 09:38 110 18 100 Mechanical Ventilator 28 04/07/17 09:30 28 04/07/17 09:30 112 22 100 Mechanical Ventilator 28 04/07/17 09:14 112 25 28 04/07/17 08:00 28 04/07/17 08:00 95 04/07/17 08:00 97.8 89 18 107/55 99 Mechanical Ventilator 28 04/07/17 07:19 103 14 100 Mechanical Ventilator 28 04/07/17 07:13 106 19 100 Mechanical Ventilator 28 04/07/17 07:13 28 04/07/17 06:30 102 21 28 04/07/17 05:20 91 20 28 04/07/17 04:00 98.2 90 17 105/54 100 Mechanical Ventilator 28 04/07/17 04:00 28 04/07/17 04:00 89 04/07/17 03:00 91 20 28 04/07/17 01:10 83 12 100 Mechanical Ventilator 28 04/07/17 01:01 87 17 100 Mechanical Ventilator 28 04/07/17 01:01 87 17 28 04/07/17 01:01 28 04/07/17 00:00 97.9 90 17 102/59 100 Mechanical Ventilator 28 04/07/17 00:00 28 04/07/17 00:00 90 04/06/17 22:54 89 20 28 04/06/17 21:37 86 16 100 Mechanical Ventilator 28 04/06/17 21:26 89 18 100 Mechanical Ventilator 28 04/06/17 21:26 28 04/06/17 21:24 89 18 28 04/06/17 20:00 97.7 106 24 98/64 100 Mechanical Ventilator 28 04/06/17 20:00 28 04/06/17 20:00 93 04/06/17 19:08 91 17 100 Mechanical Ventilator 28 04/06/17 18:58 88 18 100 Mechanical Ventilator 28 04/06/17 18:58 88 18 28 04/06/17 18:58 28 04/06/17 17:15 93 17 28 04/06/17 16:00 28 04/06/17 16:00 97.9 104 24 101/72 100 Mechanical Ventilator 28 04/06/17 16:00 106 04/06/17 14:41 108 23 28 04/06/17 13:05 105 15 100 Mechanical Ventilator 28 I&O Intake and Output 04/07/17 04/08/17 19:00 07:00 Intake Total 430 ml Balance 430 ml IV Total 400 ml Other 30 ml # Bowel Movements 2 Drains: other - rectal tube Cardiovascular: RSR Respiratory: clear Abdomen: soft, distended, present bowel sounds Extremities: no tenderness Laboratory Tests Test 04/07/17 06:45 White Blood Count 13.4 K/UL (4.8-10.8) H Red Blood Count 3.17 M/UL (4.70-6.10) L Hemoglobin 10.4 G/DL (14.2-18.0) L Hematocrit 32.4 % (42.0-52.0) L Mean Corpuscular Volume 102 FL (80-99) H Mean Corpuscular Hemoglobin 32.7 PG (27.0-31.0) H Mean Corpuscular Hemoglobin Concent 32.0 G/DL (32.0-36.0) Red Cell Distribution Width 16.0 % (11.6-14.8) H Platelet Count 257 K/UL (150-450) Mean Platelet Volume 6.4 FL (6.5-10.1) L Neutrophils (%) (Auto) 67.9 % (45.0-75.0) Lymphocytes (%) (Auto) 21.0 % (20.0-45.0) Monocytes (%) (Auto) 8.9 % (1.0-10.0) Eosinophils (%) (Auto) 1.6 % (0.0-3.0) Basophils (%) (Auto) 0.6 % (0.0-2.0) Sodium Level 140 MMOL/L (136-145) Potassium Level 4.7 MMOL/L (3.5-5.1) Chloride Level 111 MMOL/L (98-107) H Carbon Dioxide Level 24 MMOL/L (21-32) Anion Gap 5 mmol/L (5-15) Blood Urea Nitrogen 12 mg/dL (7-18) Creatinine 1.4 MG/DL (0.55-1.30) H Estimat Glomerular Filtration Rate 51.7 mL/min (>60) Glucose Level 80 MG/DL (74-106) Calcium Level 8.5 MG/DL (8.5-10.1) Total Bilirubin 0.4 MG/DL (0.2-1.0) Aspartate Amino Transf (AST/SGOT) 46 U/L (15-37) H Alanine Aminotransferase (ALT/SGPT) 104 U/L (12-78) H Alkaline Phosphatase 647 U/L (46-116) H Total Protein 7.2 G/DL (6.4-8.2) Albumin 1.2 G/DL (3.4-5.0) L Globulin 6.0 g/dL Albumin/Globulin Ratio 0.2 (1.0-2.7) L Plan Problems: (1) Fecal impaction of colon Assessment & Plan: 62M with likely fecal impaction. chronic ill patient with complicated medical history. in reviewing the CT the entire colon is filled with stool and impacted stool in rectum. distal small bowel with fecalization. No definite transition point noted and minimal proximal dilation which is more consistent with distal stool blockage from colon rather than SBO. Disimpacted at bedside by GI. exam much improved. KUB improved. constipation resolving. Continue with rectal tube as needed will continue to monitor with serial physical exams stool softeners laxatives thank you for this consult. will follow. Errol Barron Apr 07, 2017 13:01
--- NOTE | 2017-04-07 13:38 | Diagnostic Imaging Report ---
Indication: Dyspnea Comparison: 04/02/2017 A single view chest radiograph was obtained. Findings: Right pulmonary infiltrate suspected. Heart size is normal. Left basilar infiltrate also noted. Tracheostomy and PICC line are stable. IMPRESSION: Patchy infiltrate
[2017-04-07 16:00] VITALS: BP 106/75
[2017-04-07] MEDS ORDERED: D5NS 1000ml IV ONE (17:01)
--- NOTE | 2017-04-09 12:59 | Discharge Summary ---
Discharge Summary Hospital Course Date of Admission Mar 29, 2017 at 14:14 Date of Discharge Apr 07, 2017 at 17:02 Admitting Diagnosis Sepsis/Dehydration HPI Eric Hernandez is a 62 year old male who was admitted on Mar 29, 2017 at 14:14 for Sepsis/Dehydration Hospital Course dc summary #[id number] Discharge Medications New Medications: Amikacin Sulfate (Amikin) 500 Mg/2 Ml Vial 500 MG INH Q12HR@10,22 for 7 Days, #14 VIAL Continued Medications: Acetaminophen 160MG/5ML* (Acetaminophen*) 160 Mg/5 Ml Elixir 20 ML GT Q4HR PRN for FEVER> 101F. NTE 3G/24HR Acetaminophen 160MG/5ML* (Acetaminophen*) 160 Mg/5 Ml Elixir 20 ML GT Q4HR PRN for Pain Scale (3-5) Acetaminophen 160MG/5ML* (Acetaminophen*) 160 Mg/5 Ml Elixir 20 ML GT Q4HR PRN for MILD PAIN, NTE 3G/24HR Bisacodyl (Dulcolax) 10 Mg Supp.rect 10 MG RC DAILY PRN for IF MOM INEFFECTIVE Cran/Vitc/Mannose/Inulin/Brom (Uti-Stat Liquid) 3,875 Mg/30 Ml Liquid 30 ML GT DAILY Diphenhydramine Hcl* (Benadryl Allergy*) 12.5 Mg/5 Ml Liquid 25 MG GT Q6H PRN for Itching Docusate Sodium* (Colace*) 100 Mg Capsule 100 MG GT TWICE A DAY for HOLD FOR LBM Epoetin Ernesto (Procrit) 10,000 Unit/1 Ml Vial 20132 UNIT SUBQ 3XW for ON MON, WED, FRI Famotidine (Famotidine) 20 Mg Tablet 20 MG GT DAILY Ferrous Sulfate (Ferrous Sulfate) 220 Mg/5 Ml Elixir 7.5 ML GT TID Ipratropium/Albuterol Sulfate (DuoNeb 0.5-3(2.5)mg/3ml) 3 Ml Ampul.neb 3 ML HHN EVERY 2 HOURS PRN for Shortness of Breath, EA Ipratropium/Albuterol Sulfate (DuoNeb 0.5-3(2.5)mg/3ml) 3 Ml Ampul.neb 3 ML HHN EVERY 6 HOURS for Shortness of Breath, EA Lactulose (Lactulose*) 20 Gm/30 Ml Solution 30 ML GT EVERY SHIFT for HOLD FOR LBM, 0 Refills Magnesium Hydroxide* (Milk Of Magnesia*) 400 Mg/5 Ml Oral.susp 30 ML GT HS PRN for Constipation Midodrine* (Proamatine*) 5 Mg Tablet 5 MG GT THREE TIMES A DAY for HOLD IF SBP > 120 Multivits W-Min/Ferrous Gluc (Multivitamin-Mineral Liquid) 9 Mg/15 Ml Liquid 9 MG GT DAILY for WOUND HEALING/SUPPLEMENT Na Phos,M-B/Na Phos,Di-Ba* (Fleet Enema*) 133 Ml Enema 133 ML RECTAL EVERY 2 DAYS PRN for IF DULCOLAX INEFFECTIVE Ondansetron* (Zofran*) 4 Mg Tablet 4 MG GT Q6H PRN for Nausea & Vomiting Protein Supplement (Promod) 946 Ml Liquid 30 ML GT BID for PROTEIN SUPPLEMENT Vit C/Ascorbate Ca/Ascorb Sod (Vitamin C 500 Mg/15 Ml Liquid) 500 Mg/15 Ml Liquid 500 MG GT DAILY for WOUND HEALING/SUPPLEMENT Zinc Sulfate (Zinc Sulfate*) 220 Mg Capsule 220 MG GT BID for WOUND HEALING Discharge Condition Upon Discharge: stable Discharge Disposition Patient was discharged to SNF Discharge Diagnoses: Discharge Instructions Discharge Instructions Special Instructions I have been assigned to complete a D/C Summary on this account. I was not involved in the patient management Jael Linda NP ([place]) Apr 09, 2017 12:59
--- NOTE | 2017-04-10 10:30 | Discharge Summary 2 SIG ---
DATE OF ADMISSION: 03/29/2017 DATE OF DISCHARGE: 04/07/2017 REASON FOR ADMISSION: 62-year-old male with history of ventilator-dependent respiratory failure, tracheostomy, dysphagia, G-tube, history of recent sepsis with healthcare-associated pneumonia and fungal UTI, and anemia, was sent from the halfway facility for altered mental status. Workup in the emergency department revealed leukocytosis, WBC- 20.4, severe dehydration with BUN- 114 and creatinine -2.7. Albumin -1.9. Urinalysis revealed no evidence of UTI. Chest x-ray showed right-sided infiltrate. ABG was acceptable on current ventilator settings. The patient was afebrile. Lactate was within normal limits. EKG showed J-point elevation similar to the prior EKG. Septic workup initiated. The patient was started on empiric antibiotic and transferred to [facility] for further management with diagnoses of sepsis, right pneumonia, renal failure, dehydration, and ventilator dependency. HOSPITAL COURSE: The patient was admitted. The patient was on empiric antibiotic. ID consulted . Sputum culture grew Proteus ESBL and Pseudomonas MDR. The patient was on IV antibiotic, subsequently was changed to amikacin inhaler prior to discharge as per ID recommendations. Stool for C. difficile was negative. Blood cultures were negative. The patient was on the IV fluids. Renal parameters and electrolytes were closely monitored and nephrotoxics were avoided. With IV hydration, acute renal failure resolved. BUN from 114 down to 12, creatinine from 2.7 down to 1.4, likely element of mild chronic renal insufficiency. Patient was noted to have a distended abdomen. CT of the abdomen and pelvis revealed rectal distention with feces concerning for rectal fecal impaction. Evidence of rectal fecal incontinence. GI and surgery consults were requested. The patient was manually disimpacted at the bedside by GI specialist. The patient was followed up with serial KUB to rule out ileus versus small bowel obstruction. The patient was clinically improving, started on tube feeding, bowel regimen instituted, able to tolerate tube feeding, and had a bowel movement. Per GI, the patient likely had colonic constipation which resolved. Rectal tube was inserted per GI ,and output was closely monitored. Surgeon closely followed. per surgeon, KUB was improving and constipation resolved. Surgeon recommended to continue rectal tube as needed and meticulous bowel regimen. Doors Prefitter closely followed the patient. Echocardiogram was limited, but revealed grossly normal ejection fraction. Cardiorenal function, volume status, and electrolyte parameters were closely monitored. Troponin were negative. Telemetry revealed sinus rhythm. Doors Prefitter noted EKG changes with concern for possible pericarditis. He recommended gentle hydration. He reviewed echocardiogram and concluded, that no additional cardiovascular interventions were indicated. Dietary recommendations were implemented regarding tube feeding and nutritional supplements. The patient was clinically improving. WBC from 20.4 down to 13.4 prior to discharge. The patient was afebrile. Acute renal failure resolved. Mental status back to baseline. The patient was stable for discharge back to subacute facility. Follow up with a chest x-ray at the halfway facility. FINAL DIAGNOSES: 1. Sepsis. 2. Right-sided pneumonia with Pseudomonas multidrug resistant and Providencia extended-spectrum beta-lactamase. 3. Acute on chronic renal failure secondary to dehydration. 4. Dehydration. 5. Ventilator-dependent respiratory failure, tracheostomy status. 6. Dysphagia, gastrostomy tube. 7. Toxic and metabolic encephalopathy. 8. Fecal loading/impaction 9. Ileus versus small bowel obstruction/mainly colonic constipation -resolved. 10. Sacrococcyx un-stageable decubitus ulcer, present on admission. 11. Right lateral knee un-stageable pressure ulcer, present on admission. 12. Severe protein-calorie malnutrition. 13. Possible pericarditis. DISCHARGE MEDICATIONS: See medication reconciliation list. DISCHARGE INSTRUCTIONS: The patient was discharged to subacute halfway facility. FOLLOWUP: Follow up with medical doctor and research quality assurance specialist at the facility. Ney Centeno M.D. I have been assigned to dictate discharge summary on this account and I was not involved in the patient's management. Jael Linda (Vanchtein) N.PAugusta DR: ELZBIETA JOB#: [id number] CC: EMILY
== END 2017-04-07 17:02 | DRG 720 ==
LOC: EDBD 12:58 → EDBEDREQ 13:23 → EMR 13:30 → 2W 14:14 → EDBEDREQ 18:32 → 2W 03-31 22:06
PROC: 5A1955Z Respiratory Ventilation, Greater than 96 Consecutive Hours (ICD-10-PCS; principal; 2017-03-29)
PROC: 02HV33Z Insertion of Infusion Device into Superior Vena Cava, Percutaneous Approach (ICD-10-PCS; 2017-03-31)
PROC: B548ZZA Ultrasonography of Superior Vena Cava, Guidance (ICD-10-PCS; 2017-03-31)
DX: A41.9 Sepsis, unspecified organism (principal); G92 Toxic encephalopathy; E43 Unspecified severe protein-calorie malnutrition; J15.1 Pneumonia due to Pseudomonas; Z99.11 Dependence on respirator [ventilator] status; J96.10 Chronic respiratory failure, unspecified whether with hypoxia or hypercapnia; N17.9 Acute kidney failure, unspecified; Z93.0 Tracheostomy status; Z93.1 Gastrostomy status; N18.9 Chronic kidney disease, unspecified; I50.32 Chronic diastolic (congestive) heart failure; Z68.20 Body mass index [BMI] 20.0-20.9, adult; I31.9 Disease of pericardium, unspecified; K56.41 Fecal impaction; Z22.322 Carrier or suspected carrier of Methicillin resistant Staphylococcus aureus; E86.0 Dehydration; N20.9 Urinary calculus, unspecified; R94.31 Abnormal electrocardiogram [ECG] [EKG]; R13.10 Dysphagia, unspecified; K56.7 Ileus, unspecified; K56.609 Unspecified intestinal obstruction, unspecified as to partial versus complete obstruction
CPT/HCPCS: 36415; 36569; 36600; 71010; 74000; 74176; 76937; 80048; 80053; 80202; 81003; 82550; 82803; 82962; 83605; 83735; 83880; 84484; 85007; 85025; 85610; 85730; 87040; 87070; 87081; 87181; 87205; 87324; 93005; 93306; 94002; 94003; 94640; 94664; 99285; J7620; J8499

== ENCOUNTER 2017-05-31 08:44 | Inpatient (IN) | payer OTHER ==
[~2017-05-31] VITALS: Ht 172.7 cm; Wt 50.8 kg
[~2017-05-31 08:44] MED LIST: ACETAMINOP160 MG/5 M GT; AMIKIN500 MG/2 M INH; BENADRYL A12.5 MG/5 GT; COLACE100 MG GT; DULCOLAX10 MG RC; DUONEB 0.5-3(2.53 ML HHN; FAMOTIDINE20 MG GT; FERROUS SU220 MG/53 GT; FERROUS SULFAT325 MG GT; FLEET ENEMA133 ML RECTAL; LACTULOSE20 GM/301 GT; MIDODRINE HCL5 MG GT; MILK OF MA400 MG/51 GT; MULTIVITAM9 MG/15 M1 GT; PROCRIT10000 UNIT SUBQ; PROMOD946 ML GT; UTI-STAT L3875 MG/31 GT; VITAMIN C500 MG/11 GT; ZINC SULFATE220 M1 GT; ZOFRAN4 M3 GT
[2017-05-31] MEDS ORDERED: Ampicillin/Sulbactam Sod 3 GM in NS 110 ML IVPB ONE (09:15)
[2017-05-31] MEDS ORDERED: Vancomycin 1 GM in NS 275 ML IVPB ONE (09:15)
[2017-05-31] MEDS ORDERED: Unasyn 3gm Inj ONE (09:16)
[2017-05-31] MEDS ORDERED: Vancomycin 1gm inj IVPB ONE (09:16)
[2017-05-31 09:35] VITALS: BP 123/72
[2017-05-31 09:35] LABS: HEMATOCRIT 28.4 % (42.0-52.0); HEMOGLOBIN 9.4 G/DL (14.2-18.0); MEAN CORPUSCULAR VOLUME 96 FL (80-99); PLATELET COUNT 266 K/UL (150-450); RED BLOOD COUNT 2.96 M/UL (4.70-6.10); RED CELL DISTRIBUTION WIDTH 17.3 % (11.6-14.8); WHITE BLOOD COUNT 18.8 K/UL (4.8-10.8)
--- NOTE | 2017-05-31 09:37 | Diagnostic Imaging Report ---
Indication: Shortness of breath Technique: XRAY Chest 1v Comparison: 04/07/2017 Findings: PICC line has been removed. Tracheostomy tube remains in place. Heart size and mediastinal contours are stable. No acute osseous abnormality is seen. There are asymmetric subtle hazy opacities in the right midlung. There is no large pleural effusion. No pneumothorax. Surgical clips again noted in the upper abdomen. Impression: Subtle asymmetric hazy opacities in the right lung, developing infiltrate not entirely excluded. Clinical correlation and follow-up exam recommended.
[2017-05-31 09:50] LABS: APPEARANCE,URINE CLEAR; BILIRUBIN, URINE NEGATIVE (NEGATIVE); GLUCOSE, URINE (UA) NEGATIVE (NEGATIVE); KETONES,URINE NEGATIVE (NEGATIVE); LEUKOCYTE ESTERASE ,URINE 1+ (NEGATIVE); NITRITE,URINE NEGATIVE (NEGATIVE); PH,URINE 5 (4.5-8.0); PROTEIN,URINE 2+ (NEGATIVE); UROBILINOGEN,URINE NORMAL MG/DL (0.0-1.0)
[2017-05-31] MEDS ORDERED: NS 275 ML ONE (09:51)
[2017-05-31 10:01] LABS: COLOR,URINE YELLOW
[2017-05-31 10:05] LABS: ANION GAP 12 mmol/L (5-15); BLOOD UREA NITROGEN 82 mg/dL (7-18); CALCIUM 9.6 MG/DL (8.5-10.1); CARBON DIOXIDE 19 MMOL/L (21-32); CHLORIDE 105 MMOL/L (98-107); CREATININE 3.8 MG/DL (0.55-1.30); POTASSIUM 4.8 MMOL/L (3.5-5.1); SODIUM 136 MMOL/L (136-145)
[2017-05-31 10:28] LABS: ALANINE AMINOTRANSFERASE 166 U/L (12-78); ALBUMIN 1.7 G/DL (3.4-5.0); ALBUMIN/GLOBULIN RATIO 0.2 (1.0-2.7); ALKALINE PHOSPHATASE 909 U/L (46-116); ASPARTATE AMINO TRANSFERASE 79 U/L (15-37); BILIRUBIN,DIRECT 0.6 MG/DL (0.0-0.3); BILIRUBIN,TOTAL 1.1 MG/DL (0.2-1.0); CKMB 0.7 NG/ML (0.0-3.6); CREATINE KINASE 70 U/L (26-308)
--- NOTE | 2017-05-31 10:54 | Emergency Room Report ---
History of Present Illness General Chief Complaint: Abnormal Labs Source: Medical Record, EMS Present Illness HPI Patient is a 62-year-old male sent to her nursing facility after increased white blood count on laboratory testing. The patient was noted to be tracheostomy and ventilator dependent. The patient had an indwelling G-tube as well as indwelling Blum catheter. Patient been noted to have high white blood count. Patient had been high normally tracking with his eyes. Patient was noted to be normotensive. The patient was sent in for further evaluation Allergies: Coded Allergies: No Known Allergies (Unverified , 07/04/16) Patient History Reviewed Nursing Documentation: PMH: Agreed, PSxH: Agreed Nursing Documentation-PMH Hx Cancer: No - UNKOWN Hx Gastrointestinal Problems: Yes - unspecified abdominal surgery Hx Neurological Problems: Yes - Obtunded Review of Systems All Other Systems: limited - by mental status Physical Exam Vital Signs Date Time Temp Pulse Resp B/P (MAP) Pulse Ox O2 Delivery O2 Flow Rate FiO2 05/31/17 08:42 97.9 95 20 125/73 98 Mechanical Ventilator 05/31/17 08:52 40 Sp02 EP Interpretation: normal General Appearance: Chronically Ill Head: normocephalic Eyes: bilateral eye PERRL ENT: dry mucus membranes Neck: limited range of motion, tracheotomy Respiratory: normal breath sounds, rhonchi Cardiovascular #1: normal peripheral pulses, regular rate, rhythm, no edema Gastrointestinal: soft, non-distended, other - gtube site c/d/i Musculoskeletal: decreased range of motion Neurologic: motor weakness, other - Eyes open, nonverbal Psychiatric: depressed affect Skin: normal inspection, normal color, no rash Medical Decision Making Diagnostic Impression: Primary Impression: Cholelithiasis Additional Impressions: Acute on chronic renal insufficiency Sepsis Dehydration ER Course Patient presented for white blood count. Differential diagnosis included wasn' t limited to pneumonia, urinary tract infection, drug fever, allergic reaction, sepsis, cholecystitis, among others.Because of complexity of patient's case laboratory testing and imaging studies were ordered. I laboratory testing was notable for elevated white blood count as well as elevated BUN creatinine compared patient's baseline . Liver function tests were also noted to be abnormal. The patient started on IV antibiotics and IV fluids. Patient started on mechanical ventilator. Chest x-ray one view read by radiology showed subtle hazy opacities in the in the right midlung. Dr. Halina Centeno was contacted for inpatient management due to primary care physician Labs Test 05/31/17 09:00 05/31/17 09:10 Urine Color Yellow Urine Appearance Clear Urine pH 5 (4.5-8.0) Urine Specific [place] 1.010 (1.005-1.035) Urine Protein 2+ (NEGATIVE) Urine Glucose (UA) Negative (NEGATIVE) Urine Ketones Negative (NEGATIVE) Urine Occult Blood 3+ (NEGATIVE) Urine Nitrite Negative (NEGATIVE) Urine Bilirubin Negative (NEGATIVE) Urine Urobilinogen Normal MG/DL (0.0-1.0) Urine Leukocyte Esterase 1+ (NEGATIVE) Urine RBC 2-4 /HPF (0 - 0) Urine WBC 2-4 /HPF (0 - 0) Urine Squamous Epithelial Cells Occasional /LPF Urine Bacteria Occasional /HPF (NONE) White Blood Count 18.8 K/UL (4.8-10.8) Red Blood Count 2.96 M/UL (4.70-6.10) Hemoglobin 9.4 G/DL (14.2-18.0) Hematocrit 28.4 % (42.0-52.0) Mean Corpuscular Volume 96 FL (80-99) Mean Corpuscular Hemoglobin 31.7 PG (27.0-31.0) Mean Corpuscular Hemoglobin Concent 33.1 G/DL (32.0-36.0) Red Cell Distribution Width 17.3 % (11.6-14.8) Platelet Count 266 K/UL (150-450) Mean Platelet Volume 5.9 FL (6.5-10.1) Neutrophils (%) (Auto) % (45.0-75.0) Lymphocytes (%) (Auto) % (20.0-45.0) Monocytes (%) (Auto) % (1.0-10.0) Eosinophils (%) (Auto) % (0.0-3.0) Basophils (%) (Auto) % (0.0-2.0) Differential Total Cells Counted 100 Neutrophils % (Manual) 73 % (45-75) Lymphocytes % (Manual) 7 % (20-45) Monocytes % (Manual) 10 % (1-10) Eosinophils % (Manual) 0 % (0-3) Basophils % (Manual) 0 % (0-2) Band Neutrophils 10 % (0-8) Platelet Estimate Adequate Platelet Morphology Normal Hypochromasia 2+ Anisocytosis 1+ Sodium Level 136 MMOL/L (136-145) Potassium Level 4.8 MMOL/L (3.5-5.1) Chloride Level 105 MMOL/L (98-107) Carbon Dioxide Level 19 MMOL/L (21-32) Anion Gap 12 mmol/L (5-15) Blood Urea Nitrogen 82 mg/dL (7-18) Creatinine 3.8 MG/DL (0.55-1.30) Estimat Glomerular Filtration Rate 16.3 mL/min (>60) Glucose Level 90 MG/DL (74-106) Lactic Acid Level 0.70 mmol/L (0.66-2.22) Calcium Level 9.6 MG/DL (8.5-10.1) Total Bilirubin 1.1 MG/DL (0.2-1.0) Direct Bilirubin 0.6 MG/DL (0.0-0.3) Aspartate Amino Transf (AST/SGOT) 79 U/L (15-37) Alanine Aminotransferase (ALT/SGPT) 166 U/L (12-78) Alkaline Phosphatase 909 U/L (46-116) Total Creatine Kinase 70 U/L (26-308) Creatine Kinase MB 0.7 NG/ML (0.0-3.6) Creatine Kinase MB Relative Index 1.0 Troponin I 0.000 ng/mL (0.000-0.056) Total Protein 8.5 G/DL (6.4-8.2) Albumin 1.7 G/DL (3.4-5.0) Globulin 6.8 g/dL Albumin/Globulin Ratio 0.2 (1.0-2.7) Last Vital Signs Date Time Temp Pulse Resp B/P (MAP) Pulse Ox O2 Delivery O2 Flow Rate FiO2 05/31/17 09:35 98.7 85 16 123/72 99 Mechanical Ventilator 40 Status: unchanged Disposition: ADMITTED INPATIENT Condition: Serious Referrals: HALINA CENTENO (PCP) David Humphrey May 31, 2017 10:54
[2017-05-31 11:34] VITALS: BP 118/43
[2017-05-31 12:30] VITALS: BP 110/68
[2017-05-31 14:10] VITALS: BP 135/65
[2017-05-31 16:00] VITALS: BP 126/62
[2017-05-31] MEDS ORDERED: Lactulose 20gm/30ml UDC ORAL PRN (18:00)
[2017-05-31] MEDS: DiphenhydrAMINE 25mg/10ml Elixir GT PRN (19:58)
[2017-05-31] MEDS: Docusate 100mg/10ml Liq GT SCH (21:55)
[2017-05-31] MEDS: Piperacillin/Tazobactam 2.25 GM in NS 55 ML IVPB SCH (21:56)
[2017-05-31] MEDS: Heparin 5000 units/ml inj SUBQ SCH (21:58)
[2017-06-01] MEDS: DiphenhydrAMINE 25mg/10ml Elixir GT PRN (02:49)
[2017-06-01 05:32] LABS: HEMATOCRIT 24.8 % (42.0-52.0); HEMOGLOBIN 8.1 G/DL (14.2-18.0); MEAN CORPUSCULAR VOLUME 96 FL (80-99); PLATELET COUNT 234 K/UL (150-450); RED BLOOD COUNT 2.58 M/UL (4.70-6.10); WHITE BLOOD COUNT 13.2 K/UL (4.8-10.8)
[2017-06-01] MEDS: Piperacillin/Tazobactam 2.25 GM in NS 55 ML IVPB SCH (05:41)
[2017-06-01 05:53] LABS: ANION GAP 11 mmol/L (5-15); BLOOD UREA NITROGEN 80 mg/dL (7-18); CALCIUM 9.5 MG/DL (8.5-10.1); CARBON DIOXIDE 21 MMOL/L (21-32); CHLORIDE 111 MMOL/L (98-107); CREATININE 3.6 MG/DL (0.55-1.30); POTASSIUM 3.7 MMOL/L (3.5-5.1); SODIUM 142 MMOL/L (136-145)
[2017-06-01 08:00] VITALS: BP 112/68
--- NOTE | 2017-06-01 08:43 | History & Physical ---
History and Physical History & Physicial 62 year old male appeared to have reduced LOC and noted to have abnormal labs transferred for acute care and monitoring Past medical history 1. Sepsis with bacteremia/Vancomycin Resistant Enterococcus. 2. Healthcare-associated pneumonia. 3. Fungal urinary tract infection, status post treatment. 4. Acute on chronic respiratory failure. 5. Ventilator-dependent respiratory failure 6. Acute renal failure on chronic kidney disease (stage 3)-improved ( likely due to dehydration) 7. Elevated transaminase. 8. Cholelithiasis. 9. Dysphagia, G-tube. 10. .Anemia, status post blood transfusion. 11. Tracheostomy. 12. Tracheostomy malfunction. Physical Exam Sp02 EP Interpretation: reviewed, normal General Appearance: reduced LOC Neck: trach in place, carotid 2+ Respiratory: decreased breath sounds, with some rhonchi Cardiovascular #1: regular rate, rhythm, no murmur without MRG Gastrointestinal: non tender, soft, non-distended, GT Musculoskeletal: no CCE Neurologic: reduced mentation Laboratory Tests Test 05/31/17 09:00 05/31/17 09:10 06/01/17 03:35 Urine Color Yellow Urine Appearance Clear Urine pH 5 (4.5-8.0) Urine Specific [place] 1.010 (1.005-1.035) Urine Protein 2+ (NEGATIVE) H Urine Glucose (UA) Negative (NEGATIVE) Urine Ketones Negative (NEGATIVE) Urine Occult Blood 3+ (NEGATIVE) H Urine Nitrite Negative (NEGATIVE) Urine Bilirubin Negative (NEGATIVE) Urine Urobilinogen Normal MG/DL (0.0-1.0) Urine Leukocyte Esterase 1+ (NEGATIVE) H Urine RBC 2-4 /HPF (0 - 0) H Urine WBC 2-4 /HPF (0 - 0) Urine Squamous Epithelial Cells Occasional /LPF Urine Bacteria Occasional /HPF (NONE) White Blood Count 18.8 K/UL (4.8-10.8) H 13.2 K/UL (4.8-10.8) H Red Blood Count 2.96 M/UL (4.70-6.10) L 2.58 M/UL (4.70-6.10) L Hemoglobin 9.4 G/DL (14.2-18.0) L 8.1 G/DL (14.2-18.0) L Hematocrit 28.4 % (42.0-52.0) L 24.8 % (42.0-52.0) L Mean Corpuscular Volume 96 FL (80-99) 96 FL (80-99) Mean Corpuscular Hemoglobin 31.7 PG (27.0-31.0) H 31.5 PG (27.0-31.0) H Mean Corpuscular Hemoglobin Concent 33.1 G/DL (32.0-36.0) 32.7 G/DL (32.0-36.0) Red Cell Distribution Width 17.3 % (11.6-14.8) H 18.0 % (11.6-14.8) H Platelet Count 266 K/UL (150-450) 234 K/UL (150-450) Mean Platelet Volume 5.9 FL (6.5-10.1) L 6.4 FL (6.5-10.1) L Neutrophils (%) (Auto) % (45.0-75.0) % (45.0-75.0) Lymphocytes (%) (Auto) % (20.0-45.0) % (20.0-45.0) Monocytes (%) (Auto) % (1.0-10.0) % (1.0-10.0) Eosinophils (%) (Auto) % (0.0-3.0) % (0.0-3.0) Basophils (%) (Auto) % (0.0-2.0) % (0.0-2.0) Differential Total Cells Counted 100 100 Neutrophils % (Manual) 73 % (45-75) 88 % (45-75) H Lymphocytes % (Manual) 7 % (20-45) L 4 % (20-45) L Monocytes % (Manual) 10 % (1-10) 6 % (1-10) Eosinophils % (Manual) 0 % (0-3) 2 % (0-3) Basophils % (Manual) 0 % (0-2) 0 % (0-2) Band Neutrophils 10 % (0-8) H 0 % (0-8) Platelet Estimate Adequate Adequate Platelet Morphology Normal Normal Hypochromasia 2+ 3+ Anisocytosis 1+ 2+ Sodium Level 136 MMOL/L (136-145) 142 MMOL/L (136-145) Potassium Level 4.8 MMOL/L (3.5-5.1) 3.7 MMOL/L (3.5-5.1) Chloride Level 105 MMOL/L (98-107) 111 MMOL/L (98-107) H Carbon Dioxide Level 19 MMOL/L (21-32) L 21 MMOL/L (21-32) Anion Gap 12 mmol/L (5-15) 11 mmol/L (5-15) Blood Urea Nitrogen 82 mg/dL (7-18) H 80 mg/dL (7-18) H Creatinine 3.8 MG/DL (0.55-1.30) H 3.6 MG/DL (0.55-1.30) H Estimat Glomerular Filtration Rate 16.3 mL/min (>60) 17.4 mL/min (>60) Glucose Level 90 MG/DL (74-106) 85 MG/DL (74-106) Lactic Acid Level 0.70 mmol/L (0.66-2.22) Calcium Level 9.6 MG/DL (8.5-10.1) 9.5 MG/DL (8.5-10.1) Total Bilirubin 1.1 MG/DL (0.2-1.0) H Direct Bilirubin 0.6 MG/DL (0.0-0.3) H Aspartate Amino Transf (AST/SGOT) 79 U/L (15-37) H Alanine Aminotransferase (ALT/SGPT) 166 U/L (12-78) H Alkaline Phosphatase 909 U/L (46-116) H Total Creatine Kinase 70 U/L (26-308) Creatine Kinase MB 0.7 NG/ML (0.0-3.6) Creatine Kinase MB Relative Index 1.0 Troponin I 0.000 ng/mL (0.000-0.056) Total Protein 8.5 G/DL (6.4-8.2) H Albumin 1.7 G/DL (3.4-5.0) L Globulin 6.8 g/dL Albumin/Globulin Ratio 0.2 (1.0-2.7) L Spherocytes 1+ IMPRESSION ARF sepsis respiratory failure trach GT chronic encephalopathy PLAN hydration renal evaluation Iv antibiotics vent feeds [facility] HALINA Haas Jun 01, 2017 08:43
[2017-06-01] MEDS: Heparin 5000 units/ml inj SUBQ SCH ×2 (09:00→20:30)
[2017-06-01] MEDS: Docusate 100mg/10ml Liq GT SCH ×2 (09:12→20:29)
[2017-06-01] MEDS: Ferrous Sulfate 300 MG/5 ML UDC GT SCH (09:12)
[2017-06-01] MEDS: Multivitamins W/Minerals 15 ML UDC GT SCH (09:12)
[2017-06-01] MEDS: Zinc Sulfate 220mg cap GT SCH (09:12)
[2017-06-01] MEDS: Ascorbic Acid 500mg tab GT SCH (09:19)
--- NOTE | 2017-06-01 10:34 | Diagnostic Imaging Report ---
Indication: Abnormal labs, shortness of breath Technique: XRAY Chest 1v Comparison: 05/31/2018 Findings: Heart size and mediastinal contours are stable. Tracheostomy tube in place. Patchy right upper lobe opacities. There patchy opacities in the left lower lung as well. In retrospect, the left lower lung opacities may have been seen on prior exam however there are more pronounced today. No pleural effusion or pneumothorax. Surgical clips noted in the upper mid abdomen. Impression: Increased patchy opacities at the left lower lung. Subtle hazy right medial upper lung opacities unchanged.
[2017-06-01 12:00] VITALS: BP 123/74
[2017-06-01] MEDS: Zosyn 3.375gm q12h **Extended infusion IVPB SCH ×2 (15:25)
--- NOTE | 2017-06-01 15:45 | Consultation ---
DATE OF CONSULTATION: 06/01/2017 NEPHROLOGY CONSULTATION CONSULTING PHYSICIAN: India Mariano M.D. ATTENDING PHYSICIAN: Ney Centeno M.D. REASON FOR CONSULTATION: Elevated BUN and creatinine. HISTORY OF PRESENT ILLNESS: This is an unfortunate 62-year-old male from subacute facility, who was transferred to this hospital due to leukocytosis. The patient is an unfortunate 62-year-old male, who is ventilator dependent, status post tracheostomy and gastrostomy. The patient is in a vegetative state. He was transferred to this hospital due to leukocytosis. PAST MEDICAL HISTORY: 1. Ventilator-dependent respiratory failure. 2. Anoxic encephalopathy. 3. History of cholelithiasis. 4. Chronic kidney disease, etiology unclear. 5. History of fungal urinary tract infection. 6. History of recent pneumonias and recurrent pneumonias. 7. Anemia of chronic kidney disease. MEDICATIONS: Unasyn, IV fluids, Zosyn, vancomycin, ascorbic acid, Benadryl p.r.n., sodium docusate p.r.n., Epogen, famotidine, iron sulfate via G-tube, subcutaneous heparin, lactulose, midodrine three times daily via G-tube, multivitamins via G-tube, Zofran via G-tube p.r.n., vancomycin IV piggyback dosed by pharmacy, and zinc sulfate via G-tube. ALLERGIES: No known allergies. SOCIAL HISTORY: Unable to obtain secondary to mental status. FAMILY HISTORY: Unable to obtain secondary to mental status. REVIEW OF SYSTEMS: Unable to obtain secondary to mental status. PHYSICAL EXAMINATION: GENERAL: This is an elderly male, who is on a ventilator. VITAL SIGNS: Blood pressure 130/80, pulse 68 and regular, respirations 22, and temperature is 98 degrees. HEENT: Head is normocephalic and atraumatic. Pupils are equal, round, and reactive to light. NECK: Supple. Trachea midline. There is no lymphadenopathy or thyromegaly. There is a midline tracheostomy. LUNGS: Bilateral rhonchi. HEART: Regular rate and rhythm without rubs, murmurs, or gallops. ABDOMEN: Soft and nontender. He has a G-tube. EXTREMITIES: No clubbing, cyanosis, or edema. NEUROLOGICAL: He is obtunded. There were no gross focal findings. LABORATORY AND ANCILLARY DATA: CBC, white count initially 18,800, today 13,200; initial hematocrit 28.4, today 24.8; and platelet count 234,000. Chemistry, BUN 90 and creatinine 3.6. Electrolytes within normal limits. Urinalysis is notable for 2+ protein, sediment within normal limits. Chest x-ray, subtle asymmetric hazy opacities in the right lung, developing infiltrate not entirely excluded. ASSESSMENT: 1. Leukocytosis, etiology unclear. 2. Ventilator-dependent respiratory failure. 3. Anoxic encephalopathy. 4. History of cholelithiasis. 5. Chronic kidney disease, etiology unclear. 6. History of fungal urinary tract infection. 7. History of recent pneumonias and recurrent pneumonias. 8. Anemia of chronic kidney disease. PLAN: 1. Continue current therapy per Dr. Centeno. 2. I will follow together with the current team and my suspicion is the patient has chronic kidney disease. 3. We will obtain renal ultrasound to assess the patient's renal reserve. India Mariano M.D. DR: Kelly JOB#: [id number] CC: EMILY
[2017-06-01 16:00] VITALS: BP 122/69
[2017-06-01] MEDS ORDERED: NS 500ML ONE (16:34)
[2017-06-01] MEDS ORDERED: Tubing IV Secondary IV ONE (16:34)
[2017-06-01 20:00] VITALS: BP 111/62
[2017-06-02] VITALS: BP 117/64
[2017-06-02] MEDS: Zosyn 3.375gm q12h **Extended infusion IVPB SCH ×4 (02:50→14:45)
[2017-06-02 04:00] VITALS: BP 117/68
--- NOTE | 2017-06-02 07:56 | General Progress Note ---
Assessment/Plan Assessment/Plan IMPRESSION ARF sepsis respiratory failure trach GT chronic encephalopathy PLAN hydration renal evaluation noted Iv antibiotics vent feeds snf meds dc once renal function improving Subjective ROS Limited/Unobtainable: Yes Allergies: Coded Allergies: No Known Allergies (Unverified , 07/04/16) Subjective reduced LOC renal appreciated Objective Last 24 Hour Vital Signs Date Time Temp Pulse Resp B/P (MAP) Pulse Ox O2 Delivery O2 Flow Rate FiO2 06/02/17 07:16 87 22 40 06/02/17 05:09 88 16 40 06/02/17 04:00 98.1 86 30 117/68 100 Mechanical Ventilator 40 06/02/17 04:00 40 06/02/17 03:47 92 06/02/17 03:28 77 26 40 06/02/17 01:25 84 22 40 06/02/17 00:00 84 06/02/17 00:00 99.0 91 27 117/64 100 Mechanical Ventilator 40 06/01/17 22:53 90 21 40 06/01/17 21:22 73 20 40 06/01/17 20:00 40 06/01/17 20:00 98.4 82 20 111/62 100 Mechanical Ventilator 40 06/01/17 19:46 77 06/01/17 19:08 95 25 40 06/01/17 16:35 78 20 40 06/01/17 16:00 98.1 79 20 122/69 100 Mechanical Ventilator 40 06/01/17 16:00 40 06/01/17 16:00 77 06/01/17 15:19 80 22 40 06/01/17 13:22 68 22 40 06/01/17 12:00 98.2 79 20 123/74 100 Mechanical Ventilator 40 06/01/17 12:00 40 06/01/17 12:00 73 06/01/17 10:45 74 21 40 06/01/17 08:43 68 22 40 06/01/17 08:00 83 06/01/17 08:00 97.4 81 21 112/68 100 Mechanical Ventilator 40 06/01/17 08:00 40 Intake and Output 06/01/17 06/02/17 19:00 07:00 Intake Total 2246.877 ml 2183.06 ml Output Total 500 ml 500 ml Balance 1746.877 ml 1683.06 ml Intake Free Water 500 ml 500 ml IV Total 1246.877 ml 1243.06 ml Tube Feeding 450 ml 440 ml Other 50 ml Output Urine Total 500 ml 500 ml # Bowel Movements 2 2 Laboratory Tests 06/02/17 03:25: Random Vancomycin Level 37.0 Height (Feet): 5 Height (Inches): 8.00 Weight (Pounds): 112 Objective WDWN NAD trach clear breath sounds bilaterally without rhonchi or wheeze [id number] without MRG NABS nontender no HSM no CCE poor LOC HALINA REMY Jun 02, 2017 07:56
[2017-06-02 08:00] VITALS: BP 115/58
[2017-06-02] MEDS: Ferrous Sulfate 300 MG/5 ML UDC GT SCH (09:38)
[2017-06-02] MEDS: Ascorbic Acid 500mg tab GT SCH (09:38)
[2017-06-02] MEDS: Multivitamins W/Minerals 15 ML UDC GT SCH (09:39)
[2017-06-02] MEDS: Zinc Sulfate 220mg cap GT SCH (09:39)
[2017-06-02] MEDS: Docusate 100mg/10ml Liq GT SCH ×2 (09:39→20:38)
[2017-06-02] MEDS: Heparin 5000 units/ml inj SUBQ SCH ×2 (09:40→20:40)
--- NOTE | 2017-06-02 09:53 | Diagnostic Imaging Report ---
Indication:Elevated Bun and Creatinine. Technique: Grayscale and duplex Doppler imaging of the kidneys performed. Comparison: None Findings: 3.6 x 4.2 cm cyst in the right kidney noted. Renal echogenicity is normal. The right kidney measures 11 cm. Left kidney is 9 cm which is borderline small. Bladder is nondistended. Catheter noted. Left kidney is in general poorly seen on this examination due to bowel gas. There is no hydronephrosis. IMPRESSION: Right renal cyst. Poor visualization of the left kidney which is borderline small. Blum catheter
[2017-06-02] MEDS ORDERED: NS 500ML ONE (10:04)
[2017-06-02 10:33] LABS: ANION GAP 11 mmol/L (5-15); BLOOD UREA NITROGEN 81 mg/dL (7-18); CALCIUM 9.2 MG/DL (8.5-10.1); CARBON DIOXIDE 18 MMOL/L (21-32); CHLORIDE 115 MMOL/L (98-107); CREATININE 3.8 MG/DL (0.55-1.30); SODIUM 144 MMOL/L (136-145)
--- NOTE | 2017-06-02 10:33 | Wound Care Consultation ---
Wound Assessment Wound Assessment : Wound Number: 1 Wound Present on Admission: Yes New Wound: No Status Change of Wound: No Wound Location Body Site Modif: mid Wound Location Body Site: other - Sacrococcygeal Wound Type: pressure ulcer Kenan Test: Does not Kenan Pressure Ulcer Stage: Deep Tissue Injury Wound Thickness: Full Thickness Wound Length: 4.5 Wound Width: 5.0 Wound Depth: utd Percent of Wound Purple/Maroon: 100 Wound Drainage Amount: None Wound Drainage Odor: None/Absent Tissue Surrounding Wound: Denuded - and noted scar tissue. Pt is at risk for further skin breakdown Wound General Appearance: Reddened - purple/maroon Wound Comment #1 Sacrococcygeal DTI pressure ulcer surrounding skin noted with scar tissue and denuded skin. Pt is at risk for further skin breakdown. Recommendation -Local wound care per protocol -Keep clean and dry -Turn and reposition -Offload both heels -Heel protector on both heels -Low air loss mattress -Optimize nutrition -Assess and f/u accordingly for any changes AGA SPANGLER RN Jun 02, 2017 10:33
[2017-06-02 12:03] VITALS: BP 129/74
--- NOTE | 2017-06-02 14:07 | Nephrology Progress Note ---
Assessment/Plan Plan CKD IV Stable Subjective Subjective Confused Objective Objective Last 24 Hour Vital Signs Date Time Temp Pulse Resp B/P (MAP) Pulse Ox O2 Delivery O2 Flow Rate FiO2 06/02/17 13:05 79 21 40 06/02/17 12:03 96.0 79 18 129/74 100 Mechanical Ventilator 40 06/02/17 12:01 40 06/02/17 12:01 87 06/02/17 10:32 80 22 40 06/02/17 08:55 82 19 40 06/02/17 08:00 97.9 70 16 115/58 100 Mechanical Ventilator 40 06/02/17 08:00 40 06/02/17 08:00 70 06/02/17 07:16 87 22 40 06/02/17 05:09 88 16 40 06/02/17 04:00 98.1 86 30 117/68 100 Mechanical Ventilator 40 06/02/17 04:00 40 06/02/17 03:47 92 06/02/17 03:28 77 26 40 06/02/17 01:25 84 22 40 06/02/17 00:00 84 06/02/17 00:00 99.0 91 27 117/64 100 Mechanical Ventilator 40 06/01/17 22:53 90 21 40 06/01/17 21:22 73 20 40 06/01/17 20:00 40 06/01/17 20:00 98.4 82 20 111/62 100 Mechanical Ventilator 40 06/01/17 19:46 77 06/01/17 19:08 95 25 40 06/01/17 16:35 78 20 40 06/01/17 16:00 98.1 79 20 122/69 100 Mechanical Ventilator 40 06/01/17 16:00 40 06/01/17 16:00 77 06/01/17 15:19 80 22 40 Intake and Output 06/01/17 06/02/17 19:00 07:00 Intake Total 2246.877 ml 2183.06 ml Output Total 500 ml 500 ml Balance 1746.877 ml 1683.06 ml Intake Free Water 500 ml 500 ml IV Total 1246.877 ml 1243.06 ml Tube Feeding 450 ml 440 ml Other 50 ml Output Urine Total 500 ml 500 ml # Bowel Movements 2 2 Laboratory Tests 06/02/17 03:25: Sodium Level 144, Potassium Level 4.0, Chloride Level 115H, Carbon Dioxide Level 18L, Anion Gap 11, Blood Urea Nitrogen 81H, Creatinine 3.8H, Estimat Glomerular Filtration Rate 16.3, Glucose Level 98, Calcium Level 9.2, Random Vancomycin Level 37.0 Height (Feet): 5 Height (Inches): 8.00 Weight (Pounds): 112 Objective Cv RR On Vent Lungs B David Gunn SNT. BS + E No CCE JASEN YEUNG Jun 02, 2017 14:07
[2017-06-02] MEDS ORDERED: NS 110ml ONE (14:14)
[2017-06-02 16:03] VITALS: BP 126/79
[2017-06-02 20:00] VITALS: BP 110/70
[2017-06-02] MEDS: Epogen (for non ESRD use) SUBQ SCH (20:40)
[2017-06-02] MEDS: DiphenhydrAMINE 25mg/10ml Elixir GT PRN (22:43)
[2017-06-03] VITALS: BP 116/66
[2017-06-03] MEDS: Zosyn 3.375gm q12h **Extended infusion IVPB SCH ×4 (02:33→14:19)
[2017-06-03 04:00] VITALS: BP 130/67
[2017-06-03 05:39] LABS: ANION GAP 12 mmol/L (5-15); BLOOD UREA NITROGEN 77 mg/dL (7-18); CALCIUM 9.3 MG/DL (8.5-10.1); CARBON DIOXIDE 17 MMOL/L (21-32); CHLORIDE 116 MMOL/L (98-107); CREATININE 3.7 MG/DL (0.55-1.30); SODIUM 145 MMOL/L (136-145)
[2017-06-03 08:00] VITALS: BP 122/64
[2017-06-03] MEDS: Multivitamins W/Minerals 15 ML UDC GT SCH (09:07)
[2017-06-03] MEDS: Docusate 100mg/10ml Liq GT SCH ×2 (09:07→20:11)
[2017-06-03] MEDS: Ascorbic Acid 500mg tab GT SCH (09:07)
[2017-06-03] MEDS: Ferrous Sulfate 300 MG/5 ML UDC GT SCH (09:07)
[2017-06-03] MEDS: Zinc Sulfate 220mg cap GT SCH (09:08)
[2017-06-03] MEDS: Heparin 5000 units/ml inj SUBQ SCH ×2 (09:09→20:13)
--- NOTE | 2017-06-03 11:59 | General Progress Note ---
Assessment/Plan Assessment/Plan IMPRESSION ARF sepsis respiratory failure trach GT chronic encephalopathy PLAN hydration renal evaluation noted renal us noted Iv antibiotics vent feeds snf meds dc once renal function improving may need a transfusion Subjective ROS Limited/Unobtainable: Yes Allergies: Coded Allergies: No Known Allergies (Unverified , 07/04/16) Subjective reduced LOC renal appreciated Objective Last 24 Hour Vital Signs Date Time Temp Pulse Resp B/P (MAP) Pulse Ox O2 Delivery O2 Flow Rate FiO2 06/03/17 11:25 79 18 40 06/03/17 08:57 85 24 40 06/03/17 08:00 40 06/03/17 08:00 75 06/03/17 08:00 98.0 67 21 122/64 99 Mechanical Ventilator 40 06/03/17 07:41 75 06/03/17 07:29 81 18 40 06/03/17 04:53 90 21 40 06/03/17 04:07 77 06/03/17 04:00 40 06/03/17 04:00 98.3 77 16 130/67 100 Mechanical Ventilator 40 06/03/17 02:57 79 21 40 06/03/17 01:14 85 22 40 06/03/17 00:00 40 06/03/17 00:00 98.3 95 19 116/66 100 Mechanical Ventilator 40 06/02/17 23:53 88 06/02/17 23:14 74 15 40 06/02/17 20:44 79 27 40 06/02/17 20:07 86 06/02/17 20:00 40 06/02/17 20:00 98.9 89 15 110/70 100 Mechanical Ventilator 40 06/02/17 18:55 87 21 40 06/02/17 16:50 76 21 40 06/02/17 16:03 97.9 77 18 126/79 100 Mechanical Ventilator 40 06/02/17 15:54 74 06/02/17 15:54 40 06/02/17 14:45 82 18 40 06/02/17 13:05 79 21 40 06/02/17 12:03 96.0 79 18 129/74 100 Mechanical Ventilator 40 06/02/17 12:01 40 06/02/17 12:01 87 Intake and Output 06/02/17 06/03/17 19:00 07:00 Intake Total 1700 ml 2356.6 ml Output Total 650 ml 1300 ml Balance 1050 ml 1056.6 ml Intake Free Water 200 ml 750 ml IV Total 1100 ml 1126.6 ml Tube Feeding 400 ml 480 ml Output Urine Total 650 ml 1300 ml # Bowel Movements 1 Laboratory Tests 06/03/17 04:00: Sodium Level 145, Potassium Level 4.0, Chloride Level 116H, Carbon Dioxide Level 17L, Anion Gap 12, Blood Urea Nitrogen 77H, Creatinine 3.7H, Estimat Glomerular Filtration Rate 16.8, Glucose Level 71L, Calcium Level 9.3 Height (Feet): 5 Height (Inches): 8.00 Weight (Pounds): 112 Objective WDWN NAD trach clear breath sounds bilaterally without rhonchi or wheeze [id number] without MRG NABS nontender no HSM no CCE poor LOC HALINA REMY Jun 03, 2017 11:59
[2017-06-03 12:00] VITALS: BP 121/69
--- NOTE | 2017-06-03 13:14 | Nephrology Progress Note ---
Assessment/Plan Plan CKD IV Stable Subjective Subjective Confused Objective Objective Last 24 Hour Vital Signs Date Time Temp Pulse Resp B/P (MAP) Pulse Ox O2 Delivery O2 Flow Rate FiO2 06/03/17 12:00 40 06/03/17 11:30 69 06/03/17 11:25 79 18 40 06/03/17 08:57 85 24 40 06/03/17 08:00 40 06/03/17 08:00 75 06/03/17 08:00 98.0 67 21 122/64 99 Mechanical Ventilator 40 06/03/17 07:41 75 06/03/17 07:29 81 18 40 06/03/17 04:53 90 21 40 06/03/17 04:07 77 06/03/17 04:00 40 06/03/17 04:00 98.3 77 16 130/67 100 Mechanical Ventilator 40 06/03/17 02:57 79 21 40 06/03/17 01:14 85 22 40 06/03/17 00:00 40 06/03/17 00:00 98.3 95 19 116/66 100 Mechanical Ventilator 40 06/02/17 23:53 88 06/02/17 23:14 74 15 40 06/02/17 20:44 79 27 40 06/02/17 20:07 86 06/02/17 20:00 40 06/02/17 20:00 98.9 89 15 110/70 100 Mechanical Ventilator 40 06/02/17 18:55 87 21 40 06/02/17 16:50 76 21 40 06/02/17 16:03 97.9 77 18 126/79 100 Mechanical Ventilator 40 06/02/17 15:54 74 06/02/17 15:54 40 06/02/17 14:45 82 18 40 Intake and Output 06/02/17 06/03/17 19:00 07:00 Intake Total 1700 ml 2356.6 ml Output Total 650 ml 1300 ml Balance 1050 ml 1056.6 ml Intake Free Water 200 ml 750 ml IV Total 1100 ml 1126.6 ml Tube Feeding 400 ml 480 ml Output Urine Total 650 ml 1300 ml # Bowel Movements 1 Laboratory Tests 06/03/17 04:00: Sodium Level 145, Potassium Level 4.0, Chloride Level 116H, Carbon Dioxide Level 17L, Anion Gap 12, Blood Urea Nitrogen 77H, Creatinine 3.7H, Estimat Glomerular Filtration Rate 16.8, Glucose Level 71L, Calcium Level 9.3 Height (Feet): 5 Height (Inches): 8.00 Weight (Pounds): 112 Objective Cv RR On Vent Lungs B David Gunn SNT. BS + E No CCE JASEN YEUNG Jun 03, 2017 13:14
[2017-06-03 16:00] VITALS: BP 127/67
[2017-06-03 20:00] VITALS: BP 122/63
[2017-06-04] VITALS: BP 132/71
[2017-06-04] MEDS: Zosyn 3.375gm q12h **Extended infusion IVPB SCH ×4 (02:09→13:36)
[2017-06-04 04:00] VITALS: BP 123/60
[2017-06-04 05:32] LABS: ANION GAP 11 mmol/L (5-15); BLOOD UREA NITROGEN 74 mg/dL (7-18); CARBON DIOXIDE 18 MMOL/L (21-32); CHLORIDE 116 MMOL/L (98-107); CREATININE 3.7 MG/DL (0.55-1.30); POTASSIUM 3.8 MMOL/L (3.5-5.1); SODIUM 145 MMOL/L (136-145)
[2017-06-04 05:33] LABS: CALCIUM 9.1 MG/DL (8.5-10.1)
[2017-06-04 06:20] LABS: RED BLOOD COUNT 2.18 M/UL (4.70-6.10); WHITE BLOOD COUNT 14.7 K/UL (4.8-10.8)
[2017-06-04 06:22] LABS: HEMATOCRIT 21.1 % (42.0-52.0); HEMOGLOBIN 6.8 G/DL (14.2-18.0); MEAN CORPUSCULAR VOLUME 97 FL (80-99)
[2017-06-04 06:23] LABS: PLATELET COUNT 163 K/UL (150-450); RED CELL DISTRIBUTION WIDTH 19.2 % (11.6-14.8)
[2017-06-04 08:00] VITALS: BP 117/69
--- NOTE | 2017-06-04 08:42 | Nephrology Progress Note ---
Assessment/Plan Plan CKD more advanced then previously + has metabolic acidosis. To collect 24 h urine. Subjective Subjective Confused Objective Objective Last 24 Hour Vital Signs Date Time Temp Pulse Resp B/P (MAP) Pulse Ox O2 Delivery O2 Flow Rate FiO2 06/04/17 08:00 97.5 69 20 117/69 100 Mechanical Ventilator 40 06/04/17 06:57 73 25 40 06/04/17 05:14 71 20 40 06/04/17 04:00 40 06/04/17 04:00 97.5 69 20 123/60 100 Mechanical Ventilator 40 06/04/17 03:18 83 06/04/17 03:17 72 20 40 06/04/17 01:31 64 19 40 06/04/17 00:00 40 06/04/17 00:00 97.7 92 20 132/71 100 Mechanical Ventilator 40 06/03/17 23:25 85 06/03/17 23:21 82 22 40 06/03/17 21:18 80 22 40 06/03/17 20:25 80 22 40 06/03/17 20:00 40 06/03/17 20:00 97.0 70 20 122/63 100 Mechanical Ventilator 40 06/03/17 19:07 72 06/03/17 16:57 82 22 40 06/03/17 16:00 40 06/03/17 16:00 79 20 40 06/03/17 16:00 97.8 69 22 127/67 100 Mechanical Ventilator 40 06/03/17 15:30 69 06/03/17 12:54 76 24 40 06/03/17 12:00 98.2 74 25 121/69 100 Mechanical Ventilator 40 06/03/17 12:00 40 06/03/17 11:30 69 06/03/17 11:25 79 18 40 06/03/17 08:57 85 24 40 Intake and Output 06/03/17 06/04/17 19:00 07:00 Intake Total 1735.0 ml 2130.0 ml Output Total 700 ml 650 ml Balance 1035.0 ml 1480.0 ml Intake Free Water 500 ml 500 ml IV Total 755.0 ml 1310.0 ml Tube Feeding 480 ml 320 ml Output Urine Total 700 ml 650 ml # Bowel Movements 2 Laboratory Tests 06/04/17 03:45: White Blood Count 14.7H, Red Blood Count 2.18L, Hemoglobin 6.8*L, Hematocrit 21.1L, Mean Corpuscular Volume 97, Mean Corpuscular Hemoglobin 31.0, Mean Corpuscular Hemoglobin Concent 32.0, Red Cell Distribution Width 19.2H, Platelet Count 163, Mean Platelet Volume 7.3, Neutrophils (%) (Auto) , Lymphocytes (%) (Auto) , Monocytes (%) (Auto) , Eosinophils (%) (Auto) , Basophils (%) (Auto) , Neutrophils % (Manual) [Pending], Lymphocytes % (Manual) [Pending], Platelet Estimate [Pending], Platelet Morphology [Pending], Sodium Level 145, Potassium Level 3.8, Chloride Level 116H, Carbon Dioxide Level 18L, Anion Gap 11, Blood Urea Nitrogen 74H, Creatinine 3.7H, Estimat Glomerular Filtration Rate , Glucose Level 84, Calcium Level 9.1, Phosphorus Level 3.8, Random Vancomycin Level 27.1 Height (Feet): 5 Height (Inches): 8.00 Weight (Pounds): 112 Objective Cv RR On Vent Lungs B David Gunn SNT. BS + E No CCE JASEN YEUNG Jun 04, 2017 08:42
[2017-06-04] MEDS: Ferrous Sulfate 300 MG/5 ML UDC GT SCH (08:44)
[2017-06-04] MEDS: Heparin 5000 units/ml inj SUBQ SCH ×2 (08:44→20:41)
[2017-06-04] MEDS: Docusate 100mg/10ml Liq GT SCH ×2 (08:45→20:36)
[2017-06-04] MEDS: Multivitamins W/Minerals 15 ML UDC GT SCH (08:46)
[2017-06-04] MEDS: DiphenhydrAMINE 25mg/10ml Elixir GT PRN ×2 (08:46→17:56)
[2017-06-04] MEDS: Ascorbic Acid 500mg tab GT SCH (08:48)
[2017-06-04] MEDS: Zinc Sulfate 220mg cap GT SCH (08:48)
[2017-06-04 08:56] LABS: CREATININE 3.7 MG/DL (0.55-1.30)
[2017-06-04 12:00] VITALS: BP 116/68
--- NOTE | 2017-06-04 15:06 | General Progress Note ---
Assessment/Plan Assessment/Plan IMPRESSION ARF sepsis respiratory failure trach GT chronic encephalopathy anemia PLAN hydration renal evaluation noted renal us noted Iv antibiotics vent transfuse feeds snf meds dc once renal function improving may need a transfusion Subjective Allergies: Coded Allergies: No Known Allergies (Unverified , 07/04/16) Subjective reduced LOC renal appreciated anemic Objective Last 24 Hour Vital Signs Date Time Temp Pulse Resp B/P (MAP) Pulse Ox O2 Delivery O2 Flow Rate FiO2 06/04/17 12:30 73 22 40 06/04/17 12:09 84 06/04/17 12:00 97.1 69 22 116/68 100 Mechanical Ventilator 40 06/04/17 12:00 40 06/04/17 11:21 71 20 40 06/04/17 09:10 77 22 40 06/04/17 08:00 97.5 69 20 117/69 100 Mechanical Ventilator 40 06/04/17 08:00 40 06/04/17 07:35 74 06/04/17 06:57 73 25 40 06/04/17 05:14 71 20 40 06/04/17 04:00 40 06/04/17 04:00 97.5 69 20 123/60 100 Mechanical Ventilator 40 06/04/17 03:18 83 06/04/17 03:17 72 20 40 06/04/17 01:31 64 19 40 06/04/17 00:00 40 06/04/17 00:00 97.7 92 20 132/71 100 Mechanical Ventilator 40 06/03/17 23:25 85 06/03/17 23:21 82 22 40 06/03/17 21:18 80 22 40 06/03/17 20:25 80 22 40 06/03/17 20:00 40 06/03/17 20:00 97.0 70 20 122/63 100 Mechanical Ventilator 40 06/03/17 19:07 72 06/03/17 16:57 82 22 40 06/03/17 16:00 40 06/03/17 16:00 79 20 40 06/03/17 16:00 97.8 69 22 127/67 100 Mechanical Ventilator 40 06/03/17 15:30 69 Intake and Output 06/03/17 06/04/17 19:00 07:00 Intake Total 1735.0 ml 2130.0 ml Output Total 700 ml 650 ml Balance 1035.0 ml 1480.0 ml Intake Free Water 500 ml 500 ml IV Total 755.0 ml 1310.0 ml Tube Feeding 480 ml 320 ml Output Urine Total 700 ml 650 ml # Bowel Movements 2 Laboratory Tests 06/04/17 03:45: White Blood Count 14.7H, Red Blood Count 2.18L, Hemoglobin 6.8*L, Hematocrit 21.1L, Mean Corpuscular Volume 97, Mean Corpuscular Hemoglobin 31.0, Mean Corpuscular Hemoglobin Concent 32.0, Red Cell Distribution Width 19.2H, Platelet Count 163, Mean Platelet Volume 7.3, Neutrophils (%) (Auto) , Lymphocytes (%) (Auto) , Monocytes (%) (Auto) , Eosinophils (%) (Auto) , Basophils (%) (Auto) , Differential Total Cells Counted 100, Neutrophils % ( Manual) 72, Lymphocytes % (Manual) 12L, Monocytes % (Manual) 13H, Eosinophils % (Manual) 3, Basophils % (Manual) 0, Band Neutrophils 0, Platelet Estimate Adequate, Platelet Morphology Normal, Hypochromasia 1+, Anisocytosis 1+, Sodium Level 145, Potassium Level 3.8, Chloride Level 116H, Carbon Dioxide Level 18L, Anion Gap 11, Blood Urea Nitrogen 74H, Creatinine 3.7H, Estimat Glomerular Filtration Rate 16.8, Glucose Level 84, Calcium Level 9.1, Phosphorus Level 3.8 , Random Vancomycin Level 27.1 Height (Feet): 5 Height (Inches): 8.00 Weight (Pounds): 112 Objective WDWN NAD trach clear breath sounds bilaterally without rhonchi or wheeze [id number] without MRG NABS nontender no HSM no CCE poor LOC HALINA REMY Jun 04, 2017 15:06
[2017-06-04 16:00] VITALS: BP 118/69
[2017-06-04 20:00] VITALS: BP 135/69
[2017-06-04] MEDS: Epogen (for non ESRD use) SUBQ SCH (21:19)
[2017-06-05] VITALS: BP 116/66
[2017-06-05] MEDS: Zosyn 3.375gm q12h **Extended infusion IVPB SCH ×4 (01:01→14:01)
[2017-06-05 04:00] VITALS: BP 117/61
[2017-06-05 08:00] VITALS: BP 116/63
--- NOTE | 2017-06-05 08:03 | General Progress Note ---
Assessment/Plan Assessment/Plan IMPRESSION ARF sepsis respiratory failure trach GT chronic encephalopathy anemia PLAN hydration renal followup Iv antibiotics- ?dc vent transfused dc today pending labs impression, plan, and exam edited and reviewed in detail care discussed with RN Subjective ROS Limited/Unobtainable: Yes Allergies: Coded Allergies: No Known Allergies (Unverified , 07/04/16) Subjective reduced LOC s/p transfusion Objective Last 24 Hour Vital Signs Date Time Temp Pulse Resp B/P (MAP) Pulse Ox O2 Delivery O2 Flow Rate FiO2 06/05/17 06:40 64 20 30 06/05/17 05:22 63 20 30 06/05/17 04:00 91 06/05/17 04:00 40 06/05/17 04:00 97.1 66 23 117/61 100 Mechanical Ventilator 40 06/05/17 03:25 71 18 30 06/05/17 01:36 80 18 30 06/05/17 00:00 97.4 68 19 116/66 100 Mechanical Ventilator 40 06/04/17 23:29 56 20 30 06/04/17 20:31 65 20 30 06/04/17 20:00 40 06/04/17 20:00 68 06/04/17 20:00 97.5 67 20 135/69 100 Mechanical Ventilator 40 06/04/17 19:26 60 20 30 06/04/17 16:55 73 22 40 06/04/17 16:00 40 06/04/17 16:00 97.4 70 20 118/69 99 Mechanical Ventilator 40 06/04/17 15:13 74 06/04/17 14:46 77 22 40 06/04/17 12:30 73 22 40 06/04/17 12:09 84 06/04/17 12:00 97.1 69 22 116/68 100 Mechanical Ventilator 40 06/04/17 12:00 40 06/04/17 11:21 71 20 40 06/04/17 09:10 77 22 40 Intake and Output 06/04/17 06/05/17 19:00 07:00 Intake Total 2160.0 ml 1950.0 ml Output Total 750 ml 800 ml Balance 1410.0 ml 1150.0 ml Intake Free Water 500 ml IV Total 1060.0 ml 1210.0 ml Tube Feeding 480 ml 240 ml Other 120 ml 500 ml Output Urine Total 750 ml 800 ml Height (Feet): 5 Height (Inches): 8.00 Weight (Pounds): 112 Objective WDWN NAD trach clear breath sounds bilaterally without rhonchi or wheeze [id number] without MRG NABS nontender no HSM no CCE poor LOC HALINA REMY Jun 05, 2017 08:03
[2017-06-05] MEDS: Docusate 100mg/10ml Liq GT SCH ×2 (08:45→21:38)
[2017-06-05] MEDS: Multivitamins W/Minerals 15 ML UDC GT SCH (08:45)
[2017-06-05] MEDS: Zinc Sulfate 220mg cap GT SCH (08:45)
[2017-06-05] MEDS: Ascorbic Acid 500mg tab GT SCH (08:45)
[2017-06-05] MEDS: Ferrous Sulfate 300 MG/5 ML UDC GT SCH (08:45)
[2017-06-05] MEDS: Heparin 5000 units/ml inj SUBQ SCH ×2 (08:46→21:00)
[2017-06-05 10:38] LABS: HEMATOCRIT 19.1 % (42.0-52.0); MEAN CORPUSCULAR VOLUME 98 FL (80-99); PLATELET COUNT 104 K/UL (150-450); RED BLOOD COUNT 1.95 M/UL (4.70-6.10)
[2017-06-05 10:45] LABS: ANION GAP 14 mmol/L (5-15); BLOOD UREA NITROGEN 70 mg/dL (7-18); CALCIUM 8.8 MG/DL (8.5-10.1); CARBON DIOXIDE 14 MMOL/L (21-32); CHLORIDE 117 MMOL/L (98-107); CREATININE 3.6 MG/DL (0.55-1.30); POTASSIUM 3.5 MMOL/L (3.5-5.1); SODIUM 145 MMOL/L (136-145)
[2017-06-05 12:00] VITALS: BP 120/60
--- NOTE | 2017-06-05 14:05 | Nephrology Progress Note ---
Assessment/Plan Plan CKD more advanced then previously + has metabolic acidosis. To collect 24 h urine Hb 6 - transfuse. Subjective Subjective Confused Objective Objective Last 24 Hour Vital Signs Date Time Temp Pulse Resp B/P (MAP) Pulse Ox O2 Delivery O2 Flow Rate FiO2 06/05/17 12:53 67 23 30 06/05/17 12:00 97.1 62 21 120/60 100 Mechanical Ventilator 30 06/05/17 12:00 59 06/05/17 12:00 30 06/05/17 11:01 62 21 30 06/05/17 08:40 63 18 30 06/05/17 08:00 97.0 65 21 116/63 100 Mechanical Ventilator 30 06/05/17 08:00 30 06/05/17 08:00 68 06/05/17 06:40 64 20 30 06/05/17 05:22 63 20 30 06/05/17 04:00 91 06/05/17 04:00 40 06/05/17 04:00 97.1 66 23 117/61 100 Mechanical Ventilator 40 06/05/17 03:25 71 18 30 06/05/17 01:36 80 18 30 06/05/17 00:00 97.4 68 19 116/66 100 Mechanical Ventilator 40 06/04/17 23:29 56 20 30 06/04/17 20:31 65 20 30 06/04/17 20:00 40 06/04/17 20:00 68 06/04/17 20:00 97.5 67 20 135/69 100 Mechanical Ventilator 40 06/04/17 19:26 60 20 30 06/04/17 16:55 73 22 40 06/04/17 16:00 40 06/04/17 16:00 97.4 70 20 118/69 99 Mechanical Ventilator 40 06/04/17 15:13 74 06/04/17 14:46 77 22 40 Intake and Output 06/04/17 06/05/17 19:00 07:00 Intake Total 2160.0 ml 2190.0 ml Output Total 750 ml 800 ml Balance 1410.0 ml 1390.0 ml Intake Free Water 500 ml IV Total 1060.0 ml 1410.0 ml Tube Feeding 480 ml 280 ml Other 120 ml 500 ml Output Urine Total 750 ml 800 ml Laboratory Tests 06/05/17 09:55: White Blood Count 14.0H, Red Blood Count 1.95L, Hemoglobin 6.0*L, Hematocrit 19.1L, Mean Corpuscular Volume 98, Mean Corpuscular Hemoglobin 30.7, Mean Corpuscular Hemoglobin Concent 31.3L, Red Cell Distribution Width 21.0H, Platelet Count 104L, Mean Platelet Volume 7.4, Neutrophils (%) (Auto) , Lymphocytes (%) (Auto) , Monocytes (%) (Auto) , Eosinophils (%) (Auto) , Basophils (%) (Auto) , Differential Total Cells Counted 100, Neutrophils % ( Manual) 72, Lymphocytes % (Manual) 6L, Monocytes % (Manual) 19H, Eosinophils % ( Manual) 3, Basophils % (Manual) 0, Band Neutrophils 0, Platelet Estimate DecreasedL, Platelet Morphology Normal, Hypochromasia 1+, Anisocytosis 2+, Sodium Level 145, Potassium Level 3.5, Chloride Level 117H, Carbon Dioxide Level 14L, Anion Gap 14, Blood Urea Nitrogen 70H, Creatinine 3.6H, Estimat Glomerular Filtration Rate 17.4, Glucose Level 76, Calcium Level 8.8 Height (Feet): 5 Height (Inches): 8.00 Weight (Pounds): 112 Objective Cv RR On Vent Lungs B David Gunn SNT. BS + E No AGAPITOE JASEN YEUNG Jun 05, 2017 14:05
[2017-06-05 16:00] VITALS: BP 113/72
[2017-06-05 17:21] LABS: CREATININE 3.6 MG/DL (0.55-1.30)
[2017-06-05] MEDS ORDERED: Tubing IV Secondary IV ONE (17:42)
[2017-06-05] MEDS ORDERED: Tubing Blood Filter IV ONE (17:42)
[2017-06-05 20:00] VITALS: BP 127/80
[2017-06-06] VITALS: BP 119/73
[2017-06-06 00:05] LABS: HEMATOCRIT 30.8 % (42.0-52.0); HEMOGLOBIN 10.5 G/DL (14.2-18.0); MEAN CORPUSCULAR VOLUME 94 FL (80-99); PLATELET COUNT 88 K/UL (150-450); RED BLOOD COUNT 3.28 M/UL (4.70-6.10); RED CELL DISTRIBUTION WIDTH 17.1 % (11.6-14.8); WHITE BLOOD COUNT 11.2 K/UL (4.8-10.8)
[2017-06-06 00:08] LABS: ANION GAP 11 mmol/L (5-15); BLOOD UREA NITROGEN 71 mg/dL (7-18); CARBON DIOXIDE 16 MMOL/L (21-32); CHLORIDE 116 MMOL/L (98-107); CREATININE 3.4 MG/DL (0.55-1.30); POTASSIUM 3.6 MMOL/L (3.5-5.1); SODIUM 143 MMOL/L (136-145)
[2017-06-06] MEDS: Zosyn 3.375gm q12h **Extended infusion IVPB SCH ×2 (01:08)
[2017-06-06 04:00] VITALS: BP 126/69
[2017-06-06 08:00] VITALS: BP 118/74
--- NOTE | 2017-06-06 08:37 | General Progress Note ---
Assessment/Plan Assessment/Plan IMPRESSION ARF sepsis respiratory failure trach GT chronic encephalopathy anemia PLAN hydration- can dc renal followup Iv antibiotics- dc with negative cultures vent transfused and improved HH dc today with follow up labs impression, plan, and exam edited and reviewed in detail care discussed with RN Subjective Allergies: Coded Allergies: No Known Allergies (Unverified , 07/04/16) Subjective reduced LOC s/p transfusion improved HH Objective Last 24 Hour Vital Signs Date Time Temp Pulse Resp B/P (MAP) Pulse Ox O2 Delivery O2 Flow Rate FiO2 06/06/17 07:07 64 20 30 06/06/17 05:29 61 20 30 06/06/17 04:00 96.3 79 26 126/69 100 Mechanical Ventilator 30 06/06/17 04:00 66 06/06/17 04:00 30 06/06/17 02:38 64 18 30 06/06/17 01:15 70 18 30 06/06/17 00:00 96.4 65 21 119/73 100 Mechanical Ventilator 30 06/06/17 00:00 30 06/06/17 00:00 77 06/05/17 23:32 68 25 30 06/05/17 20:50 58 18 30 06/05/17 20:00 61 06/05/17 20:00 30 06/05/17 20:00 96.3 62 21 127/80 100 Mechanical Ventilator 30 06/05/17 19:03 60 19 30 06/05/17 17:23 61 21 30 06/05/17 16:00 96.8 59 18 113/72 100 Mechanical Ventilator 30 06/05/17 16:00 30 06/05/17 16:00 61 06/05/17 14:53 69 22 30 06/05/17 12:53 67 23 30 06/05/17 12:00 97.1 62 21 120/60 100 Mechanical Ventilator 30 06/05/17 12:00 59 06/05/17 12:00 30 06/05/17 11:01 62 21 30 06/05/17 08:40 63 18 30 Intake and Output 06/05/17 06/06/17 19:00 07:00 Intake Total 2326.666 ml 2465.0 ml Output Total 550 ml 600 ml Balance 1776.666 ml 1865.0 ml Intake Free Water 500 ml 500 ml IV Total 1046.666 ml 1365.0 ml Tube Feeding 480 ml 320 ml Blood Product 250 ml 250 ml Other 50 ml 30 ml Output Urine Total 550 ml 600 ml Laboratory Tests 06/05/17 09:55: White Blood Count 14.0H, Red Blood Count 1.95L, Hemoglobin 6.0*L, Hematocrit 19.1L, Mean Corpuscular Volume 98, Mean Corpuscular Hemoglobin 30.7, Mean Corpuscular Hemoglobin Concent 31.3L, Red Cell Distribution Width 21.0H, Platelet Count 104L, Mean Platelet Volume 7.4, Neutrophils (%) (Auto) , Lymphocytes (%) (Auto) , Monocytes (%) (Auto) , Eosinophils (%) (Auto) , Basophils (%) (Auto) , Differential Total Cells Counted 100, Neutrophils % ( Manual) 72, Lymphocytes % (Manual) 6L, Monocytes % (Manual) 19H, Eosinophils % ( Manual) 3, Basophils % (Manual) 0, Band Neutrophils 0, Platelet Estimate DecreasedL, Platelet Morphology Normal, Hypochromasia 1+, Anisocytosis 2+, Sodium Level 145, Potassium Level 3.5, Chloride Level 117H, Carbon Dioxide Level 14L, Anion Gap 14, Blood Urea Nitrogen 70H, Creatinine 3.6H, Estimat Glomerular Filtration Rate 17.4, Glucose Level 76, Calcium Level 8.8 06/05/17 15:00: Creatinine [Pending], Estimat Glomerular Filtration Rate [Pending] 06/05/17 23:40: White Blood Count 11.2H, Red Blood Count 3.28L, Hemoglobin 10.5#L, Hematocrit 30.8#L, Mean Corpuscular Volume 94, Mean Corpuscular Hemoglobin 32.0H, Mean Corpuscular Hemoglobin Concent 34.0, Red Cell Distribution Width 17.1H, Platelet Count 88L, Mean Platelet Volume 7.8, Neutrophils (%) (Auto) , Lymphocytes (%) (Auto) , Monocytes (%) (Auto) , Eosinophils (%) (Auto) , Basophils (%) (Auto) , Sodium Level 143, Potassium Level 3.6, Chloride Level 116H, Carbon Dioxide Level 16L, Anion Gap 11, Blood Urea Nitrogen 71H, Creatinine 3.4H, Estimat Glomerular Filtration Rate 18.6, Glucose Level 82, Calcium Level 9.0 06/06/17 03:50: Random Vancomycin Level 22.1 Height (Feet): 5 Height (Inches): 8.00 Weight (Pounds): 112 Objective WDWN NAD trach clear breath sounds bilaterally without rhonchi or wheeze [id number] without MRG NABS nontender no HSM no CCE poor LOC HALINA REMY Jun 06, 2017 08:37
[2017-06-06] MEDS: Multivitamins W/Minerals 15 ML UDC GT SCH (08:41)
[2017-06-06] MEDS: Ascorbic Acid 500mg tab GT SCH (08:41)
[2017-06-06] MEDS: Zinc Sulfate 220mg cap GT SCH (08:41)
[2017-06-06] MEDS: Docusate 100mg/10ml Liq GT SCH (08:41)
[2017-06-06] MEDS: Ferrous Sulfate 300 MG/5 ML UDC GT SCH (08:41)
--- NOTE | 2017-06-06 11:30 | Nephrology Progress Note ---
Assessment/Plan Plan CKD more advanced then previously + has metabolic acidosis. Creatinine clearance 7 ml/min! Hb post transfusion >10 To MAGO Centeno Subjective Subjective Confused Objective Objective Last 24 Hour Vital Signs Date Time Temp Pulse Resp B/P (MAP) Pulse Ox O2 Delivery O2 Flow Rate FiO2 06/06/17 10:57 75 20 30 06/06/17 09:17 69 20 30 06/06/17 08:00 97.7 64 15 118/74 100 Mechanical Ventilator 30 06/06/17 08:00 30 06/06/17 07:07 64 20 30 06/06/17 05:29 61 20 30 06/06/17 04:00 96.3 79 26 126/69 100 Mechanical Ventilator 30 06/06/17 04:00 66 06/06/17 04:00 30 06/06/17 02:38 64 18 30 06/06/17 01:15 70 18 30 06/06/17 00:00 96.4 65 21 119/73 100 Mechanical Ventilator 30 06/06/17 00:00 30 06/06/17 00:00 77 06/05/17 23:32 68 25 30 06/05/17 20:50 58 18 30 06/05/17 20:00 61 06/05/17 20:00 30 06/05/17 20:00 96.3 62 21 127/80 100 Mechanical Ventilator 30 06/05/17 19:03 60 19 30 06/05/17 17:23 61 21 30 06/05/17 16:00 96.8 59 18 113/72 100 Mechanical Ventilator 30 06/05/17 16:00 30 06/05/17 16:00 61 06/05/17 14:53 69 22 30 06/05/17 12:53 67 23 30 06/05/17 12:00 97.1 62 21 120/60 100 Mechanical Ventilator 30 06/05/17 12:00 59 06/05/17 12:00 30 Intake and Output 06/05/17 06/06/17 19:00 07:00 Intake Total 2326.666 ml 2465.0 ml Output Total 550 ml 600 ml Balance 1776.666 ml 1865.0 ml Intake Free Water 500 ml 500 ml IV Total 1046.666 ml 1365.0 ml Tube Feeding 480 ml 320 ml Blood Product 250 ml 250 ml Other 50 ml 30 ml Output Urine Total 550 ml 600 ml Laboratory Tests 06/05/17 15:00: Creatinine [Pending], Estimat Glomerular Filtration Rate [Pending] 06/05/17 23:40: Creatinine 3.4H, Estimat Glomerular Filtration Rate 18.6, White Blood Count 11.2H, Red Blood Count 3.28L, Hemoglobin 10.5#L, Hematocrit 30.8#L, Mean Corpuscular Volume 94, Mean Corpuscular Hemoglobin 32.0H, Mean Corpuscular Hemoglobin Concent 34.0, Red Cell Distribution Width 17.1H, Platelet Count 88L, Mean Platelet Volume 7.8, Neutrophils (%) (Auto) , Lymphocytes (%) (Auto) , Monocytes (%) (Auto) , Eosinophils (%) (Auto) , Basophils (%) (Auto) , Sodium Level 143, Potassium Level 3.6, Chloride Level 116H, Carbon Dioxide Level 16L, Anion Gap 11, Blood Urea Nitrogen 71H, Glucose Level 82, Calcium Level 9.0 06/06/17 03:50: Random Vancomycin Level 22.1 Height (Feet): 5 Height (Inches): 8.00 Weight (Pounds): 112 Objective Cv RR On Vent Lungs B David Gunn SNT. BS + E No AGAPITOE JASEN YEUNG Jun 06, 2017 11:30
[2017-06-06] MEDS ORDERED: Tubing IV Blood Pump IV ONE (11:46)
--- NOTE | 2017-06-09 12:30 | Discharge Summary ---
Discharge Summary Hospital Course Date of Admission May 31, 2017 at 09:20 Date of Discharge Jun 06, 2017 at 11:47 Admitting Diagnosis SEPSIS HPI Eric Hernandez is a 62 year old male who was admitted on May 31, 2017 at 09:20 for Sepsis Hospital Course dc summary #[id number] Discharge Discharge Disposition Patient was discharged to SNF/Subacute Facility(03) Discharge Diagnoses: Discharge Instructions Discharge Instructions Special Instructions I have been assigned to complete a D/C Summary on this account. I was not involved in the patient management Alexei Martel),Jael ALMARAZ Jun 09, 2017 12:30
--- NOTE | 2017-06-09 19:45 | Discharge Summary 2 SIG ---
DATE OF ADMISSION: 05/31/2017 DATE OF DISCHARGE: 06/06/2017 REASON FOR ADMISSION: 62-year-old male with past medical history significant for ventilator-dependent respiratory failure, tracheostomy status, dysphagia, G-tube, recurrent pneumonia, and history of cholelithiasis, presented to emergency department from [facility], where he resides, for evaluation due to leukocytosis. WBC- 18.8. The patient also had anemia with hemoglobin- 9.4 and hematocrit -28.4. Initially, lactic acid was stable. BUN -82 and creatinine -3.8. Chest x-ray revealed subtle asymmetric hazy opacity in the right lung and developing infiltrate was not entirely included. The patient was admitted for further management with diagnoses of acute renal failure, ventilator-dependent respiratory failure, tracheostomy status, anoxic encephalopathy, history of cholelithiasis, history of recurrent pneumonia, leukocytosis, sepsis, and anemia of chronic kidney disease. HOSPITAL COURSE: The patient was admitted to [facility]. Nephrology consult was requested. The patient was started on IV hydration. Renal parameters and electrolytes were closely monitored. Electrolytes corrected as needed. Nephrotoxics were avoided. Administrative Personal Assistant closely followed. Renal ultrasound was unremarkable. According to bag valver, the patient had a chronic kidney disease, which was more advanced than before. The patient also had anemia due to the chronic kidney disease. Hemoglobin and hematocrit were closely monitored. Hemoglobin were trending down. The patient required two units of packed red blood cells transfusion for hemoglobin- 6.0 and hematocrit- 19.1. Prior to discharge, hemoglobin -10.5 and hematocrit- 30.8. Intravenous fluids were discontinued. Prior to discharge, BUN -71 from initial 82 and creatinine 3.4 from initil- 3.8. The patient needs close follow up with the bag valver as outpatient. The patient was initially started on empiric antibiotics for possible sepsis. Blood cultures negative. Followup chest x-ray revealed no evidence of infection. Urinalysis negative. Antibiotics stopped. Sepsis was ruled out. Ventilator support provided. Pulmonary toilet provided. Tracheostomy care was provided. Strict aspiration precautions were maintained. The patient received tube feeding and was able to tolerate it. G-tube site care provided. Wound care nurse seen the patient for sacro-coccyx deep tissue injury pressure ulcer present on admission. Skin care was provided as per wound care nurse recommendation. The patient was stable for discharge back to halfway [facility] for rehab medicine. FINAL DIAGNOSES: 1. Acute on chronic kidney disease. 2. Sepsis was ruled out. 3. Ventilator-dependent respiratory failure with tracheostomy status. 4. Dysphagia, gastrostomy tube. 5. Chronic anoxic encephalopathy. 6. Anemia of chronic kidney disease. 7. Sacral coccyx deep tissue injury, present on admission. DISCHARGE MEDICATIONS: List of medications was sent to accepting faciliy DISCHARGE INSTRUCTIONS: The patient was discharged to subacute halfway facility. FOLLOWUP: Follow up with medical doctor and crystallography teacher at the facility. Ney Centeno M.D. I have been assigned to dictate discharge summary on this account and I was not involved in the patient's management. Jael MercerAdirondack Regional HospitalJayden N.PAugusta DR: MAKALYA JOB#: [id number] CC: EMILY
--- NOTE | 2017-06-15 16:36 | Cardiology Report ---
APPROVED REPORT EKG Measurement Heart [id number] Normal sinus rhythm Lateral infarct, age undetermined Abnormal ECG
== END 2017-06-06 11:47 | DRG 720 ==
LOC: EDBD 08:44 → EMR 08:50 → 2W 09:20 → EDBEDREQ 11:28 → SDSOVERFLO 06-04 14:21 → 2W 06-04 14:36
PROC: 5A1955Z Respiratory Ventilation, Greater than 96 Consecutive Hours (ICD-10-PCS; principal; 2017-05-31)
PROC: 30230N1 Transfusion of Nonautologous Red Blood Cells into Peripheral Vein, Open Approach (ICD-10-PCS; 2017-06-05)
DX: A41.9 Sepsis, unspecified organism (principal); J96.90 Respiratory failure, unspecified, unspecified whether with hypoxia or hypercapnia; G93.49 Other encephalopathy; R40.3 Persistent vegetative state; Z99.11 Dependence on respirator [ventilator] status; L89.150 Pressure ulcer of sacral region, unstageable; N17.9 Acute kidney failure, unspecified; N18.3 Chronic kidney disease, stage 3 (moderate); E86.0 Dehydration; Z93.0 Tracheostomy status; K80.20 Calculus of gallbladder without cholecystitis without obstruction; Z93.1 Gastrostomy status; R13.10 Dysphagia, unspecified; Z79.01 Long term (current) use of anticoagulants; D63.1 Anemia in chronic kidney disease; Z87.01 Personal history of pneumonia (recurrent)
CPT/HCPCS: 36415; 71045; 76775; 80048; 80053; 80202; 81003; 82248; 82550; 82553; 82565; 82575; 83605; 84100; 84484; 85007; 85025; 86850; 86870; 86880; 86900; 86901; 86904; 86920; 87040; 93005; 94002; 94003; 99285